=== PATIENT | male | born 1950 | race Caucasian/White ===

== ENCOUNTER 2021-03-01 11:02 | Inpatient (IN) ==
[2021-03-01 11:22] LABS: ABG BASE EXCESS 1.6 mmol/L (-2.0-2.0); ABG HCO3 23.7 mmol/L (22-26)
--- NOTE | 2021-03-01 11:22 | DR.SOBA ---
HPI Time Seen Time Seen by Provider: 03/01/21 11:17 HPI Comment HPI Comment: PATIENT IS 70YR OLD MALE IN ER FOR INCREASING SOB, DECREASE O2 SAT AND FEVER. HE WAS IN THE [facility] FOR [facility]MENT WHEN HE GOT WORSE AND CAME TO ER. DID NOT RECEIVE HIS INFUSION. TESTED POSITIVE FOR COVID 19 VIRUS FEW DAYS AGO. PATIENT HAVE 8/10 PLEURITIC CHEST PAIN RADIATING TO THE BACK. O2 SAT 84 IN ER ON RA. Complaints Chief Complaint Doctors Comments: INCREASING SOB, LOW O2 SAT AND FEVER. COVID POSITIVE. COVID-19 Coronavirus risk:travel/contact w/high risk person: Yes Has patient experienced Coronavirus symptoms: Yes Coronavirus symptoms experienced: Coughing and Shortness of Breath Reviewed Nurses Notes Reviewed: Yes Source History Provided: Patient Mode of Arrival Mode of Arrival: Wheelchair Duration Duration: Days Context Onset:: At Rest PE Risk Factors:: None History of:: None Prehospital Care:: None Modifying Factors Worsens:: Exertion Improves:: Rest Associated Signs and Symptoms Associated Signs and Symptoms: Fever, Cough and Chest Pain If Chest Pain Quality: Pleuritic Location: Substernal If Cough Cough: Productive and Yellow ROS Review of Systems Constitutional: See HPI, Weakness and Fatigue; negative Fever Eyes: No Symptoms Reported and See HPI ENTM: See HPI, Nose Discharge and Nose Congestion Respiratoy: See HPI, Productive Cough and Short of Breath; negative Wheezing Cardiovascular: No Symptoms Reported, See HPI and Chest Pain (PLEURITIC CHEST PAIN.) Gastrointestinal/Abdominal: No Symptoms Reported and See HPI; negative Abdominal Pain, Diarrhea, Nausea and Vomiting Genitourinary: No Symptoms Reported and See HPI; negative Dysuria, Frequency and Hematuria Neurological: See HPI, Headache and Weakness; negative Dizziness Musculoskeletal: See HPI and Muscle Pain; negative Back Pain Integumentary: No Symptoms Reported and See HPI; negative Change in Color, Rash and Juandice Hematologic/Lymphatic: No Symptoms Reported and See HPI; negative Easy Bruising Endocrine: No Symptoms Reported and See HPI; negative Increased Thirst and Increased Urine Psychiatric: No Symptoms Reported and See HPI All Other Systems: Reviewed and Negative PE Vital Signs Vitals: Temperature 99.6 F Pulse Rate 80 Respiratory Rate 46 Blood Pressure 153/81 O2 Sat by Pulse Oximetry 89 General Limitations: No Limitations General Appearance: Alert and In Distress Head Head Exam: Normal Inspection Eyes Eye exam: Normal Appearance and PERRL; negative Scleral Icterus and Conjunctival Injection ENT ENT Exam: Normal Exam, Normal External Ear Exam and TM's Normal Bilaterally; negative Normal Oropharynx Neck Neck Exam: Normal Inspection and Trachea Midline; negative Tenderness and Lymphadenopathy Chest Chest Inspection: Normal Inspection and Symmetric Chest Wall Rise; negative Tenderness Respiratory Respiratory Exam: Normal Lung Sounds Bilat, Accessory Muscle Use and Respiratory Distress; negative Chest Wall Tenderness Respiratory Exam: Bilateral: Wheezing and Bilateral: Rhonchi and Lower: Wheezing and Lower: Rhonchi Cardiovascular Cardiovascular Exam: Regular Rate, Normal Rhythm and Normal Heart Sounds; nega tive Systolic Murmur and Diastolic Murmur Abdominal Exam Abdominal Exam: Normal Inspection, Normal Bowel Sounds and Soft; negative Tenderness Extremities Extremities Exam: Normal Inspection and Normal Capillary Refill Back Back Exam: Normal Inspection; negative (R) CVA Tenderness and (L) CVA Tenderness Neurologic Neurological Exam: Alert, Oriented X3 and CN II-XII Intact; negative Motor Sensory Deficit Psychiatric Psychiatric Exam: Normal Affect and Anxious Skin Skin Exam: Warm, Dry, Intact and Normal Color MDM Differential Diagnosis Differential Diagnosis: Bronchitis, CHF, Hyponatremia, Mycardial Infarction, Pneumonia, Pneumothorax, Pulmonary embolism, Respiratory Failure and Sinusitis COURSE Treatment Treatment: SEE ORDERS. DUO NEB, SOLUMEDROL 125MG IV. NS, 125CC/HR AND POTASSIUN 25MG EFFER. IN ER. O2 4L/M, O2 SAT STILL LOW. O2 VIA NR MASK. Consultation Consultation Comments: PATIENT DISCUSSED WITH DR. VASQUEZ SERVICE. PATIENT WILL ADMITTED TO DR. VILLALPANDO. Education/Counseling Education/Counseling: Patient Educated On: Diagnosis ROR Labs Reviewed Laboratory Results Reviewed?: Yes Result Diagrams: 04/05/21 05:50 04/05/21 05:50 Laboratory: WBC 5.9 X10^3/uL (3.6-10.0) 03/01/21 11:20 RBC 4.54 X10^6/uL (4.7-6.0) L 03/01/21 11:20 Hgb 13.6 g/dL (13.5-18.0) 03/01/21 11:20 Hct 37.9 % (42.0-54.0) L 03/01/21 11:20 MCV 83.6 fL (80.0-100.0) 03/01/21 11:20 MCH 30.0 pg (27.0-34.0) 03/01/21 11:20 MCHC 35.9 g/dL (33.0-35.0) H 03/01/21 11:20 RDW 12.8 % (11.6-16.5) 03/01/21 11:20 Plt Count 147 X10^3/uL (150.0-450.0) L 03/01/21 11:20 MPV 8.3 fL (7.4-11.0) 03/01/21 11:20 Neut % (Auto) 84.3 % (42.0-75.0) H 03/01/21 11:20 Lymph % (Auto) 8.6 % (21.0-51.0) L 03/01/21 11:20 [place] % (Auto) 7.0 % (0.0-13.0) 03/01/21 11:20 Eos % (Auto) 0.0 % (0.9-2.9) L 03/01/21 11:20 Baso % (Auto) 0.1 % (0.2-1.0) L 03/01/21 11:20 Neut # (Auto) 4.9 x10^3/uL (2.2-4.8) H 03/01/21 11:20 Lymph # (Auto) 0.5 X10^3/uL (1.3-2.9) L 03/01/21 11:20 [place] # (Auto) 0.4 x10^3/uL (0.3-0.8) 03/01/21 11:20 Eos # (Auto) 0.0 x10^3/uL (0.0-0.2) 03/01/21 11:20 Baso # (Auto) 0.0 X10^3/uL (0.0-0.1) 03/01/21 11:20 Absolute Nucleated RBC 0.1 /100WBC 03/01/21 11:20 D-Dimer 0.80 ug/ml (0.0-0.57) H* 03/01/21 11:20 Sample Site Lbra 03/01/21 15:30 ABG pH 7.490 (7.35-7.45) H 03/01/21 15:30 ABG pCO2 30.0 mmHg (35.0-45.0) L 03/01/21 15:30 ABG pO2 64.0 mmHg (80.0-100.0) L 03/01/21 15:30 ABG HCO3 22.9 mmol/L (22-26) 03/01/21 15:30 ABG O2 Saturation 94.0 % (90-100) 03/01/21 15:30 ABG Base Excess 0.3 mmol/L (-2.0-2.0) 03/01/21 15:30 Sree Test N/a 03/01/21 15:30 A-a Gradient 612.0 mmHg 03/01/21 15:30 FiO2 100.0 03/01/21 15:30 Blood Gas Comments Pt hernandez well eb 03/01/21 15:30 Sodium 140 mmol/L (136-145) 03/01/21 11:20 Corrected Sodium TNP 03/01/21 11:20 Potassium 3.3 mmol/L (3.5-5.1) L 03/01/21 11:20 Chloride 104 mmol/L (98-107) 03/01/21 11:20 Carbon Dioxide 27.4 mmol/L (21-32) 03/01/21 11:20 BUN 18 mg/dL (7-18) 03/01/21 11:20 Creatinine 1.05 mg/dL (0.70-1.30) 03/01/21 11:20 Est GFR (MDRD) Af Amer > 60 (>60) 03/01/21 11:20 Est GFR (MDRD) Non-Af > 60 (>60) 03/01/21 11:20 Glucose 106 mg/dL (65-99) H 03/01/21 11:20 Calcium 8.1 mg/dL (8.5-10.1) L 03/01/21 11:20 Corrected Calcium 9.1 mg/dL (8.5-10.1) 03/01/21 11:20 Ferritin 1988 ng/mL (26-388) H 03/01/21 11:20 Total Bilirubin 0.70 mg/dL (0.2-1.0) 03/01/21 11:20 AST 49 Units/L (15-37) H 03/01/21 11:20 ALT 50 Units/L (12-78) 03/01/21 11:20 Alkaline Phosphatase 74 Units/L (46-116) 03/01/21 11:20 Creatine Kinase 121 Units/L (39-308) 03/01/21 11:20 CK-MB (CK-2) < 1.0 ng/mL (0-4.0) 03/01/21 11:20 CK/CKMB % Calc 0.8 % (<4) 03/01/21 11:20 Troponin I < 0.02 ng/mL (0-1.5) 03/01/21 11:20 C-Reactive Protein 87.80 mg/L (0-3.0) H 03/01/21 11:20 B-Natriuretic Peptide 412 pg/mL (0-79) H 03/01/21 11:20 Total Protein 7.3 g/dL (6.4-8.2) 03/01/21 11:20 Albumin 2.8 g/dL (3.4-5.0) L 03/01/21 11:20 Globulin 4.5 g/dL (2.5-4.5) 03/01/21 11:20 Albumin/Globulin Ratio 0.6 Ratio (1.1-2.1) L 03/01/21 11:20 XRAY XRAY Interpreted by: Radiologist (REPORT NOTED AND DISCUSSED WITH PATIENTP) and Self Opioid Opioid Risk Tool Total: 0 Total Score Risk Category: Low Risk Copyright: Silver BA predicting aberrant behaviors Diagnosis Discharge Problem: COVID-19 virus infection, Hypoxia, Hypokalemia Pneumonia Qualifiers: Pneumonia type: due to unspecified organism Laterality: bilateral Lung location: lower lobe of lung Qualified Code(s): J18.9 - Pneumonia, unspecified organism Instructions Forms: Precautions for COVID19 [facility] Patient Portal Social Distancing
[2021-03-01 11:23] LABS: ABG ALLEN TEST POS
[2021-03-01] MEDS ORDERED: DUONEB 0.5 MG/3 MG (3 mL) NEB ONE ×2 (11:38→11:40)
[2021-03-01] MEDS ORDERED: SOLU-Medrol 125 MG VIAL IVP ONE (11:41)
[2021-03-01] MEDS ORDERED: SOLU-Medrol 125 MG VIAL ONE (11:47)
[2021-03-01 11:52] LABS: BASOPHILS % (AUTO) 0.1 % (0.2-1.0); HEMATOCRIT 37.9 % (42.0-54.0); HEMOGLOBIN 13.6 g/dL (13.5-18.0); LYMPHOCYTES # (AUTO) 0.5 X10^3/uL (1.3-2.9); LYMPHOCYTES % (AUTO) 8.6 % (21.0-51.0); MEAN CORPUSCULAR HGB CONC 35.9 g/dL (33.0-35.0); MEAN CORPUSCULAR VOLUME 83.6 fL (80.0-100.0); MEAN PLATELET VOLUME 8.3 fL (7.4-11.0); MONOCYTES # (AUTO) 0.4 x10^3/uL (0.3-0.8); NEUTROPHILS # (AUTO) 4.9 x10^3/uL (2.2-4.8); NEUTROPHILS % (AUTO) 84.3 % (42.0-75.0); PLATELET COUNT 147 X10^3/uL (150.0-450.0); RED BLOOD COUNT 4.54 X10^6/uL (4.7-6.0); RED CELL DISTRIBUTION WIDTH 12.8 % (11.6-16.5); WHITE BLOOD COUNT 5.9 X10^3/uL (3.6-10.0)
--- NOTE | 2021-03-01 12:13 | RAD ---
HISTORYShortness of breath, COVID-19STUDYChest AP portableCOMPARISONNone heart size is accentuated by mild hypo inflation. It is likely normal. There is a subtle peripheral right upper lobe ground-glass infiltrates and possibly some peripheral left lower lobe ground-glass infiltrates presentFINDINGSHeart size is accentuated by mild hypo inflation. It is likely normal. Subtle peripheral right upper and left lower lobe infiltrates are identified. No pleural effusions or pneumothoraces are identified. Bony thorax is unremarkable.IMPRESSIONSubtle peripheral right upper and left lower lobe infiltrates consistent with multifocal pneumonia/pneumonitis. COVID-19 can have this appearance however this appearance is not specific for COVID-19 and clinical and laboratory correlation is recommendedElectronically signed by: SUSAN SILVA (Mar 01, 2021 12:11:03)
[2021-03-01 12:41] LABS: ALANINE AMINOTRANSFERASE 50 Units/L (12-78); ALBUMIN 2.8 g/dL (3.4-5.0); ALKALINE PHOSPHATASE 74 Units/L (46-116); ASPARTATE AMINO TRANSFERASE 49 Units/L (15-37); BLOOD UREA NITROGEN 18 mg/dL (7-18); CALCIUM 8.1 mg/dL (8.5-10.1); CARBON DIOXIDE 27.4 mmol/L (21-32); CHLORIDE 104 mmol/L (98-107); CKMB % 0.8 % (<4); COR CA(FOR HYPOALB) 9.1 mg/dL (8.5-10.1); CREATINE KINASE 121 Units/L (39-308); CREATINE KINASE MB < 1.0 ng/mL (0-4.0); CREATININE 1.05 mg/dL (0.70-1.30); SODIUM 140 mmol/L (136-145); TOTAL PROTEIN 7.3 g/dL (6.4-8.2); TROPONIN I < 0.02 ng/mL (0-1.5); eGFR NON BLACK RACES > 60 (>60)
[2021-03-01] MEDS ORDERED: ZOSYN VIAL 3.375 GRAMS 3.375 G in NS 100 ML IV + SPIKE MINIBAG* 100 ML IV ONE (13:57)
[2021-03-01] MEDS ORDERED: NS 1000 ML 1,000 ML ONE (14:44)
[2021-03-01] MEDS ORDERED: NS 100 ML IV + SPIKE MINIBAG* 100 ML IV ONE (14:44)
[2021-03-01] MEDS ORDERED: ZOSYN VIAL 3.375 GRAMS IV ONE (14:44)
[2021-03-01] MEDS: NS 1000 ML 1,000 ML IV SCH ×2 (14:55→22:14)
[2021-03-01 15:38] LABS: ABG BASE EXCESS 0.3 mmol/L (-2.0-2.0); ABG HCO3 22.9 mmol/L (22-26)
[2021-03-01] MEDS ORDERED: KLOR-CON PO ONE (16:27)
[2021-03-01] MEDS ORDERED: K-DUR TAB 20 MEQ PO ONE ×2 (17:00→17:06)
[2021-03-01] MEDS ORDERED: LOVENOX INJ 80 MG SYR SC ONE ×2 (17:15→17:50)
[2021-03-01] MEDS ORDERED: REMDESIVIR 200 MG in NS 250 ML IV 250 ML IV ONE (17:17)
[2021-03-01] MEDS ORDERED: REMDESIVIR IV ONE (17:33)
[2021-03-01] MEDS ORDERED: NS 250 ML IV 250 ML IV ONE (17:33)
[2021-03-01] MEDS ORDERED: DUONEB 0.5 MG/3 MG (3 mL) NEB SCH (18:00)
[2021-03-01] MEDS ORDERED: LOVENOX INJ 80 MG SYR SC SCH (20:00)
[2021-03-01] MEDS ORDERED: LOVENOX INJ 30 MG SYR SC SCH (21:00)
[2021-03-01] MEDS: PEPCID TAB 40 MG PO SCH (21:33)
[2021-03-01] MEDS: ASCORBIC ACID INJ MULTI-DOSE VIAL 1,500 MG in NS 100 ML IV 100 ML IV SCH (21:33)
[2021-03-01] MEDS: ZINC SULFATE PO SCH (21:33)
[2021-03-01] MEDS: PULMICORT NEB TX 0.5 MG NEB SCH (22:03)
[2021-03-01] MEDS: ZOSYN VIAL 3.375 GRAMS 3.375 G in NS 100 ML IV + SPIKE MINIBAG* 100 ML IV SCH (22:14)
[2021-03-01] MEDS: SOLU-Medrol 40 MG VIAL IVP SCH (22:14)
[2021-03-02] MEDS: NS 1000 ML 1,000 ML IV SCH ×5 (03:30→21:59)
[2021-03-02] MEDS: ASCORBIC ACID INJ MULTI-DOSE VIAL 1,500 MG in NS 100 ML IV 100 ML IV SCH ×4 (03:54→20:44)
[2021-03-02 05:20] LABS: BASOPHILS % (AUTO) 0.1 % (0.2-1.0); HEMATOCRIT 37.2 % (42.0-54.0); LYMPHOCYTES # (AUTO) 0.4 X10^3/uL (1.3-2.9); LYMPHOCYTES % (AUTO) 5.1 % (21.0-51.0); MEAN CORPUSCULAR HEMOGLOBIN 29.4 pg (27.0-34.0); MEAN CORPUSCULAR HGB CONC 34.9 g/dL (33.0-35.0); MEAN CORPUSCULAR VOLUME 84.1 fL (80.0-100.0); MEAN PLATELET VOLUME 8.2 fL (7.4-11.0); MONOCYTES # (AUTO) 0.4 x10^3/uL (0.3-0.8); MONOCYTES % (AUTO) 5.8 % (0.0-13.0); NEUTROPHILS # (AUTO) 6.7 x10^3/uL (2.2-4.8); PLATELET COUNT 165 X10^3/uL (150.0-450.0); RED BLOOD COUNT 4.42 X10^6/uL (4.7-6.0); RED CELL DISTRIBUTION WIDTH 13.1 % (11.6-16.5); WHITE BLOOD COUNT 7.5 X10^3/uL (3.6-10.0)
[2021-03-02 05:31] LABS: ALANINE AMINOTRANSFERASE 46 Units/L (12-78); ALBUMIN 2.5 g/dL (3.4-5.0); ALKALINE PHOSPHATASE 71 Units/L (46-116); ASPARTATE AMINO TRANSFERASE 48 Units/L (15-37); BLOOD UREA NITROGEN 20 mg/dL (7-18); CALCIUM 7.9 mg/dL (8.5-10.1); CHLORIDE 108 mmol/L (98-107); COR CA(FOR HYPOALB) 9.1 mg/dL (8.5-10.1); COR NA(FOR HYPERGLY) 143 mmol/L (136-145); CREATININE 1.02 mg/dL (0.70-1.30); SODIUM 142 mmol/L (136-145); TOTAL PROTEIN 6.9 g/dL (6.4-8.2); eGFR NON BLACK RACES > 60 (>60)
[2021-03-02] MEDS: SOLU-Medrol 40 MG VIAL IVP SCH ×3 (05:35→22:05)
[2021-03-02] MEDS: ZOSYN VIAL 3.375 GRAMS 3.375 G in NS 100 ML IV + SPIKE MINIBAG* 100 ML IV SCH ×3 (05:37→22:05)
[2021-03-02] MEDS: DUONEB 0.5 MG/3 MG (3 mL) NEB SCH ×2 (06:23→22:02)
--- NOTE | 2021-03-02 06:47 | RAD ---
HISTORYCOVID PNEUMONIASTUDYCHEST, 1 [id number]/14/2021.TECHNIQUEAP view of the chestFINDINGSThe cardiac silhouette is stable. Mediastinal contours appear stable. No significant change in bilateral airspace opacities. No definite pleural effusion or pneumothorax.IMPRESSIONNo significant change.Electronically signed by: Elmer Gonzalez (Mar 02, 2021 06:46:00)
[2021-03-02] MEDS ORDERED: MORPHINE SULFATE INJ 2 MG INJ IVP ONE (07:23)
[2021-03-02] MEDS ORDERED: MORPHINE SULFATE INJ 2 MG INJ ONE (07:23)
[2021-03-02] MEDS: FLOMAX PO SCH (08:50)
[2021-03-02] MEDS ORDERED: ACTEMRA 400 MG in NS 100 ML IV 80 ML IV SCH (08:50)
[2021-03-02] MEDS: LOPRESSOR TAB 50 MG PO SCH (08:51)
[2021-03-02] MEDS: PriLOSEC PO SCH (08:52)
[2021-03-02] MEDS: ZINC SULFATE PO SCH ×2 (08:52→20:30)
[2021-03-02] MEDS: TRICOR TAB 160 MG PO SCH (08:53)
[2021-03-02] MEDS: LOVENOX INJ 80 MG SYR SC SCH ×2 (08:53→20:44)
[2021-03-02] MEDS: HYDROCHLOROTHIAZIDE 25 MG TAB PO SCH (08:54)
[2021-03-02] MEDS: PEPCID TAB 40 MG PO SCH ×2 (08:55→20:30)
[2021-03-02] MEDS: PULMICORT NEB TX 0.5 MG NEB SCH ×2 (08:55→22:02)
[2021-03-02] MEDS ORDERED: VITAMIN D (1.25MG) PO SCH (09:00)
[2021-03-02] MEDS ORDERED: VITAMIN A PO SCH (09:00)
[2021-03-02] MEDS ORDERED: [UNRECOGNIZED DRUG - OTHER] PO SCH (09:00)
--- NOTE | 2021-03-02 10:59 | DR.H&P ---
H&P History & Physical for Day of: H&P Date: 03/02/21 Chief Complaint Chief Complaint: worsening SOB Allergies Allergies Allergy/AdvReac Type Severity Reaction Status Date / Time No Known Drug Allergies Allergy Verified 03/01/21 12:04 History of Present Illness History of Present Illness: Mr Solis is a 70y/o male with a PMH of HTN, GERD presented with worsening dyspnea. He tested positive for covid-19 on 02/24/21. He reports increased shortness of breath and cough. He also reports diarrhea. Denies N/V. He has been eating a little bit. Denies fever or chills. He was found to be severely hypoxic on arrival and placed on NRB. He saturations dropped further this morning and he felt worse so was placed on BiPAP. He is currently on BiPAP at FiO2 100% with sats above 95%. Er work-up Labs: WB 7.5 Hgb 13 Plt 165 BUN/Cr: 20/1.02 AST/ALT:48/46 CRP: 87 d-dimer: 0.80 ABG on arrival: 7.52/29/39/23.7 sats 80% Repeat AB.49/30/64/22.9 sats 94% CXR: multifocal pneumonia, bilateral opacities CTAP could not be done as patient is allergic to shrimp and states he is not able to tolerate IV contrast. Plan: Wean BiPAP as tolerated to keep sats >92%. Transition to HHFNC if tolerated. Continue IV Remdesivir, Solumedrol and Zosyn. Continue vitamin alexander pport. Will order one dose of Actemra. Continue nebs, pulmicort and IS as tolerated. Resume home medications. Continue gentle hydration. Continue full dose lovenox. Patient is anxious, received a dose of morphine earlier this morning which helped, will add morphine prn. Monitor AM labs and imaging. Patient remains in critical condition. Time spent for clinical assessment, reviewing labs/imaging, physical exam, decision making and documentation greater than 75 mins. Past Medical History Past Medical History: GERD and Hypertension Past Surgical History Surgical History: Ortho Surgery Family History Family Medical History: Diabetes Mellitus Social History Does patient currently use any type of tobacco product: No Have you used tobacco products in the last 12 months: No Alcohol Use: None Drug Use: None Prescription drug monitoring program results: PDMP reviewed and no concerns identified Medications Home Medications: No Known Drug Allergies Allergy (Verified 03/01/21 12:04) CONTINUE taking the following medications albuterol sulfate 1 puff INHALATION Q6PM PRN 03/01/21 [History] azithromycin 250 mg PO DAILY 03/01/21 [History] candesartan 16 mg PO DAILY 03/01/21 [History] methylprednisolone 4 mg PO DIRECTED 03/01/21 [History] metoprolol ta-hydrochlorothiaz 1 tab PO DAILY 03/01/21 [History] omeprazole 20 mg PO DAILY 03/01/21 [History] tamsulosin 0.4 mg PO DAILY 03/01/21 [History] Labs Result Diagrams: 03/02/21 04:58 03/02/21 04:58 Labs: Laboratory WBC 7.5 X10^3/uL (3.6-10.0) 03/02/21 04:58 RBC 4.42 X10^6/uL (4.7-6.0) L 03/02/21 04:58 Hgb 13.0 g/dL (13.5-18.0) L 03/02/21 04:58 Hct 37.2 % (42.0-54.0) L 03/02/21 04:58 MCV 84.1 fL (80.0-100.0) 03/02/21 04:58 MCH 29.4 pg (27.0-34.0) 03/02/21 04:58 MCHC 34.9 g/dL (33.0-35.0) 03/02/21 04:58 RDW 13.1 % (11.6-16.5) 03/02/21 04:58 Plt Count 165 X10^3/uL (150.0-450.0) 03/02/21 04:58 MPV 8.2 fL (7.4-11.0) 03/02/21 04:58 Neut % (Auto) 89.0 % (42.0-75.0) H 03/02/21 04:58 Lymph % (Auto) 5.1 % (21.0-51.0) L 03/02/21 04:58 [place] % (Auto) 5.8 % (0.0-13.0) 03/02/21 04:58 Eos % (Auto) 0.0 % (0.9-2.9) L 03/02/21 04:58 Baso % (Auto) 0.1 % (0.2-1.0) L 03/02/21 04:58 Neut # (Auto) 6.7 x10^3/uL (2.2-4.8) H 03/02/21 04:58 Lymph # (Auto) 0.4 X10^3/uL (1.3-2.9) L 03/02/21 04:58 [place] # (Auto) 0.4 x10^3/uL (0.3-0.8) 03/02/21 04:58 Eos # (Auto) 0.0 x10^3/uL (0.0-0.2) 03/02/21 04:58 Baso # (Auto) 0.0 X10^3/uL (0.0-0.1) 03/02/21 04:58 Absolute Nucleated RBC 0.0 /100WBC 03/02/21 04:58 D-Dimer 0.80 ug/ml (0.0-0.57) H* 03/01/21 11:20 Sample Site Lbra 03/01/21 15:30 ABG pH 7.490 (7.35-7.45) H 03/01/21 15:30 ABG pCO2 30.0 mmHg (35.0-45.0) L 03/01/21 15:30 ABG pO2 64.0 mmHg (80.0-100.0) L 03/01/21 15:30 ABG HCO3 22.9 mmol/L (22-26) 03/01/21 15:30 ABG O2 Saturation 94.0 % (90-100) 03/01/21 15:30 ABG Base Excess 0.3 mmol/L (-2.0-2.0) 03/01/21 15:30 Sree Test N/a 03/01/21 15:30 A-a Gradient 612.0 mmHg 03/01/21 15:30 FiO2 100.0 03/01/21 15:30 Blood Gas Comments Pt hernandez well eb 03/01/21 15:30 Sodium 142 mmol/L (136-145) 03/02/21 04:58 Corrected Sodium 143 mmol/L (136-145) 03/02/21 04:58 Potassium 4.0 mmol/L (3.5-5.1) 03/02/21 04:58 Chloride 108 mmol/L (98-107) H 03/02/21 04:58 Carbon Dioxide 23.0 mmol/L (21-32) 03/02/21 04:58 BUN 20 mg/dL (7-18) H 03/02/21 04:58 Creatinine 1.02 mg/dL (0.70-1.30) 03/02/21 04:58 Est GFR (MDRD) Af Amer > 60 (>60) 03/02/21 04:58 Est GFR (MDRD) Non-Af > 60 (>60) 03/02/21 04:58 Glucose 134 mg/dL (65-99) H 03/02/21 04:58 Calcium 7.9 mg/dL (8.5-10.1) L 03/02/21 04:58 Corrected Calcium 9.1 mg/dL (8.5-10.1) 03/02/21 04:58 Ferritin 1988 ng/mL (26-388) H 03/01/21 11:20 Total Bilirubin 0.60 mg/dL (0.2-1.0) 03/02/21 04:58 AST 48 Units/L (15-37) H 03/02/21 04:58 ALT 46 Units/L (12-78) 03/02/21 04:58 Alkaline Phosphatase 71 Units/L (46-116) 03/02/21 04:58 Creatine Kinase 121 Units/L (39-308) 03/01/21 11:20 CK-MB (CK-2) < 1.0 ng/mL (0-4.0) 03/01/21 11:20 CK/CKMB % Calc 0.8 % (<4) 03/01/21 11:20 Troponin I < 0.02 ng/mL (0-1.5) 03/01/21 11:20 C-Reactive Protein 87.80 mg/L (0-3.0) H 03/01/21 11:20 B-Natriuretic Peptide 412 pg/mL (0-79) H 03/01/21 11:20 Total Protein 6.9 g/dL (6.4-8.2) 03/02/21 04:58 Albumin 2.5 g/dL (3.4-5.0) L 03/02/21 04:58 Globulin 4.4 g/dL (2.5-4.5) 03/02/21 04:58 Albumin/Globulin Ratio 0.6 Ratio (1.1-2.1) L 03/02/21 04:58 Review of Systems Constitutional: Weakness and Malaise Eyes: No Symptoms Reported ENT: No Symptoms Reported Respiratory: Cough, Shortness of Breath and SOB with Excertion Cardiovascular: No Symptoms Reported Gastrointestinal: Diarrhea Genitourinary: No Symptoms Reported Musculoskeletal: No Symptoms Reported Skin: No Symptoms Reported Neurological: No Symptoms Reported Physical Exam Vital Signs: Temperature 99.1 F Pulse Rate [Left Brachial] 85 Pulse Rate 55 Respiratory Rate 36 Blood Pressure [Left Arm] 153/80 Blood Pressure 159/83 O2 Sat by Pulse Oximetry 98 Oriented: Normal Eyes: Normal Respiratory: Diminished Throughout Cardiovascular: Normal Auscultation: Bowel Sounds: Normal Palpation: Normal Tenderness: Normal Skin: Decreased [place]urg[place] Musculoskeletal: Normal Psychiatric: Anxiety Mood Description: Anxious Affect: Normal Speech Pattern: Clear, Appropriate and Artificially Ventilated (BiPAP ) Assessment/Plan (1) Acute respiratory failure with hypoxia: Status: Acute (2) COVID-19 virus infection: Status: Acute (3) Hypokalemia: Status: Acute (4) Pneumonia due to COVID-19 virus: Status: Acute (5) Elevated d-dimer: Status: Acute Review H&P Reviewed: Yes Patient was examined?: Yes
[2021-03-02] MEDS: REMDESIVIR 100 MG in NS 100 ML IV + SPIKE MINIBAG* 120 ML IV SCH (12:58)
[2021-03-02] MEDS: CANDESARTAN 16 MG PO SCH (13:17)
[2021-03-02] MEDS ORDERED: ZOFRAN INJ 4 MG VIAL ONE (21:26)
[2021-03-02] MEDS: ZOFRAN INJ 4 MG VIAL IVP PRN (21:32)
[2021-03-02] MEDS: MORPHINE SULFATE INJ 2 MG INJ IVP PRN (23:10)
--- NOTE | 2021-03-03 00:32 | RAD ---
STUDY: SINGLE VIEW OF THE ABDOMENCOMPARISON: NoneHISTORY: PT C/O ABD PAIN AND DISTENTION AROUND UMBILICUS AREAFINDINGS:Bowel gas pattern is nonobstructive.There is no gross evidence of free air in the abdomen.There are no abnormal masses or calcification seen.The visualized bones are unremarkable.IMPRESSION:1. THE BOWEL GAS PATTERN IS NONOBSTRUCTIVE.Electronically signed by: Ever Hassan (Mar 03, 2021 00:30:23)
[2021-03-03] MEDS: ASCORBIC ACID INJ MULTI-DOSE VIAL 1,500 MG in NS 100 ML IV 100 ML IV SCH ×4 (04:16→21:00)
[2021-03-03 05:11] LABS: ABG BASE EXCESS 1.3 mmol/L (-2.0-2.0); ABG HCO3 24.9 mmol/L (22-26)
[2021-03-03 05:12] LABS: ABG ALLEN TEST POS
[2021-03-03] MEDS: DUONEB 0.5 MG/3 MG (3 mL) NEB SCH ×2 (05:50→21:05)
--- NOTE | 2021-03-03 06:14 | RAD ---
HISTORYCOVID PNEUMONIASTUDYCHEST, 1 VIEWCOMPARISONOne day prior.TECHNIQUEAP view of the chestFINDINGSCardiac and mediastinal contours are within normal limits. Interval improvement in bilateral airspace opacities. No definite pleural effusion or pneumothorax.IMPRESSIONImproved COVID pneumonia opacities.Electronically signed by: Elmer Gonzalez (Mar 03, 2021 06:12:36)
[2021-03-03] MEDS: NS 1000 ML 1,000 ML IV SCH ×3 (06:17→16:09)
[2021-03-03] MEDS: SOLU-Medrol 40 MG VIAL IVP SCH ×3 (06:20→22:00)
[2021-03-03] MEDS: ZOSYN VIAL 3.375 GRAMS 3.375 G in NS 100 ML IV + SPIKE MINIBAG* 100 ML IV SCH ×3 (06:20→22:00)
[2021-03-03 06:31] LABS: BASOPHILS % (AUTO) 0.1 % (0.2-1.0); HEMATOCRIT 36.5 % (42.0-54.0); LYMPHOCYTES # (AUTO) 0.4 X10^3/uL (1.3-2.9); LYMPHOCYTES % (AUTO) 4.5 % (21.0-51.0); MEAN CORPUSCULAR HEMOGLOBIN 29.6 pg (27.0-34.0); MEAN CORPUSCULAR HGB CONC 35.5 g/dL (33.0-35.0); MEAN CORPUSCULAR VOLUME 83.5 fL (80.0-100.0); MEAN PLATELET VOLUME 8.3 fL (7.4-11.0); MONOCYTES # (AUTO) 0.5 x10^3/uL (0.3-0.8); NEUTROPHILS # (AUTO) 7.9 x10^3/uL (2.2-4.8); NEUTROPHILS % (AUTO) 89.4 % (42.0-75.0); PLATELET COUNT 199 X10^3/uL (150.0-450.0); RED BLOOD COUNT 4.37 X10^6/uL (4.7-6.0); RED CELL DISTRIBUTION WIDTH 13.1 % (11.6-16.5); WHITE BLOOD COUNT 8.9 X10^3/uL (3.6-10.0)
[2021-03-03 06:41] LABS: ALANINE AMINOTRANSFERASE 56 Units/L (12-78); ALBUMIN 2.5 g/dL (3.4-5.0); ALKALINE PHOSPHATASE 79 Units/L (46-116); ASPARTATE AMINO TRANSFERASE 57 Units/L (15-37); BLOOD UREA NITROGEN 28 mg/dL (7-18); CALCIUM 7.9 mg/dL (8.5-10.1); CARBON DIOXIDE 26.2 mmol/L (21-32); CHLORIDE 108 mmol/L (98-107); COR CA(FOR HYPOALB) 9.1 mg/dL (8.5-10.1); COR NA(FOR HYPERGLY) 144 mmol/L (136-145); CREATININE 0.99 mg/dL (0.70-1.30); SODIUM 143 mmol/L (136-145); TOTAL PROTEIN 6.7 g/dL (6.4-8.2); eGFR NON BLACK RACES > 60 (>60)
[2021-03-03] MEDS: ZOFRAN INJ 4 MG VIAL IVP PRN (08:28)
[2021-03-03] MEDS: TRICOR TAB 160 MG PO SCH (08:29)
[2021-03-03] MEDS: VITAMIN A PO SCH (08:29)
[2021-03-03] MEDS: FLOMAX PO SCH (08:29)
[2021-03-03] MEDS: ZINC SULFATE PO SCH ×2 (08:29→21:00)
[2021-03-03] MEDS: PriLOSEC PO SCH (08:30)
[2021-03-03] MEDS: LOVENOX INJ 80 MG SYR SC SCH ×2 (08:30→21:00)
[2021-03-03] MEDS: HYDROCHLOROTHIAZIDE 25 MG TAB PO SCH (08:30)
[2021-03-03] MEDS: LOPRESSOR TAB 50 MG PO SCH (08:30)
[2021-03-03] MEDS: REMDESIVIR 100 MG in NS 100 ML IV + SPIKE MINIBAG* 120 ML IV SCH (08:30)
[2021-03-03] MEDS: PEPCID TAB 40 MG PO SCH ×2 (08:30→21:00)
[2021-03-03] MEDS: VITAMIN D3 125 mcg (5,000 UNITS) PO SCH (08:31)
[2021-03-03] MEDS ORDERED: RESTORIL CAP 15 MG PO PRN (09:03)
[2021-03-03] MEDS ORDERED: HumuLIN R SC PRN (09:04)
[2021-03-03] MEDS: CANDESARTAN 16 MG PO SCH (09:06)
[2021-03-03] MEDS: PULMICORT NEB TX 0.5 MG NEB SCH ×2 (09:12→21:05)
--- NOTE | 2021-03-03 09:15 | PCM.PROG ---
Progress Note Progress Note for Day of Date of Exam: 03/03/21 Subjective Subjective: Patient seen at bedside, no acute events overnight. He was placed back on BiPAP overnight, currently on HHFNC at FiO2 79% with sats above 90%. He states he feels much better with HHFNC rather than BiPAP mask. He was not able to sleep much due to feeling anxious. He reports good appetite. Denies fever or chills. Labs: WBC 8.9 Hgb 13 Plt 199 K: 3.7 BUN/Cr: 28/0.99 Glucose 158 CRP 63 AST/ALT: 57/56 ABG 7.46/35/139/24 CXR: improved covid pneumonia KUB: non-obstructive gas pattern Plan: Wean O2 as tolerated to keep sats > 90%, BiPAP prn. Continue covid-19 protocol and telemetry. Continue IV Remdesivir, Solumedrol and Zosyn. Continue vitamin support and lovenox. Continue nebs, pulmicort and IS. Continue home medications. Gentle hydration. Add insulin for hyperglycemia. Add temazepam qhs prn. Monitor AM labs/imaging. Time spent for clinical assessment, reviewing labs/imaging, physical exam, decision making and documentation greater than 45 mins. Past Medical Family Social History Past Med/Fam/Surg Hx: No changes since H&P Allergies: Allergies IVP DYE Allergy (Uncoded 03/02/21 18:20) Review of Systems ROS: No change since H&P Vital Signs and I&O's Vital Signs: Temperature 98.1 F Pulse Rate [Left Brachial] 85 Pulse Rate 62 Respiratory Rate 26 Blood Pressure [Left Arm] 153/80 Blood Pressure 139/77 O2 Sat by Pulse Oximetry 93 Intake and Output: Intake & Output 02/28/21 03/01/21 03/02/21 03/03/21 23:59 23:59 23:59 23:59 Intake Total 1450 / 1450 3225 / 3225 690 / 690 Output Total 550 / 550 1250 / 1250 450 / 450 Balance 900 / 900 1974 / 1974 240 / 240 Physical Exam Oriented: Normal Eyes: Normal Ear: Normal Nose: Normal Throat: Normal Respiratory: Generalized and Diminished Cardiovascular: Normal Auscultation: Bowel Sounds: Normal Tenderness: Normal Skin: Normal Musculoskeletal: Normal Psychiatric: Normal Mood Description: Calm Affect: Normal Speech Pattern: Clear and Appropriate Laboratory and Diagnostics Result Diagrams: 03/03/21 05:35 03/03/21 05:35 Labs: Laboratory WBC 8.9 X10^3/uL (3.6-10.0) 03/03/21 05:35 RBC 4.37 X10^6/uL (4.7-6.0) L 03/03/21 05:35 Hgb 13.0 g/dL (13.5-18.0) L 03/03/21 05:35 Hct 36.5 % (42.0-54.0) L 03/03/21 05:35 MCV 83.5 fL (80.0-100.0) 03/03/21 05:35 MCH 29.6 pg (27.0-34.0) 03/03/21 05:35 MCHC 35.5 g/dL (33.0-35.0) H 03/03/21 05:35 RDW 13.1 % (11.6-16.5) 03/03/21 05:35 Plt Count 199 X10^3/uL (150.0-450.0) 03/03/21 05:35 MPV 8.3 fL (7.4-11.0) 03/03/21 05:35 Neut % (Auto) 89.4 % (42.0-75.0) H 03/03/21 05:35 Lymph % (Auto) 4.5 % (21.0-51.0) L 03/03/21 05:35 [place] % (Auto) 6.0 % (0.0-13.0) 03/03/21 05:35 Eos % (Auto) 0.0 % (0.9-2.9) L 03/03/21 05:35 Baso % (Auto) 0.1 % (0.2-1.0) L 03/03/21 05:35 Neut # (Auto) 7.9 x10^3/uL (2.2-4.8) H 03/03/21 05:35 Lymph # (Auto) 0.4 X10^3/uL (1.3-2.9) L 03/03/21 05:35 [place] # (Auto) 0.5 x10^3/uL (0.3-0.8) 03/03/21 05:35 Eos # (Auto) 0.0 x10^3/uL (0.0-0.2) 03/03/21 05:35 Baso # (Auto) 0.0 X10^3/uL (0.0-0.1) 03/03/21 05:35 Absolute Nucleated RBC 0.0 /100WBC 03/03/21 05:35 D-Dimer 0.80 ug/ml (0.0-0.57) H* 03/01/21 11:20 Sample Site Rrad 03/03/21 05:09 ABG pH 7.460 (7.35-7.45) H 03/03/21 05:09 ABG pCO2 35.0 mmHg (35.0-45.0) 03/03/21 05:09 ABG pO2 139.0 mmHg (80.0-100.0) H 03/03/21 05:09 ABG HCO3 24.9 mmol/L (22-26) 03/03/21 05:09 ABG O2 Saturation 99.0 % (90-100) 03/03/21 05:09 ABG Base Excess 1.3 mmol/L (-2.0-2.0) 03/03/21 05:09 Sree Test Pos 03/03/21 05:09 A-a Gradient 530.0 mmHg 03/03/21 05:09 FiO2 100.0 03/03/21 05:09 Blood Gas Comments Elbert abg well-mtf 03/03/21 05:09 Sodium 143 mmol/L (136-145) 03/03/21 05:35 Corrected Sodium 144 mmol/L (136-145) 03/03/21 05:35 Potassium 3.7 mmol/L (3.5-5.1) 03/03/21 05:35 Chloride 108 mmol/L (98-107) H 03/03/21 05:35 Carbon Dioxide 26.2 mmol/L (21-32) 03/03/21 05:35 BUN 28 mg/dL (7-18) H 03/03/21 05:35 Creatinine 0.99 mg/dL (0.70-1.30) 03/03/21 05:35 Est GFR (MDRD) Af Amer > 60 (>60) 03/03/21 05:35 Est GFR (MDRD) Non-Af > 60 (>60) 03/03/21 05:35 Glucose 158 mg/dL (65-99) H 03/03/21 05:35 Calcium 7.9 mg/dL (8.5-10.1) L 03/03/21 05:35 Corrected Calcium 9.1 mg/dL (8.5-10.1) 03/03/21 05:35 Ferritin 1988 ng/mL (26-388) H 03/01/21 11:20 Total Bilirubin 0.60 mg/dL (0.2-1.0) 03/03/21 05:35 AST 57 Units/L (15-37) H 03/03/21 05:35 ALT 56 Units/L (12-78) 03/03/21 05:35 Alkaline Phosphatase 79 Units/L (46-116) 03/03/21 05:35 Creatine Kinase 121 Units/L (39-308) 03/01/21 11:20 CK-MB (CK-2) < 1.0 ng/mL (0-4.0) 03/01/21 11:20 CK/CKMB % Calc 0.8 % (<4) 03/01/21 11:20 Troponin I < 0.02 ng/mL (0-1.5) 03/01/21 11:20 C-Reactive Protein 63.00 mg/L (0-3.0) H 03/03/21 05:35 B-Natriuretic Peptide 412 pg/mL (0-79) H 03/01/21 11:20 Total Protein 6.7 g/dL (6.4-8.2) 03/03/21 05:35 Albumin 2.5 g/dL (3.4-5.0) L 03/03/21 05:35 Globulin 4.2 g/dL (2.5-4.5) 03/03/21 05:35 Albumin/Globulin Ratio 0.6 Ratio (1.1-2.1) L 03/03/21 05:35 Plan (1) Acute respiratory failure with hypoxia: Status: Acute (2) COVID-19 virus infection: Status: Acute (3) Hypokalemia: Status: Acute (4) Pneumonia due to COVID-19 virus: Status: Acute (5) Elevated d-dimer: Status: Acute
[2021-03-03] MEDS: MORPHINE SULFATE INJ 2 MG INJ IVP PRN (13:39)
[2021-03-03] MEDS ORDERED: APRESOLINE INJ 20 MG VIAL IVP PRN (15:54)
[2021-03-03] MEDS: KLOR-CON PO PRN (18:06)
[2021-03-04] MEDS: NS 1000 ML 1,000 ML IV SCH ×2 (00:50→06:00)
[2021-03-04] MEDS ORDERED: VALIUM INJ IVP ONE (02:50)
[2021-03-04] MEDS ORDERED: VALIUM INJ ONE (02:53)
[2021-03-04] MEDS ORDERED: VALIUM INJ IM ONE (02:54)
[2021-03-04] MEDS: MORPHINE SULFATE INJ 2 MG INJ IVP PRN (03:54)
[2021-03-04] MEDS ORDERED: PRECEDEX 400 MCG/100 ML PREMIX 400 MCG/100 ML INFUS..BTL IV PRN (04:13)
[2021-03-04] MEDS: DUONEB 0.5 MG/3 MG (3 mL) NEB SCH ×3 (05:58→20:30)
[2021-03-04] MEDS: SOLU-Medrol 40 MG VIAL IVP SCH ×3 (06:00→21:17)
[2021-03-04] MEDS: ZOSYN VIAL 3.375 GRAMS 3.375 G in NS 100 ML IV + SPIKE MINIBAG* 100 ML IV SCH (06:00)
[2021-03-04 06:02] LABS: BASOPHILS % (AUTO) 0 % (0.2-1.0); HEMATOCRIT 36.5 % (42.0-54.0); HEMOGLOBIN 12.7 g/dL (13.5-18.0); LYMPHOCYTES # (AUTO) 0.2 X10^3/uL (1.3-2.9); LYMPHOCYTES % (AUTO) 2.5 % (21.0-51.0); MEAN CORPUSCULAR HEMOGLOBIN 29.1 pg (27.0-34.0); MEAN CORPUSCULAR HGB CONC 34.7 g/dL (33.0-35.0); MEAN CORPUSCULAR VOLUME 83.7 fL (80.0-100.0); MEAN PLATELET VOLUME 8.5 fL (7.4-11.0); MONOCYTES # (AUTO) 0.7 x10^3/uL (0.3-0.8); MONOCYTES % (AUTO) 7.7 % (0.0-13.0); NEUTROPHILS # (AUTO) 8.4 x10^3/uL (2.2-4.8); NEUTROPHILS % (AUTO) 89.8 % (42.0-75.0); PLATELET COUNT 233 X10^3/uL (150.0-450.0); RED BLOOD COUNT 4.36 X10^6/uL (4.7-6.0); RED CELL DISTRIBUTION WIDTH 12.6 % (11.6-16.5); WHITE BLOOD COUNT 9.4 X10^3/uL (3.6-10.0)
[2021-03-04 06:08] LABS: ALANINE AMINOTRANSFERASE 64 Units/L (12-78); ALBUMIN 2.5 g/dL (3.4-5.0); ALKALINE PHOSPHATASE 92 Units/L (46-116); ASPARTATE AMINO TRANSFERASE 51 Units/L (15-37); BLOOD UREA NITROGEN 31 mg/dL (7-18); CARBON DIOXIDE 26.9 mmol/L (21-32); CHLORIDE 107 mmol/L (98-107); COR CA(FOR HYPOALB) 9.2 mg/dL (8.5-10.1); COR NA(FOR HYPERGLY) 147 mmol/L (136-145); CREATININE 1.26 mg/dL (0.70-1.30); SODIUM 146 mmol/L (136-145); TOTAL PROTEIN 6.5 g/dL (6.4-8.2); eGFR NON BLACK RACES > 60 (>60)
[2021-03-04] MEDS: ASCORBIC ACID INJ MULTI-DOSE VIAL 1,500 MG in NS 100 ML IV 100 ML IV SCH ×4 (07:08→21:13)
[2021-03-04 07:28] LABS: BILIRUBIN,URINE NEGATIVE (NEGATIVE); BLOOD/HEMOGLOBIN,URINE NEGATIVE (NEGATIVE); GLUCOSE, URINE NEGATIVE (NEGATIVE); KETONES,URINE NEGATIVE (NEGATIVE); LEUKOCYTE ESTERASE ,URINE NEGATIVE (NEGATIVE); NITRITES,URINE NEGATIVE (NEGATIVE); PROTEIN,URINE 1+ (NEGATIVE); UROBILINOGEN,URINE NORMAL (NORMAL)
[2021-03-04] MEDS ORDERED: REMDESIVIR IV ONE (08:06)
[2021-03-04 08:11] LABS: APPEARANCE,URINE CLEAR (CLEAR); BACTERIA,URINE NEGATIVE /HPF (NEGATIVE); COLOR,URINE YELLOW (YELLOW); RBC,URINE 0-2 /HPF (0-3); SQUAMOUS EPITHELIAL CELL,UR FEW /HPF (NEGATIVE)
[2021-03-04] MEDS: PULMICORT NEB TX 0.5 MG NEB SCH ×2 (08:35→20:30)
[2021-03-04] MEDS: LOVENOX INJ 80 MG SYR SC SCH ×2 (08:38→21:14)
[2021-03-04] MEDS ORDERED: NS 100 ML IV 100 ML ONE (09:04)
[2021-03-04] MEDS ORDERED: APRESOLINE INJ 20 MG VIAL IVP PRN (09:11)
[2021-03-04] MEDS: CANDESARTAN 16 MG PO SCH (09:45)
[2021-03-04] MEDS: TRICOR TAB 160 MG PO SCH ×2 (09:45→10:54)
[2021-03-04] MEDS: NS 1/2 + KCL 20 MEQ/L 1,000 ML IV SCH ×2 (09:55→21:16)
[2021-03-04] MEDS: VITAMIN A PO SCH (10:01)
[2021-03-04] MEDS: ZINC SULFATE PO SCH ×2 (10:02→21:16)
[2021-03-04] MEDS: VITAMIN D3 125 mcg (5,000 UNITS) PO SCH (10:02)
[2021-03-04] MEDS: REMDESIVIR 100 MG in NS 100 ML IV + SPIKE MINIBAG* 120 ML IV SCH (10:24)
[2021-03-04] MEDS: FLOMAX PO SCH (10:53)
[2021-03-04] MEDS: HYDROCHLOROTHIAZIDE 25 MG TAB PO SCH (10:53)
[2021-03-04] MEDS: LOPRESSOR TAB 50 MG PO SCH (10:53)
[2021-03-04] MEDS: PEPCID 20 MG IV PREMIX* 20 MG/50 ML BAG IV SCH (10:54)
[2021-03-04] MEDS: PriLOSEC PO SCH (10:54)
--- NOTE | 2021-03-04 13:44 | PCM.PROG ---
Progress Note Progress Note for Day of Date of Exam: 03/04/21 Subjective Subjective: Patient seen at bedside, overnight patient was extremely agitated and combative. Patient was pulling off his BiPAP mask. He was given Valium and placed in restraints. He continued to be restless so was started on Precedex which was later stopped due to elevated BP and low HR. Patient is currently on BiPAP at FiO2 80% with sats above 95%. He is arousable and answers simple questions, follows commands. García was also placed. Labs: WBC 9.4 Hgb 12.7 Plt 233 K: 3.3 BUN/Cr: 31/1.26 Glucose 132 CRP 30 AST/ALT: 51/64 ABG 7.46/35/139/24 CXR: improved covid pneumonia KUB: non-obstructive gas pattern Plan: Continue restraints for now due to patient being agitated and combative. Remove as tolerated. DC precedex due to bradycardia.Wean BiPAP as tolerated to keep sats > 90%. Continue covid-19 protocol and telemetry. Continue Zosyn and Remdesivir. Will taper steroids to 80 mg q8hrs. Continue vitamin support and lovenox. Continue nebs, pulmicort and IS. Continue home medications as t olerated. Will monitor if patient able to take oral meds. Continue hydralazine prn for SBP > 160. Continue morphine prn. Change IVF to 1/2 NS + KCl. Replace K as per protocol. Hold metoprolol due to low HR. Monitor AM labs and imaging. Time spent for clinical assessment, reviewing labs/imaging, physical exam, decision making and documentation greater than 45 mins. Past Medical Family Social History Past Med/Fam/Surg Hx: No changes since H&P Allergies: Allergies IVP DYE Allergy (Uncoded 03/02/21 18:20) Review of Systems ROS: No change since H&P Vital Signs and I&O's Vital Signs: Temperature 98.7 F Pulse Rate [Left Brachial] 85 Pulse Rate 62 Respiratory Rate 39 Blood Pressure [Left Arm] 153/80 Blood Pressure 166/88 O2 Sat by Pulse Oximetry 99 Intake and Output: Intake & Output 03/01/21 03/02/21 03/03/21 03/04/21 23:59 23:59 23:59 23:59 Intake Total 1450 / 1450 3225 / 3225 2901 / 2901 200 / 200 Output Total 550 / 550 1250 / 1250 1525 / 1525 600 / 600 Balance 900 / 900 1974 / 1974 1376 / 1376 -400 / -400 Physical Exam Oriented: Unable to test Eyes: Normal Ear: Normal Nose: Normal Throat: Dry Respiratory: Generalized and Diminished Cardiovascular: Normal Auscultation: Bowel Sounds: Normal Tenderness: Normal Skin: Normal Musculoskeletal: Normal Psychiatric: Anxiety and Agitation Mood Description: Hostile and Anxious Affect: Anxious and Violent Speech Pattern: Appropriate, Unclear, Delayed and Artificially Ventilated (on BiPAP ) Laboratory and Diagnostics Result Diagrams: 03/04/21 05:18 03/04/21 05:18 Labs: Laboratory WBC 9.4 X10^3/uL (3.6-10.0) 03/04/21 05:18 RBC 4.36 X10^6/uL (4.7-6.0) L 03/04/21 05:18 Hgb 12.7 g/dL (13.5-18.0) L 03/04/21 05:18 Hct 36.5 % (42.0-54.0) L 03/04/21 05:18 MCV 83.7 fL (80.0-100.0) 03/04/21 05:18 MCH 29.1 pg (27.0-34.0) 03/04/21 05:18 MCHC 34.7 g/dL (33.0-35.0) 03/04/21 05:18 RDW 12.6 % (11.6-16.5) 03/04/21 05:18 Plt Count 233 X10^3/uL (150.0-450.0) 03/04/21 05:18 MPV 8.5 fL (7.4-11.0) 03/04/21 05:18 Neut % (Auto) 89.8 % (42.0-75.0) H 03/04/21 05:18 Lymph % (Auto) 2.5 % (21.0-51.0) L 03/04/21 05:18 [place] % (Auto) 7.7 % (0.0-13.0) 03/04/21 05:18 Eos % (Auto) 0.0 % (0.9-2.9) L 03/04/21 05:18 Baso % (Auto) 0 % (0.2-1.0) L 03/04/21 05:18 Neut # (Auto) 8.4 x10^3/uL (2.2-4.8) H 03/04/21 05:18 Lymph # (Auto) 0.2 X10^3/uL (1.3-2.9) L 03/04/21 05:18 [place] # (Auto) 0.7 x10^3/uL (0.3-0.8) 03/04/21 05:18 Eos # (Auto) 0.0 x10^3/uL (0.0-0.2) 03/04/21 05:18 Baso # (Auto) 0.0 X10^3/uL (0.0-0.1) 03/04/21 05:18 Absolute Nucleated RBC 0.1 /100WBC 03/04/21 05:18 D-Dimer 0.87 ug/ml (0.0-0.57) H* 03/03/21 05:35 Sample Site Rrad 03/03/21 05:09 ABG pH 7.460 (7.35-7.45) H 03/03/21 05:09 ABG pCO2 35.0 mmHg (35.0-45.0) 03/03/21 05:09 ABG pO2 139.0 mmHg (80.0-100.0) H 03/03/21 05:09 ABG HCO3 24.9 mmol/L (22-26) 03/03/21 05:09 ABG O2 Saturation 99.0 % (90-100) 03/03/21 05:09 ABG Base Excess 1.3 mmol/L (-2.0-2.0) 03/03/21 05:09 Sree Test Pos 03/03/21 05:09 A-a Gradient 530.0 mmHg 03/03/21 05:09 FiO2 100.0 03/03/21 05:09 Blood Gas Comments Elbert abg well-mtf 03/03/21 05:09 Sodium 146 mmol/L (136-145) H 03/04/21 05:18 Corrected Sodium 147 mmol/L (136-145) H 03/04/21 05:18 Potassium 3.3 mmol/L (3.5-5.1) L 03/04/21 05:18 Chloride 107 mmol/L (98-107) 03/04/21 05:18 Carbon Dioxide 26.9 mmol/L (21-32) 03/04/21 05:18 BUN 31 mg/dL (7-18) H 03/04/21 05:18 Creatinine 1.26 mg/dL (0.70-1.30) 03/04/21 05:18 Est GFR (MDRD) Af Amer > 60 (>60) 03/04/21 05:18 Est GFR (MDRD) Non-Af > 60 (>60) 03/04/21 05:18 Glucose 132 mg/dL (65-99) H 03/04/21 05:18 POC Glucose (mg/dL) 134 mg/dL (65-99) H 03/04/21 11:45 Calcium 8.0 mg/dL (8.5-10.1) L 03/04/21 05:18 Corrected Calcium 9.2 mg/dL (8.5-10.1) 03/04/21 05:18 Ferritin 1988 ng/mL (26-388) H 03/01/21 11:20 Total Bilirubin 0.60 mg/dL (0.2-1.0) 03/04/21 05:18 AST 51 Units/L (15-37) H 03/04/21 05:18 ALT 64 Units/L (12-78) 03/04/21 05:18 Alkaline Phosphatase 92 Units/L (46-116) 03/04/21 05:18 Creatine Kinase 121 Units/L (39-308) 03/01/21 11:20 CK-MB (CK-2) < 1.0 ng/mL (0-4.0) 03/01/21 11:20 CK/CKMB % Calc 0.8 % (<4) 03/01/21 11:20 Troponin I < 0.02 ng/mL (0-1.5) 03/01/21 11:20 C-Reactive Protein 30.60 mg/L (0-3.0) H 03/04/21 05:18 B-Natriuretic Peptide 412 pg/mL (0-79) H 03/01/21 11:20 Total Protein 6.5 g/dL (6.4-8.2) 03/04/21 05:18 Albumin 2.5 g/dL (3.4-5.0) L 03/04/21 05:18 Globulin 4.0 g/dL (2.5-4.5) 03/04/21 05:18 Albumin/Globulin Ratio 0.6 Ratio (1.1-2.1) L 03/04/21 05:18 Specimen Type Catherized urine 03/04/21 07:00 Urine Color Yellow (YELLOW) 03/04/21 07:00 Urine Appearance Clear (CLEAR) 03/04/21 07:00 Urine pH 6.0 (5.0 - 8.0) 03/04/21 07:00 Ur Specific [place] 1.015 (1.000-1.030) 03/04/21 07:00 Urine Protein 1+ (NEGATIVE) 03/04/21 07:00 Urine Glucose (UA) Negative (NEGATIVE) 03/04/21 07:00 Urine Ketones Negative (NEGATIVE) 03/04/21 07:00 Urine Occult Blood Negative (NEGATIVE) 03/04/21 07:00 Urine Nitrite Negative (NEGATIVE) 03/04/21 07:00 Urine Bilirubin Negative (NEGATIVE) 03/04/21 07:00 Urine Urobilinogen Normal (NORMAL) 03/04/21 07:00 Ur Leukocyte Esterase Negative (NEGATIVE) 03/04/21 07:00 Urine RBC 0-2 /HPF (0-3) 03/04/21 07:00 Urine WBC 0-2 /HPF (0-5) 03/04/21 07:00 Ur Squamous Epith Cells Few /HPF (NEGATIVE) 03/04/21 07:00 Urine Bacteria Negative /HPF (NEGATIVE) 03/04/21 07:00 Ur Culture Indicated? No/not indicated 03/04/21 07:00 Plan (1) Acute respiratory failure with hypoxia: Status: Acute (2) COVID-19 virus infection: Status: Acute (3) Hypokalemia: Status: Acute (4) Pneumonia due to COVID-19 virus: Status: Acute (5) Elevated d-dimer: Status: Acute (6) Agitation: Status: Acute (7) Hypokalemia: Status: Acute
[2021-03-04] MEDS ORDERED: K-RIDER 10 MEQ/NS 100 ML 10 MEQ/100 ML BAG IV PRN (13:47)
[2021-03-04] MEDS ORDERED: POTASSIUM CHL 60 MEQ/NS 0.45% 500 ML IV PRN (13:47)
[2021-03-04] MEDS ORDERED: KLOR-CON PO PRN (13:47)
[2021-03-04] MEDS ORDERED: MICRO K EXTEN CAP 10 MEQ PO PRN (13:47)
[2021-03-04] MEDS ORDERED: POTASSIUM CHLORIDE LIQ 20 MEQ UDC PO PRN (13:47)
[2021-03-04] MEDS ORDERED: POTASSIUM CHL 40 MEQ/NS 0.45% 500 ML IV PRN (13:47)
[2021-03-04] MEDS: COZAAR PO SCH (14:05)
[2021-03-04] MEDS: ZOSYN VIAL 3.375 GRAMS 3.375 G in NS 50 ML IV + SPIKE MINIBAG* 50 ML IV SCH ×2 (14:12→21:17)
[2021-03-05] MEDS: ASCORBIC ACID INJ MULTI-DOSE VIAL 1,500 MG in NS 100 ML IV 100 ML IV SCH ×4 (03:11→20:57)
[2021-03-05 04:51] LABS: ABG ALLEN TEST POS; ABG BASE EXCESS 5.7 mmol/L (-2.0-2.0); ABG HCO3 28.6 mmol/L (22-26)
[2021-03-05] MEDS: DUONEB 0.5 MG/3 MG (3 mL) NEB SCH ×3 (05:25→21:00)
[2021-03-05 05:34] LABS: BASOPHILS % (AUTO) 0.1 % (0.2-1.0); HEMATOCRIT 34.9 % (42.0-54.0); HEMOGLOBIN 12.5 g/dL (13.5-18.0); LYMPHOCYTES # (AUTO) 0.2 X10^3/uL (1.3-2.9); LYMPHOCYTES % (AUTO) 2.7 % (21.0-51.0); MEAN CORPUSCULAR HEMOGLOBIN 29.4 pg (27.0-34.0); MEAN CORPUSCULAR HGB CONC 35.8 g/dL (33.0-35.0); MEAN CORPUSCULAR VOLUME 82.3 fL (80.0-100.0); MEAN PLATELET VOLUME 8.3 fL (7.4-11.0); MONOCYTES # (AUTO) 0.5 x10^3/uL (0.3-0.8); MONOCYTES % (AUTO) 5.6 % (0.0-13.0); NEUTROPHILS # (AUTO) 8.2 x10^3/uL (2.2-4.8); NEUTROPHILS % (AUTO) 91.6 % (42.0-75.0); PLATELET COUNT 276 X10^3/uL (150.0-450.0); RED BLOOD COUNT 4.25 X10^6/uL (4.7-6.0); RED CELL DISTRIBUTION WIDTH 12.6 % (11.6-16.5)
[2021-03-05 05:35] LABS: ALANINE AMINOTRANSFERASE 93 Units/L (12-78); ALBUMIN 2.5 g/dL (3.4-5.0); ALKALINE PHOSPHATASE 101 Units/L (46-116); ASPARTATE AMINO TRANSFERASE 58 Units/L (15-37); BLOOD UREA NITROGEN 27 mg/dL (7-18); CALCIUM 7.7 mg/dL (8.5-10.1); CARBON DIOXIDE 28.7 mmol/L (21-32); CHLORIDE 107 mmol/L (98-107); COR CA(FOR HYPOALB) 8.9 mg/dL (8.5-10.1); COR NA(FOR HYPERGLY) 144 mmol/L (136-145); CREATININE 0.94 mg/dL (0.70-1.30); MAGNESIUM 2.5 mg/dL (1.7-2.9); SODIUM 143 mmol/L (136-145); eGFR NON BLACK RACES > 60 (>60)
[2021-03-05] MEDS: ZOSYN VIAL 3.375 GRAMS 3.375 G in NS 50 ML IV + SPIKE MINIBAG* 50 ML IV SCH ×3 (06:05→21:31)
[2021-03-05] MEDS: SOLU-Medrol 40 MG VIAL IVP SCH ×3 (06:05→21:31)
[2021-03-05 06:17] LABS: PLATELET MORPHOLOGY COMMENT NORMAL (NORMAL)
--- NOTE | 2021-03-05 07:17 | RAD ---
HISTORYCOVID PNEUMONIASTUDYCHEST x-ray, 1 VIEWCOMPARISONX-ray 03/03/2021FINDINGSHeart is normal in size. Hazy bilateral lung infiltrates are likely similar to prior study given differences in technique. Possible underlying COPD. No pneumothorax or pleural effusion is seen.[id number] bilateral pneumonia is similar to prior study.Electronically signed by: Daniel Miller (Mar 05, 2021 07:15:51)
[2021-03-05] MEDS: PULMICORT NEB TX 0.5 MG NEB SCH ×2 (08:30→21:00)
[2021-03-05] MEDS: FLOMAX PO SCH (08:47)
[2021-03-05] MEDS: HYDROCHLOROTHIAZIDE 25 MG TAB PO SCH (08:47)
[2021-03-05] MEDS: COZAAR PO SCH (08:47)
[2021-03-05] MEDS: LOVENOX INJ 80 MG SYR SC SCH ×2 (08:48→20:59)
[2021-03-05] MEDS: PEPCID 20 MG IV PREMIX* 20 MG/50 ML BAG IV SCH (08:48)
[2021-03-05] MEDS: ZINC SULFATE PO SCH ×2 (08:49→20:57)
[2021-03-05] MEDS: TRICOR TAB 160 MG PO SCH (08:49)
[2021-03-05] MEDS: PriLOSEC PO SCH (08:49)
[2021-03-05] MEDS: VITAMIN A PO SCH (08:49)
[2021-03-05] MEDS: VITAMIN D3 125 mcg (5,000 UNITS) PO SCH (08:49)
[2021-03-05] MEDS: NS 1/2 + KCL 20 MEQ/L 1,000 ML IV SCH ×2 (08:50→11:23)
[2021-03-05] MEDS: REMDESIVIR 100 MG in NS 100 ML IV + SPIKE MINIBAG* 120 ML IV SCH (10:25)
[2021-03-06] MEDS: ASCORBIC ACID INJ MULTI-DOSE VIAL 1,500 MG in NS 100 ML IV 100 ML IV SCH ×4 (03:35→21:19)
[2021-03-06 04:34] LABS: ABG BASE EXCESS 7.2 mmol/L (-2.0-2.0); ABG HCO3 29.7 mmol/L (22-26)
[2021-03-06 04:35] LABS: ABG ALLEN TEST POS
[2021-03-06] MEDS: DUONEB 0.5 MG/3 MG (3 mL) NEB SCH ×3 (05:08→20:10)
[2021-03-06] MEDS: SOLU-Medrol 40 MG VIAL IVP SCH ×3 (05:09→22:23)
[2021-03-06] MEDS: ZOSYN VIAL 3.375 GRAMS 3.375 G in NS 50 ML IV + SPIKE MINIBAG* 50 ML IV SCH ×3 (05:10→22:21)
[2021-03-06 05:39] LABS: BASOPHILS % (AUTO) 0.1 % (0.2-1.0); HEMATOCRIT 36.2 % (42.0-54.0); HEMOGLOBIN 12.9 g/dL (13.5-18.0); LYMPHOCYTES # (AUTO) 0.3 X10^3/uL (1.3-2.9); LYMPHOCYTES % (AUTO) 2.8 % (21.0-51.0); MEAN CORPUSCULAR HEMOGLOBIN 29.2 pg (27.0-34.0); MEAN CORPUSCULAR HGB CONC 35.7 g/dL (33.0-35.0); MEAN PLATELET VOLUME 8.5 fL (7.4-11.0); MONOCYTES # (AUTO) 0.5 x10^3/uL (0.3-0.8); MONOCYTES % (AUTO) 4.5 % (0.0-13.0); NEUTROPHILS # (AUTO) 9.2 x10^3/uL (2.2-4.8); NEUTROPHILS % (AUTO) 92.6 % (42.0-75.0); PLATELET COUNT 257 X10^3/uL (150.0-450.0); RED BLOOD COUNT 4.41 X10^6/uL (4.7-6.0); RED CELL DISTRIBUTION WIDTH 12.5 % (11.6-16.5)
[2021-03-06 05:58] LABS: ALANINE AMINOTRANSFERASE 79 Units/L (12-78); ALBUMIN 2.5 g/dL (3.4-5.0); ALKALINE PHOSPHATASE 95 Units/L (46-116); ASPARTATE AMINO TRANSFERASE 34 Units/L (15-37); BLOOD UREA NITROGEN 27 mg/dL (7-18); CALCIUM 7.8 mg/dL (8.5-10.1); CHLORIDE 104 mmol/L (98-107); COR NA(FOR HYPERGLY) 141 mmol/L (136-145); CREATININE 0.99 mg/dL (0.70-1.30); SODIUM 140 mmol/L (136-145); eGFR NON BLACK RACES > 60 (>60)
[2021-03-06 06:18] LABS: PLATELET MORPHOLOGY COMMENT NORMAL (NORMAL)
[2021-03-06] MEDS: ZINC SULFATE PO SCH ×2 (08:28→21:20)
[2021-03-06] MEDS: FLOMAX PO SCH (08:29)
[2021-03-06] MEDS: COZAAR PO SCH (08:29)
[2021-03-06] MEDS: PriLOSEC PO SCH (08:29)
[2021-03-06] MEDS: PULMICORT NEB TX 0.5 MG NEB SCH ×2 (08:30→20:10)
[2021-03-06] MEDS: MORPHINE SULFATE INJ 2 MG INJ IVP PRN ×2 (08:32→14:24)
[2021-03-06] MEDS: HYDROCHLOROTHIAZIDE 25 MG TAB PO SCH (08:32)
[2021-03-06] MEDS: VITAMIN D3 125 mcg (5,000 UNITS) PO SCH (08:33)
[2021-03-06] MEDS: VITAMIN A PO SCH (08:33)
[2021-03-06] MEDS: TRICOR TAB 160 MG PO SCH (08:33)
--- NOTE | 2021-03-06 08:33 | RAD ---
HISTORYCOVID-19 pneumoniaSTUDYPortable AP [id number]/2021FINDINGSThere is no significant change. Heart size and contour remain normal. Similar appearance of diffuse indistinct infiltrates without additional consolidation, pleural fluid or pneumothorax.IMPRESSIONNo change.Electronically signed by: LEIGH BARON (Mar 06, 2021 08:32:23)
[2021-03-06] MEDS: LOVENOX INJ 80 MG SYR SC SCH ×2 (08:39→22:21)
[2021-03-06] MEDS: PEPCID 20 MG IV PREMIX* 20 MG/50 ML BAG IV SCH (10:24)
[2021-03-06] MEDS: NS 1/2 + KCL 20 MEQ/L 1,000 ML IV SCH ×3 (11:28→18:05)
[2021-03-07] MEDS: ASCORBIC ACID INJ MULTI-DOSE VIAL 1,500 MG in NS 100 ML IV 100 ML IV SCH ×4 (02:55→20:25)
[2021-03-07 04:47] LABS: ABG ALLEN TEST POS; ABG BASE EXCESS 7.2 mmol/L (-2.0-2.0); ABG HCO3 29.9 mmol/L (22-26)
[2021-03-07] MEDS: DUONEB 0.5 MG/3 MG (3 mL) NEB SCH ×3 (06:17→21:52)
[2021-03-07] MEDS: SOLU-Medrol 40 MG VIAL IVP SCH ×3 (06:22→21:00)
[2021-03-07] MEDS: NS 1/2 + KCL 20 MEQ/L 1,000 ML IV SCH (06:23)
[2021-03-07] MEDS: ZOSYN VIAL 3.375 GRAMS 3.375 G in NS 50 ML IV + SPIKE MINIBAG* 50 ML IV SCH ×3 (06:23→22:00)
[2021-03-07 06:42] LABS: BASOPHILS % (AUTO) 0.1 % (0.2-1.0); EOSINOPHILS % (AUTO) 0.1 % (0.9-2.9); HEMATOCRIT 37.6 % (42.0-54.0); HEMOGLOBIN 13.3 g/dL (13.5-18.0); LYMPHOCYTES # (AUTO) 0.2 X10^3/uL (1.3-2.9); LYMPHOCYTES % (AUTO) 1.7 % (21.0-51.0); MEAN CORPUSCULAR HEMOGLOBIN 28.8 pg (27.0-34.0); MEAN CORPUSCULAR HGB CONC 35.3 g/dL (33.0-35.0); MEAN CORPUSCULAR VOLUME 81.7 fL (80.0-100.0); MEAN PLATELET VOLUME 8.4 fL (7.4-11.0); MONOCYTES # (AUTO) 0.3 x10^3/uL (0.3-0.8); MONOCYTES % (AUTO) 2.4 % (0.0-13.0); NEUTROPHILS % (AUTO) 95.7 % (42.0-75.0); PLATELET COUNT 269 X10^3/uL (150.0-450.0); RED CELL DISTRIBUTION WIDTH 12.6 % (11.6-16.5); WHITE BLOOD COUNT 11.5 X10^3/uL (3.6-10.0)
[2021-03-07 06:58] LABS: ALANINE AMINOTRANSFERASE 65 Units/L (12-78); ALBUMIN 2.6 g/dL (3.4-5.0); ALKALINE PHOSPHATASE 93 Units/L (46-116); ASPARTATE AMINO TRANSFERASE 28 Units/L (15-37); BLOOD UREA NITROGEN 25 mg/dL (7-18); CALCIUM 7.9 mg/dL (8.5-10.1); CARBON DIOXIDE 27.2 mmol/L (21-32); CHLORIDE 102 mmol/L (98-107); COR NA(FOR HYPERGLY) 140 mmol/L (136-145); CREATININE 1.09 mg/dL (0.70-1.30); SODIUM 139 mmol/L (136-145); eGFR NON BLACK RACES > 60 (>60)
[2021-03-07 07:35] LABS: PLATELET MORPHOLOGY COMMENT NORMAL (NORMAL)
[2021-03-07] MEDS: HYDROCHLOROTHIAZIDE 25 MG TAB PO SCH (08:05)
[2021-03-07] MEDS: COZAAR PO SCH (08:05)
[2021-03-07] MEDS: FLOMAX PO SCH (08:05)
[2021-03-07] MEDS: PriLOSEC PO SCH (08:06)
[2021-03-07] MEDS: LOVENOX INJ 80 MG SYR SC SCH (08:06)
[2021-03-07] MEDS: PEPCID 20 MG IV PREMIX* 20 MG/50 ML BAG IV SCH (08:06)
[2021-03-07] MEDS: TRICOR TAB 160 MG PO SCH (08:07)
[2021-03-07] MEDS: ZINC SULFATE PO SCH ×2 (08:07→20:25)
[2021-03-07] MEDS: MORPHINE SULFATE INJ 2 MG INJ IVP PRN (08:07)
[2021-03-07] MEDS: VITAMIN A PO SCH (08:11)
[2021-03-07] MEDS: VITAMIN D3 125 mcg (5,000 UNITS) PO SCH (08:11)
[2021-03-07] MEDS: PULMICORT NEB TX 0.5 MG NEB SCH ×2 (09:20→21:52)
[2021-03-07] MEDS ORDERED: LASIX IVP ONE (10:38)
--- NOTE | 2021-03-07 11:50 | PCM.PROG ---
Progress Note Progress Note for Day of Date of Exam: 03/07/21 Subjective Subjective: Patient seen at bedside, no events overnight. Patient is currently on HHFNC Fio2 90%. He did wear the BiPAP last night. He states he feels better with HHFNC and the BiPAP mask is suffocating. He has been eating well. He still has the leo in place. Labs: WBC 11.5 Hgb 13.3 Plt 269 K: 3.6 BUN/Cr: 25/1.09 Glucose 143 CXR: no change, bilateral pneumonia Plan: Wean O2 as tolerated to keep sats > 88%. DC IVF. Will give one dose of lasix 40 mg IV due to signs of fluid overload on exam. Continue covid-19 protocol and telemetry. Continue Zosyn and completed Remdesivir. Continue Solu medrol. Continue vitamin support, will switch Lovenox to Eliquis 5 mg BID. Continue nebs, pulmicort and IS. Continue home medications. Resume metoprolol. Continue hydralazine prn for SBP > 160. Continue morphine prn. Time spent for clinical assessment, reviewing labs/imaging, physical exam, deci chris making and documentation greater than 45 mins. Past Medical Family Social History Past Med/Fam/Surg Hx: No changes since H&P Allergies: Allergies temazepam [From Restoril] Allergy (Verified 03/05/21 09:47) IVP DYE Allergy (Uncoded 03/02/21 18:20) Review of Systems ROS: No change since H&P Vital Signs and I&O's Vital Signs: Temperature 97.8 F Pulse Rate [Left Brachial] 85 Pulse Rate 101 Respiratory Rate 38 Blood Pressure [Left Arm] 153/80 Blood Pressure 148/85 O2 Sat by Pulse Oximetry 84 Intake and Output: Intake & Output 03/04/21 03/05/21 03/06/21 03/07/21 23:59 23:59 23:59 23:59 Intake Total 1735 / 1735 2572 / 2572 1696 / 1696 683 / 683 Output Total 2700 / 2700 3100 / 3100 1999 / 1999 700 / 700 Balance -965 / -965 -528 / -528 -304 / -304 -17 / -17 Physical Exam Oriented: Normal Eyes: Normal Ear: Normal Nose: Normal Throat: Normal Respiratory: Generalized and [place] Cardiovascular: Normal Auscultation: Bowel Sounds: Normal Tenderness: Normal Skin: Normal Musculoskeletal: Normal Psychiatric: Normal Mood Description: Calm Affect: Normal Speech Pattern: Clear and Appropriate Laboratory and Diagnostics Result Diagrams: 03/07/21 05:22 03/07/21 05:22 Labs: Laboratory WBC 11.5 X10^3/uL (3.6-10.0) H 03/07/21 05:22 RBC 4.60 X10^6/uL (4.7-6.0) L 03/07/21 05:22 Hgb 13.3 g/dL (13.5-18.0) L 03/07/21 05:22 Hct 37.6 % (42.0-54.0) L 03/07/21 05:22 MCV 81.7 fL (80.0-100.0) 03/07/21 05:22 MCH 28.8 pg (27.0-34.0) 03/07/21 05:22 MCHC 35.3 g/dL (33.0-35.0) H 03/07/21 05:22 RDW 12.6 % (11.6-16.5) 03/07/21 05:22 Plt Count 269 X10^3/uL (150.0-450.0) 03/07/21 05:22 Plt Count Comment Adequate (ADEQUATE) 03/07/21 05:22 MPV 8.4 fL (7.4-11.0) 03/07/21 05:22 Neut % (Auto) 95.7 % (42.0-75.0) H 03/07/21 05:22 Lymph % (Auto) 1.7 % (21.0-51.0) L 03/07/21 05:22 [place] % (Auto) 2.4 % (0.0-13.0) 03/07/21 05:22 Eos % (Auto) 0.1 % (0.9-2.9) L 03/07/21 05:22 Baso % (Auto) 0.1 % (0.2-1.0) L 03/07/21 05:22 Neut # (Auto) 11.0 x10^3/uL (2.2-4.8) H 03/07/21 05:22 Lymph # (Auto) 0.2 X10^3/uL (1.3-2.9) L 03/07/21 05:22 [place] # (Auto) 0.3 x10^3/uL (0.3-0.8) 03/07/21 05:22 Eos # (Auto) 0.0 x10^3/uL (0.0-0.2) 03/07/21 05:22 Baso # (Auto) 0.0 X10^3/uL (0.0-0.1) 03/07/21 05:22 Absolute Nucleated RBC 0.1 /100WBC 03/07/21 05:22 Total Counted 100 03/07/21 05:22 Neutrophils % (Manual) 98 % (39-76) H 03/07/21 05:22 Lymphocytes % (Manual) 1 % (13-43) L 03/07/21 05:22 Monocytes % (Manual) 1 % (4-9) L 03/07/21 05:22 Plt Morphology Comment Normal (NORMAL) 03/07/21 05:22 RBC Morphology Normal (NORMAL) 03/07/21 05:22 D-Dimer 0.87 ug/ml (0.0-0.57) H* 03/03/21 05:35 Sample Site Rrad 03/07/21 04:45 ABG pH 7.540 (7.35-7.45) H 03/07/21 04:45 ABG pCO2 35.0 mmHg (35.0-45.0) 03/07/21 04:45 ABG pO2 55.0 mmHg (80.0-100.0) L 03/07/21 04:45 ABG HCO3 29.9 mmol/L (22-26) H 03/07/21 04:45 ABG O2 Saturation 92.0 % (90-100) 03/07/21 04:45 ABG Base Excess 7.2 mmol/L (-2.0-2.0) H 03/07/21 04:45 Sree Test Pos 03/07/21 04:45 A-a Gradient 293.0 mmHg 03/07/21 04:45 FiO2 55.0 03/07/21 04:45 Blood Gas Comments Elbert well mts 03/07/21 04:45 Sodium 139 mmol/L (136-145) 03/07/21 05:22 Corrected Sodium 140 mmol/L (136-145) 03/07/21 05:22 Potassium 3.6 mmol/L (3.5-5.1) 03/07/21 05:22 Chloride 102 mmol/L (98-107) 03/07/21 05:22 Carbon Dioxide 27.2 mmol/L (21-32) 03/07/21 05:22 BUN 25 mg/dL (7-18) H 03/07/21 05:22 Creatinine 1.09 mg/dL (0.70-1.30) 03/07/21 05:22 Est GFR (MDRD) Af Amer > 60 (>60) 03/07/21 05:22 Est GFR (MDRD) Non-Af > 60 (>60) 03/07/21 05:22 Glucose 143 mg/dL (65-99) H 03/07/21 05:22 POC Glucose (mg/dL) 137 mg/dL (65-99) H 03/07/21 06:31 Calcium 7.9 mg/dL (8.5-10.1) L 03/07/21 05:22 Corrected Calcium 9.0 mg/dL (8.5-10.1) 03/07/21 05:22 Magnesium 2.5 mg/dL (1.7-2.9) 03/05/21 04:10 Ferritin 1988 ng/mL (26-388) H 03/01/21 11:20 Total Bilirubin 1.00 mg/dL (0.2-1.0) 03/07/21 05:22 AST 28 Units/L (15-37) 03/07/21 05:22 ALT 65 Units/L (12-78) 03/07/21 05:22 Alkaline Phosphatase 93 Units/L (46-116) 03/07/21 05:22 Creatine Kinase 121 Units/L (39-308) 03/01/21 11:20 CK-MB (CK-2) < 1.0 ng/mL (0-4.0) 03/01/21 11:20 CK/CKMB % Calc 0.8 % (<4) 03/01/21 11:20 Troponin I < 0.02 ng/mL (0-1.5) 03/01/21 11:20 C-Reactive Protein 11.50 mg/L (0-3.0) H 03/06/21 04:40 B-Natriuretic Peptide 412 pg/mL (0-79) H 03/01/21 11:20 Total Protein 6.0 g/dL (6.4-8.2) L 03/07/21 05:22 Albumin 2.6 g/dL (3.4-5.0) L 03/07/21 05:22 Globulin 3.4 g/dL (2.5-4.5) 03/07/21 05:22 Albumin/Globulin Ratio 0.8 Ratio (1.1-2.1) L 03/07/21 05:22 Specimen Type Catherized urine 03/04/21 07:00 Urine Color Yellow (YELLOW) 03/04/21 07:00 Urine Appearance Clear (CLEAR) 03/04/21 07:00 Urine pH 6.0 (5.0 - 8.0) 03/04/21 07:00 Ur Specific [place] 1.015 (1.000-1.030) 03/04/21 07:00 Urine Protein 1+ (NEGATIVE) 03/04/21 07:00 Urine Glucose (UA) Negative (NEGATIVE) 03/04/21 07:00 Urine Ketones Negative (NEGATIVE) 03/04/21 07:00 Urine Occult Blood Negative (NEGATIVE) 03/04/21 07:00 Urine Nitrite Negative (NEGATIVE) 03/04/21 07:00 Urine Bilirubin Negative (NEGATIVE) 03/04/21 07:00 Urine Urobilinogen Normal (NORMAL) 03/04/21 07:00 Ur Leukocyte Esterase Negative (NEGATIVE) 03/04/21 07:00 Urine RBC 0-2 /HPF (0-3) 03/04/21 07:00 Urine WBC 0-2 /HPF (0-5) 03/04/21 07:00 Ur Squamous Epith Cells Few /HPF (NEGATIVE) 03/04/21 07:00 Urine Bacteria Negative /HPF (NEGATIVE) 03/04/21 07:00 Ur Culture Indicated? No/not indicated 03/04/21 07:00 Plan (1) Acute respiratory failure with hypoxia: Status: Acute (2) COVID-19 virus infection: Status: Acute (3) Hypokalemia: Status: Acute (4) Pneumonia due to COVID-19 virus: Status: Acute (5) Elevated d-dimer: Status: Acute (6) Agitation: Status: Acute (7) Hypokalemia: Status: Acute
[2021-03-07] MEDS: LOPRESSOR TAB 50 MG PO SCH (12:57)
[2021-03-07] MEDS: ELIQUIS PO SCH (20:25)
[2021-03-08] MEDS: ASCORBIC ACID INJ MULTI-DOSE VIAL 1,500 MG in NS 100 ML IV 100 ML IV SCH ×4 (04:04→21:20)
[2021-03-08] MEDS: ZOSYN VIAL 3.375 GRAMS 3.375 G in NS 50 ML IV + SPIKE MINIBAG* 50 ML IV SCH ×3 (05:11→22:00)
[2021-03-08] MEDS: SOLU-Medrol 40 MG VIAL IVP SCH ×3 (05:11→21:20)
[2021-03-08] MEDS: DUONEB 0.5 MG/3 MG (3 mL) NEB SCH ×3 (06:05→21:03)
[2021-03-08 06:16] LABS: BASOPHILS % (AUTO) 0.1 % (0.2-1.0); EOSINOPHILS % (AUTO) 0.3 % (0.9-2.9); HEMATOCRIT 39.1 % (42.0-54.0); HEMOGLOBIN 13.9 g/dL (13.5-18.0); LYMPHOCYTES # (AUTO) 0.3 X10^3/uL (1.3-2.9); LYMPHOCYTES % (AUTO) 2.4 % (21.0-51.0); MEAN CORPUSCULAR HEMOGLOBIN 29.3 pg (27.0-34.0); MEAN CORPUSCULAR HGB CONC 35.5 g/dL (33.0-35.0); MEAN CORPUSCULAR VOLUME 82.7 fL (80.0-100.0); MEAN PLATELET VOLUME 8.4 fL (7.4-11.0); MONOCYTES # (AUTO) 0.4 x10^3/uL (0.3-0.8); MONOCYTES % (AUTO) 2.7 % (0.0-13.0); NEUTROPHILS # (AUTO) 13.1 x10^3/uL (2.2-4.8); NEUTROPHILS % (AUTO) 94.5 % (42.0-75.0); PLATELET COUNT 271 X10^3/uL (150.0-450.0); RED BLOOD COUNT 4.73 X10^6/uL (4.7-6.0); RED CELL DISTRIBUTION WIDTH 12.9 % (11.6-16.5); WHITE BLOOD COUNT 13.8 X10^3/uL (3.6-10.0)
[2021-03-08 06:40] LABS: ALANINE AMINOTRANSFERASE 55 Units/L (12-78); ALBUMIN 2.6 g/dL (3.4-5.0); ALKALINE PHOSPHATASE 86 Units/L (46-116); ASPARTATE AMINO TRANSFERASE 30 Units/L (15-37); BLOOD UREA NITROGEN 32 mg/dL (7-18); CALCIUM 8.3 mg/dL (8.5-10.1); CARBON DIOXIDE 31.7 mmol/L (21-32); CHLORIDE 101 mmol/L (98-107); COR CA(FOR HYPOALB) 9.4 mg/dL (8.5-10.1); COR NA(FOR HYPERGLY) 139 mmol/L (136-145); CREATININE 1.19 mg/dL (0.70-1.30); SODIUM 139 mmol/L (136-145); TOTAL PROTEIN 6.1 g/dL (6.4-8.2); eGFR NON BLACK RACES > 60 (>60)
--- NOTE | 2021-03-08 07:00 | RAD ---
HISTORYFollow-up COVID-19STUDYChest AP [id number]/19/2021FINDINGSHeart size remains normal. Bilateral interstitial and ground-glas s infiltrates are unchanged considering a difference in film technique. No pleural effusion or pneumo thorax is identified. Bony thorax is unremarkable.IMPRESSIONNo change bilateral interstitial and grou nd-glass infiltratesElectronically signed by: SUSAN SILVA (Mar 08, 2021 06:58:40)
[2021-03-08 07:24] LABS: PLATELET MORPHOLOGY COMMENT NORMAL (NORMAL)
[2021-03-08] MEDS: PULMICORT NEB TX 0.5 MG NEB SCH ×2 (08:54→21:03)
[2021-03-08] MEDS: ZINC SULFATE PO SCH ×2 (09:00→21:51)
[2021-03-08] MEDS: TRICOR TAB 160 MG PO SCH (09:00)
[2021-03-08] MEDS: VITAMIN D3 125 mcg (5,000 UNITS) PO SCH (09:00)
[2021-03-08] MEDS: ELIQUIS PO SCH ×2 (09:00→21:51)
[2021-03-08] MEDS: PriLOSEC PO SCH (09:00)
[2021-03-08] MEDS: LOPRESSOR TAB 50 MG PO SCH (09:00)
[2021-03-08] MEDS: COZAAR PO SCH (09:00)
[2021-03-08] MEDS: HYDROCHLOROTHIAZIDE 25 MG TAB PO SCH (09:00)
[2021-03-08] MEDS: VITAMIN A PO SCH (09:00)
[2021-03-08] MEDS: PEPCID 20 MG IV PREMIX* 20 MG/50 ML BAG IV SCH (09:00)
[2021-03-08] MEDS: FLOMAX PO SCH (09:00)
[2021-03-08 12:05] VITALS: BMI 25.7
--- NOTE | 2021-03-08 15:13 | PCM.PROG ---
Progress Note Progress Note for Day of Date of Exam: 03/08/21 Subjective Subjective: Patient seen at bedside, no events overnight. Patient is currently on HHFNC Fio2 93%. He did wear the BiPAP last night at FiO2 75%. He has been working with PT. He reports feeling better, still has some cough. He has been eating well. Labs: WBC 13.8 Hgb 13.9 Plt 2671 K: 3.7 BUN/Cr: 32/1.19 Glucose 114 CXR: no change, bilateral pneumonia Plan: Wean O2 as tolerated to keep sats > 88%. Continue covid-19 protocol and telemetry. Continue Zosyn, completed Remdesivir. Continue Solumedrol. Continue vitamin support and Eliquis 5 mg BID. Continue nebs, pulmicort and IS. Add Smart vest. Advised patient to lay on each side and also self-prone. Continue home medications. Continue hydralazine prn for SBP > 160. Continue morphine prn. Time spent for clinical assessment, reviewing labs/imaging, physical exam, decision making and documentation greater than 45 mins. Past Medical Family Social History Past Med/Fam/Surg Hx: No changes since H&P Allergies: Allergies temazepam [From Restoril] Allergy (Verified 03/05/21 09:47) IVP DYE Allergy (Uncoded 03/02/21 18:20) Review of Systems ROS: No change since H&P Vital Signs and I&O's Vital Signs: Temperature 98.0 F Pulse Rate [Left Brachial] 85 Pulse Rate 78 Respiratory Rate 47 Blood Pressure [Left Arm] 153/80 Blood Pressure 141/73 O2 Sat by Pulse Oximetry 87 Intake and Output: Intake & Output 03/05/21 03/06/21 03/07/21 03/08/21 23:59 23:59 23:59 23:59 Intake Total 2572 / 2572 1696 / 1696 2578 / 2578 280 / 280 Output Total 3100 / 3100 1999 / 1999 5300 / 5300 600 / 600 Balance -528 / -528 -304 / -304 -2722 / -2722 -320 / -320 Physical Exam Oriented: Normal Eyes: Normal Ear: Normal Nose: Normal Throat: Normal Respiratory: Generalized and Diminished Cardiovascular: Normal Auscultation: Bowel Sounds: Normal Tenderness: Normal Skin: Normal Musculoskeletal: Normal Psychiatric: Normal Mood Description: Calm Affect: Normal Speech Pattern: Clear and Appropriate Laboratory and Diagnostics Result Diagrams: 03/08/21 05:10 03/08/21 05:10 Labs: Laboratory WBC 13.8 X10^3/uL (3.6-10.0) H 03/08/21 05:10 RBC 4.73 X10^6/uL (4.7-6.0) 03/08/21 05:10 Hgb 13.9 g/dL (13.5-18.0) 03/08/21 05:10 Hct 39.1 % (42.0-54.0) L 03/08/21 05:10 MCV 82.7 fL (80.0-100.0) 03/08/21 05:10 MCH 29.3 pg (27.0-34.0) 03/08/21 05:10 MCHC 35.5 g/dL (33.0-35.0) H 03/08/21 05:10 RDW 12.9 % (11.6-16.5) 03/08/21 05:10 Plt Count 271 X10^3/uL (150.0-450.0) 03/08/21 05:10 Plt Count Comment Adequate (ADEQUATE) 03/08/21 05:10 MPV 8.4 fL (7.4-11.0) 03/08/21 05:10 Neut % (Auto) 94.5 % (42.0-75.0) H 03/08/21 05:10 Lymph % (Auto) 2.4 % (21.0-51.0) L 03/08/21 05:10 [place] % (Auto) 2.7 % (0.0-13.0) 03/08/21 05:10 Eos % (Auto) 0.3 % (0.9-2.9) L 03/08/21 05:10 Baso % (Auto) 0.1 % (0.2-1.0) L 03/08/21 05:10 Neut # (Auto) 13.1 x10^3/uL (2.2-4.8) H 03/08/21 05:10 Lymph # (Auto) 0.3 X10^3/uL (1.3-2.9) L 03/08/21 05:10 [place] # (Auto) 0.4 x10^3/uL (0.3-0.8) 03/08/21 05:10 Eos # (Auto) 0.0 x10^3/uL (0.0-0.2) 03/08/21 05:10 Baso # (Auto) 0.0 X10^3/uL (0.0-0.1) 03/08/21 05:10 Absolute Nucleated RBC 0.1 /100WBC 03/08/21 05:10 Total Counted 100 03/08/21 05:10 Neutrophils % (Manual) 98 % (39-76) H 03/08/21 05:10 Lymphocytes % (Manual) 2 % (13-43) L 03/08/21 05:10 Monocytes % (Manual) 1 % (4-9) L 03/07/21 05:22 Plt Morphology Comment Normal (NORMAL) 03/08/21 05:10 RBC Morphology Normal (NORMAL) 03/08/21 05:10 D-Dimer 0.87 ug/ml (0.0-0.57) H* 03/03/21 05:35 Sample Site Rrad 03/07/21 04:45 ABG pH 7.540 (7.35-7.45) H 03/07/21 04:45 ABG pCO2 35.0 mmHg (35.0-45.0) 03/07/21 04:45 ABG pO2 55.0 mmHg (80.0-100.0) L 03/07/21 04:45 ABG HCO3 29.9 mmol/L (22-26) H 03/07/21 04:45 ABG O2 Saturation 92.0 % (90-100) 03/07/21 04:45 ABG Base Excess 7.2 mmol/L (-2.0-2.0) H 03/07/21 04:45 Sree Test Pos 03/07/21 04:45 A-a Gradient 293.0 mmHg 03/07/21 04:45 FiO2 55.0 03/07/21 04:45 Blood Gas Comments Elbert well mts 03/07/21 04:45 Sodium 139 mmol/L (136-145) 03/08/21 05:10 Corrected Sodium 139 mmol/L (136-145) 03/08/21 05:10 Potassium 3.7 mmol/L (3.5-5.1) 03/08/21 05:10 Chloride 101 mmol/L (98-107) 03/08/21 05:10 Carbon Dioxide 31.7 mmol/L (21-32) 03/08/21 05:10 BUN 32 mg/dL (7-18) H 03/08/21 05:10 Creatinine 1.19 mg/dL (0.70-1.30) 03/08/21 05:10 Est GFR (MDRD) Af Amer > 60 (>60) 03/08/21 05:10 Est GFR (MDRD) Non-Af > 60 (>60) 03/08/21 05:10 Glucose 114 mg/dL (65-99) H 03/08/21 05:10 POC Glucose (mg/dL) 174 mg/dL (65-99) H 03/07/21 19:24 Calcium 8.3 mg/dL (8.5-10.1) L 03/08/21 05:10 Corrected Calcium 9.4 mg/dL (8.5-10.1) 03/08/21 05:10 Magnesium 2.5 mg/dL (1.7-2.9) 03/05/21 04:10 Ferritin 1988 ng/mL (26-388) H 03/01/21 11:20 Total Bilirubin 1.00 mg/dL (0.2-1.0) 03/08/21 05:10 AST 30 Units/L (15-37) 03/08/21 05:10 ALT 55 Units/L (12-78) 03/08/21 05:10 Alkaline Phosphatase 86 Units/L (46-116) 03/08/21 05:10 Creatine Kinase 121 Units/L (39-308) 03/01/21 11:20 CK-MB (CK-2) < 1.0 ng/mL (0-4.0) 03/01/21 11:20 CK/CKMB % Calc 0.8 % (<4) 03/01/21 11:20 Troponin I < 0.02 ng/mL (0-1.5) 03/01/21 11:20 C-Reactive Protein 11.50 mg/L (0-3.0) H 03/06/21 04:40 B-Natriuretic Peptide 412 pg/mL (0-79) H 03/01/21 11:20 Total Protein 6.1 g/dL (6.4-8.2) L 03/08/21 05:10 Albumin 2.6 g/dL (3.4-5.0) L 03/08/21 05:10 Globulin 3.5 g/dL (2.5-4.5) 03/08/21 05:10 Albumin/Globulin Ratio 0.7 Ratio (1.1-2.1) L 03/08/21 05:10 Specimen Type Catherized urine 03/04/21 07:00 Urine Color Yellow (YELLOW) 03/04/21 07:00 Urine Appearance Clear (CLEAR) 03/04/21 07:00 Urine pH 6.0 (5.0 - 8.0) 03/04/21 07:00 Ur Specific [place] 1.015 (1.000-1.030) 03/04/21 07:00 Urine Protein 1+ (NEGATIVE) 03/04/21 07:00 Urine Glucose (UA) Negative (NEGATIVE) 03/04/21 07:00 Urine Ketones Negative (NEGATIVE) 03/04/21 07:00 Urine Occult Blood Negative (NEGATIVE) 03/04/21 07:00 Urine Nitrite Negative (NEGATIVE) 03/04/21 07:00 Urine Bilirubin Negative (NEGATIVE) 03/04/21 07:00 Urine Urobilinogen Normal (NORMAL) 03/04/21 07:00 Ur Leukocyte Esterase Negative (NEGATIVE) 03/04/21 07:00 Urine RBC 0-2 /HPF (0-3) 03/04/21 07:00 Urine WBC 0-2 /HPF (0-5) 03/04/21 07:00 Ur Squamous Epith Cells Few /HPF (NEGATIVE) 03/04/21 07:00 Urine Bacteria Negative /HPF (NEGATIVE) 03/04/21 07:00 Ur Culture Indicated? No/not indicated 03/04/21 07:00 Plan (1) Acute respiratory failure with hypoxia: Status: Acute (2) COVID-19 virus infection: Status: Acute (3) Hypokalemia: Status: Acute (4) Pneumonia due to COVID-19 virus: Status: Acute (5) Elevated d-dimer: Status: Acute (6) Agitation: Status: Acute (7) Hypokalemia: Status: Acute
[2021-03-08] MEDS ORDERED: NS 100 ML IV 100 ML ONE (21:18)
[2021-03-09] MEDS: ASCORBIC ACID INJ MULTI-DOSE VIAL 1,500 MG in NS 100 ML IV 100 ML IV SCH ×4 (03:00→21:19)
[2021-03-09 05:10] LABS: BASOPHILS % (AUTO) 0.2 % (0.2-1.0); EOSINOPHILS % (AUTO) 0.3 % (0.9-2.9); HEMOGLOBIN 14.1 g/dL (13.5-18.0); LYMPHOCYTES # (AUTO) 0.3 X10^3/uL (1.3-2.9); LYMPHOCYTES % (AUTO) 1.5 % (21.0-51.0); MEAN CORPUSCULAR HEMOGLOBIN 28.9 pg (27.0-34.0); MEAN CORPUSCULAR HGB CONC 35.3 g/dL (33.0-35.0); MEAN CORPUSCULAR VOLUME 81.9 fL (80.0-100.0); MEAN PLATELET VOLUME 8.8 fL (7.4-11.0); MONOCYTES # (AUTO) 0.4 x10^3/uL (0.3-0.8); MONOCYTES % (AUTO) 2.2 % (0.0-13.0); NEUTROPHILS # (AUTO) 15.9 x10^3/uL (2.2-4.8); NEUTROPHILS % (AUTO) 95.8 % (42.0-75.0); PLATELET COUNT 254 X10^3/uL (150.0-450.0); RED BLOOD COUNT 4.89 X10^6/uL (4.7-6.0); RED CELL DISTRIBUTION WIDTH 12.7 % (11.6-16.5); WHITE BLOOD COUNT 16.6 X10^3/uL (3.6-10.0)
[2021-03-09 05:15] LABS: BLOOD UREA NITROGEN 35 mg/dL (7-18); CALCIUM 8.4 mg/dL (8.5-10.1); CARBON DIOXIDE 26.6 mmol/L (21-32); CHLORIDE 102 mmol/L (98-107); COR NA(FOR HYPERGLY) 141 mmol/L (136-145); CREATININE 1.21 mg/dL (0.70-1.30); SODIUM 140 mmol/L (136-145); eGFR NON BLACK RACES > 60 (>60)
[2021-03-09] MEDS: DUONEB 0.5 MG/3 MG (3 mL) NEB SCH ×4 (05:39→21:05)
[2021-03-09] MEDS: SOLU-Medrol 40 MG VIAL IVP SCH ×3 (05:39→21:19)
[2021-03-09] MEDS: ZOSYN VIAL 3.375 GRAMS 3.375 G in NS 50 ML IV + SPIKE MINIBAG* 50 ML IV SCH ×3 (05:40→22:30)
--- NOTE | 2021-03-09 05:59 | RAD ---
PROCEDURE: Chest X-ray 1 View .HISTORY: COVID PNEUMONIA .TECHNIQUE: AP view .COMPARISON: 03/08/2021.TECHNICAL QUALITY: Satisfactory .FINDINGS:Unremarkable cardio mediastinal silhouette.Normal central vascularity.Patchy consolidation lung bases is unchanged consistent with pneumonia. No pleural fluid or pneumothorax.IMPRESSION:Unchanged bibasilar pneumonia.Electronically signed by: Kumar Bain (Mar 09, 2021 05:57:39)
[2021-03-09 06:07] LABS: PLATELET MORPHOLOGY COMMENT NORMAL (NORMAL)
[2021-03-09] MEDS: PULMICORT NEB TX 0.5 MG NEB SCH ×2 (08:30→21:05)
[2021-03-09] MEDS: ELIQUIS PO SCH ×2 (08:40→21:19)
[2021-03-09] MEDS: LOPRESSOR TAB 50 MG PO SCH (08:42)
[2021-03-09] MEDS: VITAMIN D3 125 mcg (5,000 UNITS) PO SCH (08:43)
[2021-03-09] MEDS: ZINC SULFATE PO SCH ×2 (08:43→21:19)
[2021-03-09] MEDS: VITAMIN A PO SCH (08:43)
[2021-03-09] MEDS: TRICOR TAB 160 MG PO SCH (08:44)
[2021-03-09] MEDS: PriLOSEC PO SCH (08:48)
[2021-03-09] MEDS: COZAAR PO SCH (08:48)
[2021-03-09] MEDS: FLOMAX PO SCH (08:49)
[2021-03-09] MEDS: HYDROCHLOROTHIAZIDE 25 MG TAB PO SCH (08:49)
[2021-03-09] MEDS: PEPCID 20 MG IV PREMIX* 20 MG/50 ML BAG IV SCH (11:21)
--- NOTE | 2021-03-09 14:33 | PCM.PROG ---
Progress Note Progress Note for Day of Date of Exam: 03/09/21 Subjective Subjective: Patient seen at bedside, no events overnight. Patient remained on BiPAP overnight at FiO2 75%. He will be transitioned to FNC this morning. He states he feels better. He continues to have cough. Denies fever or chills. He did try to lay on his side yesterday. He also tried smart vest which has been helping. Labs: WBC 16.6 Hgb 14.1 Plt 2671 K: 3.7 BUN/Cr: 35/1.21 Glucose 133 CXR: no change, bilateral pneumonia Plan: Wean O2 as tolerated to keep sats > 88%. Continue covid-19 protocol and telemetry. Continue Zosyn, completed Remdesivir. Continue Solumedrol. Continue vitamin support and Eliquis 5 mg BID. Continue nebs, pulmicort and IS. Continue Smart vest. Advised patient to lay on each side and also self-prone. Continue home medications. Continue morphine prn. Monitor AM labs and imaging. Time spent for clinical assessment, reviewing labs/imaging, physical exam, decis ion making and documentation greater than 45 mins. Past Medical Family Social History Past Med/Fam/Surg Hx: No changes since H&P Allergies: Allergies temazepam [From Restoril] Allergy (Verified 03/05/21 09:47) IVP DYE Allergy (Uncoded 03/02/21 18:20) Review of Systems ROS: No change since H&P Vital Signs and I&O's Vital Signs: Temperature 98.2 F Pulse Rate [Left Brachial] 85 Pulse Rate 76 Respiratory Rate 31 Blood Pressure [Left Arm] 153/80 Blood Pressure 127/64 O2 Sat by Pulse Oximetry 86 Intake and Output: Intake & Output 03/06/21 03/07/21 03/08/21 03/09/21 23:59 23:59 23:59 23:59 Intake Total 1696 / 1696 2578 / 2578 1681 / 1681 165 / 165 Output Total 1999 / 1999 5300 / 5300 4250 / 4250 800 / 800 Balance -304 / -304 -2722 / -2722 -2569 / -2569 -635 / -635 Physical Exam Oriented: Normal Eyes: Normal Ear: Normal Nose: Normal Throat: Normal Respiratory: Generalized and Diminished Cardiovascular: Normal Auscultation: Bowel Sounds: Normal Tenderness: Normal Skin: Normal Musculoskeletal: Normal Psychiatric: Normal Mood Description: Calm Affect: Normal Speech Pattern: Clear and Appropriate Laboratory and Diagnostics Result Diagrams: 03/09/21 04:35 03/09/21 04:35 Labs: Laboratory WBC 16.6 X10^3/uL (3.6-10.0) H 03/09/21 04:35 RBC 4.89 X10^6/uL (4.7-6.0) 03/09/21 04:35 Hgb 14.1 g/dL (13.5-18.0) 03/09/21 04:35 Hct 40.0 % (42.0-54.0) L 03/09/21 04:35 MCV 81.9 fL (80.0-100.0) 03/09/21 04:35 MCH 28.9 pg (27.0-34.0) 03/09/21 04:35 MCHC 35.3 g/dL (33.0-35.0) H 03/09/21 04:35 RDW 12.7 % (11.6-16.5) 03/09/21 04:35 Plt Count 254 X10^3/uL (150.0-450.0) 03/09/21 04:35 Plt Count Comment Adequate (ADEQUATE) 03/09/21 04:35 MPV 8.8 fL (7.4-11.0) 03/09/21 04:35 Neut % (Auto) 95.8 % (42.0-75.0) H 03/09/21 04:35 Lymph % (Auto) 1.5 % (21.0-51.0) L 03/09/21 04:35 [place] % (Auto) 2.2 % (0.0-13.0) 03/09/21 04:35 Eos % (Auto) 0.3 % (0.9-2.9) L 03/09/21 04:35 Baso % (Auto) 0.2 % (0.2-1.0) 03/09/21 04:35 Neut # (Auto) 15.9 x10^3/uL (2.2-4.8) H 03/09/21 04:35 Lymph # (Auto) 0.3 X10^3/uL (1.3-2.9) L 03/09/21 04:35 [place] # (Auto) 0.4 x10^3/uL (0.3-0.8) 03/09/21 04:35 Eos # (Auto) 0.0 x10^3/uL (0.0-0.2) 03/09/21 04:35 Baso # (Auto) 0.0 X10^3/uL (0.0-0.1) 03/09/21 04:35 Absolute Nucleated RBC 0.0 /100WBC 03/09/21 04:35 Total Counted 100 03/09/21 04:35 Neutrophils % (Manual) 95 % (39-76) H 03/09/21 04:35 Lymphocytes % (Manual) 2 % (13-43) L 03/09/21 04:35 Monocytes % (Manual) 3 % (4-9) L 03/09/21 04:35 Plt Morphology Comment Normal (NORMAL) 03/09/21 04:35 RBC Morphology Normal (NORMAL) 03/09/21 04:35 D-Dimer 0.87 ug/ml (0.0-0.57) H* 03/03/21 05:35 Sample Site Rrad 03/07/21 04:45 ABG pH 7.540 (7.35-7.45) H 03/07/21 04:45 ABG pCO2 35.0 mmHg (35.0-45.0) 03/07/21 04:45 ABG pO2 55.0 mmHg (80.0-100.0) L 03/07/21 04:45 ABG HCO3 29.9 mmol/L (22-26) H 03/07/21 04:45 ABG O2 Saturation 92.0 % (90-100) 03/07/21 04:45 ABG Base Excess 7.2 mmol/L (-2.0-2.0) H 03/07/21 04:45 Sree Test Pos 03/07/21 04:45 A-a Gradient 293.0 mmHg 03/07/21 04:45 FiO2 55.0 03/07/21 04:45 Blood Gas Comments Elbert well mts 03/07/21 04:45 Sodium 140 mmol/L (136-145) 03/09/21 04:35 Corrected Sodium 141 mmol/L (136-145) 03/09/21 04:35 Potassium 4.1 mmol/L (3.5-5.1) 03/09/21 04:35 Chloride 102 mmol/L (98-107) 03/09/21 04:35 Carbon Dioxide 26.6 mmol/L (21-32) 03/09/21 04:35 BUN 35 mg/dL (7-18) H 03/09/21 04:35 Creatinine 1.21 mg/dL (0.70-1.30) 03/09/21 04:35 Est GFR (MDRD) Af Amer > 60 (>60) 03/09/21 04:35 Est GFR (MDRD) Non-Af > 60 (>60) 03/09/21 04:35 Glucose 133 mg/dL (65-99) H 03/09/21 04:35 POC Glucose (mg/dL) 99 mg/dL (65-99) 03/09/21 11:51 Calcium 8.4 mg/dL (8.5-10.1) L 03/09/21 04:35 Corrected Calcium 9.4 mg/dL (8.5-10.1) 03/08/21 05:10 Magnesium 2.5 mg/dL (1.7-2.9) 03/05/21 04:10 Ferritin 1988 ng/mL (26-388) H 03/01/21 11:20 Total Bilirubin 1.00 mg/dL (0.2-1.0) 03/08/21 05:10 AST 30 Units/L (15-37) 03/08/21 05:10 ALT 55 Units/L (12-78) 03/08/21 05:10 Alkaline Phosphatase 86 Units/L (46-116) 03/08/21 05:10 Creatine Kinase 121 Units/L (39-308) 03/01/21 11:20 CK-MB (CK-2) < 1.0 ng/mL (0-4.0) 03/01/21 11:20 CK/CKMB % Calc 0.8 % (<4) 03/01/21 11:20 Troponin I < 0.02 ng/mL (0-1.5) 03/01/21 11:20 C-Reactive Protein 2.20 mg/L (0-3.0) 03/09/21 04:35 B-Natriuretic Peptide 412 pg/mL (0-79) H 03/01/21 11:20 Total Protein 6.1 g/dL (6.4-8.2) L 03/08/21 05:10 Albumin 2.6 g/dL (3.4-5.0) L 03/08/21 05:10 Globulin 3.5 g/dL (2.5-4.5) 03/08/21 05:10 Albumin/Globulin Ratio 0.7 Ratio (1.1-2.1) L 03/08/21 05:10 Specimen Type Catherized urine 03/04/21 07:00 Urine Color Yellow (YELLOW) 03/04/21 07:00 Urine Appearance Clear (CLEAR) 03/04/21 07:00 Urine pH 6.0 (5.0 - 8.0) 03/04/21 07:00 Ur Specific [place] 1.015 (1.000-1.030) 03/04/21 07:00 Urine Protein 1+ (NEGATIVE) 03/04/21 07:00 Urine Glucose (UA) Negative (NEGATIVE) 03/04/21 07:00 Urine Ketones Negative (NEGATIVE) 03/04/21 07:00 Urine Occult Blood Negative (NEGATIVE) 03/04/21 07:00 Urine Nitrite Negative (NEGATIVE) 03/04/21 07:00 Urine Bilirubin Negative (NEGATIVE) 03/04/21 07:00 Urine Urobilinogen Normal (NORMAL) 03/04/21 07:00 Ur Leukocyte Esterase Negative (NEGATIVE) 03/04/21 07:00 Urine RBC 0-2 /HPF (0-3) 03/04/21 07:00 Urine WBC 0-2 /HPF (0-5) 03/04/21 07:00 Ur Squamous Epith Cells Few /HPF (NEGATIVE) 03/04/21 07:00 Urine Bacteria Negative /HPF (NEGATIVE) 03/04/21 07:00 Ur Culture Indicated? No/not indicated 03/04/21 07:00 Plan (1) Acute respiratory failure with hypoxia: Status: Acute (2) COVID-19 virus infection: Status: Acute (3) Hypokalemia: Status: Acute (4) Pneumonia due to COVID-19 virus: Status: Acute (5) Elevated d-dimer: Status: Acute (6) Agitation: Status: Acute (7) Hypokalemia: Status: Acute
[2021-03-09] MEDS: MORPHINE SULFATE INJ 2 MG INJ IVP PRN (16:07)
[2021-03-10] MEDS ORDERED: NS 250 ML IV 250 ML IV ONE (03:27)
[2021-03-10] MEDS: ASCORBIC ACID INJ MULTI-DOSE VIAL 1,500 MG in NS 100 ML IV 100 ML IV SCH ×4 (03:35→21:00)
[2021-03-10] MEDS: MORPHINE SULFATE INJ 2 MG INJ IVP PRN ×2 (03:45→11:45)
[2021-03-10] MEDS: DUONEB 0.5 MG/3 MG (3 mL) NEB SCH ×3 (05:10→20:47)
[2021-03-10] MEDS: SOLU-Medrol 40 MG VIAL IVP SCH ×3 (05:23→21:00)
[2021-03-10] MEDS: ZOSYN VIAL 3.375 GRAMS 3.375 G in NS 50 ML IV + SPIKE MINIBAG* 50 ML IV SCH ×3 (05:23→22:30)
[2021-03-10 06:13] LABS: BASOPHILS % (AUTO) 0.2 % (0.2-1.0); EOSINOPHILS % (AUTO) 0.2 % (0.9-2.9); HEMATOCRIT 40.4 % (42.0-54.0); HEMOGLOBIN 14.2 g/dL (13.5-18.0); LYMPHOCYTES # (AUTO) 0.2 X10^3/uL (1.3-2.9); LYMPHOCYTES % (AUTO) 0.9 % (21.0-51.0); MEAN CORPUSCULAR HEMOGLOBIN 29.3 pg (27.0-34.0); MEAN CORPUSCULAR VOLUME 83.7 fL (80.0-100.0); MONOCYTES # (AUTO) 0.4 x10^3/uL (0.3-0.8); NEUTROPHILS # (AUTO) 20.6 x10^3/uL (2.2-4.8); NEUTROPHILS % (AUTO) 96.7 % (42.0-75.0); PLATELET COUNT 212 X10^3/uL (150.0-450.0); RED BLOOD COUNT 4.83 X10^6/uL (4.7-6.0); RED CELL DISTRIBUTION WIDTH 12.9 % (11.6-16.5); WHITE BLOOD COUNT 21.3 X10^3/uL (3.6-10.0)
[2021-03-10 06:20] LABS: BLOOD UREA NITROGEN 34 mg/dL (7-18); CALCIUM 8.5 mg/dL (8.5-10.1); CARBON DIOXIDE 26.6 mmol/L (21-32); CHLORIDE 102 mmol/L (98-107); COR NA(FOR HYPERGLY) 140 mmol/L (136-145); CREATININE 1.12 mg/dL (0.70-1.30); SODIUM 139 mmol/L (136-145); eGFR NON BLACK RACES > 60 (>60)
[2021-03-10 07:32] LABS: PLATELET MORPHOLOGY COMMENT NORMAL (NORMAL)
[2021-03-10] MEDS: VITAMIN A PO SCH (08:25)
[2021-03-10] MEDS: ZINC SULFATE PO SCH ×2 (08:26→21:00)
[2021-03-10] MEDS: VITAMIN D3 125 mcg (5,000 UNITS) PO SCH (08:26)
[2021-03-10] MEDS: PriLOSEC PO SCH (08:27)
[2021-03-10] MEDS: TRICOR TAB 160 MG PO SCH (08:27)
[2021-03-10] MEDS: LOPRESSOR TAB 50 MG PO SCH (08:28)
[2021-03-10] MEDS: FLOMAX PO SCH (08:29)
[2021-03-10] MEDS: HYDROCHLOROTHIAZIDE 25 MG TAB PO SCH (08:29)
[2021-03-10] MEDS: ELIQUIS PO SCH ×2 (08:30→21:00)
[2021-03-10] MEDS: COZAAR PO SCH (08:30)
[2021-03-10] MEDS ORDERED: LEVAQUIN PREMIX IV 750 MG 750 MG/150 ML BAG IV SCH (09:00)
[2021-03-10] MEDS: PULMICORT NEB TX 0.5 MG NEB SCH ×2 (09:15→20:47)
[2021-03-10] MEDS ORDERED: LASIX IVP ONE (09:49)
[2021-03-10] MEDS ORDERED: TYLENOL 500 MG TAB EXTRA STRENGTH PO PRN (09:49)
[2021-03-10] MEDS: PEPCID 20 MG IV PREMIX* 20 MG/50 ML BAG IV SCH (09:51)
[2021-03-10] MEDS: DIFLUCAN 200 MG IV PREMIX* 200 MG/100 ML BAG IV SCH (11:01)
[2021-03-10] MEDS: VIBRAMYCIN PO SCH ×2 (11:03→21:00)
[2021-03-10] MEDS ORDERED: ACTEMRA 400 MG in NS 100 ML IV 80 ML IV ONE (15:00)
--- NOTE | 2021-03-10 16:33 | PCM.PROG ---
Progress Note Progress Note for Day of Date of Exam: 03/10/21 Subjective Subjective: Patient seen at bedside, no events overnight. Patient remained on BiPAP overnight at FiO2 75%. He was transitioned to HHFNC this morning at 93%, sats remain between 86-89%. He states he feels better. He continues to have cough. Denies fever or chills. Labs: WBC 21.3 Hgb 14.2 Plt 212 K: 3.7 BUN/Cr: 33/1.12 Glucose 136 CXR: no change, bilateral pneumonia Sputum: mod yeast, Gm (-) cocci Plan: Wean O2 as tolerated to keep sats > 88%. Continue covid-19 protocol and telemetry. Continue Zosyn, completed Remdesivir. Will add doxycycline and Diflucan. Will give on dose of lasix. Continue Solumedrol. Continue vitamin support and Eliquis 5 mg BID. Continue nebs, pulmicort and IS. Continue Smart vest. Advised patient to lay on each side and also self-prone. Continue home medications. Continue morphine prn. Will repeat ABG and CXR in the AM. PT/OT as tolerated. Monitor AM labs and imaging. Time spent for clinical assessment, reviewing labs/imaging, physical exam, decision making and documentation greater than 45 mins. Past Medical Family Social History Past Med/Fam/Surg Hx: No changes since H&P Allergies: Allergies temazepam [From Restoril] Allergy (Verified 03/05/21 09:47) IVP DYE Allergy (Uncoded 03/02/21 18:20) Review of Systems ROS: No change since H&P Vital Signs and I&O's Vital Signs: Temperature 96.7 F Pulse Rate [Left Brachial] 85 Pulse Rate 86 Respiratory Rate 37 Blood Pressure [Left Arm] 153/80 Blood Pressure 112/65 O2 Sat by Pulse Oximetry 85 Intake and Output: Intake & Output 03/07/21 03/08/21 03/09/21 03/10/21 23:59 23:59 23:59 23:59 Intake Total 2578 / 2578 1681 / 1681 1649 / 1649 470 / 470 Output Total 5300 / 5300 4250 / 4250 2900 / 2900 1925 / 1925 Balance -2722 / -2722 -2569 / -2569 -1251 / -1251 -1455 / -1455 Physical Exam Oriented: Normal Eyes: Normal Ear: Normal Nose: Normal Throat: Normal Respiratory: Generalized, Diminished and [place] Cardiovascular: Normal Auscultation: Bowel Sounds: Normal Tenderness: Normal Skin: Normal Musculoskeletal: Normal Psychiatric: Normal Mood Description: Calm Affect: Normal Speech Pattern: Clear and Appropriate Laboratory and Diagnostics Result Diagrams: 03/10/21 05:00 03/10/21 05:00 Labs: 03/09/21 11:50 Sputum - Expectorated Sputum Sputum Culture - Preliminary 03/09/21 11:50 Sputum - Expectorated Sputum - Final Laboratory WBC 21.3 X10^3/uL (3.6-10.0) H 03/10/21 05:00 RBC 4.83 X10^6/uL (4.7-6.0) 03/10/21 05:00 Hgb 14.2 g/dL (13.5-18.0) 03/10/21 05:00 Hct 40.4 % (42.0-54.0) L 03/10/21 05:00 MCV 83.7 fL (80.0-100.0) 03/10/21 05:00 MCH 29.3 pg (27.0-34.0) 03/10/21 05:00 MCHC 35.0 g/dL (33.0-35.0) 03/10/21 05:00 RDW 12.9 % (11.6-16.5) 03/10/21 05:00 Plt Count 212 X10^3/uL (150.0-450.0) 03/10/21 05:00 Plt Count Comment Adequate (ADEQUATE) 03/10/21 05:00 MPV 9.0 fL (7.4-11.0) 03/10/21 05:00 Neut % (Auto) 96.7 % (42.0-75.0) H 03/10/21 05:00 Lymph % (Auto) 0.9 % (21.0-51.0) L 03/10/21 05:00 [place] % (Auto) 2.0 % (0.0-13.0) 03/10/21 05:00 Eos % (Auto) 0.2 % (0.9-2.9) L 03/10/21 05:00 Baso % (Auto) 0.2 % (0.2-1.0) 03/10/21 05:00 Neut # (Auto) 20.6 x10^3/uL (2.2-4.8) H 03/10/21 05:00 Lymph # (Auto) 0.2 X10^3/uL (1.3-2.9) L 03/10/21 05:00 [place] # (Auto) 0.4 x10^3/uL (0.3-0.8) 03/10/21 05:00 Eos # (Auto) 0.0 x10^3/uL (0.0-0.2) 03/10/21 05:00 Baso # (Auto) 0.0 X10^3/uL (0.0-0.1) 03/10/21 05:00 Absolute Nucleated RBC 0.0 /100WBC 03/10/21 05:00 Total Counted 100 03/10/21 05:00 Neutrophils % (Manual) 99 % (39-76) H 03/10/21 05:00 Lymphocytes % (Manual) 1 % (13-43) L 03/10/21 05:00 Monocytes % (Manual) 3 % (4-9) L 03/09/21 04:35 Plt Morphology Comment Normal (NORMAL) 03/10/21 05:00 RBC Morphology Normal (NORMAL) 03/10/21 05:00 D-Dimer 0.87 ug/ml (0.0-0.57) H* 03/03/21 05:35 Sample Site Rrad 03/07/21 04:45 ABG pH 7.540 (7.35-7.45) H 03/07/21 04:45 ABG pCO2 35.0 mmHg (35.0-45.0) 03/07/21 04:45 ABG pO2 55.0 mmHg (80.0-100.0) L 03/07/21 04:45 ABG HCO3 29.9 mmol/L (22-26) H 03/07/21 04:45 ABG O2 Saturation 92.0 % (90-100) 03/07/21 04:45 ABG Base Excess 7.2 mmol/L (-2.0-2.0) H 03/07/21 04:45 Sree Test Pos 03/07/21 04:45 A-a Gradient 293.0 mmHg 03/07/21 04:45 FiO2 55.0 03/07/21 04:45 Blood Gas Comments Elbert well mts 03/07/21 04:45 Sodium 139 mmol/L (136-145) 03/10/21 05:00 Corrected Sodium 140 mmol/L (136-145) 03/10/21 05:00 Potassium 4.2 mmol/L (3.5-5.1) 03/10/21 05:00 Chloride 102 mmol/L (98-107) 03/10/21 05:00 Carbon Dioxide 26.6 mmol/L (21-32) 03/10/21 05:00 BUN 34 mg/dL (7-18) H 03/10/21 05:00 Creatinine 1.12 mg/dL (0.70-1.30) 03/10/21 05:00 Est GFR (MDRD) Af Amer > 60 (>60) 03/10/21 05:00 Est GFR (MDRD) Non-Af > 60 (>60) 03/10/21 05:00 Glucose 136 mg/dL (65-99) H 03/10/21 05:00 POC Glucose (mg/dL) 99 mg/dL (65-99) 03/09/21 11:51 Calcium 8.5 mg/dL (8.5-10.1) 03/10/21 05:00 Corrected Calcium 9.4 mg/dL (8.5-10.1) 03/08/21 05:10 Magnesium 2.5 mg/dL (1.7-2.9) 03/05/21 04:10 Ferritin 1988 ng/mL (26-388) H 03/01/21 11:20 Total Bilirubin 1.00 mg/dL (0.2-1.0) 03/08/21 05:10 AST 30 Units/L (15-37) 03/08/21 05:10 ALT 55 Units/L (12-78) 03/08/21 05:10 Alkaline Phosphatase 86 Units/L (46-116) 03/08/21 05:10 Creatine Kinase 121 Units/L (39-308) 03/01/21 11:20 CK-MB (CK-2) < 1.0 ng/mL (0-4.0) 03/01/21 11:20 CK/CKMB % Calc 0.8 % (<4) 03/01/21 11:20 Troponin I < 0.02 ng/mL (0-1.5) 03/01/21 11:20 C-Reactive Protein 2.20 mg/L (0-3.0) 03/09/21 04:35 B-Natriuretic Peptide 412 pg/mL (0-79) H 03/01/21 11:20 Total Protein 6.1 g/dL (6.4-8.2) L 03/08/21 05:10 Albumin 2.6 g/dL (3.4-5.0) L 03/08/21 05:10 Globulin 3.5 g/dL (2.5-4.5) 03/08/21 05:10 Albumin/Globulin Ratio 0.7 Ratio (1.1-2.1) L 03/08/21 05:10 Specimen Type Catherized urine 03/04/21 07:00 Urine Color Yellow (YELLOW) 03/04/21 07:00 Urine Appearance Clear (CLEAR) 03/04/21 07:00 Urine pH 6.0 (5.0 - 8.0) 03/04/21 07:00 Ur Specific [place] 1.015 (1.000-1.030) 03/04/21 07:00 Urine Protein 1+ (NEGATIVE) 03/04/21 07:00 Urine Glucose (UA) Negative (NEGATIVE) 03/04/21 07:00 Urine Ketones Negative (NEGATIVE) 03/04/21 07:00 Urine Occult Blood Negative (NEGATIVE) 03/04/21 07:00 Urine Nitrite Negative (NEGATIVE) 03/04/21 07:00 Urine Bilirubin Negative (NEGATIVE) 03/04/21 07:00 Urine Urobilinogen Normal (NORMAL) 03/04/21 07:00 Ur Leukocyte Esterase Negative (NEGATIVE) 03/04/21 07:00 Urine RBC 0-2 /HPF (0-3) 03/04/21 07:00 Urine WBC 0-2 /HPF (0-5) 03/04/21 07:00 Ur Squamous Epith Cells Few /HPF (NEGATIVE) 03/04/21 07:00 Urine Bacteria Negative /HPF (NEGATIVE) 03/04/21 07:00 Ur Culture Indicated? No/not indicated 03/04/21 07:00 Plan (1) Acute respiratory failure with hypoxia: Status: Acute (2) COVID-19 virus infection: Status: Acute (3) Hypokalemia: Status: Acute (4) Pneumonia due to COVID-19 virus: Status: Acute (5) Elevated d-dimer: Status: Acute (6) Agitation: Status: Acute (7) Hypokalemia: Status: Acute
[2021-03-11] MEDS: ASCORBIC ACID INJ MULTI-DOSE VIAL 1,500 MG in NS 100 ML IV 100 ML IV SCH ×4 (03:05→21:00)
[2021-03-11 04:57] LABS: BASOPHILS % (AUTO) 0.3 % (0.2-1.0); EOSINOPHILS % (AUTO) 0.1 % (0.9-2.9); HEMATOCRIT 39.6 % (42.0-54.0); HEMOGLOBIN 13.8 g/dL (13.5-18.0); LYMPHOCYTES # (AUTO) 0.2 X10^3/uL (1.3-2.9); LYMPHOCYTES % (AUTO) 1.2 % (21.0-51.0); MEAN CORPUSCULAR HEMOGLOBIN 29.1 pg (27.0-34.0); MEAN CORPUSCULAR HGB CONC 34.9 g/dL (33.0-35.0); MEAN CORPUSCULAR VOLUME 83.3 fL (80.0-100.0); MEAN PLATELET VOLUME 9.2 fL (7.4-11.0); MONOCYTES # (AUTO) 0.5 x10^3/uL (0.3-0.8); MONOCYTES % (AUTO) 2.3 % (0.0-13.0); NEUTROPHILS # (AUTO) 19.1 x10^3/uL (2.2-4.8); NEUTROPHILS % (AUTO) 96.1 % (42.0-75.0); PLATELET COUNT 202 X10^3/uL (150.0-450.0); RED BLOOD COUNT 4.76 X10^6/uL (4.7-6.0); RED CELL DISTRIBUTION WIDTH 12.7 % (11.6-16.5); WHITE BLOOD COUNT 19.8 X10^3/uL (3.6-10.0)
[2021-03-11 05:12] LABS: ABG BASE EXCESS 7.1 mmol/L (-2.0-2.0); ABG HCO3 30.1 mmol/L (22-26)
[2021-03-11 05:13] LABS: ABG ALLEN TEST POS
[2021-03-11 05:26] LABS: BLOOD UREA NITROGEN 46 mg/dL (7-18); CALCIUM 8.3 mg/dL (8.5-10.1); CARBON DIOXIDE 27.9 mmol/L (21-32); CHLORIDE 100 mmol/L (98-107); COR NA(FOR HYPERGLY) 139 mmol/L (136-145); CREATININE 1.23 mg/dL (0.70-1.30); SODIUM 138 mmol/L (136-145); eGFR NON BLACK RACES > 60 (>60)
[2021-03-11] MEDS: DUONEB 0.5 MG/3 MG (3 mL) NEB SCH ×3 (05:29→21:05)
[2021-03-11 05:37] LABS: PLATELET MORPHOLOGY COMMENT NORMAL (NORMAL)
[2021-03-11] MEDS: ZOSYN VIAL 3.375 GRAMS 3.375 G in NS 50 ML IV + SPIKE MINIBAG* 50 ML IV SCH (05:59)
[2021-03-11] MEDS: SOLU-Medrol 40 MG VIAL IVP SCH ×3 (05:59→21:00)
--- NOTE | 2021-03-11 06:17 | RAD ---
HISTORYCOVID PNEUMONIASTUDYCHEST, 1 [id number]/22/2021.TECHNIQUEAP view of the chestFINDINGSCardiac and mediastinal contours are within normal limits. No significant change in bilateral mid to lower lung airspace opacities. No definite pleural effusion or pneumothorax.IMPRESSIONNo significant change.Electronically signed by: Elmer Gonzalez (Mar 11, 2021 06:15:41)
[2021-03-11] MEDS: PriLOSEC PO SCH (08:30)
[2021-03-11] MEDS: PULMICORT NEB TX 0.5 MG NEB SCH ×2 (08:55→21:05)
[2021-03-11] MEDS: PEPCID 20 MG IV PREMIX* 20 MG/50 ML BAG IV SCH (09:00)
[2021-03-11] MEDS: COZAAR PO SCH (10:00)
[2021-03-11] MEDS: ELIQUIS PO SCH ×2 (10:01→21:00)
[2021-03-11] MEDS: LOPRESSOR TAB 50 MG PO SCH (10:01)
[2021-03-11] MEDS: FLOMAX PO SCH (10:01)
[2021-03-11] MEDS: HYDROCHLOROTHIAZIDE 25 MG TAB PO SCH (10:02)
[2021-03-11] MEDS: ZINC SULFATE PO SCH ×2 (10:03→21:00)
[2021-03-11] MEDS: VITAMIN A PO SCH (10:07)
[2021-03-11] MEDS: DIFLUCAN 200 MG IV PREMIX* 200 MG/100 ML BAG IV SCH (10:08)
[2021-03-11] MEDS: VITAMIN D3 125 mcg (5,000 UNITS) PO SCH (10:08)
[2021-03-11] MEDS: FORTAZ or TAZICEF VIAL INJ 1 G in NS 100 ML IV 100 ML IV SCH ×3 (10:45→22:00)
--- NOTE | 2021-03-11 13:12 | PCM.PROG ---
Progress Note Progress Note for Day of Date of Exam: 03/11/21 Subjective Subjective: Patient seen at bedside, no events overnight. Patient is currently on HHFNC at 93%. He has been transitioning between BiPAP and HHFNC. He just woke up and is sitting on the side of the bed. His sats dropped to 69% but recovered slowly to 89%. He tends to drop quite a bit with minimal exertion.He states he feels fine. He continues to have productive cough. He did receive a dose of Actemra and lasix yesterday. Labs: WBC 19.8 Hgb 13.8 Plt 202 K: 3.7 BUN/Cr: 46/1.23 Glucose 136 CRP<0.50 CXR 03/11/21: no change, bilateral pneumonia Sputum: Klebsiella pna, yeast AB.55/36/55/30 at BiPAP 70% Plan: Wean O2 as tolerated to keep sats > 88%. Continue covid-19 protocol and telemetry. Completed Remdesivir. Will switch Zosyn to [place], [place] doxycycline. Continue Diflucan. Continue Solumedrol. Continue vitamin support and Eliquis 5 mg BID. Continue nebs, pulmicort and IS. Continue Smart vest. Advised patient to lay on each side and also self-prone. Continue home medications. Continue morphine prn. PT/OT as tolerated. Monitor AM labs and imaging. Time spent for clinical assessment, reviewing labs/imaging, physical exam, decision making and documentation greater than 45 mins. Past Medical Family Social History Past Med/Fam/Surg Hx: No changes since H&P Allergies: Allergies temazepam [From Restoril] Allergy (Verified 03/05/21 09:47) IVP DYE Allergy (Uncoded 03/02/21 18:20) Review of Systems ROS: No change since H&P Vital Signs and I&O's Vital Signs: Temperature 97.8 F Pulse Rate [Left Brachial] 85 Pulse Rate 78 Respiratory Rate 39 Blood Pressure [Left Arm] 153/80 Blood Pressure 111/69 O2 Sat by Pulse Oximetry 93 Intake and Output: Intake & Output 03/08/21 03/09/21 03/10/21 03/11/21 23:59 23:59 23:59 23:59 Intake Total 1681 / 1681 1649 / 1649 2066 / 2066 170 / 170 Output Total 4250 / 4250 2900 / 2900 3550 / 3550 425 / 425 Balance -2569 / -2569 -1251 / -1251 -1484 / -1484 -255 / -255 Physical Exam Oriented: Normal Eyes: Normal Ear: Normal Nose: Normal Throat: Normal Respiratory: Generalized and Diminished Cardiovascular: Normal Auscultation: Bowel Sounds: Normal Tenderness: Normal Skin: Normal Musculoskeletal: Normal Psychiatric: Normal Mood Description: Calm Affect: Normal Speech Pattern: Clear and Appropriate Laboratory and Diagnostics Result Diagrams: 03/11/21 04:20 03/11/21 04:20 Labs: 03/11/21 08:10 Sputum - Expectorated Sputum - Final 03/09/21 11:50 Sputum - Expectorated Sputum Sputum Culture - Preliminary Klebsiella Pneumoniae 03/09/21 11:50 Sputum - Expectorated Sputum - Final Laboratory WBC 19.8 X10^3/uL (3.6-10.0) H 03/11/21 04:20 RBC 4.76 X10^6/uL (4.7-6.0) 03/11/21 04:20 Hgb 13.8 g/dL (13.5-18.0) 03/11/21 04:20 Hct 39.6 % (42.0-54.0) L 03/11/21 04:20 MCV 83.3 fL (80.0-100.0) 03/11/21 04:20 MCH 29.1 pg (27.0-34.0) 03/11/21 04:20 MCHC 34.9 g/dL (33.0-35.0) 03/11/21 04:20 RDW 12.7 % (11.6-16.5) 03/11/21 04:20 Plt Count 202 X10^3/uL (150.0-450.0) 03/11/21 04:20 Plt Count Comment Adequate (ADEQUATE) 03/11/21 04:20 MPV 9.2 fL (7.4-11.0) 03/11/21 04:20 Neut % (Auto) 96.1 % (42.0-75.0) H 03/11/21 04:20 Lymph % (Auto) 1.2 % (21.0-51.0) L 03/11/21 04:20 [place] % (Auto) 2.3 % (0.0-13.0) 03/11/21 04:20 Eos % (Auto) 0.1 % (0.9-2.9) L 03/11/21 04:20 Baso % (Auto) 0.3 % (0.2-1.0) 03/11/21 04:20 Neut # (Auto) 19.1 x10^3/uL (2.2-4.8) H 03/11/21 04:20 Lymph # (Auto) 0.2 X10^3/uL (1.3-2.9) L 03/11/21 04:20 [place] # (Auto) 0.5 x10^3/uL (0.3-0.8) 03/11/21 04:20 Eos # (Auto) 0.0 x10^3/uL (0.0-0.2) 03/11/21 04:20 Baso # (Auto) 0.0 X10^3/uL (0.0-0.1) 03/11/21 04:20 Absolute Nucleated RBC 0.0 /100WBC 03/11/21 04:20 Total Counted 100 03/11/21 04:20 Neutrophils % (Manual) 94 % (39-76) H 03/11/21 04:20 Lymphocytes % (Manual) 2 % (13-43) L 03/11/21 04:20 Monocytes % (Manual) 4 % (4-9) 03/11/21 04:20 Plt Morphology Comment Normal (NORMAL) 03/11/21 04:20 RBC Morphology Normal (NORMAL) 03/11/21 04:20 D-Dimer 0.87 ug/ml (0.0-0.57) H* 03/03/21 05:35 Sample Site Rrad 03/11/21 05:11 ABG pH 7.530 (7.35-7.45) H 03/11/21 05:11 ABG pCO2 36.0 mmHg (35.0-45.0) 03/11/21 05:11 ABG pO2 55.0 mmHg (80.0-100.0) L 03/11/21 05:11 ABG HCO3 30.1 mmol/L (22-26) H* 03/11/21 05:11 ABG O2 Saturation 92.0 % (90-100) 03/11/21 05:11 ABG Base Excess 7.1 mmol/L (-2.0-2.0) H 03/11/21 05:11 Sree Test Pos 03/11/21 05:11 A-a Gradient 399.0 mmHg 03/11/21 05:11 FiO2 70.0 03/11/21 05:11 Blood Gas Comments Elbert abg well-mtf 03/11/21 05:11 Sodium 138 mmol/L (136-145) 03/11/21 04:20 Corrected Sodium 139 mmol/L (136-145) 03/11/21 04:20 Potassium 4.2 mmol/L (3.5-5.1) 03/11/21 04:20 Chloride 100 mmol/L (98-107) 03/11/21 04:20 Carbon Dioxide 27.9 mmol/L (21-32) 03/11/21 04:20 BUN 46 mg/dL (7-18) H 03/11/21 04:20 Creatinine 1.23 mg/dL (0.70-1.30) 03/11/21 04:20 Est GFR (MDRD) Af Amer > 60 (>60) 03/11/21 04:20 Est GFR (MDRD) Non-Af > 60 (>60) 03/11/21 04:20 Glucose 136 mg/dL (65-99) H 03/11/21 04:20 POC Glucose (mg/dL) 99 mg/dL (65-99) 03/09/21 11:51 Calcium 8.3 mg/dL (8.5-10.1) L 03/11/21 04:20 Corrected Calcium 9.4 mg/dL (8.5-10.1) 03/08/21 05:10 Magnesium 2.5 mg/dL (1.7-2.9) 03/05/21 04:10 Ferritin 1988 ng/mL (26-388) H 03/01/21 11:20 Total Bilirubin 1.00 mg/dL (0.2-1.0) 03/08/21 05:10 AST 30 Units/L (15-37) 03/08/21 05:10 ALT 55 Units/L (12-78) 03/08/21 05:10 Alkaline Phosphatase 86 Units/L (46-116) 03/08/21 05:10 Creatine Kinase 121 Units/L (39-308) 03/01/21 11:20 CK-MB (CK-2) < 1.0 ng/mL (0-4.0) 03/01/21 11:20 CK/CKMB % Calc 0.8 % (<4) 03/01/21 11:20 Troponin I < 0.02 ng/mL (0-1.5) 03/01/21 11:20 C-Reactive Protein < 0.50 mg/L (0-3.0) 03/11/21 04:20 B-Natriuretic Peptide 412 pg/mL (0-79) H 03/01/21 11:20 Total Protein 6.1 g/dL (6.4-8.2) L 03/08/21 05:10 Albumin 2.6 g/dL (3.4-5.0) L 03/08/21 05:10 Globulin 3.5 g/dL (2.5-4.5) 03/08/21 05:10 Albumin/Globulin Ratio 0.7 Ratio (1.1-2.1) L 03/08/21 05:10 Specimen Type Catherized urine 03/04/21 07:00 Urine Color Yellow (YELLOW) 03/04/21 07:00 Urine Appearance Clear (CLEAR) 03/04/21 07:00 Urine pH 6.0 (5.0 - 8.0) 03/04/21 07:00 Ur Specific [place] 1.015 (1.000-1.030) 03/04/21 07:00 Urine Protein 1+ (NEGATIVE) 03/04/21 07:00 Urine Glucose (UA) Negative (NEGATIVE) 03/04/21 07:00 Urine Ketones Negative (NEGATIVE) 03/04/21 07:00 Urine Occult Blood Negative (NEGATIVE) 03/04/21 07:00 Urine Nitrite Negative (NEGATIVE) 03/04/21 07:00 Urine Bilirubin Negative (NEGATIVE) 03/04/21 07:00 Urine Urobilinogen Normal (NORMAL) 03/04/21 07:00 Ur Leukocyte Esterase Negative (NEGATIVE) 03/04/21 07:00 Urine RBC 0-2 /HPF (0-3) 03/04/21 07:00 Urine WBC 0-2 /HPF (0-5) 03/04/21 07:00 Ur Squamous Epith Cells Few /HPF (NEGATIVE) 03/04/21 07:00 Urine Bacteria Negative /HPF (NEGATIVE) 03/04/21 07:00 Ur Culture Indicated? No/not indicated 03/04/21 07:00 Plan (1) Acute respiratory failure with hypoxia: Status: Acute (2) COVID-19 virus infection: Status: Acute (3) Hypokalemia: Status: Acute (4) Pneumonia due to COVID-19 virus: Status: Acute (5) Elevated d-dimer: Status: Acute (6) Agitation: Status: Acute (7) Hypokalemia: Status: Acute
[2021-03-11] MEDS ORDERED: NS 100 ML IV 100 ML ONE (16:41)
[2021-03-12] MEDS: ASCORBIC ACID INJ MULTI-DOSE VIAL 1,500 MG in NS 100 ML IV 100 ML IV SCH ×4 (04:45→21:00)
[2021-03-12] MEDS: DUONEB 0.5 MG/3 MG (3 mL) NEB SCH ×3 (05:40→21:23)
[2021-03-12 06:05] LABS: BASOPHILS % (AUTO) 0.2 % (0.2-1.0); EOSINOPHILS % (AUTO) 0.1 % (0.9-2.9); HEMOGLOBIN 13.9 g/dL (13.5-18.0); LYMPHOCYTES # (AUTO) 0.2 X10^3/uL (1.3-2.9); LYMPHOCYTES % (AUTO) 1.2 % (21.0-51.0); MEAN CORPUSCULAR HEMOGLOBIN 29.1 pg (27.0-34.0); MEAN CORPUSCULAR HGB CONC 34.8 g/dL (33.0-35.0); MEAN CORPUSCULAR VOLUME 83.5 fL (80.0-100.0); MEAN PLATELET VOLUME 9.3 fL (7.4-11.0); MONOCYTES # (AUTO) 0.5 x10^3/uL (0.3-0.8); MONOCYTES % (AUTO) 2.9 % (0.0-13.0); NEUTROPHILS # (AUTO) 16.7 x10^3/uL (2.2-4.8); NEUTROPHILS % (AUTO) 95.6 % (42.0-75.0); PLATELET COUNT 163 X10^3/uL (150.0-450.0); RED BLOOD COUNT 4.79 X10^6/uL (4.7-6.0); RED CELL DISTRIBUTION WIDTH 12.9 % (11.6-16.5); WHITE BLOOD COUNT 17.5 X10^3/uL (3.6-10.0)
[2021-03-12 06:17] LABS: ABG BASE EXCESS 6.3 mmol/L (-2.0-2.0); ABG HCO3 29.4 mmol/L (22-26)
[2021-03-12 06:18] LABS: ABG ALLEN TEST POS
[2021-03-12 06:19] LABS: ALANINE AMINOTRANSFERASE 35 Units/L (12-78); ALBUMIN 2.5 g/dL (3.4-5.0); ALKALINE PHOSPHATASE 78 Units/L (46-116); ASPARTATE AMINO TRANSFERASE 20 Units/L (15-37); BLOOD UREA NITROGEN 45 mg/dL (7-18); CALCIUM 8.2 mg/dL (8.5-10.1); CARBON DIOXIDE 26.8 mmol/L (21-32); CHLORIDE 101 mmol/L (98-107); COR CA(FOR HYPOALB) 9.4 mg/dL (8.5-10.1); COR NA(FOR HYPERGLY) 138 mmol/L (136-145); CREATININE 1.06 mg/dL (0.70-1.30); SODIUM 137 mmol/L (136-145); TOTAL PROTEIN 5.7 g/dL (6.4-8.2); eGFR NON BLACK RACES > 60 (>60)
[2021-03-12] MEDS: SOLU-Medrol 40 MG VIAL IVP SCH ×3 (06:42→21:00)
[2021-03-12] MEDS: FORTAZ or TAZICEF VIAL INJ 1 G in NS 100 ML IV 100 ML IV SCH ×3 (06:42→22:00)
[2021-03-12 07:27] LABS: PLATELET MORPHOLOGY COMMENT NORMAL (NORMAL)
--- NOTE | 2021-03-12 07:44 | RAD ---
HISTORYSOB, COVIDSTUDYCHEST, 1 [id number]/[id number] areas of opacity in the right and left lung are compatible with bronchopneumonia. There may be a slight progression since yesterday. Some of this may be due to lesser technique.No pleural effusion or pneumothorax.The heart size is magnified.Bones are unremarkable.EKG leads are noted.IMPRESSION1. Bronchopneumonia, slightly progressedElectronically signed by: Medhat Mcdowell (Mar 12, 2021 07:42:49)
[2021-03-12] MEDS: PEPCID 20 MG IV PREMIX* 20 MG/50 ML BAG IV SCH (08:05)
[2021-03-12] MEDS: PULMICORT NEB TX 0.5 MG NEB SCH ×2 (08:32→21:23)
[2021-03-12] MEDS: VITAMIN D3 125 mcg (5,000 UNITS) PO SCH (09:00)
[2021-03-12] MEDS: COZAAR PO SCH (09:00)
[2021-03-12] MEDS: LOPRESSOR TAB 50 MG PO SCH (09:00)
[2021-03-12] MEDS: ELIQUIS PO SCH ×2 (09:00→21:00)
[2021-03-12] MEDS: FLOMAX PO SCH (09:00)
[2021-03-12] MEDS: ZINC SULFATE PO SCH ×2 (09:00→21:00)
[2021-03-12] MEDS: VITAMIN A PO SCH (09:00)
[2021-03-12] MEDS: HYDROCHLOROTHIAZIDE 25 MG TAB PO SCH (09:00)
[2021-03-12] MEDS: PriLOSEC PO SCH (09:00)
[2021-03-12] MEDS: DIFLUCAN 200 MG IV PREMIX* 200 MG/100 ML BAG IV SCH (10:30)
--- NOTE | 2021-03-12 20:59 | PCM.PROG ---
Progress Note - Progress Note for Day of Date of Exam: 03/12/21 - Subjective Subjective: IS A 70 YEAR OLD W/M PATIENT OF . HE WAS ADMITTED FOR TREATMENT OF COVID-19, BACTERIA PNEUMONIA, HYPOXIA, HYPOKALEMIA, AND AMS. TODAY, HE IS ALERT AND ORIENTED, SITTING UP IN THE BED ON MORNING ROUNDS. HE IS CURRENTLY UTILIZING HEATED HIGH FLOW OXYGEN AT 93% FI02. STAFF RE PORTS THAT PATIENTS OXYGEN SATURATIONS DROP TO THE 60s AND 70s WITH MINIMAL EXERTION. HHE CONTINUES WITH COMPLAINTS OF SHORTNESS OF BREATH AND WEAKNESS TODAY. HER SATURATIONS HAVE BEEN 85-93% THIS MORNING AND THROUGHOUT THE NIGHT. ON EXAMINATION,. HEART IS REGULAR IN RATE AND RHYTHM. BILATERAL LUNGS ARE NOTED WITH DIMINISHED LUNG SOUNDS THROUGHOUT. ABDOMEN IS ROUND, SOFT, AND NON-TENDER WITH NORMAL BOWEL SOUNDS NOTED IN ALL QUADRANTS. HIS VITALS THIS MORNING ARE: 97.9-107-36-87%-147/72. LABS WERE OBTAINED. ABNORMAL LAB VALUES INCLUDE THE FOLLOWING: WBC 17.5, HCT 40, D-DIMER 3.88, BUN 45, GLUCOSE 132, CALCIUM 8.2, TOTAL PROTEIN 5.7, ALBUMIN 2.5. SPUTUM CULTURES WERE POSITIVE FOR KLEBSIELLA P NEUMONIAE AND YEAST. ABG REVEALED: PH 7.520, PC02 36, P02 49, HC03 29.4, 02 SAT 89, BASE EXCESS 6.3, FI02 93. A CHEST XRAY WAS OBTAINED AND REVEALED: Bronchopneumonia, slightly progressed. WE WILL CONTINUE HIS IV FLUIDS, STEROIDS, DIFLUCAN, SLIDING SCALE COVERAGE, NEB TX, ELIQUIS, AND CURRENT MEDICATIONS. OTHERWISE, WE PLAN TO FOLLOW UP WITH AM LABS AND CHEST XRAY AND CONTINUE TO MONITOR. TIME SPENT ON CLINICAL ASSESSMENT, REVIEWING LABS AND IMAGING, DECISION MAKING, AND DOCUMENTATION GREATER THAN 45 MINUTES. - Past Medical Family Social History Past Med/Fam/Surg Hx: No changes since H&P Allergies: Allergies temazepam [From Restoril] Allergy (Verified 03/05/21 09:47) IVP DYE Allergy (Uncoded 03/02/21 18:20) - Review of Systems ROS: No change since H&P - Vital Signs and I&O's Vital Signs: Temperature 97.7 F Pulse Rate [Left Brachial] 85 Pulse Rate 87 Respiratory Rate 37 Blood Pressure [Left Arm] 153/80 Blood Pressure 144/73 O2 Sat by Pulse Oximetry 91 Intake and Output: Intake & Output 03/10/21 03/11/21 03/12/21 03/13/21 11:59 11:59 11:59 11:59 Intake Total 1953 / 1953 1766 / 1766 1905 / 1905 1265 / 1265 Output Total 4025 / 4025 2050 / 2049 1750 / 1750 1000 / 1000 Balance -2071 / -2071 -284 / -284 155 / 155 265 / 265 - Physical Exam Oriented: Normal Eyes: Normal Ear: Normal Nose: Normal Throat: Normal Respiratory: Generalized, Diminished Cardiovascular: Normal Auscultation: Bowel Sounds: Normal Palpation: Normal Tenderness: Normal Skin: Normal Musculoskeletal: Normal Psychiatric: Normal Mood Description: Calm Affect: Normal Speech Pattern: Clear, Appropriate - Laboratory and Diagnostics Result Diagrams: 03/12/21 04:52 03/12/21 04:52 Labs: 03/11/21 08:10 Sputum - Expectorated Sputum Sputum Culture - Preliminary 03/11/21 08:10 Sputum - Expectorated Sputum - Final 03/09/21 11:50 Sputum - Expectorated Sputum Sputum Culture - Preliminary Klebsiella Pneumoniae 03/09/21 11:50 Sputum - Expectorated Sputum - Final Laboratory WBC 17.5 X10^3/uL (3.6-10.0) H 03/12/21 04:52 RBC 4.79 X10^6/uL (4.7-6.0) 03/12/21 04:52 Hgb 13.9 g/dL (13.5-18.0) 03/12/21 04:52 Hct 40.0 % (42.0-54.0) L 03/12/21 04:52 MCV 83.5 fL (80.0-100.0) 03/12/21 04:52 MCH 29.1 pg (27.0-34.0) 03/12/21 04:52 MCHC 34.8 g/dL (33.0-35.0) 03/12/21 04:52 RDW 12.9 % (11.6-16.5) 03/12/21 04:52 Plt Count 163 X10^3/uL (150.0-450.0) 03/12/21 04:52 Plt Count Comment Adequate (ADEQUATE) 03/12/21 04:52 MPV 9.3 fL (7.4-11.0) 03/12/21 04:52 Neut % (Auto) 95.6 % (42.0-75.0) H 03/12/21 04:52 Lymph % (Auto) 1.2 % (21.0-51.0) L 03/12/21 04:52 [place] % (Auto) 2.9 % (0.0-13.0) 03/12/21 04:52 Eos % (Auto) 0.1 % (0.9-2.9) L 03/12/21 04:52 Baso % (Auto) 0.2 % (0.2-1.0) 03/12/21 04:52 Neut # (Auto) 16.7 x10^3/uL (2.2-4.8) H 03/12/21 04:52 Lymph # (Auto) 0.2 X10^3/uL (1.3-2.9) L 03/12/21 04:52 [place] # (Auto) 0.5 x10^3/uL (0.3-0.8) 03/12/21 04:52 Eos # (Auto) 0.0 x10^3/uL (0.0-0.2) 03/12/21 04:52 Baso # (Auto) 0.0 X10^3/uL (0.0-0.1) 03/12/21 04:52 Absolute Nucleated RBC 0.0 /100WBC 03/12/21 04:52 Total Counted 100 03/12/21 04:52 Neutrophils % (Manual) 95 % (39-76) H 03/12/21 04:52 Lymphocytes % (Manual) 4 % (13-43) L 03/12/21 04:52 Monocytes % (Manual) 1 % (4-9) L 03/12/21 04:52 Plt Morphology Comment Normal (NORMAL) 03/12/21 04:52 RBC Morphology Normal (NORMAL) 03/12/21 04:52 D-Dimer 3.88 ug/ml (0.0-0.57) H* 03/12/21 04:52 Sample Site Rrad 03/12/21 06:14 ABG pH 7.520 (7.35-7.45) H 03/12/21 06:14 ABG pCO2 36.0 mmHg (35.0-45.0) 03/12/21 06:14 ABG pO2 49.0 mmHg (80.0-100.0) L* 03/12/21 06:14 ABG HCO3 29.4 mmol/L (22-26) H 03/12/21 06:14 ABG O2 Saturation 89.0 % (90-100) L 03/12/21 06:14 ABG Base Excess 6.3 mmol/L (-2.0-2.0) H 03/12/21 06:14 Sree Test Pos 03/12/21 06:14 A-a Gradient 562.0 mmHg 03/12/21 06:14 FiO2 92.0 03/12/21 06:14 Blood Gas Comments Elbert well-mtf 03/12/21 06:14 Sodium 137 mmol/L (136-145) 03/12/21 04:52 Corrected Sodium 138 mmol/L (136-145) 03/12/21 04:52 Potassium 4.2 mmol/L (3.5-5.1) 03/12/21 04:52 Chloride 101 mmol/L (98-107) 03/12/21 04:52 Carbon Dioxide 26.8 mmol/L (21-32) 03/12/21 04:52 BUN 45 mg/dL (7-18) H 03/12/21 04:52 Creatinine 1.06 mg/dL (0.70-1.30) 03/12/21 04:52 Est GFR (MDRD) Af Amer > 60 (>60) 03/12/21 04:52 Est GFR (MDRD) Non-Af > 60 (>60) 03/12/21 04:52 Glucose 132 mg/dL (65-99) H 03/12/21 04:52 POC Glucose (mg/dL) 99 mg/dL (65-99) 03/09/21 11:51 Calcium 8.2 mg/dL (8.5-10.1) L 03/12/21 04:52 Corrected Calcium 9.4 mg/dL (8.5-10.1) 03/12/21 04:52 Magnesium 2.5 mg/dL (1.7-2.9) 03/05/21 04:10 Ferritin 1988 ng/mL (26-388) H 03/01/21 11:20 Total Bilirubin 0.90 mg/dL (0.2-1.0) 03/12/21 04:52 AST 20 Units/L (15-37) 03/12/21 04:52 ALT 35 Units/L (12-78) 03/12/21 04:52 Alkaline Phosphatase 78 Units/L (46-116) 03/12/21 04:52 Creatine Kinase 121 Units/L (39-308) 03/01/21 11:20 CK-MB (CK-2) < 1.0 ng/mL (0-4.0) 03/01/21 11:20 CK/CKMB % Calc 0.8 % (<4) 03/01/21 11:20 Troponin I < 0.02 ng/mL (0-1.5) 03/01/21 11:20 C-Reactive Protein < 0.50 mg/L (0-3.0) 03/12/21 04:52 B-Natriuretic Peptide 24.2 pg/mL (0-79) 03/12/21 04:52 Total Protein 5.7 g/dL (6.4-8.2) L 03/12/21 04:52 Albumin 2.5 g/dL (3.4-5.0) L 03/12/21 04:52 Globulin 3.2 g/dL (2.5-4.5) 03/12/21 04:52 Albumin/Globulin Ratio 0.8 Ratio (1.1-2.1) L 03/12/21 04:52 Specimen Type Catherized urine 03/04/21 07:00 Urine Color Yellow (YELLOW) 03/04/21 07:00 Urine Appearance Clear (CLEAR) 03/04/21 07:00 Urine pH 6.0 (5.0 - 8.0) 03/04/21 07:00 Ur Specific [place] 1.015 (1.000-1.030) 03/04/21 07:00 Urine Protein 1+ (NEGATIVE) 03/04/21 07:00 Urine Glucose (UA) Negative (NEGATIVE) 03/04/21 07:00 Urine Ketones Negative (NEGATIVE) 03/04/21 07:00 Urine Occult Blood Negative (NEGATIVE) 03/04/21 07:00 Urine Nitrite Negative (NEGATIVE) 03/04/21 07:00 Urine Bilirubin Negative (NEGATIVE) 03/04/21 07:00 Urine Urobilinogen Normal (NORMAL) 03/04/21 07:00 Ur Leukocyte Esterase Negative (NEGATIVE) 03/04/21 07:00 Urine RBC 0-2 /HPF (0-3) 03/04/21 07:00 Urine WBC 0-2 /HPF (0-5) 03/04/21 07:00 Ur Squamous Epith Cells Few /HPF (NEGATIVE) 03/04/21 07:00 Urine Bacteria Negative /HPF (NEGATIVE) 03/04/21 07:00 Ur Culture Indicated? No/not indicated 03/04/21 07:00 - Plan (1) Pneumonia Status: Acute Qualifiers: Pneumonia type: due to unspecified organism Laterality: bilateral Lung location: lower lobe of lung Qualified Code(s): J18.9 - Pneumonia, unspecified organism (2) Acute respiratory failure with hypoxia Status: Acute (3) COVID-19 virus infection Status: Acute (4) Hypokalemia Status: Acute (5) Elevated d-dimer Status: Acute
[2021-03-12] MEDS: LEVSIN/MAALOX/LIDOC VISC PO PRN (21:00)
[2021-03-13] MEDS ORDERED: NS 250 ML IV 250 ML IV ONE (03:13)
[2021-03-13] MEDS: ASCORBIC ACID INJ MULTI-DOSE VIAL 1,500 MG in NS 100 ML IV 100 ML IV SCH ×4 (04:00→20:47)
[2021-03-13 05:16] LABS: BASOPHILS % (AUTO) 0.1 % (0.2-1.0); HEMATOCRIT 38.9 % (42.0-54.0); HEMOGLOBIN 13.5 g/dL (13.5-18.0); LYMPHOCYTES # (AUTO) 0.2 X10^3/uL (1.3-2.9); LYMPHOCYTES % (AUTO) 1.2 % (21.0-51.0); MEAN CORPUSCULAR HEMOGLOBIN 29.1 pg (27.0-34.0); MEAN CORPUSCULAR HGB CONC 34.8 g/dL (33.0-35.0); MEAN CORPUSCULAR VOLUME 83.5 fL (80.0-100.0); MEAN PLATELET VOLUME 9.7 fL (7.4-11.0); MONOCYTES # (AUTO) 0.6 x10^3/uL (0.3-0.8); MONOCYTES % (AUTO) 3.4 % (0.0-13.0); NEUTROPHILS # (AUTO) 17.5 x10^3/uL (2.2-4.8); NEUTROPHILS % (AUTO) 95.3 % (42.0-75.0); PLATELET COUNT 152 X10^3/uL (150.0-450.0); RED BLOOD COUNT 4.66 X10^6/uL (4.7-6.0); RED CELL DISTRIBUTION WIDTH 12.9 % (11.6-16.5); WHITE BLOOD COUNT 18.4 X10^3/uL (3.6-10.0)
[2021-03-13 05:30] LABS: ALANINE AMINOTRANSFERASE 34 Units/L (12-78); ALBUMIN 2.4 g/dL (3.4-5.0); ALKALINE PHOSPHATASE 81 Units/L (46-116); ASPARTATE AMINO TRANSFERASE 19 Units/L (15-37); BLOOD UREA NITROGEN 38 mg/dL (7-18); CHLORIDE 105 mmol/L (98-107); COR CA(FOR HYPOALB) 9.3 mg/dL (8.5-10.1); COR NA(FOR HYPERGLY) 140 mmol/L (136-145); CREATININE 1.02 mg/dL (0.70-1.30); SODIUM 139 mmol/L (136-145); TOTAL PROTEIN 5.5 g/dL (6.4-8.2); eGFR NON BLACK RACES > 60 (>60)
[2021-03-13] MEDS: DUONEB 0.5 MG/3 MG (3 mL) NEB SCH ×3 (05:30→20:25)
[2021-03-13 05:52] LABS: PLATELET MORPHOLOGY COMMENT NORMAL (NORMAL)
[2021-03-13] MEDS: FORTAZ or TAZICEF VIAL INJ 1 G in NS 100 ML IV 100 ML IV SCH ×3 (06:15→21:00)
[2021-03-13] MEDS: SOLU-Medrol 40 MG VIAL IVP SCH ×3 (06:15→21:00)
--- NOTE | 2021-03-13 06:15 | RAD ---
HISTORYSOBSTUDYCHEST, 1 [id number] bilateral areas of opacity in the lungs could be bronchopneumonia. The findings are not changed.No pleural effusion or pneumothorax.The heart size is magnified.Bones are unremarkable.EKG leads are noted.IMPRESSION1. Unchanged bronchopneumoniaElectronically signed by: Medhat Mcdowell (Mar 13, 2021 06:13:44)
[2021-03-13 06:40] LABS: ABG ALLEN TEST POS; ABG BASE EXCESS 5.5 mmol/L (-2.0-2.0); ABG HCO3 28.7 mmol/L (22-26)
[2021-03-13] MEDS: COZAAR PO SCH (08:23)
[2021-03-13] MEDS: VITAMIN D3 125 mcg (5,000 UNITS) PO SCH (08:23)
[2021-03-13] MEDS: VITAMIN A PO SCH (08:23)
[2021-03-13] MEDS: ZINC SULFATE PO SCH ×2 (08:23→20:48)
[2021-03-13] MEDS: PriLOSEC PO SCH (08:23)
[2021-03-13] MEDS: LOPRESSOR TAB 50 MG PO SCH (08:24)
[2021-03-13] MEDS: FLOMAX PO SCH (08:24)
[2021-03-13] MEDS: PEPCID 20 MG IV PREMIX* 20 MG/50 ML BAG IV SCH (08:24)
[2021-03-13] MEDS: ELIQUIS PO SCH ×2 (08:24→20:48)
[2021-03-13] MEDS: HYDROCHLOROTHIAZIDE 25 MG TAB PO SCH (08:24)
[2021-03-13] MEDS: PULMICORT NEB TX 0.5 MG NEB SCH ×2 (08:57→20:25)
[2021-03-13] MEDS: DIFLUCAN 200 MG IV PREMIX* 200 MG/100 ML BAG IV SCH (09:10)
--- NOTE | 2021-03-13 16:30 | PCM.PROG ---
Progress Note - Progress Note for Day of Date of Exam: 03/13/21 - Subjective Subjective: IS A 70 YEAR OLD W/M PATIENT OF . HE WAS ADMITTED FOR TREATMENT OF COVID-19, BACTERIA PNEUMONIA, HYPOXIA, HYPOKALEMIA, AND AMS. TODAY, HE IS ALERT AND ORIENTED, SITTING UP IN THE BED ON MORNING ROUNDS. HE IS CURRENTLY UTILIZING HEATED HIGH FLOW OXYGEN AT 93% FI02. STAFF RE PORTS THAT PATIENTS OXYGEN SATURATIONS DROP TO THE 60s AND 70s WITH MINIMAL EXERTION. HHE CONTINUES WITH COMPLAINTS OF SHORTNESS OF BREATH AND WEAKNESS TODAY. HER SATURATIONS HAVE BEEN 83-93% THIS MORNING AND THROUGHOUT THE NIGHT. ON EXAMINATION, HEART IS REGULAR IN RATE AND RHYTHM. BILATERAL LUNGS ARE NOTED WITH DIMINISHED LUNG SOUNDS THROUGHOUT. ABDOMEN IS ROUND, SOFT, AND NON-TENDER WITH NORMAL BOWEL SOUNDS NOTED IN ALL QUADRANTS. HIS VITALS THIS MORNING ARE: 97.9-78-37-92%-144/94. LABS WERE OBTAINED. ABNORMAL LAB VALUES INCLUDE THE FOLLOWING: WBC 18.4, RBC 4.66, HCT 38.9, BUN 38, GLUCOSE 142, CALCIUM 8.0, TOTAL PROTEIN 5.5, ALBUMIN 2.4, D-DIMER 2.84. SPUTUM CULTURES WERE POSITIVE FOR [place] EBSIELLA PNEUMONIAE AND YEAST. ABG REVEALED: PH 7.520, PC02 36, P02 49, HC03 29.4, 02 SAT 89, BASE EXCESS 6.3, FI02 93. A CHEST XRAY WAS OBTAINED AND REVEALED: Unchanged Bronchopneumonia. TODAY, WE WILL CONTINUE HIS IV FLUIDS, STEROIDS, DIFLUCAN, SLIDING SCALE COVERAGE, NEB TX, ELIQUIS, AND CURRENT MEDICATIONS. OTHERWISE, WE PLAN TO FOLLOW UP WITH AM LABS AND CHEST XRAY AND CONTINUE TO MONITOR. WE WILL WEAN HIS OXYGEN HE TOLERATES IT. TIME SPENT ON CLINICAL ASSESSMENT, REVIEWING LABS AND IMAGING, DECISION MAKING, AND DOCUMENTATION GREATER THAN 45 MINUTES. - Past Medical Family Social History Past Med/Fam/Surg Hx: No changes since H&P Allergies: Allergies temazepam [From Restoril] Allergy (Verified 03/05/21 09:47) IVP DYE Allergy (Uncoded 03/02/21 18:20) - Review of Systems ROS: No change since H&P - Vital Signs and I&O's Vital Signs: Temperature 98.0 F Pulse Rate [Left Brachial] 85 Pulse Rate 60 Respiratory Rate 32 Blood Pressure [Left Arm] 153/80 Blood Pressure 123/81 O2 Sat by Pulse Oximetry 93 Intake and Output: Intake & Output 03/11/21 03/12/21 03/13/21 03/14/21 11:59 11:59 11:59 11:59 Intake Total 1766 / 1766 1905 / 1905 2825 / 2825 Output Total 2049 / 2049 1750 / 1750 1430 / 1430 Balance -284 / -284 155 / 155 1395 / 1395 - Physical Exam Oriented: Normal Eyes: Normal Ear: Normal Nose: Normal Throat: Normal Respiratory: Generalized, Diminished Cardiovascular: Normal Auscultation: Bowel Sounds: Normal Tenderness: Normal Skin: Normal Musculoskeletal: Normal Psychiatric: Normal Mood Description: Calm Affect: Normal Speech Pattern: Clear, Appropriate - Laboratory and Diagnostics Result Diagrams: 03/13/21 04:22 03/13/21 04:22 Labs: 03/11/21 08:10 Sputum - Expectorated Sputum Sputum Culture - Preliminary Klebsiella Pneumoniae 03/11/21 08:10 Sputum - Expectorated Sputum - Final 03/09/21 11:50 Sputum - Expectorated Sputum Sputum Culture - Preliminary Klebsiella Pneumoniae 03/09/21 11:50 Sputum - Expectorated Sputum - Final Laboratory WBC 18.4 X10^3/uL (3.6-10.0) H 03/13/21 04:22 RBC 4.66 X10^6/uL (4.7-6.0) L 03/13/21 04:22 Hgb 13.5 g/dL (13.5-18.0) 03/13/21 04:22 Hct 38.9 % (42.0-54.0) L 03/13/21 04:22 MCV 83.5 fL (80.0-100.0) 03/13/21 04:22 MCH 29.1 pg (27.0-34.0) 03/13/21 04:22 MCHC 34.8 g/dL (33.0-35.0) 03/13/21 04:22 RDW 12.9 % (11.6-16.5) 03/13/21 04:22 Plt Count 152 X10^3/uL (150.0-450.0) 03/13/21 04:22 Plt Count Comment Adequate (ADEQUATE) 03/13/21 04:22 MPV 9.7 fL (7.4-11.0) 03/13/21 04:22 Neut % (Auto) 95.3 % (42.0-75.0) H 03/13/21 04:22 Lymph % (Auto) 1.2 % (21.0-51.0) L 03/13/21 04:22 [place] % (Auto) 3.4 % (0.0-13.0) 03/13/21 04:22 Eos % (Auto) 0.0 % (0.9-2.9) L 03/13/21 04:22 Baso % (Auto) 0.1 % (0.2-1.0) L 03/13/21 04:22 Neut # (Auto) 17.5 x10^3/uL (2.2-4.8) H 03/13/21 04:22 Lymph # (Auto) 0.2 X10^3/uL (1.3-2.9) L 03/13/21 04:22 [place] # (Auto) 0.6 x10^3/uL (0.3-0.8) 03/13/21 04:22 Eos # (Auto) 0.0 x10^3/uL (0.0-0.2) 03/13/21 04:22 Baso # (Auto) 0.0 X10^3/uL (0.0-0.1) 03/13/21 04:22 Absolute Nucleated RBC 0.1 /100WBC 03/13/21 04:22 Total Counted 100 03/13/21 04:22 Neutrophils % (Manual) 97 % (39-76) H 03/13/21 04:22 Lymphocytes % (Manual) 1 % (13-43) L 03/13/21 04:22 Monocytes % (Manual) 2 % (4-9) L 03/13/21 04:22 Plt Morphology Comment Normal (NORMAL) 03/13/21 04:22 RBC Morphology Normal (NORMAL) 03/13/21 04:22 D-Dimer 2.84 ug/ml (0.0-0.57) H* 03/13/21 04:22 Sample Site Rrad 03/13/21 06:38 ABG pH 7.510 (7.35-7.45) H 03/13/21 06:38 ABG pCO2 36.0 mmHg (35.0-45.0) 03/13/21 06:38 ABG pO2 59.0 mmHg (80.0-100.0) L 03/13/21 06:38 ABG HCO3 28.7 mmol/L (22-26) H 03/13/21 06:38 ABG O2 Saturation 93.0 % (90-100) 03/13/21 06:38 ABG Base Excess 5.5 mmol/L (-2.0-2.0) H 03/13/21 06:38 Sree Test Pos 03/13/21 06:38 A-a Gradient 559.0 mmHg 03/13/21 06:38 FiO2 93.0 03/13/21 06:38 Blood Gas Comments Elbert well 03/13/21 06:38 Sodium 139 mmol/L (136-145) 03/13/21 04:22 Corrected Sodium 140 mmol/L (136-145) 03/13/21 04:22 Potassium 4.0 mmol/L (3.5-5.1) 03/13/21 04:22 Chloride 105 mmol/L (98-107) 03/13/21 04:22 Carbon Dioxide 25.0 mmol/L (21-32) 03/13/21 04:22 BUN 38 mg/dL (7-18) H 03/13/21 04:22 Creatinine 1.02 mg/dL (0.70-1.30) 03/13/21 04:22 Est GFR (MDRD) Af Amer > 60 (>60) 03/13/21 04:22 Est GFR (MDRD) Non-Af > 60 (>60) 03/13/21 04:22 Glucose 142 mg/dL (65-99) H 03/13/21 04:22 POC Glucose (mg/dL) 99 mg/dL (65-99) 03/09/21 11:51 Calcium 8.0 mg/dL (8.5-10.1) L 03/13/21 04:22 Corrected Calcium 9.3 mg/dL (8.5-10.1) 03/13/21 04:22 Magnesium 2.5 mg/dL (1.7-2.9) 03/05/21 04:10 Ferritin 1988 ng/mL (26-388) H 03/01/21 11:20 Total Bilirubin 0.60 mg/dL (0.2-1.0) 03/13/21 04:22 AST 19 Units/L (15-37) 03/13/21 04:22 ALT 34 Units/L (12-78) 03/13/21 04:22 Alkaline Phosphatase 81 Units/L (46-116) 03/13/21 04:22 Creatine Kinase 121 Units/L (39-308) 03/01/21 11:20 CK-MB (CK-2) < 1.0 ng/mL (0-4.0) 03/01/21 11:20 CK/CKMB % Calc 0.8 % (<4) 03/01/21 11:20 Troponin I < 0.02 ng/mL (0-1.5) 03/01/21 11:20 C-Reactive Protein < 0.50 mg/L (0-3.0) 03/13/21 04:22 B-Natriuretic Peptide 49.9 pg/mL (0-79) 03/13/21 04:22 Total Protein 5.5 g/dL (6.4-8.2) L 03/13/21 04:22 Albumin 2.4 g/dL (3.4-5.0) L 03/13/21 04:22 Globulin 3.1 g/dL (2.5-4.5) 03/13/21 04:22 Albumin/Globulin Ratio 0.8 Ratio (1.1-2.1) L 03/13/21 04:22 Specimen Type Catherized urine 03/04/21 07:00 Urine Color Yellow (YELLOW) 03/04/21 07:00 Urine Appearance Clear (CLEAR) 03/04/21 07:00 Urine pH 6.0 (5.0 - 8.0) 03/04/21 07:00 Ur Specific [place] 1.015 (1.000-1.030) 03/04/21 07:00 Urine Protein 1+ (NEGATIVE) 03/04/21 07:00 Urine Glucose (UA) Negative (NEGATIVE) 03/04/21 07:00 Urine Ketones Negative (NEGATIVE) 03/04/21 07:00 Urine Occult Blood Negative (NEGATIVE) 03/04/21 07:00 Urine Nitrite Negative (NEGATIVE) 03/04/21 07:00 Urine Bilirubin Negative (NEGATIVE) 03/04/21 07:00 Urine Urobilinogen Normal (NORMAL) 03/04/21 07:00 Ur Leukocyte Esterase Negative (NEGATIVE) 03/04/21 07:00 Urine RBC 0-2 /HPF (0-3) 03/04/21 07:00 Urine WBC 0-2 /HPF (0-5) 03/04/21 07:00 Ur Squamous Epith Cells Few /HPF (NEGATIVE) 03/04/21 07:00 Urine Bacteria Negative /HPF (NEGATIVE) 03/04/21 07:00 Ur Culture Indicated? No/not indicated 03/04/21 07:00 - Plan (1) Pneumonia Status: Acute Qualifiers: Pneumonia type: due to unspecified organism Laterality: bilateral Lung location: lower lobe of lung Qualified Code(s): J18.9 - Pneumonia, unspecified organism (2) Acute respiratory failure with hypoxia Status: Acute (3) COVID-19 virus infection Status: Acute (4) Hypokalemia Status: Acute (5) Elevated d-dimer Status: Acute
[2021-03-14] MEDS: ASCORBIC ACID INJ MULTI-DOSE VIAL 1,500 MG in NS 100 ML IV 100 ML IV SCH ×4 (03:50→20:30)
[2021-03-14 05:17] LABS: BASOPHILS % (AUTO) 0.1 % (0.2-1.0); HEMATOCRIT 38.7 % (42.0-54.0); HEMOGLOBIN 13.6 g/dL (13.5-18.0); LYMPHOCYTES # (AUTO) 0.3 X10^3/uL (1.3-2.9); LYMPHOCYTES % (AUTO) 1.8 % (21.0-51.0); MEAN CORPUSCULAR HEMOGLOBIN 29.3 pg (27.0-34.0); MEAN CORPUSCULAR HGB CONC 35.1 g/dL (33.0-35.0); MEAN CORPUSCULAR VOLUME 83.5 fL (80.0-100.0); MEAN PLATELET VOLUME 9.4 fL (7.4-11.0); MONOCYTES # (AUTO) 0.5 x10^3/uL (0.3-0.8); MONOCYTES % (AUTO) 3.1 % (0.0-13.0); PLATELET COUNT 147 X10^3/uL (150.0-450.0); RED BLOOD COUNT 4.63 X10^6/uL (4.7-6.0); RED CELL DISTRIBUTION WIDTH 13.3 % (11.6-16.5); WHITE BLOOD COUNT 16.8 X10^3/uL (3.6-10.0)
[2021-03-14 05:34] LABS: ALANINE AMINOTRANSFERASE 46 Units/L (12-78); ALBUMIN 2.4 g/dL (3.4-5.0); ALKALINE PHOSPHATASE 82 Units/L (46-116); ASPARTATE AMINO TRANSFERASE 21 Units/L (15-37); BLOOD UREA NITROGEN 36 mg/dL (7-18); CALCIUM 8.1 mg/dL (8.5-10.1); CARBON DIOXIDE 27.7 mmol/L (21-32); CHLORIDE 105 mmol/L (98-107); COR CA(FOR HYPOALB) 9.4 mg/dL (8.5-10.1); COR NA(FOR HYPERGLY) 142 mmol/L (136-145); CREATININE 1.05 mg/dL (0.70-1.30); SODIUM 141 mmol/L (136-145); TOTAL PROTEIN 5.4 g/dL (6.4-8.2); eGFR NON BLACK RACES > 60 (>60)
[2021-03-14] MEDS: DUONEB 0.5 MG/3 MG (3 mL) NEB SCH ×3 (05:55→20:35)
[2021-03-14] MEDS: FORTAZ or TAZICEF VIAL INJ 1 G in NS 100 ML IV 100 ML IV SCH ×3 (06:05→21:33)
[2021-03-14 06:18] LABS: PLATELET MORPHOLOGY COMMENT NORMAL (NORMAL)
[2021-03-14 06:29] LABS: ABG ALLEN TEST POS; ABG BASE EXCESS 3.5 mmol/L (-2.0-2.0); ABG HCO3 26.7 mmol/L (22-26)
[2021-03-14] MEDS: SOLU-Medrol 40 MG VIAL IVP SCH ×3 (06:47→21:33)
[2021-03-14] MEDS: PEPCID 20 MG IV PREMIX* 20 MG/50 ML BAG IV SCH (07:50)
[2021-03-14] MEDS: COZAAR PO SCH (08:10)
[2021-03-14] MEDS: ZINC SULFATE PO SCH ×2 (08:10→20:31)
[2021-03-14] MEDS: VITAMIN A PO SCH (08:10)
[2021-03-14] MEDS: VITAMIN D3 125 mcg (5,000 UNITS) PO SCH (08:10)
[2021-03-14] MEDS: PriLOSEC PO SCH (08:10)
[2021-03-14] MEDS: LOPRESSOR TAB 50 MG PO SCH (08:11)
[2021-03-14] MEDS: FLOMAX PO SCH (08:11)
[2021-03-14] MEDS: ELIQUIS PO SCH ×2 (08:11→20:31)
[2021-03-14] MEDS: HYDROCHLOROTHIAZIDE 25 MG TAB PO SCH (08:11)
--- NOTE | 2021-03-14 08:28 | RAD ---
HISTORYSOB HX: HTN, SX: ORTHOSTUDYCHEST, 1 [id number] trachea is midline. There is stable heart size. There is again seen ground-glass radiopacities in the periphery of the lungs with alveolar radiopacities involving the midlung zones and the bases. Overall no interval change. No evidence of subcutaneous emphysema or pneumothorax, no pleural effusions.IMPRESSIONPersistent ground-glass and alveolar radiopacities involving the periphery of the lungs in the midlung zone and in the lower lobes.Electronically signed by: Roxana Monteiro (Mar 14, 2021 08:26:20)
[2021-03-14] MEDS: PULMICORT NEB TX 0.5 MG NEB SCH ×2 (08:32→20:35)
[2021-03-14] MEDS: DIFLUCAN 200 MG IV PREMIX* 200 MG/100 ML BAG IV SCH (09:08)
--- NOTE | 2021-03-14 13:26 | PCM.PROG ---
Progress Note Progress Note for Day of Date of Exam: 03/14/21 Subjective Subjective: Patient seen at bedside, no overnight events. He remains on HHFNC at FiO2 93%. He has been on the same settings over the weekend, did not require BiPAP in between. He states he feels better but gets short of breath with minimal exertion. His sats drop if he sits up and eats. His sats right now are in the mid 80s. He is not in any respiratory distress. He continues to have productive cough. Labs: WBC 16.8 Hgb 13.6 Plt 147 BUN/Cr: 36/1.05 AB.49/35/52/26 CXR: unchanged bronchopneumonia Sputum: yeast + [place] Plan: Wean HHFNC as tolerated to keep sats above 88%. Continue Fortaz and Diflucan. Continue Solumedrol. Continue nebs, pulmicort, IS and smart vest. Continue eliquis. Continue vitamin support. Continue PT/OT as tolerated. Advised patient to sit up as tolerated, lay on each side and self-prone. Monitor AM labs and imaging. Time spent for clinical assessment, reviewing labs/imaging, physical exam, decision making and documentation greater than 45 mins. Past Medical Family Social History Past Med/Fam/Surg Hx: No changes since H&P Allergies: Allergies temazepam [From Restoril] Allergy (Verified 03/05/21 09:47) IVP DYE Allergy (Uncoded 03/02/21 18:20) Review of Systems ROS: No change since H&P Vital Signs and I&O's Vital Signs: Temperature 98.0 F Pulse Rate [Left Brachial] 85 Pulse Rate 74 Respiratory Rate 32 Blood Pressure [Left Arm] 153/80 Blood Pressure 143/85 O2 Sat by Pulse Oximetry 88 Intake and Output: Intake & Output 03/11/21 03/12/21 03/13/21 03/14/21 23:59 23:59 23:59 23:59 Intake Total 1725 / 1725 2715 / 2715 3084 / 3084 400 / 400 Output Total 1775 / 1775 1530 / 1530 2350 / 2350 450 / 450 Balance -50 / -50 1185 / 1185 734 / 734 -50 / -50 Physical Exam Oriented: Normal Eyes: Normal Ear: Normal Nose: Normal Throat: Normal Respiratory: Generalized and Diminished Cardiovascular: Normal Auscultation: Bowel Sounds: Normal Tenderness: Normal Skin: Normal Musculoskeletal: Normal Psychiatric: Normal Mood Description: Calm Affect: Normal Speech Pattern: Clear and Appropriate Laboratory and Diagnostics Result Diagrams: 03/14/21 04:39 03/14/21 04:39 Labs: 03/11/21 08:10 Sputum - Expectorated Sputum Sputum Culture - Final Klebsiella Pneumoniae 03/11/21 08:10 Sputum - Expectorated Sputum - Final 03/09/21 11:50 Sputum - Expectorated Sputum Sputum Culture - Preliminary Klebsiella Pneumoniae 03/09/21 11:50 Sputum - Expectorated Sputum - Final Laboratory WBC 16.8 X10^3/uL (3.6-10.0) H 03/14/21 04:39 RBC 4.63 X10^6/uL (4.7-6.0) L 03/14/21 04:39 Hgb 13.6 g/dL (13.5-18.0) 03/14/21 04:39 Hct 38.7 % (42.0-54.0) L 03/14/21 04:39 MCV 83.5 fL (80.0-100.0) 03/14/21 04:39 MCH 29.3 pg (27.0-34.0) 03/14/21 04:39 MCHC 35.1 g/dL (33.0-35.0) H 03/14/21 04:39 RDW 13.3 % (11.6-16.5) 03/14/21 04:39 Plt Count 147 X10^3/uL (150.0-450.0) L 03/14/21 04:39 Plt Count Comment Decreased (ADEQUATE) 03/14/21 04:39 MPV 9.4 fL (7.4-11.0) 03/14/21 04:39 Neut % (Auto) 95.0 % (42.0-75.0) H 03/14/21 04:39 Lymph % (Auto) 1.8 % (21.0-51.0) L 03/14/21 04:39 [place] % (Auto) 3.1 % (0.0-13.0) 03/14/21 04:39 Eos % (Auto) 0.0 % (0.9-2.9) L 03/14/21 04:39 Baso % (Auto) 0.1 % (0.2-1.0) L 03/14/21 04:39 Neut # (Auto) 16.0 x10^3/uL (2.2-4.8) H 03/14/21 04:39 Lymph # (Auto) 0.3 X10^3/uL (1.3-2.9) L 03/14/21 04:39 [place] # (Auto) 0.5 x10^3/uL (0.3-0.8) 03/14/21 04:39 Eos # (Auto) 0.0 x10^3/uL (0.0-0.2) 03/14/21 04:39 Baso # (Auto) 0.0 X10^3/uL (0.0-0.1) 03/14/21 04:39 Absolute Nucleated RBC 0.0 /100WBC 03/14/21 04:39 Total Counted 100 03/14/21 04:39 Neutrophils % (Manual) 97 % (39-76) H 03/14/21 04:39 Lymphocytes % (Manual) 1 % (13-43) L 03/14/21 04:39 Monocytes % (Manual) 2 % (4-9) L 03/14/21 04:39 Plt Morphology Comment Normal (NORMAL) 03/14/21 04:39 RBC Morphology Normal (NORMAL) 03/14/21 04:39 D-Dimer 2.51 ug/ml (0.0-0.57) H* 03/14/21 04:39 Sample Site Rrad 03/14/21 06:28 ABG pH 7.490 (7.35-7.45) H 03/14/21 06:28 ABG pCO2 35.0 mmHg (35.0-45.0) 03/14/21 06:28 ABG pO2 52.0 mmHg (80.0-100.0) L 03/14/21 06:28 ABG HCO3 26.7 mmol/L (22-26) H 03/14/21 06:28 ABG O2 Saturation 89.0 % (90-100) L 03/14/21 06:28 ABG Base Excess 3.5 mmol/L (-2.0-2.0) H 03/14/21 06:28 Sree Test Pos 03/14/21 06:28 A-a Gradient 567.0 mmHg 03/14/21 06:28 FiO2 93.0 03/14/21 06:28 Blood Gas Comments Elbert well 03/14/21 06:28 Sodium 141 mmol/L (136-145) 03/14/21 04:39 Corrected Sodium 142 mmol/L (136-145) 03/14/21 04:39 Potassium 4.4 mmol/L (3.5-5.1) 03/14/21 04:39 Chloride 105 mmol/L (98-107) 03/14/21 04:39 Carbon Dioxide 27.7 mmol/L (21-32) 03/14/21 04:39 BUN 36 mg/dL (7-18) H 03/14/21 04:39 Creatinine 1.05 mg/dL (0.70-1.30) 03/14/21 04:39 Est GFR (MDRD) Af Amer > 60 (>60) 03/14/21 04:39 Est GFR (MDRD) Non-Af > 60 (>60) 03/14/21 04:39 Glucose 142 mg/dL (65-99) H 03/14/21 04:39 POC Glucose (mg/dL) 99 mg/dL (65-99) 03/09/21 11:51 Calcium 8.1 mg/dL (8.5-10.1) L 03/14/21 04:39 Corrected Calcium 9.4 mg/dL (8.5-10.1) 03/14/21 04:39 Magnesium 2.5 mg/dL (1.7-2.9) 03/05/21 04:10 Ferritin 1988 ng/mL (26-388) H 03/01/21 11:20 Total Bilirubin 0.70 mg/dL (0.2-1.0) 03/14/21 04:39 AST 21 Units/L (15-37) 03/14/21 04:39 ALT 46 Units/L (12-78) 03/14/21 04:39 Alkaline Phosphatase 82 Units/L (46-116) 03/14/21 04:39 Creatine Kinase 121 Units/L (39-308) 03/01/21 11:20 CK-MB (CK-2) < 1.0 ng/mL (0-4.0) 03/01/21 11:20 CK/CKMB % Calc 0.8 % (<4) 03/01/21 11:20 Troponin I < 0.02 ng/mL (0-1.5) 03/01/21 11:20 C-Reactive Protein < 0.50 mg/L (0-3.0) 03/13/21 04:22 B-Natriuretic Peptide 78.7 pg/mL (0-79) 03/14/21 04:39 Total Protein 5.4 g/dL (6.4-8.2) L 03/14/21 04:39 Albumin 2.4 g/dL (3.4-5.0) L 03/14/21 04:39 Globulin 3.0 g/dL (2.5-4.5) 03/14/21 04:39 Albumin/Globulin Ratio 0.8 Ratio (1.1-2.1) L 03/14/21 04:39 Specimen Type Catherized urine 03/04/21 07:00 Urine Color Yellow (YELLOW) 03/04/21 07:00 Urine Appearance Clear (CLEAR) 03/04/21 07:00 Urine pH 6.0 (5.0 - 8.0) 03/04/21 07:00 Ur Specific [place] 1.015 (1.000-1.030) 03/04/21 07:00 Urine Protein 1+ (NEGATIVE) 03/04/21 07:00 Urine Glucose (UA) Negative (NEGATIVE) 03/04/21 07:00 Urine Ketones Negative (NEGATIVE) 03/04/21 07:00 Urine Occult Blood Negative (NEGATIVE) 03/04/21 07:00 Urine Nitrite Negative (NEGATIVE) 03/04/21 07:00 Urine Bilirubin Negative (NEGATIVE) 03/04/21 07:00 Urine Urobilinogen Normal (NORMAL) 03/04/21 07:00 Ur Leukocyte Esterase Negative (NEGATIVE) 03/04/21 07:00 Urine RBC 0-2 /HPF (0-3) 03/04/21 07:00 Urine WBC 0-2 /HPF (0-5) 03/04/21 07:00 Ur Squamous Epith Cells Few /HPF (NEGATIVE) 03/04/21 07:00 Urine Bacteria Negative /HPF (NEGATIVE) 03/04/21 07:00 Ur Culture Indicated? No/not indicated 03/04/21 07:00 Plan (1) Pneumonia: Status: Acute Qualifiers: Laterality: bilateral Lung location: lower lobe of lung Pneumonia type: due to unspecified organism Qualified Code(s): J18.9 - Pneumonia, unspecified organism (2) Acute respiratory failure with hypoxia: Status: Acute (3) COVID-19 virus infection: Status: Acute (4) Hypokalemia: Status: Acute (5) Elevated d-dimer: Status: Acute
[2021-03-14] MEDS ORDERED: NS 100 ML IV 100 ML ONE (21:37)
[2021-03-15] MEDS: ASCORBIC ACID INJ MULTI-DOSE VIAL 1,500 MG in NS 100 ML IV 100 ML IV SCH ×4 (02:36→20:34)
[2021-03-15] MEDS: FORTAZ or TAZICEF VIAL INJ 1 G in NS 100 ML IV 100 ML IV SCH ×3 (05:03→21:13)
[2021-03-15] MEDS: SOLU-Medrol 40 MG VIAL IVP SCH ×3 (05:03→21:13)
[2021-03-15] MEDS: DUONEB 0.5 MG/3 MG (3 mL) NEB SCH ×3 (05:21→21:20)
[2021-03-15] MEDS: LEVSIN/MAALOX/LIDOC VISC PO PRN (05:24)
[2021-03-15 05:44] LABS: BASOPHILS % (AUTO) 0.1 % (0.2-1.0); HEMATOCRIT 38.8 % (42.0-54.0); HEMOGLOBIN 13.6 g/dL (13.5-18.0); LYMPHOCYTES # (AUTO) 0.3 X10^3/uL (1.3-2.9); LYMPHOCYTES % (AUTO) 1.8 % (21.0-51.0); MEAN CORPUSCULAR HEMOGLOBIN 29.4 pg (27.0-34.0); MEAN CORPUSCULAR HGB CONC 35.1 g/dL (33.0-35.0); MEAN PLATELET VOLUME 9.2 fL (7.4-11.0); MONOCYTES # (AUTO) 0.6 x10^3/uL (0.3-0.8); MONOCYTES % (AUTO) 3.7 % (0.0-13.0); NEUTROPHILS # (AUTO) 16.1 x10^3/uL (2.2-4.8); NEUTROPHILS % (AUTO) 94.4 % (42.0-75.0); PLATELET COUNT 137 X10^3/uL (150.0-450.0); RED BLOOD COUNT 4.63 X10^6/uL (4.7-6.0); RED CELL DISTRIBUTION WIDTH 13.2 % (11.6-16.5); WHITE BLOOD COUNT 17.1 X10^3/uL (3.6-10.0)
[2021-03-15 05:47] LABS: ALANINE AMINOTRANSFERASE 42 Units/L (12-78); ALBUMIN 2.4 g/dL (3.4-5.0); ALKALINE PHOSPHATASE 78 Units/L (46-116); ASPARTATE AMINO TRANSFERASE 22 Units/L (15-37); BLOOD UREA NITROGEN 39 mg/dL (7-18); CARBON DIOXIDE 28.5 mmol/L (21-32); CHLORIDE 104 mmol/L (98-107); COR CA(FOR HYPOALB) 9.3 mg/dL (8.5-10.1); COR NA(FOR HYPERGLY) 141 mmol/L (136-145); CREATININE 0.98 mg/dL (0.70-1.30); SODIUM 140 mmol/L (136-145); TOTAL PROTEIN 5.5 g/dL (6.4-8.2); eGFR NON BLACK RACES > 60 (>60)
[2021-03-15 06:22] LABS: BAND NEUTROPHILS % 2 % (0-10); PLATELET MORPHOLOGY COMMENT NORMAL (NORMAL)
--- NOTE | 2021-03-15 07:28 | RAD ---
HISTORYSOBSTUDYCHEST, 1 [id number]/27/2021.TECHNIQUEAP view of the chestFINDINGSThe cardiac and mediastinal contours appear stable. No significant change in bilateral airspace and interstitial opacities. Subtle curvilinear lucency at junction of the right lung and right hemidiaphragm. No definite pleural effusion. Mild subcutaneous emphysema projects over the left scapula.IMPRESSIONSubtle curvilinear lucency at the junction of the right lung and right hemidiaphragm may represent a Mach band(artifact) but attention on follow-up is recommended. Mild subcutaneous emphysema projects over the left scapula. No significant change in pulmonary opacities.Electronically signed by: Elmer Gonzalez (Mar 15, 2021 07:27:38)
[2021-03-15] MEDS: COZAAR PO SCH (08:45)
[2021-03-15] MEDS: ZINC SULFATE PO SCH ×2 (08:45→20:35)
[2021-03-15] MEDS: LOPRESSOR TAB 50 MG PO SCH (08:46)
[2021-03-15] MEDS: HYDROCHLOROTHIAZIDE 25 MG TAB PO SCH (08:46)
[2021-03-15] MEDS: PEPCID 20 MG IV PREMIX* 20 MG/50 ML BAG IV SCH (08:46)
[2021-03-15] MEDS: ELIQUIS PO SCH ×2 (08:46→20:35)
[2021-03-15] MEDS: PriLOSEC PO SCH (08:46)
[2021-03-15] MEDS: FLOMAX PO SCH (08:46)
[2021-03-15] MEDS: VITAMIN A PO SCH (08:47)
[2021-03-15] MEDS: VITAMIN D3 125 mcg (5,000 UNITS) PO SCH (08:47)
[2021-03-15] MEDS: PULMICORT NEB TX 0.5 MG NEB SCH ×2 (09:00→21:20)
[2021-03-15] MEDS: DIFLUCAN 200 MG IV PREMIX* 200 MG/100 ML BAG IV SCH (11:00)
--- NOTE | 2021-03-15 13:52 | PCM.PROG ---
Progress Note Progress Note for Day of Date of Exam: 03/15/21 Subjective Subjective: Patient seen at bedside, no overnight events. He is currently on HHFNC at FiO2 90%. He states he slept pretty good. He did work with PT yesterday. He has been sitting up on the side of the bed. He reports feeling better but does feel SOB with minimal exertion. His sats right now 86-89%. He is in no respiratory distress. Labs: WBC 17.1 Hgb 13.6 Plt 137 BUN/Cr: 39/0.98 AB.49/35/52/26 Sputum: yeast + [place] CXR: Subtle curvilinear lucency at the junction of the right lung and right hemidiaphragm may represent a Mach band(artifact) but attention on follow-up is recommended. Mild subcutaneous emphysema projects over the left scapula. No significant change in pulmonary opacities. Plan: Wean HHFNC as tolerated to keep sats above 88%. Will repeat CXR tomorrow for follow up. Continue Fortaz and Diflucan. Continue Solumedrol. Continue nebs, pulmicort, IS and smart vest. Continue eliquis. Continue vitamin support. Continue PT/OT as tolerated. Advised patient to sit up as tolerated, lay on each side and self-prone. Monitor AM labs and imaging. Time spent for clinical assessment, reviewing labs/imaging, physical exam, decision making and documentation greater than 45 mins. Past Medical Family Social History Past Med/Fam/Surg Hx: No changes since H&P Allergies: Allergies temazepam [From Restoril] Allergy (Verified 03/05/21 09:47) IVP DYE Allergy (Uncoded 03/02/21 18:20) Review of Systems ROS: No change since H&P Vital Signs and I&O's Vital Signs: Temperature 97.9 F Pulse Rate [Left Brachial] 85 Pulse Rate 72 Respiratory Rate 30 Blood Pressure [Left Arm] 153/80 Blood Pressure 154/79 O2 Sat by Pulse Oximetry 91 Intake and Output: Intake & Output 03/12/21 03/13/21 03/14/21 03/15/21 23:59 23:59 23:59 23:59 Intake Total 2715 / 2715 3084 / 3084 2747 / 2747 256 / 256 Output Total 1530 / 1530 2350 / 2350 2125 / 2125 300 / 300 Balance 1185 / 1185 734 / 734 622 / 622 -44 / -44 Physical Exam Oriented: Normal Eyes: Normal Ear: Normal Nose: Normal Throat: Normal Respiratory: Generalized and Diminished Cardiovascular: Normal Auscultation: Bowel Sounds: Normal Tenderness: Normal Skin: Normal Musculoskeletal: Normal Psychiatric: Normal Mood Description: Calm Affect: Normal Speech Pattern: Clear and Appropriate Laboratory and Diagnostics Result Diagrams: 03/15/21 04:46 03/15/21 04:46 Labs: 03/11/21 08:10 Sputum - Expectorated Sputum Sputum Culture - Final Klebsiella Pneumoniae 03/11/21 08:10 Sputum - Expectorated Sputum - Final 03/09/21 11:50 Sputum - Expectorated Sputum Sputum Culture - Preliminary Klebsiella Pneumoniae 03/09/21 11:50 Sputum - Expectorated Sputum - Final Laboratory WBC 17.1 X10^3/uL (3.6-10.0) H 03/15/21 04:46 RBC 4.63 X10^6/uL (4.7-6.0) L 03/15/21 04:46 Hgb 13.6 g/dL (13.5-18.0) 03/15/21 04:46 Hct 38.8 % (42.0-54.0) L 03/15/21 04:46 MCV 84.0 fL (80.0-100.0) 03/15/21 04:46 MCH 29.4 pg (27.0-34.0) 03/15/21 04:46 MCHC 35.1 g/dL (33.0-35.0) H 03/15/21 04:46 RDW 13.2 % (11.6-16.5) 03/15/21 04:46 Plt Count 137 X10^3/uL (150.0-450.0) L 03/15/21 04:46 Plt Count Comment Decreased (ADEQUATE) 03/15/21 04:46 MPV 9.2 fL (7.4-11.0) 03/15/21 04:46 Neut % (Auto) 94.4 % (42.0-75.0) H 03/15/21 04:46 Lymph % (Auto) 1.8 % (21.0-51.0) L 03/15/21 04:46 [place] % (Auto) 3.7 % (0.0-13.0) 03/15/21 04:46 Eos % (Auto) 0.0 % (0.9-2.9) L 03/15/21 04:46 Baso % (Auto) 0.1 % (0.2-1.0) L 03/15/21 04:46 Neut # (Auto) 16.1 x10^3/uL (2.2-4.8) H 03/15/21 04:46 Lymph # (Auto) 0.3 X10^3/uL (1.3-2.9) L 03/15/21 04:46 [place] # (Auto) 0.6 x10^3/uL (0.3-0.8) 03/15/21 04:46 Eos # (Auto) 0.0 x10^3/uL (0.0-0.2) 03/15/21 04:46 Baso # (Auto) 0.0 X10^3/uL (0.0-0.1) 03/15/21 04:46 Absolute Nucleated RBC 0.0 /100WBC 03/15/21 04:46 Total Counted 100 03/15/21 04:46 Neutrophils % (Manual) 92 % (39-76) H 03/15/21 04:46 Band Neutrophils % 2 % (0-10) 03/15/21 04:46 Lymphocytes % (Manual) 3 % (13-43) L 03/15/21 04:46 Monocytes % (Manual) 3 % (4-9) L 03/15/21 04:46 Plt Morphology Comment Normal (NORMAL) 03/15/21 04:46 RBC Morphology Normal (NORMAL) 03/15/21 04:46 D-Dimer 2.51 ug/ml (0.0-0.57) H* 03/14/21 04:39 Sample Site Rrad 03/14/21 06:28 ABG pH 7.490 (7.35-7.45) H 03/14/21 06:28 ABG pCO2 35.0 mmHg (35.0-45.0) 03/14/21 06:28 ABG pO2 52.0 mmHg (80.0-100.0) L 03/14/21 06:28 ABG HCO3 26.7 mmol/L (22-26) H 03/14/21 06:28 ABG O2 Saturation 89.0 % (90-100) L 03/14/21 06:28 ABG Base Excess 3.5 mmol/L (-2.0-2.0) H 03/14/21 06:28 Sree Test Pos 03/14/21 06:28 A-a Gradient 567.0 mmHg 03/14/21 06:28 FiO2 93.0 03/14/21 06:28 Blood Gas Comments Elbert well 03/14/21 06:28 Sodium 140 mmol/L (136-145) 03/15/21 04:46 Corrected Sodium 141 mmol/L (136-145) 03/15/21 04:46 Potassium 4.5 mmol/L (3.5-5.1) 03/15/21 04:46 Chloride 104 mmol/L (98-107) 03/15/21 04:46 Carbon Dioxide 28.5 mmol/L (21-32) 03/15/21 04:46 BUN 39 mg/dL (7-18) H 03/15/21 04:46 Creatinine 0.98 mg/dL (0.70-1.30) 03/15/21 04:46 Est GFR (MDRD) Af Amer > 60 (>60) 03/15/21 04:46 Est GFR (MDRD) Non-Af > 60 (>60) 03/15/21 04:46 Glucose 131 mg/dL (65-99) H 03/15/21 04:46 POC Glucose (mg/dL) 99 mg/dL (65-99) 03/09/21 11:51 Calcium 8.0 mg/dL (8.5-10.1) L 03/15/21 04:46 Corrected Calcium 9.3 mg/dL (8.5-10.1) 03/15/21 04:46 Magnesium 2.5 mg/dL (1.7-2.9) 03/05/21 04:10 Ferritin 1988 ng/mL (26-388) H 03/01/21 11:20 Total Bilirubin 0.80 mg/dL (0.2-1.0) 03/15/21 04:46 AST 22 Units/L (15-37) 03/15/21 04:46 ALT 42 Units/L (12-78) 03/15/21 04:46 Alkaline Phosphatase 78 Units/L (46-116) 03/15/21 04:46 Creatine Kinase 121 Units/L (39-308) 03/01/21 11:20 CK-MB (CK-2) < 1.0 ng/mL (0-4.0) 03/01/21 11:20 CK/CKMB % Calc 0.8 % (<4) 03/01/21 11:20 Troponin I < 0.02 ng/mL (0-1.5) 03/01/21 11:20 C-Reactive Protein < 0.50 mg/L (0-3.0) 03/13/21 04:22 B-Natriuretic Peptide 78.7 pg/mL (0-79) 03/14/21 04:39 Total Protein 5.5 g/dL (6.4-8.2) L 03/15/21 04:46 Albumin 2.4 g/dL (3.4-5.0) L 03/15/21 04:46 Globulin 3.1 g/dL (2.5-4.5) 03/15/21 04:46 Albumin/Globulin Ratio 0.8 Ratio (1.1-2.1) L 03/15/21 04:46 Specimen Type Catherized urine 03/04/21 07:00 Urine Color Yellow (YELLOW) 03/04/21 07:00 Urine Appearance Clear (CLEAR) 03/04/21 07:00 Urine pH 6.0 (5.0 - 8.0) 03/04/21 07:00 Ur Specific [place] 1.015 (1.000-1.030) 03/04/21 07:00 Urine Protein 1+ (NEGATIVE) 03/04/21 07:00 Urine Glucose (UA) Negative (NEGATIVE) 03/04/21 07:00 Urine Ketones Negative (NEGATIVE) 03/04/21 07:00 Urine Occult Blood Negative (NEGATIVE) 03/04/21 07:00 Urine Nitrite Negative (NEGATIVE) 03/04/21 07:00 Urine Bilirubin Negative (NEGATIVE) 03/04/21 07:00 Urine Urobilinogen Normal (NORMAL) 03/04/21 07:00 Ur Leukocyte Esterase Negative (NEGATIVE) 03/04/21 07:00 Urine RBC 0-2 /HPF (0-3) 03/04/21 07:00 Urine WBC 0-2 /HPF (0-5) 03/04/21 07:00 Ur Squamous Epith Cells Few /HPF (NEGATIVE) 03/04/21 07:00 Urine Bacteria Negative /HPF (NEGATIVE) 03/04/21 07:00 Ur Culture Indicated? No/not indicated 03/04/21 07:00 Plan (1) Acute respiratory failure with hypoxia: Status: Acute (2) COVID-19 virus infection: Status: Acute (3) Hypokalemia: Status: Acute (4) Elevated d-dimer: Status: Acute (5) Klebsiella pneumonia: Status: Acute Qualifiers: Laterality: bilateral Lung location: unspecified part of lung Qualified Code(s): J15.0 - Pneumonia due to Klebsiella pneumoniae
[2021-03-16] MEDS: ASCORBIC ACID INJ MULTI-DOSE VIAL 1,500 MG in NS 100 ML IV 100 ML IV SCH ×2 (02:28→10:00)
[2021-03-16 05:27] LABS: BASOPHILS % (AUTO) 0.1 % (0.2-1.0); HEMOGLOBIN 13.8 g/dL (13.5-18.0); LYMPHOCYTES # (AUTO) 0.3 X10^3/uL (1.3-2.9); LYMPHOCYTES % (AUTO) 1.7 % (21.0-51.0); MEAN CORPUSCULAR HEMOGLOBIN 29.5 pg (27.0-34.0); MEAN CORPUSCULAR HGB CONC 35.4 g/dL (33.0-35.0); MEAN CORPUSCULAR VOLUME 83.4 fL (80.0-100.0); MEAN PLATELET VOLUME 9.4 fL (7.4-11.0); MONOCYTES # (AUTO) 0.5 x10^3/uL (0.3-0.8); MONOCYTES % (AUTO) 2.7 % (0.0-13.0); NEUTROPHILS # (AUTO) 18.1 x10^3/uL (2.2-4.8); NEUTROPHILS % (AUTO) 95.5 % (42.0-75.0); PLATELET COUNT 134 X10^3/uL (150.0-450.0); RED BLOOD COUNT 4.67 X10^6/uL (4.7-6.0); RED CELL DISTRIBUTION WIDTH 13.3 % (11.6-16.5)
[2021-03-16 05:39] LABS: ALANINE AMINOTRANSFERASE 44 Units/L (12-78); ALBUMIN 2.4 g/dL (3.4-5.0); ALKALINE PHOSPHATASE 79 Units/L (46-116); ASPARTATE AMINO TRANSFERASE 20 Units/L (15-37); BLOOD UREA NITROGEN 37 mg/dL (7-18); CALCIUM 7.9 mg/dL (8.5-10.1); CARBON DIOXIDE 26.5 mmol/L (21-32); CHLORIDE 104 mmol/L (98-107); COR CA(FOR HYPOALB) 9.2 mg/dL (8.5-10.1); COR NA(FOR HYPERGLY) 139 mmol/L (136-145); CREATININE 1.01 mg/dL (0.70-1.30); SODIUM 138 mmol/L (136-145); TOTAL PROTEIN 5.4 g/dL (6.4-8.2); eGFR NON BLACK RACES > 60 (>60)
[2021-03-16] MEDS: FORTAZ or TAZICEF VIAL INJ 1 G in NS 100 ML IV 100 ML IV SCH ×3 (05:44→21:13)
[2021-03-16] MEDS: SOLU-Medrol 40 MG VIAL IVP SCH ×3 (05:46→21:11)
--- NOTE | 2021-03-16 05:49 | RAD ---
HISTORYSOB HX: HTN, SX: ORTHOSTUDYCHEST, 1 [id number]/28/2021 aFINDINGSThe trachea is midline. The cardiac silhouette is stable.. Bilateral airspace and interstitial opacities unchanged. No pneumothorax. The bony thorax is unremarkable.IMPRESSIONStable portable chestElectronically signed by: Dominick Kraus (Mar 16, 2021 05:47:22)
[2021-03-16 06:04] LABS: PLATELET MORPHOLOGY COMMENT NORMAL (NORMAL)
[2021-03-16] MEDS: DUONEB 0.5 MG/3 MG (3 mL) NEB SCH ×3 (06:10→21:36)
[2021-03-16] MEDS ORDERED: NS 250 ML IV 250 ML IV ONE (08:16)
[2021-03-16] MEDS: PEPCID 20 MG IV PREMIX* 20 MG/50 ML BAG IV SCH (08:30)
[2021-03-16] MEDS: DIFLUCAN 200 MG IV PREMIX* 200 MG/100 ML BAG IV SCH (09:00)
[2021-03-16] MEDS: PULMICORT NEB TX 0.5 MG NEB SCH ×2 (09:20→21:36)
[2021-03-16] MEDS: VITAMIN D3 125 mcg (5,000 UNITS) PO SCH (09:21)
[2021-03-16] MEDS: COZAAR PO SCH (09:21)
[2021-03-16] MEDS: VITAMIN A PO SCH (09:22)
[2021-03-16] MEDS: PriLOSEC PO SCH (09:22)
[2021-03-16] MEDS: ZINC SULFATE PO SCH ×2 (09:22→21:10)
[2021-03-16] MEDS: LOPRESSOR TAB 50 MG PO SCH (09:22)
[2021-03-16] MEDS: HYDROCHLOROTHIAZIDE 25 MG TAB PO SCH (09:24)
[2021-03-16] MEDS: FLOMAX PO SCH (09:24)
[2021-03-16] MEDS: ELIQUIS PO SCH ×2 (09:24→21:09)
--- NOTE | 2021-03-16 12:08 | CT ---
HISTORYCOVID PNEUMONIASTUDYCT chest without IV contrastCOMPARISONChest x-ray from same dayTECHNIQUEMultiple axial images of the chest were obtained from the thoracic inlet to the upper abdomenwithout the administration of IV contrast. Sagittal and coronal reformations are performed. Dose reduction techniques including Automated Exposure Control (AEC) and adjustment of mA and kV were utilized.FINDINGSThere is pneumomediastinum and free air in the lower neck. This is seen in retrospect on prior x-ray. Diffuse ground-glass and interstitial infiltrates in the lungs suggest prominent COVID-19 pneumonia. No pneumothorax or pleural effusion is seen.Cardiomegaly is present without pulmonary venous congestion. There is dilation of the ascending thoracic aorta to 4.7 cm in diameter. It tapers to 3.9 cm in the proximal arch and is normal in size in the distal arch. No mediastinal lymphadenopathy is seen.IMPRESSIONPneumomediastinum with prominent COVID-19 pneumonia.4.7 cm ascending thoracic aortic aneurysm tapers to normal diameter in the arch.Electronically signed by: Daniel Miller (Mar 16, 2021 12:06:50)
--- NOTE | 2021-03-16 15:17 | PCM.PROG ---
Progress Note Progress Note for Day of Date of Exam: 03/16/21 Subjective Subjective: Patient seen at bedside, no overnight events. He is currently on HHFNC at FiO2 90% sats between 86-89%. He does desat with minimal exertion and conversation. He sat up in the recliner yesterday and did well. He has been using the spirometer and smart vest. He states his cough is better, mostly dry now. Denies fever or chills. He reports good appetite. Labs: WBC 19 Plt 134 BUN/Cr: 37/1.01 Glucose 131 AB.49/35/52/26 Sputum: yeast + Klebsiella CXR: stable chest, b/l bronchopneumonia Plan: Wean HHFNC as tolerated to keep sats above 88%. Order CT-chest without contrast and echo. Will Continue Fortaz and Diflucan. Continue taper Solumedrol. Continue nebs, pulmicort, IS and smart vest. Remove leo as tolerated. Continue eliquis. Continue vitamin support. Continue PT/OT as tolerated. Advised patient to sit up as tolerated, lay on each side and self-prone. Monitor AM labs and imaging. Patient's daughter Luna was updated on patient's condition. All her questi ons and concerns were answered. She will try to call tomorrow morning during rounds for further updates. Time spent for clinical assessment, reviewing labs/imaging, physical exam, decision making and documentation greater than 45 mins. Past Medical Family Social History Past Med/Fam/Surg Hx: No changes since H&P Allergies: Allergies temazepam [From Restoril] Allergy (Verified 03/05/21 09:47) IVP DYE Allergy (Uncoded 03/02/21 18:20) Review of Systems ROS: No change since H&P Vital Signs and I&O's Vital Signs: Temperature 98.2 F Pulse Rate [Left Brachial] 85 Pulse Rate 93 Respiratory Rate 34 Blood Pressure [Left Arm] 153/80 Blood Pressure 147/78 O2 Sat by Pulse Oximetry 88 Intake and Output: Intake & Output 03/13/21 03/14/21 03/15/21 03/16/21 23:59 23:59 23:59 23:59 Intake Total 3084 / 3084 2747 / 2747 2627 / 2627 200 / 200 Output Total 2350 / 2350 2125 / 2125 2500 / 2500 350 / 350 Balance 734 / 734 622 / 622 127 / 127 -150 / -150 Physical Exam Oriented: Normal Eyes: Normal Ear: Normal Nose: Normal Throat: Normal Respiratory: Generalized and Diminished Cardiovascular: Normal Auscultation: Bowel Sounds: Normal Tenderness: Normal Skin: Normal Musculoskeletal: Normal Psychiatric: Normal Mood Description: Calm Affect: Normal Speech Pattern: Clear and Appropriate Laboratory and Diagnostics Result Diagrams: 03/16/21 04:47 03/16/21 04:47 Labs: 03/11/21 08:10 Sputum - Expectorated Sputum Sputum Culture - Final Klebsiella Pneumoniae 03/11/21 08:10 Sputum - Expectorated Sputum - Final 03/09/21 11:50 Sputum - Expectorated Sputum Sputum Culture - Preliminary Klebsiella Pneumoniae 03/09/21 11:50 Sputum - Expectorated Sputum - Final Laboratory WBC 19.0 X10^3/uL (3.6-10.0) H 03/16/21 04:47 RBC 4.67 X10^6/uL (4.7-6.0) L 03/16/21 04:47 Hgb 13.8 g/dL (13.5-18.0) 03/16/21 04:47 Hct 39.0 % (42.0-54.0) L 03/16/21 04:47 MCV 83.4 fL (80.0-100.0) 03/16/21 04:47 MCH 29.5 pg (27.0-34.0) 03/16/21 04:47 MCHC 35.4 g/dL (33.0-35.0) H 03/16/21 04:47 RDW 13.3 % (11.6-16.5) 03/16/21 04:47 Plt Count 134 X10^3/uL (150.0-450.0) L 03/16/21 04:47 Plt Count Comment Decreased (ADEQUATE) 03/16/21 04:47 MPV 9.4 fL (7.4-11.0) 03/16/21 04:47 Neut % (Auto) 95.5 % (42.0-75.0) H 03/16/21 04:47 Lymph % (Auto) 1.7 % (21.0-51.0) L 03/16/21 04:47 [place] % (Auto) 2.7 % (0.0-13.0) 03/16/21 04:47 Eos % (Auto) 0.0 % (0.9-2.9) L 03/16/21 04:47 Baso % (Auto) 0.1 % (0.2-1.0) L 03/16/21 04:47 Neut # (Auto) 18.1 x10^3/uL (2.2-4.8) H 03/16/21 04:47 Lymph # (Auto) 0.3 X10^3/uL (1.3-2.9) L 03/16/21 04:47 [place] # (Auto) 0.5 x10^3/uL (0.3-0.8) 03/16/21 04:47 Eos # (Auto) 0.0 x10^3/uL (0.0-0.2) 03/16/21 04:47 Baso # (Auto) 0.0 X10^3/uL (0.0-0.1) 03/16/21 04:47 Absolute Nucleated RBC 0.0 /100WBC 03/16/21 04:47 Total Counted 100 03/16/21 04:47 Neutrophils % (Manual) 96 % (39-76) H 03/16/21 04:47 Band Neutrophils % 2 % (0-10) 03/15/21 04:46 Lymphocytes % (Manual) 2 % (13-43) L 03/16/21 04:47 Monocytes % (Manual) 2 % (4-9) L 03/16/21 04:47 Plt Morphology Comment Normal (NORMAL) 03/16/21 04:47 RBC Morphology Normal (NORMAL) 03/16/21 04:47 D-Dimer 2.51 ug/ml (0.0-0.57) H* 03/14/21 04:39 Sample Site Rrad 03/14/21 06:28 ABG pH 7.490 (7.35-7.45) H 03/14/21 06:28 ABG pCO2 35.0 mmHg (35.0-45.0) 03/14/21 06:28 ABG pO2 52.0 mmHg (80.0-100.0) L 03/14/21 06:28 ABG HCO3 26.7 mmol/L (22-26) H 03/14/21 06:28 ABG O2 Saturation 89.0 % (90-100) L 03/14/21 06:28 ABG Base Excess 3.5 mmol/L (-2.0-2.0) H 03/14/21 06:28 Sree Test Pos 03/14/21 06:28 A-a Gradient 567.0 mmHg 03/14/21 06:28 FiO2 93.0 03/14/21 06:28 Blood Gas Comments Elbert well 03/14/21 06:28 Sodium 138 mmol/L (136-145) 03/16/21 04:47 Corrected Sodium 139 mmol/L (136-145) 03/16/21 04:47 Potassium 3.9 mmol/L (3.5-5.1) 03/16/21 04:47 Chloride 104 mmol/L (98-107) 03/16/21 04:47 Carbon Dioxide 26.5 mmol/L (21-32) 03/16/21 04:47 BUN 37 mg/dL (7-18) H 03/16/21 04:47 Creatinine 1.01 mg/dL (0.70-1.30) 03/16/21 04:47 Est GFR (MDRD) Af Amer > 60 (>60) 03/16/21 04:47 Est GFR (MDRD) Non-Af > 60 (>60) 03/16/21 04:47 Glucose 131 mg/dL (65-99) H 03/16/21 04:47 POC Glucose (mg/dL) 99 mg/dL (65-99) 03/09/21 11:51 Calcium 7.9 mg/dL (8.5-10.1) L 03/16/21 04:47 Corrected Calcium 9.2 mg/dL (8.5-10.1) 03/16/21 04:47 Magnesium 2.5 mg/dL (1.7-2.9) 03/05/21 04:10 Ferritin 1988 ng/mL (26-388) H 03/01/21 11:20 Total Bilirubin 0.80 mg/dL (0.2-1.0) 03/16/21 04:47 AST 20 Units/L (15-37) 03/16/21 04:47 ALT 44 Units/L (12-78) 03/16/21 04:47 Alkaline Phosphatase 79 Units/L (46-116) 03/16/21 04:47 Creatine Kinase 121 Units/L (39-308) 03/01/21 11:20 CK-MB (CK-2) < 1.0 ng/mL (0-4.0) 03/01/21 11:20 CK/CKMB % Calc 0.8 % (<4) 03/01/21 11:20 Troponin I < 0.02 ng/mL (0-1.5) 03/01/21 11:20 C-Reactive Protein < 0.50 mg/L (0-3.0) 03/13/21 04:22 B-Natriuretic Peptide 78.7 pg/mL (0-79) 03/14/21 04:39 Total Protein 5.4 g/dL (6.4-8.2) L 03/16/21 04:47 Albumin 2.4 g/dL (3.4-5.0) L 03/16/21 04:47 Globulin 3.0 g/dL (2.5-4.5) 03/16/21 04:47 Albumin/Globulin Ratio 0.8 Ratio (1.1-2.1) L 03/16/21 04:47 Specimen Type Catherized urine 03/04/21 07:00 Urine Color Yellow (YELLOW) 03/04/21 07:00 Urine Appearance Clear (CLEAR) 03/04/21 07:00 Urine pH 6.0 (5.0 - 8.0) 03/04/21 07:00 Ur Specific [place] 1.015 (1.000-1.030) 03/04/21 07:00 Urine Protein 1+ (NEGATIVE) 03/04/21 07:00 Urine Glucose (UA) Negative (NEGATIVE) 03/04/21 07:00 Urine Ketones Negative (NEGATIVE) 03/04/21 07:00 Urine Occult Blood Negative (NEGATIVE) 03/04/21 07:00 Urine Nitrite Negative (NEGATIVE) 03/04/21 07:00 Urine Bilirubin Negative (NEGATIVE) 03/04/21 07:00 Urine Urobilinogen Normal (NORMAL) 03/04/21 07:00 Ur Leukocyte Esterase Negative (NEGATIVE) 03/04/21 07:00 Urine RBC 0-2 /HPF (0-3) 03/04/21 07:00 Urine WBC 0-2 /HPF (0-5) 03/04/21 07:00 Ur Squamous Epith Cells Few /HPF (NEGATIVE) 03/04/21 07:00 Urine Bacteria Negative /HPF (NEGATIVE) 03/04/21 07:00 Ur Culture Indicated? No/not indicated 03/04/21 07:00 Plan (1) Acute respiratory failure with hypoxia: Status: Acute (2) COVID-19 virus infection: Status: Acute (3) Hypokalemia: Status: Acute (4) Elevated d-dimer: Status: Acute (5) Klebsiella pneumonia: Status: Acute Qualifiers: Laterality: bilateral Lung location: unspecified part of lung Qualified Code(s): J15.0 - Pneumonia due to Klebsiella pneumoniae
[2021-03-16] MEDS: ASCORBIC ACID INJ MULTI-DOSE VIAL 1,500 MG in NS 50 ML IV 50 ML IV SCH (21:10)
[2021-03-17] MEDS: ASCORBIC ACID INJ MULTI-DOSE VIAL 1,500 MG in NS 50 ML IV 50 ML IV SCH ×4 (02:23→20:27)
[2021-03-17 05:21] LABS: BASOPHILS % (AUTO) 0.2 % (0.2-1.0); HEMATOCRIT 41.2 % (42.0-54.0); HEMOGLOBIN 14.2 g/dL (13.5-18.0); LYMPHOCYTES # (AUTO) 0.3 X10^3/uL (1.3-2.9); LYMPHOCYTES % (AUTO) 1.4 % (21.0-51.0); MEAN CORPUSCULAR HGB CONC 34.5 g/dL (33.0-35.0); MEAN CORPUSCULAR VOLUME 84.1 fL (80.0-100.0); MONOCYTES # (AUTO) 0.5 x10^3/uL (0.3-0.8); MONOCYTES % (AUTO) 2.1 % (0.0-13.0); NEUTROPHILS # (AUTO) 21.1 x10^3/uL (2.2-4.8); NEUTROPHILS % (AUTO) 96.3 % (42.0-75.0); PLATELET COUNT 130 X10^3/uL (150.0-450.0); RED CELL DISTRIBUTION WIDTH 13.5 % (11.6-16.5); WHITE BLOOD COUNT 21.9 X10^3/uL (3.6-10.0)
[2021-03-17 05:33] LABS: ALANINE AMINOTRANSFERASE 71 Units/L (12-78); ALBUMIN 2.5 g/dL (3.4-5.0); ALKALINE PHOSPHATASE 90 Units/L (46-116); ASPARTATE AMINO TRANSFERASE 32 Units/L (15-37); BLOOD UREA NITROGEN 32 mg/dL (7-18); CALCIUM 8.1 mg/dL (8.5-10.1); CARBON DIOXIDE 27.9 mmol/L (21-32); CHLORIDE 104 mmol/L (98-107); COR CA(FOR HYPOALB) 9.3 mg/dL (8.5-10.1); COR NA(FOR HYPERGLY) 140 mmol/L (136-145); SODIUM 139 mmol/L (136-145); TOTAL PROTEIN 5.5 g/dL (6.4-8.2); eGFR NON BLACK RACES > 60 (>60)
[2021-03-17] MEDS: DUONEB 0.5 MG/3 MG (3 mL) NEB SCH ×3 (05:40→21:08)
[2021-03-17 05:57] LABS: PLATELET MORPHOLOGY COMMENT NORMAL (NORMAL)
[2021-03-17] MEDS: FORTAZ or TAZICEF VIAL INJ 1 G in NS 100 ML IV 100 ML IV SCH ×3 (06:00→21:25)
[2021-03-17] MEDS: PULMICORT NEB TX 0.5 MG NEB SCH ×2 (08:10→21:08)
[2021-03-17] MEDS: PEPCID 20 MG IV PREMIX* 20 MG/50 ML BAG IV SCH (08:26)
[2021-03-17] MEDS: LOPRESSOR TAB 50 MG PO SCH (08:26)
[2021-03-17] MEDS: HYDROCHLOROTHIAZIDE 25 MG TAB PO SCH (08:26)
[2021-03-17] MEDS: ELIQUIS PO SCH ×2 (08:27→20:29)
[2021-03-17] MEDS: COZAAR PO SCH (08:27)
[2021-03-17] MEDS: VITAMIN D3 125 mcg (5,000 UNITS) PO SCH (08:27)
[2021-03-17] MEDS: PriLOSEC PO SCH (08:27)
[2021-03-17] MEDS: ZINC SULFATE PO SCH ×2 (08:28→20:31)
[2021-03-17] MEDS: FLOMAX PO SCH (08:28)
[2021-03-17] MEDS: SOLU-Medrol 40 MG VIAL IVP SCH ×2 (08:44→20:30)
[2021-03-17] MEDS: VITAMIN A PO SCH (08:44)
[2021-03-17] MEDS: DIFLUCAN 200 MG IV PREMIX* 200 MG/100 ML BAG IV SCH (09:44)
--- NOTE | 2021-03-17 12:41 | PCM.PROG ---
Progress Note Progress Note for Day of Date of Exam: 03/17/21 Subjective Subjective: Patient seen at bedside, no overnight events. He is currently on HHFNC at FiO2 88% sats between 86-89%. He does desat with minimal exertion and conversation. He is sitting up in the recliner and eating breakfast. His leo was removed yesterday and he did ambulate a little in the room with PT. He has been using the spirometer and smart vest. He states his cough is better. Denies fever or chills. He reports good appetite. Labs: WBC 21.9 Plt 130 BUN/Cr: 32/0.90 Glucose 127 AB.49/35/52/26 Sputum: C. albicans + Klebsiella CT-chest (03/16/21): pneumomediastinum and free air in the lower neck. This is seen in retrospect on prior x-ray. Diffuse ground-glass and interstitial inf iltrates in the lungs suggest prominent COVID-19 pneumonia. No pneumothorax or pleural effusion is seen. Cardiomegaly is present without pulmonary venous congestion. There is dilation of the ascending thoracic aorta to 4.7 cm in diameter. ECHO (03/16/21): Normal global wall motion. EF 55% with grade 3 restrictive diastolic dysfunction. Normal IVC. Plan: Wean HHFNC as tolerated to keep sats above 88%. Patient's sputum culture is sensitive to Fortaz and Diflucan, continue both. Continue taper Solumedrol. Continue nebs, pulmicort, IS and smart vest. Continue eliquis. Continue vitamin support. Continue PT/OT as tolerated. Advised patient to sit up as tolerated, lay on each side and self-prone. Monitor AM labs and imaging. Patient's daughter Luna was updated on patient's condition during rounds. All her questions and concerns were answered. Time spent for clinical assessment, reviewing labs/imaging, physical exam, decision making and documentation greater than 45 mins. Past Medical Family Social History Past Med/Fam/Surg Hx: No changes since H&P Allergies: Allergies temazepam [From Restoril] Allergy (Verified 03/05/21 09:47) IVP DYE Allergy (Uncoded 03/02/21 18:20) Review of Systems ROS: No change since H&P Vital Signs and I&O's Vital Signs: Temperature 98.2 F Pulse Rate [Left Brachial] 85 Pulse Rate 74 Respiratory Rate 41 Blood Pressure [Left Arm] 153/80 Blood Pressure 160/88 O2 Sat by Pulse Oximetry 94 Intake and Output: Intake & Output 03/14/21 03/15/21 03/16/21 03/17/21 23:59 23:59 23:59 23:59 Intake Total 2747 / 2747 2627 / 2627 2627 / 2627 137 / 137 Output Total 2125 / 2125 2500 / 2500 1850 / 1850 720 / 720 Balance 622 / 622 127 / 127 777 / 777 -583 / -583 Physical Exam Oriented: Normal Eyes: Normal Ear: Normal Nose: Normal Throat: Normal Respiratory: Generalized and Diminished Cardiovascular: Normal Auscultation: Bowel Sounds: Normal Tenderness: Normal Skin: Normal Musculoskeletal: Normal Psychiatric: Normal Mood Description: Calm Affect: Normal Speech Pattern: Clear and Appropriate Laboratory and Diagnostics Result Diagrams: 03/17/21 04:57 03/17/21 04:57 Labs: 03/09/21 11:50 Sputum - Expectorated Sputum Sputum Culture - Final Klebsiella Pneumoniae 03/09/21 11:50 Sputum - Expectorated Sputum - Final 03/11/21 08:10 Sputum - Expectorated Sputum Sputum Culture - Final Klebsiella Pneumoniae 03/11/21 08:10 Sputum - Expectorated Sputum - Final Laboratory WBC 21.9 X10^3/uL (3.6-10.0) H 03/17/21 04:57 RBC 4.90 X10^6/uL (4.7-6.0) 03/17/21 04:57 Hgb 14.2 g/dL (13.5-18.0) 03/17/21 04:57 Hct 41.2 % (42.0-54.0) L 03/17/21 04:57 MCV 84.1 fL (80.0-100.0) 03/17/21 04:57 MCH 29.0 pg (27.0-34.0) 03/17/21 04:57 MCHC 34.5 g/dL (33.0-35.0) 03/17/21 04:57 RDW 13.5 % (11.6-16.5) 03/17/21 04:57 Plt Count 130 X10^3/uL (150.0-450.0) L 03/17/21 04:57 Plt Count Comment Decreased (ADEQUATE) 03/17/21 04:57 MPV 9.0 fL (7.4-11.0) 03/17/21 04:57 Neut % (Auto) 96.3 % (42.0-75.0) H 03/17/21 04:57 Lymph % (Auto) 1.4 % (21.0-51.0) L 03/17/21 04:57 [place] % (Auto) 2.1 % (0.0-13.0) 03/17/21 04:57 Eos % (Auto) 0.0 % (0.9-2.9) L 03/17/21 04:57 Baso % (Auto) 0.2 % (0.2-1.0) 03/17/21 04:57 Neut # (Auto) 21.1 x10^3/uL (2.2-4.8) H 03/17/21 04:57 Lymph # (Auto) 0.3 X10^3/uL (1.3-2.9) L 03/17/21 04:57 [place] # (Auto) 0.5 x10^3/uL (0.3-0.8) 03/17/21 04:57 Eos # (Auto) 0.0 x10^3/uL (0.0-0.2) 03/17/21 04:57 Baso # (Auto) 0.0 X10^3/uL (0.0-0.1) 03/17/21 04:57 Absolute Nucleated RBC 0.0 /100WBC 03/17/21 04:57 Total Counted 100 03/17/21 04:57 Neutrophils % (Manual) 96 % (39-76) H 03/17/21 04:57 Band Neutrophils % 2 % (0-10) 03/15/21 04:46 Lymphocytes % (Manual) 2 % (13-43) L 03/17/21 04:57 Monocytes % (Manual) 2 % (4-9) L 03/17/21 04:57 Plt Morphology Comment Normal (NORMAL) 03/17/21 04:57 RBC Morphology Normal (NORMAL) 03/17/21 04:57 D-Dimer 2.51 ug/ml (0.0-0.57) H* 03/14/21 04:39 Sample Site Rrad 03/14/21 06:28 ABG pH 7.490 (7.35-7.45) H 03/14/21 06:28 ABG pCO2 35.0 mmHg (35.0-45.0) 03/14/21 06:28 ABG pO2 52.0 mmHg (80.0-100.0) L 03/14/21 06:28 ABG HCO3 26.7 mmol/L (22-26) H 03/14/21 06:28 ABG O2 Saturation 89.0 % (90-100) L 03/14/21 06:28 ABG Base Excess 3.5 mmol/L (-2.0-2.0) H 03/14/21 06:28 Sree Test Pos 03/14/21 06:28 A-a Gradient 567.0 mmHg 03/14/21 06:28 FiO2 93.0 03/14/21 06:28 Blood Gas Comments Elbert well 03/14/21 06:28 Sodium 139 mmol/L (136-145) 03/17/21 04:57 Corrected Sodium 140 mmol/L (136-145) 03/17/21 04:57 Potassium 4.3 mmol/L (3.5-5.1) 03/17/21 04:57 Chloride 104 mmol/L (98-107) 03/17/21 04:57 Carbon Dioxide 27.9 mmol/L (21-32) 03/17/21 04:57 BUN 32 mg/dL (7-18) H 03/17/21 04:57 Creatinine 0.90 mg/dL (0.70-1.30) 03/17/21 04:57 Est GFR (MDRD) Af Amer > 60 (>60) 03/17/21 04:57 Est GFR (MDRD) Non-Af > 60 (>60) 03/17/21 04:57 Glucose 127 mg/dL (65-99) H 03/17/21 04:57 POC Glucose (mg/dL) 99 mg/dL (65-99) 03/09/21 11:51 Calcium 8.1 mg/dL (8.5-10.1) L 03/17/21 04:57 Corrected Calcium 9.3 mg/dL (8.5-10.1) 03/17/21 04:57 Magnesium 2.5 mg/dL (1.7-2.9) 03/05/21 04:10 Ferritin 1988 ng/mL (26-388) H 03/01/21 11:20 Total Bilirubin 0.90 mg/dL (0.2-1.0) 03/17/21 04:57 AST 32 Units/L (15-37) 03/17/21 04:57 ALT 71 Units/L (12-78) 03/17/21 04:57 Alkaline Phosphatase 90 Units/L (46-116) 03/17/21 04:57 Creatine Kinase 121 Units/L (39-308) 03/01/21 11:20 CK-MB (CK-2) < 1.0 ng/mL (0-4.0) 03/01/21 11:20 CK/CKMB % Calc 0.8 % (<4) 03/01/21 11:20 Troponin I < 0.02 ng/mL (0-1.5) 03/01/21 11:20 C-Reactive Protein < 0.50 mg/L (0-3.0) 03/13/21 04:22 B-Natriuretic Peptide 78.7 pg/mL (0-79) 03/14/21 04:39 Total Protein 5.5 g/dL (6.4-8.2) L 03/17/21 04:57 Albumin 2.5 g/dL (3.4-5.0) L 03/17/21 04:57 Globulin 3.0 g/dL (2.5-4.5) 03/17/21 04:57 Albumin/Globulin Ratio 0.8 Ratio (1.1-2.1) L 03/17/21 04:57 Specimen Type Catherized urine 03/04/21 07:00 Urine Color Yellow (YELLOW) 03/04/21 07:00 Urine Appearance Clear (CLEAR) 03/04/21 07:00 Urine pH 6.0 (5.0 - 8.0) 03/04/21 07:00 Ur Specific [place] 1.015 (1.000-1.030) 03/04/21 07:00 Urine Protein 1+ (NEGATIVE) 03/04/21 07:00 Urine Glucose (UA) Negative (NEGATIVE) 03/04/21 07:00 Urine Ketones Negative (NEGATIVE) 03/04/21 07:00 Urine Occult Blood Negative (NEGATIVE) 03/04/21 07:00 Urine Nitrite Negative (NEGATIVE) 03/04/21 07:00 Urine Bilirubin Negative (NEGATIVE) 03/04/21 07:00 Urine Urobilinogen Normal (NORMAL) 03/04/21 07:00 Ur Leukocyte Esterase Negative (NEGATIVE) 03/04/21 07:00 Urine RBC 0-2 /HPF (0-3) 03/04/21 07:00 Urine WBC 0-2 /HPF (0-5) 03/04/21 07:00 Ur Squamous Epith Cells Few /HPF (NEGATIVE) 03/04/21 07:00 Urine Bacteria Negative /HPF (NEGATIVE) 03/04/21 07:00 Ur Culture Indicated? No/not indicated 03/04/21 07:00 Plan (1) Acute respiratory failure with hypoxia: Status: Acute (2) COVID-19 virus infection: Status: Acute (3) Hypokalemia: Status: Acute (4) Elevated d-dimer: Status: Acute (5) Klebsiella pneumonia: Status: Acute Qualifiers: Laterality: bilateral Lung location: unspecified part of lung Qualified Code(s): J15.0 - Pneumonia due to Klebsiella pneumoniae
[2021-03-18] MEDS: ASCORBIC ACID INJ MULTI-DOSE VIAL 1,500 MG in NS 50 ML IV 50 ML IV SCH ×4 (03:14→21:06)
[2021-03-18] MEDS: DUONEB 0.5 MG/3 MG (3 mL) NEB SCH ×3 (05:12→21:01)
[2021-03-18 05:23] LABS: BASOPHILS # (AUTO) 0.1 X10^3/uL (0.0-0.1); BASOPHILS % (AUTO) 0.3 % (0.2-1.0); HEMOGLOBIN 14.1 g/dL (13.5-18.0); LYMPHOCYTES # (AUTO) 0.2 X10^3/uL (1.3-2.9); LYMPHOCYTES % (AUTO) 1.1 % (21.0-51.0); MEAN CORPUSCULAR HEMOGLOBIN 29.3 pg (27.0-34.0); MEAN CORPUSCULAR HGB CONC 34.4 g/dL (33.0-35.0); MEAN CORPUSCULAR VOLUME 85.2 fL (80.0-100.0); MEAN PLATELET VOLUME 9.3 fL (7.4-11.0); MONOCYTES # (AUTO) 0.4 x10^3/uL (0.3-0.8); MONOCYTES % (AUTO) 1.9 % (0.0-13.0); NEUTROPHILS # (AUTO) 19.8 x10^3/uL (2.2-4.8); NEUTROPHILS % (AUTO) 96.7 % (42.0-75.0); PLATELET COUNT 122 X10^3/uL (150.0-450.0); RED BLOOD COUNT 4.81 X10^6/uL (4.7-6.0); RED CELL DISTRIBUTION WIDTH 13.4 % (11.6-16.5); WHITE BLOOD COUNT 20.5 X10^3/uL (3.6-10.0)
[2021-03-18] MEDS: FORTAZ or TAZICEF VIAL INJ 1 G in NS 100 ML IV 100 ML IV SCH ×3 (06:05→22:58)
[2021-03-18 06:10] LABS: PLATELET MORPHOLOGY COMMENT NORMAL (NORMAL)
[2021-03-18] MEDS: MORPHINE SULFATE INJ 2 MG INJ IVP PRN (07:46)
[2021-03-18] MEDS: COZAAR PO SCH (08:19)
[2021-03-18] MEDS: ELIQUIS PO SCH ×2 (08:20→21:06)
[2021-03-18] MEDS: HYDROCHLOROTHIAZIDE 25 MG TAB PO SCH (08:20)
[2021-03-18] MEDS: LOPRESSOR TAB 50 MG PO SCH (08:20)
[2021-03-18] MEDS: DIFLUCAN 200 MG IV PREMIX* 200 MG/100 ML BAG IV SCH (08:20)
[2021-03-18] MEDS: FLOMAX PO SCH (08:20)
[2021-03-18] MEDS: PriLOSEC PO SCH (08:21)
[2021-03-18] MEDS: PEPCID 20 MG IV PREMIX* 20 MG/50 ML BAG IV SCH (08:21)
[2021-03-18] MEDS: SOLU-Medrol 40 MG VIAL IVP SCH ×2 (08:30→21:06)
[2021-03-18] MEDS: VITAMIN A PO SCH (08:30)
[2021-03-18] MEDS: ZINC SULFATE PO SCH ×2 (08:34→21:06)
[2021-03-18] MEDS: VITAMIN D3 125 mcg (5,000 UNITS) PO SCH (08:34)
[2021-03-18 09:21] LABS: ALANINE AMINOTRANSFERASE 58 Units/L (12-78); ALBUMIN 2.6 g/dL (3.4-5.0); ALKALINE PHOSPHATASE 87 Units/L (46-116); ASPARTATE AMINO TRANSFERASE 26 Units/L (15-37); BLOOD UREA NITROGEN 30 mg/dL (7-18); CHLORIDE 104 mmol/L (98-107); COR CA(FOR HYPOALB) 9.1 mg/dL (8.5-10.1); COR NA(FOR HYPERGLY) 139 mmol/L (136-145); CREATININE 0.89 mg/dL (0.70-1.30); SODIUM 139 mmol/L (136-145); TOTAL PROTEIN 5.5 g/dL (6.4-8.2); eGFR NON BLACK RACES > 60 (>60)
[2021-03-18] MEDS: PULMICORT NEB TX 0.5 MG NEB SCH ×2 (09:30→21:01)
--- NOTE | 2021-03-18 13:00 | PCM.PROG ---
Progress Note Progress Note for Day of Date of Exam: 03/18/21 Subjective Subjective: Patient seen at bedside, no overnight events. He is currently on HHFNC at FiO2 89% sats between 86-90%. He does desat with minimal exertion and conversation. He is sitting up and eating breakfast. He has been using the spirometer and smart vest. He coughed up some more sputum this morning. Denies fever or chills. He reports good appetite. Labs: WBC 20.5 Plt 122 BUN/Cr: 30/0.89 Glucose 116 Sputum: C. albicans + Klebsiella CT-chest (03/16/21): pneumomediastinum and free air in the lower neck. This is seen in retrospect on prior x-ray. Diffuse ground-glass and interstitial infiltr ates in the lungs suggest prominent COVID-19 pneumonia. No pneumothorax or pleural effusion is seen. Cardiomegaly is present without pulmonary venous congestion. There is dilation of the ascending thoracic aorta to 4.7 cm in diameter. ECHO (03/16/21): Normal global wall motion. EF 55% with grade 3 restrictive diastolic dysfunction. Normal IVC. Plan: Wean HHFNC as tolerated to keep sats above 88%. Repeat CXR today. Patient's sputum culture is sensitive to Fortaz and Diflucan, continue both. Continue taper Solumedrol. Continue nebs, pulmicort, IS and smart vest. Continue eliquis. Continue vitamin support. Continue PT/OT as tolerated. Advised patient to sit up as tolerated, lay on each side and self-prone. Monitor AM labs and imaging. Time spent for clinical assessment, reviewing labs/imaging, physical exam, decision making and documentation greater than 45 mins. Past Medical Family Social History Past Med/Fam/Surg Hx: No changes since H&P Allergies: Allergies temazepam [From Restoril] Allergy (Verified 03/05/21 09:47) IVP DYE Allergy (Uncoded 03/02/21 18:20) Review of Systems ROS: No change since H&P Vital Signs and I&O's Vital Signs: Temperature 98.0 F Pulse Rate [Left Brachial] 85 Pulse Rate 71 Respiratory Rate 36 Blood Pressure [Left Arm] 153/80 Blood Pressure 136/87 O2 Sat by Pulse Oximetry 88 Intake and Output: Intake & Output 03/15/21 03/16/21 03/17/21 03/18/21 23:59 23:59 23:59 23:59 Intake Total 2626 / 2627 2627 / 2627 2257 / 7 669 / 669 Output Total 2500 / 2500 1850 / 1850 2570 / 2570 775 / 775 Balance 127 / 127 777 / 777 -313 / -313 -106 / -106 Physical Exam Oriented: Normal Eyes: Normal Ear: Normal Nose: Normal Throat: Normal Respiratory: Generalized and Diminished Cardiovascular: Normal Auscultation: Bowel Sounds: Normal Tenderness: Normal Skin: Normal Musculoskeletal: Normal Psychiatric: Normal Mood Description: Calm Affect: Normal Speech Pattern: Clear and Appropriate Laboratory and Diagnostics Result Diagrams: 03/18/21 04:36 03/18/21 04:36 Labs: 03/09/21 11:50 Sputum - Expectorated Sputum Sputum Culture - Final Klebsiella Pneumoniae 03/09/21 11:50 Sputum - Expectorated Sputum - Final 03/11/21 08:10 Sputum - Expectorated Sputum Sputum Culture - Final Klebsiella Pneumoniae 03/11/21 08:10 Sputum - Expectorated Sputum - Final Laboratory WBC 20.5 X10^3/uL (3.6-10.0) H 03/18/21 04:36 RBC 4.81 X10^6/uL (4.7-6.0) 03/18/21 04:36 Hgb 14.1 g/dL (13.5-18.0) 03/18/21 04:36 Hct 41.0 % (42.0-54.0) L 03/18/21 04:36 MCV 85.2 fL (80.0-100.0) 03/18/21 04:36 MCH 29.3 pg (27.0-34.0) 03/18/21 04:36 MCHC 34.4 g/dL (33.0-35.0) 03/18/21 04:36 RDW 13.4 % (11.6-16.5) 03/18/21 04:36 Plt Count 122 X10^3/uL (150.0-450.0) L 03/18/21 04:36 Plt Count Comment Decreased (ADEQUATE) 03/18/21 04:36 MPV 9.3 fL (7.4-11.0) 03/18/21 04:36 Neut % (Auto) 96.7 % (42.0-75.0) H 03/18/21 04:36 Lymph % (Auto) 1.1 % (21.0-51.0) L 03/18/21 04:36 [place] % (Auto) 1.9 % (0.0-13.0) 03/18/21 04:36 Eos % (Auto) 0.0 % (0.9-2.9) L 03/18/21 04:36 Baso % (Auto) 0.3 % (0.2-1.0) 03/18/21 04:36 Neut # (Auto) 19.8 x10^3/uL (2.2-4.8) H 03/18/21 04:36 Lymph # (Auto) 0.2 X10^3/uL (1.3-2.9) L 03/18/21 04:36 [place] # (Auto) 0.4 x10^3/uL (0.3-0.8) 03/18/21 04:36 Eos # (Auto) 0.0 x10^3/uL (0.0-0.2) 03/18/21 04:36 Baso # (Auto) 0.1 X10^3/uL (0.0-0.1) 03/18/21 04:36 Absolute Nucleated RBC 0.0 /100WBC 03/18/21 04:36 Total Counted 100 03/18/21 04:36 Neutrophils % (Manual) 91 % (39-76) H 03/18/21 04:36 Band Neutrophils % 2 % (0-10) 03/15/21 04:46 Lymphocytes % (Manual) 4 % (13-43) L 03/18/21 04:36 Monocytes % (Manual) 5 % (4-9) 03/18/21 04:36 Plt Morphology Comment Normal (NORMAL) 03/18/21 04:36 RBC Morphology Normal (NORMAL) 03/18/21 04:36 D-Dimer 2.51 ug/ml (0.0-0.57) H* 03/14/21 04:39 Sample Site Rrad 03/14/21 06:28 ABG pH 7.490 (7.35-7.45) H 03/14/21 06:28 ABG pCO2 35.0 mmHg (35.0-45.0) 03/14/21 06:28 ABG pO2 52.0 mmHg (80.0-100.0) L 03/14/21 06:28 ABG HCO3 26.7 mmol/L (22-26) H 03/14/21 06:28 ABG O2 Saturation 89.0 % (90-100) L 03/14/21 06:28 ABG Base Excess 3.5 mmol/L (-2.0-2.0) H 03/14/21 06:28 Sree Test Pos 03/14/21 06:28 A-a Gradient 567.0 mmHg 03/14/21 06:28 FiO2 93.0 03/14/21 06:28 Blood Gas Comments Elbert well 03/14/21 06:28 Sodium 139 mmol/L (136-145) 03/18/21 04:36 Corrected Sodium 139 mmol/L (136-145) 03/18/21 04:36 Potassium 4.3 mmol/L (3.5-5.1) 03/18/21 04:36 Chloride 104 mmol/L (98-107) 03/18/21 04:36 Carbon Dioxide 29.0 mmol/L (21-32) 03/18/21 04:36 BUN 30 mg/dL (7-18) H 03/18/21 04:36 Creatinine 0.89 mg/dL (0.70-1.30) 03/18/21 04:36 Est GFR (MDRD) Af Amer > 60 (>60) 03/18/21 04:36 Est GFR (MDRD) Non-Af > 60 (>60) 03/18/21 04:36 Glucose 116 mg/dL (65-99) H 03/18/21 04:36 POC Glucose (mg/dL) 99 mg/dL (65-99) 03/09/21 11:51 Calcium 8.0 mg/dL (8.5-10.1) L 03/18/21 04:36 Corrected Calcium 9.1 mg/dL (8.5-10.1) 03/18/21 04:36 Magnesium 2.5 mg/dL (1.7-2.9) 03/05/21 04:10 Ferritin 1988 ng/mL (26-388) H 03/01/21 11:20 Total Bilirubin 0.90 mg/dL (0.2-1.0) 03/18/21 04:36 AST 26 Units/L (15-37) 03/18/21 04:36 ALT 58 Units/L (12-78) 03/18/21 04:36 Alkaline Phosphatase 87 Units/L (46-116) 03/18/21 04:36 Creatine Kinase 121 Units/L (39-308) 03/01/21 11:20 CK-MB (CK-2) < 1.0 ng/mL (0-4.0) 03/01/21 11:20 CK/CKMB % Calc 0.8 % (<4) 03/01/21 11:20 Troponin I < 0.02 ng/mL (0-1.5) 03/01/21 11:20 C-Reactive Protein < 0.50 mg/L (0-3.0) 03/13/21 04:22 B-Natriuretic Peptide 78.7 pg/mL (0-79) 03/14/21 04:39 Total Protein 5.5 g/dL (6.4-8.2) L 03/18/21 04:36 Albumin 2.6 g/dL (3.4-5.0) L 03/18/21 04:36 Globulin 2.9 g/dL (2.5-4.5) 03/18/21 04:36 Albumin/Globulin Ratio 0.9 Ratio (1.1-2.1) L 03/18/21 04:36 Specimen Type Catherized urine 03/04/21 07:00 Urine Color Yellow (YELLOW) 03/04/21 07:00 Urine Appearance Clear (CLEAR) 03/04/21 07:00 Urine pH 6.0 (5.0 - 8.0) 03/04/21 07:00 Ur Specific [place] 1.015 (1.000-1.030) 03/04/21 07:00 Urine Protein 1+ (NEGATIVE) 03/04/21 07:00 Urine Glucose (UA) Negative (NEGATIVE) 03/04/21 07:00 Urine Ketones Negative (NEGATIVE) 03/04/21 07:00 Urine Occult Blood Negative (NEGATIVE) 03/04/21 07:00 Urine Nitrite Negative (NEGATIVE) 03/04/21 07:00 Urine Bilirubin Negative (NEGATIVE) 03/04/21 07:00 Urine Urobilinogen Normal (NORMAL) 03/04/21 07:00 Ur Leukocyte Esterase Negative (NEGATIVE) 03/04/21 07:00 Urine RBC 0-2 /HPF (0-3) 03/04/21 07:00 Urine WBC 0-2 /HPF (0-5) 03/04/21 07:00 Ur Squamous Epith Cells Few /HPF (NEGATIVE) 03/04/21 07:00 Urine Bacteria Negative /HPF (NEGATIVE) 03/04/21 07:00 Ur Culture Indicated? No/not indicated 03/04/21 07:00 Plan (1) Acute respiratory failure with hypoxia: Status: Acute (2) COVID-19 virus infection: Status: Acute (3) Hypokalemia: Status: Acute (4) Elevated d-dimer: Status: Acute (5) Klebsiella pneumonia: Status: Acute Qualifiers: Laterality: bilateral Lung location: unspecified part of lung Qualified Code(s): J15.0 - Pneumonia due to Klebsiella pneumoniae (6) Candidal pneumonia: Status: Acute
--- NOTE | 2021-03-18 14:50 | RAD ---
HISTORYCOVID HYPOXIA HX: HTN, SX: ORTHOSTUDYCHEST, 1 VIEWCOMPARISONPortable chest March 16, 2021FINDINGSThe trachea is midline. The cardiac silhouette is unremarkable. The bilateral peripheral pulmonary opacities right greater than left are not significantly changed compared to March 16, 2000 31. There is however new subcutaneous emphysema over the upper chest in lower neck and pneumomediastinum along the left heart border and aortic arch which are new. Pneumomediastinum is also seen along the right heart border. No definite pneumothorax is observed. The bony thorax is unremarkable.IMPRESSIONNo change in bilateral infiltrates compared to March 16, 2021 however there is new subcutaneous emphysema and new bilateral pneumomediastinum without definite visualized pneumothorax.Electronically signed by: NARCISO DAVIS (Mar 18, 2021 14:49:10)
[2021-03-19] MEDS: ASCORBIC ACID INJ MULTI-DOSE VIAL 1,500 MG in NS 50 ML IV 50 ML IV SCH ×4 (03:34→21:26)
[2021-03-19 05:11] LABS: BASOPHILS % (AUTO) 0.1 % (0.2-1.0); EOSINOPHILS % (AUTO) 0.1 % (0.9-2.9); HEMOGLOBIN 14.1 g/dL (13.5-18.0); LYMPHOCYTES # (AUTO) 0.2 X10^3/uL (1.3-2.9); LYMPHOCYTES % (AUTO) 1.1 % (21.0-51.0); MEAN CORPUSCULAR HEMOGLOBIN 29.3 pg (27.0-34.0); MEAN CORPUSCULAR HGB CONC 34.5 g/dL (33.0-35.0); MEAN CORPUSCULAR VOLUME 84.7 fL (80.0-100.0); MEAN PLATELET VOLUME 9.1 fL (7.4-11.0); MONOCYTES # (AUTO) 0.3 x10^3/uL (0.3-0.8); MONOCYTES % (AUTO) 1.5 % (0.0-13.0); NEUTROPHILS # (AUTO) 19.3 x10^3/uL (2.2-4.8); NEUTROPHILS % (AUTO) 97.2 % (42.0-75.0); PLATELET COUNT 109 X10^3/uL (150.0-450.0); RED BLOOD COUNT 4.83 X10^6/uL (4.7-6.0); RED CELL DISTRIBUTION WIDTH 13.9 % (11.6-16.5); WHITE BLOOD COUNT 19.9 X10^3/uL (3.6-10.0)
[2021-03-19] MEDS: DUONEB 0.5 MG/3 MG (3 mL) NEB SCH ×3 (05:13→21:03)
[2021-03-19 05:33] LABS: ALANINE AMINOTRANSFERASE 49 Units/L (12-78); ALBUMIN 2.4 g/dL (3.4-5.0); ALKALINE PHOSPHATASE 82 Units/L (46-116); ASPARTATE AMINO TRANSFERASE 22 Units/L (15-37); BLOOD UREA NITROGEN 32 mg/dL (7-18); CALCIUM 7.9 mg/dL (8.5-10.1); CHLORIDE 103 mmol/L (98-107); COR CA(FOR HYPOALB) 9.2 mg/dL (8.5-10.1); COR NA(FOR HYPERGLY) 139 mmol/L (136-145); CREATININE 0.88 mg/dL (0.70-1.30); SODIUM 138 mmol/L (136-145); TOTAL PROTEIN 5.3 g/dL (6.4-8.2); eGFR NON BLACK RACES > 60 (>60)
[2021-03-19] MEDS: FORTAZ or TAZICEF VIAL INJ 1 G in NS 100 ML IV 100 ML IV SCH ×3 (05:40→21:26)
[2021-03-19 06:00] LABS: PLATELET MORPHOLOGY COMMENT NORMAL (NORMAL)
[2021-03-19] MEDS: MORPHINE SULFATE INJ 2 MG INJ IVP PRN ×2 (08:30→14:28)
[2021-03-19] MEDS: PEPCID 20 MG IV PREMIX* 20 MG/50 ML BAG IV SCH (08:30)
[2021-03-19] MEDS: SOLU-Medrol 40 MG VIAL IVP SCH ×2 (08:30→21:27)
[2021-03-19] MEDS: VITAMIN A PO SCH (08:30)
[2021-03-19] MEDS: FLOMAX PO SCH (08:30)
[2021-03-19] MEDS: ZINC SULFATE PO SCH ×2 (08:30→21:26)
[2021-03-19] MEDS: ELIQUIS PO SCH ×2 (08:30→21:26)
[2021-03-19] MEDS: HYDROCHLOROTHIAZIDE 25 MG TAB PO SCH (08:30)
[2021-03-19] MEDS: LOPRESSOR TAB 50 MG PO SCH (08:30)
[2021-03-19] MEDS: VITAMIN D3 125 mcg (5,000 UNITS) PO SCH (08:30)
[2021-03-19] MEDS: PriLOSEC PO SCH (08:30)
[2021-03-19] MEDS: COZAAR PO SCH (08:30)
[2021-03-19] MEDS: DIFLUCAN 200 MG IV PREMIX* 200 MG/100 ML BAG IV SCH (08:30)
[2021-03-19] MEDS: PULMICORT NEB TX 0.5 MG NEB SCH ×2 (09:30→21:03)
[2021-03-19] MEDS: AVELOX IV 400 MG/250 ML BAG 400 MG/250 ML PIGGYBACK IV SCH (15:49)
[2021-03-19] MEDS: ROBITUSSIN DM PO PRN (21:26)
[2021-03-20] MEDS: ASCORBIC ACID INJ MULTI-DOSE VIAL 1,500 MG in NS 50 ML IV 50 ML IV SCH ×4 (03:55→21:58)
[2021-03-20 05:09] LABS: BASOPHILS # (AUTO) 0.1 X10^3/uL (0.0-0.1); BASOPHILS % (AUTO) 0.3 % (0.2-1.0); HEMATOCRIT 42.1 % (42.0-54.0); HEMOGLOBIN 14.6 g/dL (13.5-18.0); LYMPHOCYTES # (AUTO) 0.2 X10^3/uL (1.3-2.9); LYMPHOCYTES % (AUTO) 0.7 % (21.0-51.0); MEAN CORPUSCULAR HEMOGLOBIN 29.5 pg (27.0-34.0); MEAN CORPUSCULAR HGB CONC 34.8 g/dL (33.0-35.0); MEAN CORPUSCULAR VOLUME 84.9 fL (80.0-100.0); MEAN PLATELET VOLUME 9.1 fL (7.4-11.0); MONOCYTES # (AUTO) 0.4 x10^3/uL (0.3-0.8); MONOCYTES % (AUTO) 1.8 % (0.0-13.0); NEUTROPHILS # (AUTO) 20.5 x10^3/uL (2.2-4.8); NEUTROPHILS % (AUTO) 97.2 % (42.0-75.0); PLATELET COUNT 115 X10^3/uL (150.0-450.0); RED BLOOD COUNT 4.97 X10^6/uL (4.7-6.0); RED CELL DISTRIBUTION WIDTH 13.6 % (11.6-16.5); WHITE BLOOD COUNT 21.1 X10^3/uL (3.6-10.0)
[2021-03-20 05:26] LABS: ALANINE AMINOTRANSFERASE 47 Units/L (12-78); ALBUMIN 2.6 g/dL (3.4-5.0); ALKALINE PHOSPHATASE 91 Units/L (46-116); ASPARTATE AMINO TRANSFERASE 20 Units/L (15-37); BLOOD UREA NITROGEN 34 mg/dL (7-18); CALCIUM 8.2 mg/dL (8.5-10.1); CHLORIDE 103 mmol/L (98-107); COR CA(FOR HYPOALB) 9.3 mg/dL (8.5-10.1); COR NA(FOR HYPERGLY) 139 mmol/L (136-145); CREATININE 0.84 mg/dL (0.70-1.30); SODIUM 138 mmol/L (136-145); TOTAL PROTEIN 5.7 g/dL (6.4-8.2); eGFR NON BLACK RACES > 60 (>60)
[2021-03-20] MEDS: DUONEB 0.5 MG/3 MG (3 mL) NEB SCH ×3 (05:36→21:18)
[2021-03-20] MEDS ORDERED: NS 100 ML IV 100 ML ONE ×2 (05:37→19:13)
[2021-03-20 05:45] LABS: PLATELET MORPHOLOGY COMMENT NORMAL (NORMAL)
[2021-03-20] MEDS: FORTAZ or TAZICEF VIAL INJ 1 G in NS 100 ML IV 100 ML IV SCH ×3 (05:55→22:33)
[2021-03-20] MEDS: MORPHINE SULFATE INJ 2 MG INJ IVP PRN ×3 (05:56→19:15)
[2021-03-20] MEDS ORDERED: FLOMAX ONE (06:22)
--- NOTE | 2021-03-20 06:25 | RAD ---
HISTORYCOVID PNEUMONIA, ACUTRE RESPIRATORY FAILURESTUDYSingle-view [id number]/01/2021FINDINGSThe trachea is midline. The cardiac silhouette is enlarged with a tortuous thoracic aorta. Diffuse interstitial and airspace opacities consistent with multifocal atypical pneumonia. The findings are stable compared to prior examination. The bony thorax is unremarkable.IMPRESSIONStable multifocal COVID-19 pneumonia.Electronically signed by: RADHA BURTON (Mar 20, 2021 06:23:13)
[2021-03-20] MEDS: FLOMAX PO SCH ×2 (06:38→10:19)
[2021-03-20] MEDS ORDERED: FLOMAX PO SCH (09:00)
[2021-03-20] MEDS: PEPCID 20 MG IV PREMIX* 20 MG/50 ML BAG IV SCH (10:19)
[2021-03-20] MEDS: DIFLUCAN 200 MG IV PREMIX* 200 MG/100 ML BAG IV SCH (10:19)
[2021-03-20] MEDS: COZAAR PO SCH (10:20)
[2021-03-20] MEDS: PriLOSEC PO SCH (10:20)
[2021-03-20] MEDS: LOPRESSOR TAB 50 MG PO SCH (10:21)
[2021-03-20] MEDS: VITAMIN D3 125 mcg (5,000 UNITS) PO SCH (10:21)
[2021-03-20] MEDS: ELIQUIS PO SCH ×2 (10:21→21:59)
[2021-03-20] MEDS: ZINC SULFATE PO SCH ×2 (10:22→21:58)
[2021-03-20] MEDS: HYDROCHLOROTHIAZIDE 25 MG TAB PO SCH (10:22)
[2021-03-20] MEDS: SOLU-Medrol 40 MG VIAL IVP SCH ×2 (11:30→21:58)
[2021-03-20] MEDS: VITAMIN A PO SCH (12:06)
--- NOTE | 2021-03-20 14:15 | CT ---
HISTORYCOVID, ACUTE RESP FAILURE, PNEUMONIASTUDYABDOMEN/PELVIS W/O CONCOMPARISONNoneTECHNIQUEMultiple axial images of the abdomen and pelvis were obtained from the lung bases to the pubic symphysis without the administration of IV contrast. Dose reduction techniques including Automated Exposure Control (AEC) and adjustment of mA and kV were utilized.FINDINGSThe visualized portions of the lung bases demonstrates diffuse interstitial lung changes and focal regions of ground-glass opacification consistent with multifocal COVID-19 pneumonia. The liver, spleen, pancreas, kidneys, and adrenal glands are unremarkable in their CT appearance. The gallbladder is unremarkable in its CT appearance . No significant mesenteric lymphadenopathy or stranding can be observed. No free fluid or free air is seen within the abdomen. No bowel wall thickening or bowel dilatation is present. The colon is unremarkable. Specifically, there is no diverticulosis noted within the sigmoid colon. The urinary bladder is grossly unremarkable. The bony structures are grossly intact.IMPRESSIONChanges lung base consistent with multifocal COVID pneumonia. Otherwise, unremarkable evaluation of the abdomen and pelvis without contrast.Electronically signed by: RADHA BURTON (Mar 20, 2021 14:13:29)
[2021-03-20] MEDS: AVELOX IV 400 MG/250 ML BAG 400 MG/250 ML PIGGYBACK IV SCH (14:22)
[2021-03-20] MEDS: MORPHINE SULFATE INJ 4 MG IV PRN ×4 (14:23→21:40)
[2021-03-20] MEDS: PULMICORT NEB TX 0.5 MG NEB SCH ×2 (15:47→21:18)
[2021-03-21] MEDS: MORPHINE SULFATE INJ 4 MG IV PRN ×2 (01:10→05:00)
[2021-03-21] MEDS: ASCORBIC ACID INJ MULTI-DOSE VIAL 1,500 MG in NS 50 ML IV 50 ML IV SCH ×4 (03:05→20:33)
[2021-03-21 05:25] LABS: BASOPHILS # (AUTO) 0.1 X10^3/uL (0.0-0.1); BASOPHILS % (AUTO) 0.4 % (0.2-1.0); EOSINOPHILS % (AUTO) 0.1 % (0.9-2.9); HEMATOCRIT 41.6 % (42.0-54.0); HEMOGLOBIN 14.5 g/dL (13.5-18.0); LYMPHOCYTES # (AUTO) 0.1 X10^3/uL (1.3-2.9); LYMPHOCYTES % (AUTO) 0.7 % (21.0-51.0); MEAN CORPUSCULAR HEMOGLOBIN 29.7 pg (27.0-34.0); MEAN CORPUSCULAR HGB CONC 34.9 g/dL (33.0-35.0); MEAN CORPUSCULAR VOLUME 84.9 fL (80.0-100.0); MEAN PLATELET VOLUME 9.2 fL (7.4-11.0); MONOCYTES # (AUTO) 0.3 x10^3/uL (0.3-0.8); MONOCYTES % (AUTO) 1.6 % (0.0-13.0); NEUTROPHILS # (AUTO) 17.6 x10^3/uL (2.2-4.8); NEUTROPHILS % (AUTO) 97.2 % (42.0-75.0); PLATELET COUNT 97 X10^3/uL (150.0-450.0); RED CELL DISTRIBUTION WIDTH 14.1 % (11.6-16.5); WHITE BLOOD COUNT 18.1 X10^3/uL (3.6-10.0)
[2021-03-21 05:43] LABS: ALANINE AMINOTRANSFERASE 46 Units/L (12-78); ALBUMIN 2.6 g/dL (3.4-5.0); ALKALINE PHOSPHATASE 87 Units/L (46-116); ASPARTATE AMINO TRANSFERASE 28 Units/L (15-37); BLOOD UREA NITROGEN 41 mg/dL (7-18); CALCIUM 7.8 mg/dL (8.5-10.1); CARBON DIOXIDE 27.5 mmol/L (21-32); CHLORIDE 101 mmol/L (98-107); COR CA(FOR HYPOALB) 8.9 mg/dL (8.5-10.1); COR NA(FOR HYPERGLY) 138 mmol/L (136-145); CREATININE 0.79 mg/dL (0.70-1.30); SODIUM 137 mmol/L (136-145); TOTAL PROTEIN 5.6 g/dL (6.4-8.2); eGFR NON BLACK RACES > 60 (>60)
[2021-03-21 05:52] LABS: PLATELET MORPHOLOGY COMMENT NORMAL (NORMAL)
[2021-03-21 05:57] LABS: BILIRUBIN,URINE NEGATIVE (NEGATIVE); BLOOD/HEMOGLOBIN,URINE 5+ (NEGATIVE); GLUCOSE, URINE NEGATIVE (NEGATIVE); KETONES,URINE NEGATIVE (NEGATIVE); LEUKOCYTE ESTERASE ,URINE NEGATIVE (NEGATIVE); NITRITES,URINE NEGATIVE (NEGATIVE); PROTEIN,URINE NEGATIVE (NEGATIVE); UROBILINOGEN,URINE NORMAL (NORMAL)
[2021-03-21] MEDS: DUONEB 0.5 MG/3 MG (3 mL) NEB SCH ×3 (06:03→20:15)
[2021-03-21] MEDS: FORTAZ or TAZICEF VIAL INJ 1 G in NS 100 ML IV 100 ML IV SCH ×3 (06:09→22:30)
[2021-03-21 06:20] LABS: APPEARANCE,URINE CLEAR (CLEAR); BACTERIA,URINE NEGATIVE /HPF (NEGATIVE); COLOR,URINE YELLOW (YELLOW); MUCUS,URINE RARE /HPF (NEGATIVE); SQUAMOUS EPITHELIAL CELL,UR NEGATIVE /HPF (NEGATIVE)
--- NOTE | 2021-03-21 06:37 | RAD ---
HISTORYHypoxiaSTUDYAP [id number]/03/2021FINDINGSContinu ed normal heart size with similar degree and distribution of bilateral pulmonary infiltrates. No new consolidation is identified. There is essentially complete resolution of extrapulmonary air in the subcutaneous tissues and mediastinum.IMPRESSIONStable appearance of bilateral pneumonia. Interval resolution of subcutaneous emphysema and pneumomediastinum.Electronically signed by: LEIGH BARON (Mar 21, 2021 06:36:30)
[2021-03-21 09:03] LABS: ABG ALLEN TEST POS; ABG BASE EXCESS 1.2 mmol/L (-2.0-2.0)
[2021-03-21] MEDS: HYDROCHLOROTHIAZIDE 25 MG TAB PO SCH (09:06)
[2021-03-21] MEDS: COZAAR PO SCH (09:06)
[2021-03-21] MEDS: ELIQUIS PO SCH ×2 (09:06→20:33)
[2021-03-21] MEDS: FLOMAX PO SCH (09:06)
[2021-03-21] MEDS: LOPRESSOR TAB 50 MG PO SCH (09:07)
[2021-03-21] MEDS: PEPCID 20 MG IV PREMIX* 20 MG/50 ML BAG IV SCH (09:07)
[2021-03-21] MEDS: PriLOSEC PO SCH (09:08)
[2021-03-21] MEDS: VITAMIN A PO SCH (09:10)
[2021-03-21] MEDS: SOLU-Medrol 40 MG VIAL IVP SCH (09:10)
[2021-03-21] MEDS: ZINC SULFATE PO SCH ×2 (09:11→20:33)
[2021-03-21] MEDS: VITAMIN D3 125 mcg (5,000 UNITS) PO SCH (09:11)
[2021-03-21] MEDS: PULMICORT NEB TX 0.5 MG NEB SCH ×2 (09:45→20:15)
--- NOTE | 2021-03-21 12:58 | DR.CONSULT ---
CONSULT Consultation for Day of: Date: 03/21/21 Chief Complaint Chief Complaint: Dyspnea Allergies Allergies Allergy/AdvReac Type Severity Reaction Status Date / Time temazepam [From Restoril] Allergy Verified 03/05/21 09:47 IVP DYE Allergy Uncoded 03/02/21 18:20 History of Present Illness History of Present Illness: 70 year old male with PMH of HTN, and GERD who presented to [facility] on 03/01[facility]2021 with worsening shortness of breath, and fatigue, he tested positive for COVID-19 on 02/24/2021 about 5 days prior to presentation. upon presentation the patient was noted to be profoundly hypoxemic and required to be placed on NIPPV, he was treated with remdesivir, IV steroids and empiric antibiotics, he had since managed to be weaned off BIPAP to heated high flow nasal cannula but his O2 requirements remained high over the course of the last several day. he had sputum cultures that were positive for klebsiella and ragini albicans for which he is on appropriate antibiotics coverage. his IV steroids are being currently tapered down, and he was started empirically on eliquis full anticoagulation. he is maintaining a good urine output and his total fluid balance is slightly negative. his nurse is reporting that he is mostly comfortable on HHFNC except if has to undergo any minimal activity which would trigger moderate distress and a drop in O2 sats. Past Medical History Past Medical History: GERD and Hypertension Past Surgical History Surgical History: Ortho Surgery Family History Family Medical History: Diabetes Mellitus Social History Does patient currently use any type of tobacco product: No Have you used tobacco products in the last 12 months: No Alcohol Use: None Drug Use: None Medications Home Medications: temazepam [From Restoril] Allergy (Verified 03/05/21 09:47) IVP DYE Allergy (Uncoded 03/02/21 18:20) CONTINUE taking the following medications albuterol sulfate 1 puff INHALATION Q6PM PRN 03/01/21 [History] azithromycin 250 mg PO DAILY 03/01/21 [History] candesartan 16 mg PO DAILY 03/01/21 [History] methylprednisolone 4 mg PO DIRECTED 03/01/21 [History] metoprolol ta-hydrochlorothiaz 1 tab PO DAILY 03/01/21 [History] omeprazole 20 mg PO DAILY 03/01/21 [History] tamsulosin 0.4 mg PO DAILY 03/01/21 [History] Physical Exam Vital Signs: Temperature 97.3 F Pulse Rate [Left Brachial] 85 Pulse Rate 83 Respiratory Rate 27 Blood Pressure [Left Arm] 153/80 Blood Pressure 129/81 O2 Sat by Pulse Oximetry 88 Plan (1) Acute respiratory failure with hypoxia: Status: Acute Plan: continue supplemental O2 with HHFNC wean as tolerated. aggressive pulmonary hygiene. CPT/IS/bronchodilators. encourage self prone positioning as tolerated. intermittent diuresis. monitor urine output and renal function. (2) COVID-19 virus infection: Status: Acute Plan: s/p remdesivir. taper down steroids. trend inflammatory markers. (3) Hypokalemia: Status: Acute Plan: correct K as needed. may need to add spironolactone is hypokalemia got worse after lasix. (4) Elevated d-dimer: Status: Acute Plan: continue eliquis. (5) Klebsiella pneumonia: Status: Acute Qualifiers: Laterality: bilateral Lung location: unspecified part of lung Qualified Code(s): J15.0 - Pneumonia due to Klebsiella pneumoniae Plan: continue fortaz. (6) Candidal pneumonia: Status: Acute Plan: continue diflucan.
[2021-03-21] MEDS: AVELOX IV 400 MG/250 ML BAG 400 MG/250 ML PIGGYBACK IV SCH (14:26)
--- NOTE | 2021-03-21 15:26 | PCM.PROG ---
Progress Note Progress Note for Day of Date of Exam: 03/21/21 Subjective Subjective: Patient seen at bedside, no overnight events. He is currently on HHFNC at FiO2 91% sats between 86-90%. Over the weekend, he was having severe abdominal pain/pressure and unable to void. CTAP was done which did not show any acute abnormality. García was placed and patient felt a lot better. He was also started on flomax. He continue to have some cough. Denies fever or chills. He has good appetite. He does desat with minimal exertion and conversation. He is sitting up and eating breakfast. He has been using the spirometer and smart vest. He is in no respiratory distress. Labs: WBC 18.1 Plt 97 BUN/Cr: 41/0.79 Glucose 123 Sputum: C. albicans + Klebsiella CXR: 03/21/21: stable bilateral multifocal pneumonia ECHO (03/16/21): Normal global wall motion. EF 55% with grade 3 restrictive diastolic dysfunction. Normal IVC. Plan: Wean HHFNC as tolerated to keep sats above 88%. Repeat ABG today. Will consult tele critical care for further recommendations. Patient has completed course of Remdesivir and has received Actemra. Continue IV abx. Continue taper Solumedrol. Continue nebs, pulmicort, IS and smart vest. Continue eliquis. Continue vitamin support. Continue PT/OT as tolerated. Advised patient to sit up as tolerated, encouraged to lay on each side and self-prone. Monitor AM labs and imaging. Time spent for clinical assessment, reviewing labs/imaging, physical exam, decision making and documentation greater than 45 mins. Past Medical Family Social History Past Med/Fam/Surg Hx: No changes since H&P Allergies: Allergies temazepam [From Restoril] Allergy (Verified 03/05/21 09:47) IVP DYE Allergy (Uncoded 03/02/21 18:20) Review of Systems ROS: No change since H&P Vital Signs and I&O's Vital Signs: Temperature 97.3 F Pulse Rate [Left Brachial] 85 Pulse Rate 84 Respiratory Rate 33 Blood Pressure [Left Arm] 153/80 Blood Pressure 130/84 O2 Sat by Pulse Oximetry 85 Intake and Output: Intake & Output 03/18/21 03/19/21 03/20/21 03/21/21 23:59 23:59 23:59 23:59 Intake Total 1789 / 1789 2247 / 2247 1421 / 1421 400 / 400 Output Total 3075 / 3075 2125 / 2125 1000 / 1000 950 / 950 Balance -1286 / -1286 122 / 122 421 / 421 -550 / -550 Physical Exam Oriented: Normal Eyes: Normal Ear: Normal Nose: Normal Throat: Normal Respiratory: Generalized and Diminished Cardiovascular: Normal Auscultation: Bowel Sounds: Normal Tenderness: Normal Skin: Normal Musculoskeletal: Normal Psychiatric: Normal Mood Description: Calm Affect: Normal Speech Pattern: Clear Laboratory and Diagnostics Result Diagrams: 03/21/21 04:35 03/21/21 04:35 Labs: 03/09/21 11:50 Sputum - Expectorated Sputum Sputum Culture - Final Klebsiella Pneumoniae 03/09/21 11:50 Sputum - Expectorated Sputum - Final 03/11/21 08:10 Sputum - Expectorated Sputum Sputum Culture - Final Klebsiella Pneumoniae 03/11/21 08:10 Sputum - Expectorated Sputum - Final Laboratory WBC 18.1 X10^3/uL (3.6-10.0) H 03/21/21 04:35 RBC 4.90 X10^6/uL (4.7-6.0) 03/21/21 04:35 Hgb 14.5 g/dL (13.5-18.0) 03/21/21 04:35 Hct 41.6 % (42.0-54.0) L 03/21/21 04:35 MCV 84.9 fL (80.0-100.0) 03/21/21 04:35 MCH 29.7 pg (27.0-34.0) 03/21/21 04:35 MCHC 34.9 g/dL (33.0-35.0) 03/21/21 04:35 RDW 14.1 % (11.6-16.5) 03/21/21 04:35 Plt Count 97 X10^3/uL (150.0-450.0) L 03/21/21 04:35 Plt Count Comment Decreased (ADEQUATE) 03/21/21 04:35 MPV 9.2 fL (7.4-11.0) 03/21/21 04:35 Neut % (Auto) 97.2 % (42.0-75.0) H 03/21/21 04:35 Lymph % (Auto) 0.7 % (21.0-51.0) L 03/21/21 04:35 [place] % (Auto) 1.6 % (0.0-13.0) 03/21/21 04:35 Eos % (Auto) 0.1 % (0.9-2.9) L 03/21/21 04:35 Baso % (Auto) 0.4 % (0.2-1.0) 03/21/21 04:35 Neut # (Auto) 17.6 x10^3/uL (2.2-4.8) H 03/21/21 04:35 Lymph # (Auto) 0.1 X10^3/uL (1.3-2.9) L 03/21/21 04:35 [place] # (Auto) 0.3 x10^3/uL (0.3-0.8) 03/21/21 04:35 Eos # (Auto) 0.0 x10^3/uL (0.0-0.2) 03/21/21 04:35 Baso # (Auto) 0.1 X10^3/uL (0.0-0.1) 03/21/21 04:35 Absolute Nucleated RBC 0.1 /100WBC 03/21/21 04:35 Total Counted 100 03/21/21 04:35 Neutrophils % (Manual) 99 % (39-76) H 03/21/21 04:35 Band Neutrophils % 2 % (0-10) 03/15/21 04:46 Lymphocytes % (Manual) 1 % (13-43) L 03/21/21 04:35 Monocytes % (Manual) 2 % (4-9) L 03/19/21 04:20 Plt Morphology Comment Normal (NORMAL) 03/21/21 04:35 RBC Morphology Normal (NORMAL) 03/21/21 04:35 D-Dimer 2.51 ug/ml (0.0-0.57) H* 03/14/21 04:39 Sample Site Rra 03/21/21 08:59 ABG pH 7.450 (7.35-7.45) 03/21/21 08:59 ABG pCO2 36.0 mmHg (35.0-45.0) 03/21/21 08:59 ABG pO2 51.0 mmHg (80.0-100.0) L 03/21/21 08:59 ABG HCO3 25.0 mmol/L (22-26) 03/21/21 08:59 ABG O2 Saturation 88.0 % (90-100) L 03/21/21 08:59 ABG Base Excess 1.2 mmol/L (-2.0-2.0) 03/21/21 08:59 Sree Test Pos 03/21/21 08:59 A-a Gradient 574.0 mmHg 03/21/21 08:59 FiO2 94.0 03/21/21 08:59 Blood Gas Comments Pt hernandez well eb 03/21/21 08:59 Sodium 137 mmol/L (136-145) 03/21/21 04:35 Corrected Sodium 138 mmol/L (136-145) 03/21/21 04:35 Potassium 4.2 mmol/L (3.5-5.1) 03/21/21 04:35 Chloride 101 mmol/L (98-107) 03/21/21 04:35 Carbon Dioxide 27.5 mmol/L (21-32) 03/21/21 04:35 BUN 41 mg/dL (7-18) H 03/21/21 04:35 Creatinine 0.79 mg/dL (0.70-1.30) 03/21/21 04:35 Est GFR (MDRD) Af Amer > 60 (>60) 03/21/21 04:35 Est GFR (MDRD) Non-Af > 60 (>60) 03/21/21 04:35 Glucose 123 mg/dL (65-99) H 03/21/21 04:35 POC Glucose (mg/dL) 99 mg/dL (65-99) 03/09/21 11:51 Calcium 7.8 mg/dL (8.5-10.1) L 03/21/21 04:35 Corrected Calcium 8.9 mg/dL (8.5-10.1) 03/21/21 04:35 Magnesium 2.5 mg/dL (1.7-2.9) 03/05/21 04:10 Ferritin 1988 ng/mL (26-388) H 03/01/21 11:20 Total Bilirubin 1.20 mg/dL (0.2-1.0) H 03/21/21 04:35 AST 28 Units/L (15-37) 03/21/21 04:35 ALT 46 Units/L (12-78) 03/21/21 04:35 Alkaline Phosphatase 87 Units/L (46-116) 03/21/21 04:35 Creatine Kinase 121 Units/L (39-308) 03/01/21 11:20 CK-MB (CK-2) < 1.0 ng/mL (0-4.0) 03/01/21 11:20 CK/CKMB % Calc 0.8 % (<4) 03/01/21 11:20 Troponin I < 0.02 ng/mL (0-1.5) 03/01/21 11:20 C-Reactive Protein < 0.50 mg/L (0-3.0) 03/13/21 04:22 B-Natriuretic Peptide 78.7 pg/mL (0-79) 03/14/21 04:39 Total Protein 5.6 g/dL (6.4-8.2) L 03/21/21 04:35 Albumin 2.6 g/dL (3.4-5.0) L 03/21/21 04:35 Globulin 3.0 g/dL (2.5-4.5) 03/21/21 04:35 Albumin/Globulin Ratio 0.9 Ratio (1.1-2.1) L 03/21/21 04:35 Specimen Type Catherized urine 03/21/21 05:35 Urine Color Yellow (YELLOW) 03/21/21 05:35 Urine Appearance Clear (CLEAR) 03/21/21 05:35 Urine pH 5.0 (5.0 - 8.0) 03/21/21 05:35 Ur Specific [place] 1.015 (1.000-1.030) 03/21/21 05:35 Urine Protein Negative (NEGATIVE) 03/21/21 05:35 Urine Glucose (UA) Negative (NEGATIVE) 03/21/21 05:35 Urine Ketones Negative (NEGATIVE) 03/21/21 05:35 Urine Occult Blood 5+ (NEGATIVE) 03/21/21 05:35 Urine Nitrite Negative (NEGATIVE) 03/21/21 05:35 Urine Bilirubin Negative (NEGATIVE) 03/21/21 05:35 Urine Urobilinogen Normal (NORMAL) 03/21/21 05:35 Ur Leukocyte Esterase Negative (NEGATIVE) 03/21/21 05:35 Urine RBC 5-10 /HPF (0-3) A 03/21/21 05:35 Urine WBC 0-2 /HPF (0-5) 03/21/21 05:35 Ur Squamous Epith Cells Negative /HPF (NEGATIVE) 03/21/21 05:35 Urine Bacteria Negative /HPF (NEGATIVE) 03/21/21 05:35 Urine Mucus Rare /HPF (NEGATIVE) 03/21/21 05:35 Ur Culture Indicated? No/not indicated 03/21/21 05:35 Plan (1) Acute respiratory failure with hypoxia: Status: Acute (2) COVID-19 virus infection: Status: Acute (3) Hypokalemia: Status: Acute (4) Elevated d-dimer: Status: Acute (5) Klebsiella pneumonia: Status: Acute Qualifiers: Laterality: bilateral Lung location: unspecified part of lung Qualified Code(s): J15.0 - Pneumonia due to Klebsiella pneumoniae (6) Candidal pneumonia: Status: Acute
[2021-03-21] MEDS ORDERED: NS 250 ML IV 250 ML IV ONE (20:06)
[2021-03-22] MEDS: ASCORBIC ACID INJ MULTI-DOSE VIAL 1,500 MG in NS 50 ML IV 50 ML IV SCH ×4 (02:09→21:42)
[2021-03-22 05:16] LABS: BASOPHILS % (AUTO) 0 % (0.2-1.0); EOSINOPHILS # (AUTO) 0.4 x10^3/uL (0.0-0.2); EOSINOPHILS % (AUTO) 2.4 % (0.9-2.9); HEMATOCRIT 39.2 % (42.0-54.0); HEMOGLOBIN 13.8 g/dL (13.5-18.0); LYMPHOCYTES # (AUTO) 0.4 X10^3/uL (1.3-2.9); LYMPHOCYTES % (AUTO) 2.2 % (21.0-51.0); MEAN CORPUSCULAR HEMOGLOBIN 29.7 pg (27.0-34.0); MEAN CORPUSCULAR HGB CONC 35.2 g/dL (33.0-35.0); MEAN CORPUSCULAR VOLUME 84.5 fL (80.0-100.0); MEAN PLATELET VOLUME 9.4 fL (7.4-11.0); MONOCYTES # (AUTO) 0.8 x10^3/uL (0.3-0.8); MONOCYTES % (AUTO) 4.6 % (0.0-13.0); NEUTROPHILS # (AUTO) 15.3 x10^3/uL (2.2-4.8); NEUTROPHILS % (AUTO) 90.8 % (42.0-75.0); PLATELET COUNT 94 X10^3/uL (150.0-450.0); RED BLOOD COUNT 4.63 X10^6/uL (4.7-6.0); RED CELL DISTRIBUTION WIDTH 13.7 % (11.6-16.5); WHITE BLOOD COUNT 16.9 X10^3/uL (3.6-10.0)
[2021-03-22] MEDS: DUONEB 0.5 MG/3 MG (3 mL) NEB SCH ×3 (05:29→20:36)
[2021-03-22 05:30] LABS: BLOOD UREA NITROGEN 30 mg/dL (7-18); CARBON DIOXIDE 27.1 mmol/L (21-32); CHLORIDE 102 mmol/L (98-107); COR NA(FOR HYPERGLY) 136 mmol/L (136-145); CREATININE 0.73 mg/dL (0.70-1.30); SODIUM 136 mmol/L (136-145); eGFR NON BLACK RACES > 60 (>60)
[2021-03-22] MEDS: FORTAZ or TAZICEF VIAL INJ 1 G in NS 100 ML IV 100 ML IV SCH ×3 (05:33→22:30)
[2021-03-22 05:51] LABS: PLATELET MORPHOLOGY COMMENT NORMAL (NORMAL)
--- NOTE | 2021-03-22 06:49 | RAD ---
HISTORYPneumoniaSTUDYAP [id number]/04/2021FINDINGSThere is no change in appearance of the chest. Heart size is similar with persistent bilateral pulmonary infiltrates. No new areas of involvement, pleural fluid or pneumothorax identified.IMPRESSIONNo change in appearance of bilateral pneumonia.Electronically signed by: LEIGH BARON (Mar 22, 2021 06:47:48)
[2021-03-22] MEDS: PULMICORT NEB TX 0.5 MG NEB SCH ×2 (08:30→20:36)
[2021-03-22] MEDS: PEPCID 20 MG IV PREMIX* 20 MG/50 ML BAG IV SCH (09:03)
[2021-03-22] MEDS: HYDROCHLOROTHIAZIDE 25 MG TAB PO SCH (09:03)
[2021-03-22] MEDS: PriLOSEC PO SCH (09:04)
[2021-03-22] MEDS: FLOMAX PO SCH (09:04)
[2021-03-22] MEDS: LOPRESSOR TAB 50 MG PO SCH (09:04)
[2021-03-22] MEDS: COZAAR PO SCH (09:05)
[2021-03-22] MEDS: ZINC SULFATE PO SCH ×2 (09:05→21:17)
[2021-03-22] MEDS: ELIQUIS PO SCH ×2 (09:06→21:17)
[2021-03-22] MEDS: VITAMIN D3 125 mcg (5,000 UNITS) PO SCH (09:08)
[2021-03-22] MEDS: VITAMIN A PO SCH (09:11)
[2021-03-22] MEDS: SOLU-Medrol 40 MG VIAL IVP SCH (09:11)
[2021-03-22] MEDS: MORPHINE SULFATE INJ 2 MG INJ IVP PRN (09:12)
--- NOTE | 2021-03-22 09:34 | PCM.PROG ---
Progress Note Progress Note for Day of Date of Exam: 03/22/21 Subjective Subjective: Patient seen at bedside, no overnight events. Patient appears to be slightly anxious this morning. Daughter also present at bedside. He is currently on HHFNC at FiO2 92%, sats appear to be better this morning, low to mid 90s. Tele critical care was consulted yesterday and discussed patient's care with Dr. Navarro. He advised to continue with current care, encourage self proning and intermittent diuresis. Patient is not able to self prone but did lay on his sides. He continues to use smart vest and IS. Labs: WBC 16.9 Plt 94 BUN/Cr: 30/0.73 Glucose 114 Sputum: C. albicans + Klebsiella CXR: 03/23/21: stable bilateral multifocal pneumonia ECHO (03/16/21): Normal global wall motion. EF 55% with grade 3 restrictive diastolic dysfunction. Normal IVC. Plan: Wean HHFNC as tolerated to keep sats above 88%. Remove leo, mobilize patient as tolerated. Patient has completed course of Remdesivir and has received Actemra. Continue IV abx. Continue taper Solumedrol. Continue nebs, pulmicort, IS and smart vest. Continue morphine prn for air hunger/anxiety. Continue eliquis. Continue vitamin support. Continue PT/OT as tolerated. Advised patient to sit up as tolerated, encouraged to lay on each side and self-prone. Monitor AM labs and imaging. Time spent for clinical assessment, reviewing labs/imaging, physical exam, decision making and documentation greater than 45 mins. Past Medical Family Social History Past Med/Fam/Surg Hx: No changes since H&P Allergies: Allergies temazepam [From Restoril] Allergy (Verified 03/05/21 09:47) IVP DYE Allergy (Uncoded 03/02/21 18:20) Review of Systems ROS: No change since H&P Vital Signs and I&O's Vital Signs: Temperature 98.2 F Pulse Rate [Left Brachial] 85 Pulse Rate 95 Respiratory Rate 25 Blood Pressure [Left Arm] 153/80 Blood Pressure 144/78 O2 Sat by Pulse Oximetry 99 Intake and Output: Intake & Output 03/19/21 03/20/21 03/21/21 03/22/21 23:59 23:59 23:59 23:59 Intake Total 2247 / 2247 1421 / 1421 1515 / 1515 260 / 260 Output Total 2124 / 2124 1000 / 1000 4350 / 4350 400 / 400 Balance 122 / 122 421 / 421 -2835 / -2835 -140 / -140 Physical Exam Oriented: Normal Eyes: Normal Ear: Normal Nose: Normal Throat: Normal Respiratory: Generalized and Diminished Cardiovascular: Normal Auscultation: Bowel Sounds: Normal Tenderness: Normal Skin: Normal Musculoskeletal: Normal Psychiatric: Anxiety Mood Description: Anxious Affect: Normal Speech Pattern: Clear Laboratory and Diagnostics Result Diagrams: 03/22/21 04:10 03/22/21 04:10 Labs: 03/09/21 11:50 Sputum - Expectorated Sputum Sputum Culture - Final Klebsiella Pneumoniae 03/09/21 11:50 Sputum - Expectorated Sputum - Final 03/11/21 08:10 Sputum - Expectorated Sputum Sputum Culture - Final Klebsiella Pneumoniae 03/11/21 08:10 Sputum - Expectorated Sputum - Final Laboratory WBC 16.9 X10^3/uL (3.6-10.0) H 03/22/21 04:10 RBC 4.63 X10^6/uL (4.7-6.0) L 03/22/21 04:10 Hgb 13.8 g/dL (13.5-18.0) 03/22/21 04:10 Hct 39.2 % (42.0-54.0) L 03/22/21 04:10 MCV 84.5 fL (80.0-100.0) 03/22/21 04:10 MCH 29.7 pg (27.0-34.0) 03/22/21 04:10 MCHC 35.2 g/dL (33.0-35.0) H 03/22/21 04:10 RDW 13.7 % (11.6-16.5) 03/22/21 04:10 Plt Count 94 X10^3/uL (150.0-450.0) L 03/22/21 04:10 Plt Count Comment Decreased (ADEQUATE) 03/22/21 04:10 MPV 9.4 fL (7.4-11.0) 03/22/21 04:10 Neut % (Auto) 90.8 % (42.0-75.0) H 03/22/21 04:10 Lymph % (Auto) 2.2 % (21.0-51.0) L 03/22/21 04:10 [place] % (Auto) 4.6 % (0.0-13.0) 03/22/21 04:10 Eos % (Auto) 2.4 % (0.9-2.9) 03/22/21 04:10 Baso % (Auto) 0 % (0.2-1.0) L 03/22/21 04:10 Neut # (Auto) 15.3 x10^3/uL (2.2-4.8) H 03/22/21 04:10 Lymph # (Auto) 0.4 X10^3/uL (1.3-2.9) L 03/22/21 04:10 [place] # (Auto) 0.8 x10^3/uL (0.3-0.8) 03/22/21 04:10 Eos # (Auto) 0.4 x10^3/uL (0.0-0.2) H 03/22/21 04:10 Baso # (Auto) 0.0 X10^3/uL (0.0-0.1) 03/22/21 04:10 Absolute Nucleated RBC 0.0 /100WBC 03/22/21 04:10 Total Counted 100 03/22/21 04:10 Neutrophils % (Manual) 91 % (39-76) H 03/22/21 04:10 Band Neutrophils % 2 % (0-10) 03/15/21 04:46 Lymphocytes % (Manual) 8 % (13-43) L 03/22/21 04:10 Monocytes % (Manual) 1 % (4-9) L 03/22/21 04:10 Plt Morphology Comment Normal (NORMAL) 03/22/21 04:10 RBC Morphology Normal (NORMAL) 03/22/21 04:10 D-Dimer 2.51 ug/ml (0.0-0.57) H* 03/14/21 04:39 Sample Site Rra 03/21/21 08:59 ABG pH 7.450 (7.35-7.45) 03/21/21 08:59 ABG pCO2 36.0 mmHg (35.0-45.0) 03/21/21 08:59 ABG pO2 51.0 mmHg (80.0-100.0) L 03/21/21 08:59 ABG HCO3 25.0 mmol/L (22-26) 03/21/21 08:59 ABG O2 Saturation 88.0 % (90-100) L 03/21/21 08:59 ABG Base Excess 1.2 mmol/L (-2.0-2.0) 03/21/21 08:59 Sree Test Pos 03/21/21 08:59 A-a Gradient 574.0 mmHg 03/21/21 08:59 FiO2 94.0 03/21/21 08:59 Blood Gas Comments Pt hernandez well eb 03/21/21 08:59 Sodium 136 mmol/L (136-145) 03/22/21 04:10 Corrected Sodium 136 mmol/L (136-145) 03/22/21 04:10 Potassium 3.6 mmol/L (3.5-5.1) 03/22/21 04:10 Chloride 102 mmol/L (98-107) 03/22/21 04:10 Carbon Dioxide 27.1 mmol/L (21-32) 03/22/21 04:10 BUN 30 mg/dL (7-18) H 03/22/21 04:10 Creatinine 0.73 mg/dL (0.70-1.30) 03/22/21 04:10 Est GFR (MDRD) Af Amer > 60 (>60) 03/22/21 04:10 Est GFR (MDRD) Non-Af > 60 (>60) 03/22/21 04:10 Glucose 114 mg/dL (65-99) H 03/22/21 04:10 POC Glucose (mg/dL) 99 mg/dL (65-99) 03/09/21 11:51 Calcium 8.0 mg/dL (8.5-10.1) L 03/22/21 04:10 Corrected Calcium 8.9 mg/dL (8.5-10.1) 03/21/21 04:35 Magnesium 2.5 mg/dL (1.7-2.9) 03/05/21 04:10 Ferritin 1988 ng/mL (26-388) H 03/01/21 11:20 Total Bilirubin 1.20 mg/dL (0.2-1.0) H 03/21/21 04:35 AST 28 Units/L (15-37) 03/21/21 04:35 ALT 46 Units/L (12-78) 03/21/21 04:35 Alkaline Phosphatase 87 Units/L (46-116) 03/21/21 04:35 Creatine Kinase 121 Units/L (39-308) 03/01/21 11:20 CK-MB (CK-2) < 1.0 ng/mL (0-4.0) 03/01/21 11:20 CK/CKMB % Calc 0.8 % (<4) 03/01/21 11:20 Troponin I < 0.02 ng/mL (0-1.5) 03/01/21 11:20 C-Reactive Protein < 0.50 mg/L (0-3.0) 03/13/21 04:22 B-Natriuretic Peptide 78.7 pg/mL (0-79) 03/14/21 04:39 Total Protein 5.6 g/dL (6.4-8.2) L 03/21/21 04:35 Albumin 2.6 g/dL (3.4-5.0) L 03/21/21 04:35 Globulin 3.0 g/dL (2.5-4.5) 03/21/21 04:35 Albumin/Globulin Ratio 0.9 Ratio (1.1-2.1) L 03/21/21 04:35 Specimen Type Catherized urine 03/21/21 05:35 Urine Color Yellow (YELLOW) 03/21/21 05:35 Urine Appearance Clear (CLEAR) 03/21/21 05:35 Urine pH 5.0 (5.0 - 8.0) 03/21/21 05:35 Ur Specific [place] 1.015 (1.000-1.030) 03/21/21 05:35 Urine Protein Negative (NEGATIVE) 03/21/21 05:35 Urine Glucose (UA) Negative (NEGATIVE) 03/21/21 05:35 Urine Ketones Negative (NEGATIVE) 03/21/21 05:35 Urine Occult Blood 5+ (NEGATIVE) 03/21/21 05:35 Urine Nitrite Negative (NEGATIVE) 03/21/21 05:35 Urine Bilirubin Negative (NEGATIVE) 03/21/21 05:35 Urine Urobilinogen Normal (NORMAL) 03/21/21 05:35 Ur Leukocyte Esterase Negative (NEGATIVE) 03/21/21 05:35 Urine RBC 5-10 /HPF (0-3) A 03/21/21 05:35 Urine WBC 0-2 /HPF (0-5) 03/21/21 05:35 Ur Squamous Epith Cells Negative /HPF (NEGATIVE) 03/21/21 05:35 Urine Bacteria Negative /HPF (NEGATIVE) 03/21/21 05:35 Urine Mucus Rare /HPF (NEGATIVE) 03/21/21 05:35 Ur Culture Indicated? No/not indicated 03/21/21 05:35 Plan (1) Acute respiratory failure with hypoxia: Status: Acute (2) COVID-19 virus infection: Status: Acute (3) Hypokalemia: Status: Acute (4) Elevated d-dimer: Status: Acute (5) Klebsiella pneumonia: Status: Acute Qualifiers: Laterality: bilateral Lung location: unspecified part of lung Qualified Code(s): J15.0 - Pneumonia due to Klebsiella pneumoniae (6) Candidal pneumonia: Status: Acute
[2021-03-22] MEDS: AVELOX IV 400 MG/250 ML BAG 400 MG/250 ML PIGGYBACK IV SCH (13:58)
[2021-03-22] MEDS: PROSCAR PO SCH (18:03)
[2021-03-22] MEDS: K-DUR TAB 20 MEQ PO PRN (21:17)
[2021-03-23] MEDS: ASCORBIC ACID INJ MULTI-DOSE VIAL 1,500 MG in NS 50 ML IV 50 ML IV SCH ×4 (03:22→21:09)
[2021-03-23 05:13] LABS: BASOPHILS % (AUTO) 0.1 % (0.2-1.0); EOSINOPHILS # (AUTO) 0.6 x10^3/uL (0.0-0.2); EOSINOPHILS % (AUTO) 4.1 % (0.9-2.9); HEMATOCRIT 38.8 % (42.0-54.0); HEMOGLOBIN 13.6 g/dL (13.5-18.0); LYMPHOCYTES # (AUTO) 0.4 X10^3/uL (1.3-2.9); LYMPHOCYTES % (AUTO) 3.1 % (21.0-51.0); MEAN CORPUSCULAR HEMOGLOBIN 29.7 pg (27.0-34.0); MEAN CORPUSCULAR HGB CONC 34.9 g/dL (33.0-35.0); MEAN CORPUSCULAR VOLUME 84.9 fL (80.0-100.0); MEAN PLATELET VOLUME 9.2 fL (7.4-11.0); MONOCYTES # (AUTO) 0.5 x10^3/uL (0.3-0.8); MONOCYTES % (AUTO) 3.8 % (0.0-13.0); NEUTROPHILS # (AUTO) 12.4 x10^3/uL (2.2-4.8); NEUTROPHILS % (AUTO) 88.9 % (42.0-75.0); PLATELET COUNT 94 X10^3/uL (150.0-450.0); RED BLOOD COUNT 4.57 X10^6/uL (4.7-6.0); WHITE BLOOD COUNT 13.9 X10^3/uL (3.6-10.0)
[2021-03-23] MEDS: DUONEB 0.5 MG/3 MG (3 mL) NEB SCH ×4 (05:14→21:07)
[2021-03-23 05:20] LABS: BLOOD UREA NITROGEN 25 mg/dL (7-18); CALCIUM 7.9 mg/dL (8.5-10.1); CHLORIDE 102 mmol/L (98-107); CREATININE 0.77 mg/dL (0.70-1.30); SODIUM 137 mmol/L (136-145); eGFR NON BLACK RACES > 60 (>60)
[2021-03-23] MEDS: FORTAZ or TAZICEF VIAL INJ 1 G in NS 100 ML IV 100 ML IV SCH ×3 (05:30→21:10)
[2021-03-23] MEDS: PEPCID 20 MG IV PREMIX* 20 MG/50 ML BAG IV SCH (08:44)
[2021-03-23] MEDS: COZAAR PO SCH (08:46)
[2021-03-23] MEDS: FLOMAX PO SCH (08:46)
[2021-03-23] MEDS: ELIQUIS PO SCH ×2 (08:46→21:09)
[2021-03-23] MEDS: LOPRESSOR TAB 50 MG PO SCH (08:47)
[2021-03-23] MEDS: HYDROCHLOROTHIAZIDE 25 MG TAB PO SCH (08:47)
[2021-03-23] MEDS: PriLOSEC PO SCH (08:47)
[2021-03-23] MEDS: VITAMIN A PO SCH (08:48)
[2021-03-23] MEDS: ZINC SULFATE PO SCH ×2 (08:48→21:09)
[2021-03-23] MEDS: SOLU-Medrol 40 MG VIAL IVP SCH (08:48)
[2021-03-23] MEDS: PROSCAR PO SCH (08:48)
[2021-03-23] MEDS: VITAMIN D3 125 mcg (5,000 UNITS) PO SCH (08:49)
[2021-03-23] MEDS: PULMICORT NEB TX 0.5 MG NEB SCH ×2 (09:05→21:07)
--- NOTE | 2021-03-23 10:52 | PCM.PROG ---
Progress Note Progress Note for Day of Date of Exam: 03/23/21 Subjective Subjective: Patient seen at bedside, no overnight events. Patient states he slept well. He is currently on HHFNC at 56%. He states he tried to work with PT yesterday but felt really anxious when he stood up so did not do much activity. He states he feels anxious at times. He reports good appetite. Denies fever or chills. Patient had bladder training with clamped leo yesterday and he would like to removed today. Labs: WBC 13.9 Plt 94 BUN/Cr: 25/0.77 Glucose 107 Sputum: C. albicans + Klebsiella CXR: 03/23/21: stable bilateral multifocal pneumonia ECHO (03/16/21): Normal global wall motion. EF 55% with grade 3 restrictive diastolic dysfunction. Normal IVC. Plan: Wean HHFNC as tolerated to keep sats above 88%. Remove leo, mobilize patient as tolerated. Patient has completed course of Remdesivir and has received Actemra. Continue IV abx. Continue taper Solumedrol 40 mg daily. Con tinue nebs, pulmicort, IS and smart vest. Continue morphine prn for air hunger/anxiety. Will add vistaril prn. Continue eliquis. Continue vitamin support. Continue PT/OT as tolerated. Advised patient to sit up as tolerated, encouraged to lay on each side and self-prone. Monitor AM labs and imaging. Time spent for clinical assessment, reviewing labs/imaging, physical exam, decision making and documentation greater than 45 mins. Past Medical Family Social History Past Med/Fam/Surg Hx: No changes since H&P Allergies: Allergies temazepam [From Restoril] Allergy (Verified 03/05/21 09:47) IVP DYE Allergy (Uncoded 03/02/21 18:20) Review of Systems ROS: No change since H&P Vital Signs and I&O's Vital Signs: Temperature 97.7 F Pulse Rate [Left Brachial] 85 Pulse Rate 93 Respiratory Rate 36 Blood Pressure [Left Arm] 153/80 Blood Pressure 135/72 O2 Sat by Pulse Oximetry 83 Intake and Output: Intake & Output 03/20/21 03/21/21 03/22/21 03/23/21 23:59 23:59 23:59 23:59 Intake Total 1421 / 1421 1515 / 1515 1368 / 1368 300 / 300 Output Total 1000 / 1000 4350 / 4350 2250 / 2250 600 / 600 Balance 421 / 421 -2835 / -2835 -882 / -882 -300 / -300 Physical Exam Oriented: Normal Eyes: Normal Ear: Normal Nose: Normal Throat: Normal Respiratory: Generalized and Diminished Cardiovascular: Normal Auscultation: Bowel Sounds: Normal Tenderness: Normal Skin: Normal Musculoskeletal: Normal Psychiatric: Anxiety Mood Description: Anxious Affect: Normal Speech Pattern: Clear Laboratory and Diagnostics Result Diagrams: 03/23/21 04:25 03/23/21 04:25 Labs: 03/09/21 11:50 Sputum - Expectorated Sputum Sputum Culture - Final Klebsiella Pneumoniae 03/09/21 11:50 Sputum - Expectorated Sputum - Final 03/11/21 08:10 Sputum - Expectorated Sputum Sputum Culture - Final Klebsiella Pneumoniae 03/11/21 08:10 Sputum - Expectorated Sputum - Final Laboratory WBC 13.9 X10^3/uL (3.6-10.0) H 03/23/21 04:25 RBC 4.57 X10^6/uL (4.7-6.0) L 03/23/21 04:25 Hgb 13.6 g/dL (13.5-18.0) 03/23/21 04:25 Hct 38.8 % (42.0-54.0) L 03/23/21 04:25 MCV 84.9 fL (80.0-100.0) 03/23/21 04:25 MCH 29.7 pg (27.0-34.0) 03/23/21 04:25 MCHC 34.9 g/dL (33.0-35.0) 03/23/21 04:25 RDW 14.0 % (11.6-16.5) 03/23/21 04:25 Plt Count 94 X10^3/uL (150.0-450.0) L 03/23/21 04:25 Plt Count Comment Decreased (ADEQUATE) 03/22/21 04:10 MPV 9.2 fL (7.4-11.0) 03/23/21 04:25 Neut % (Auto) 88.9 % (42.0-75.0) H 03/23/21 04:25 Lymph % (Auto) 3.1 % (21.0-51.0) L 03/23/21 04:25 [place] % (Auto) 3.8 % (0.0-13.0) 03/23/21 04:25 Eos % (Auto) 4.1 % (0.9-2.9) H 03/23/21 04:25 Baso % (Auto) 0.1 % (0.2-1.0) L 03/23/21 04:25 Neut # (Auto) 12.4 x10^3/uL (2.2-4.8) H 03/23/21 04:25 Lymph # (Auto) 0.4 X10^3/uL (1.3-2.9) L 03/23/21 04:25 [place] # (Auto) 0.5 x10^3/uL (0.3-0.8) 03/23/21 04:25 Eos # (Auto) 0.6 x10^3/uL (0.0-0.2) H 03/23/21 04:25 Baso # (Auto) 0.0 X10^3/uL (0.0-0.1) 03/23/21 04:25 Absolute Nucleated RBC 0.0 /100WBC 03/23/21 04:25 Total Counted 100 03/22/21 04:10 Neutrophils % (Manual) 91 % (39-76) H 03/22/21 04:10 Band Neutrophils % 2 % (0-10) 03/15/21 04:46 Lymphocytes % (Manual) 8 % (13-43) L 03/22/21 04:10 Monocytes % (Manual) 1 % (4-9) L 03/22/21 04:10 Plt Morphology Comment Normal (NORMAL) 03/22/21 04:10 RBC Morphology Normal (NORMAL) 03/22/21 04:10 D-Dimer 2.51 ug/ml (0.0-0.57) H* 03/14/21 04:39 Sample Site Rra 03/21/21 08:59 ABG pH 7.450 (7.35-7.45) 03/21/21 08:59 ABG pCO2 36.0 mmHg (35.0-45.0) 03/21/21 08:59 ABG pO2 51.0 mmHg (80.0-100.0) L 03/21/21 08:59 ABG HCO3 25.0 mmol/L (22-26) 03/21/21 08:59 ABG O2 Saturation 88.0 % (90-100) L 03/21/21 08:59 ABG Base Excess 1.2 mmol/L (-2.0-2.0) 03/21/21 08:59 Sree Test Pos 03/21/21 08:59 A-a Gradient 574.0 mmHg 03/21/21 08:59 FiO2 94.0 03/21/21 08:59 Blood Gas Comments Pt hernandez well eb 03/21/21 08:59 Sodium 137 mmol/L (136-145) 03/23/21 04:25 Corrected Sodium TNP 03/23/21 04:25 Potassium 3.7 mmol/L (3.5-5.1) 03/23/21 04:25 Chloride 102 mmol/L (98-107) 03/23/21 04:25 Carbon Dioxide 27.0 mmol/L (21-32) 03/23/21 04:25 BUN 25 mg/dL (7-18) H 03/23/21 04:25 Creatinine 0.77 mg/dL (0.70-1.30) 03/23/21 04:25 Est GFR (MDRD) Af Amer > 60 (>60) 03/23/21 04:25 Est GFR (MDRD) Non-Af > 60 (>60) 03/23/21 04:25 Glucose 107 mg/dL (65-99) H 03/23/21 04:25 POC Glucose (mg/dL) 99 mg/dL (65-99) 03/09/21 11:51 Calcium 7.9 mg/dL (8.5-10.1) L 03/23/21 04:25 Corrected Calcium 8.9 mg/dL (8.5-10.1) 03/21/21 04:35 Magnesium 2.5 mg/dL (1.7-2.9) 03/05/21 04:10 Ferritin 1988 ng/mL (26-388) H 03/01/21 11:20 Total Bilirubin 1.20 mg/dL (0.2-1.0) H 03/21/21 04:35 AST 28 Units/L (15-37) 03/21/21 04:35 ALT 46 Units/L (12-78) 03/21/21 04:35 Alkaline Phosphatase 87 Units/L (46-116) 03/21/21 04:35 Creatine Kinase 121 Units/L (39-308) 03/01/21 11:20 CK-MB (CK-2) < 1.0 ng/mL (0-4.0) 03/01/21 11:20 CK/CKMB % Calc 0.8 % (<4) 03/01/21 11:20 Troponin I < 0.02 ng/mL (0-1.5) 03/01/21 11:20 C-Reactive Protein < 0.50 mg/L (0-3.0) 03/13/21 04:22 B-Natriuretic Peptide 78.7 pg/mL (0-79) 03/14/21 04:39 Total Protein 5.6 g/dL (6.4-8.2) L 03/21/21 04:35 Albumin 2.6 g/dL (3.4-5.0) L 03/21/21 04:35 Globulin 3.0 g/dL (2.5-4.5) 03/21/21 04:35 Albumin/Globulin Ratio 0.9 Ratio (1.1-2.1) L 03/21/21 04:35 Specimen Type Catherized urine 03/21/21 05:35 Urine Color Yellow (YELLOW) 03/21/21 05:35 Urine Appearance Clear (CLEAR) 03/21/21 05:35 Urine pH 5.0 (5.0 - 8.0) 03/21/21 05:35 Ur Specific [place] 1.015 (1.000-1.030) 03/21/21 05:35 Urine Protein Negative (NEGATIVE) 03/21/21 05:35 Urine Glucose (UA) Negative (NEGATIVE) 03/21/21 05:35 Urine Ketones Negative (NEGATIVE) 03/21/21 05:35 Urine Occult Blood 5+ (NEGATIVE) 03/21/21 05:35 Urine Nitrite Negative (NEGATIVE) 03/21/21 05:35 Urine Bilirubin Negative (NEGATIVE) 03/21/21 05:35 Urine Urobilinogen Normal (NORMAL) 03/21/21 05:35 Ur Leukocyte Esterase Negative (NEGATIVE) 03/21/21 05:35 Urine RBC 5-10 /HPF (0-3) A 03/21/21 05:35 Urine WBC 0-2 /HPF (0-5) 03/21/21 05:35 Ur Squamous Epith Cells Negative /HPF (NEGATIVE) 03/21/21 05:35 Urine Bacteria Negative /HPF (NEGATIVE) 03/21/21 05:35 Urine Mucus Rare /HPF (NEGATIVE) 03/21/21 05:35 Ur Culture Indicated? No/not indicated 03/21/21 05:35 Plan (1) Acute respiratory failure with hypoxia: Status: Acute (2) COVID-19 virus infection: Status: Acute (3) Hypokalemia: Status: Acute (4) Elevated d-dimer: Status: Acute (5) Klebsiella pneumonia: Status: Acute Qualifiers: Laterality: bilateral Lung location: unspecified part of lung Quali fied Code(s): J15.0 - Pneumonia due to Klebsiella pneumoniae (6) Candidal pneumonia: Status: Acute (7) Anxiety: Status: Acute
[2021-03-23] MEDS: VISTARIL PO PRN (11:41)
[2021-03-23] MEDS: CHLORASEPTIC SPRAY MT PRN (11:42)
[2021-03-23] MEDS: AVELOX IV 400 MG/250 ML BAG 400 MG/250 ML PIGGYBACK IV SCH (15:21)
[2021-03-23] MEDS: K-DUR TAB 20 MEQ PO PRN (21:10)
[2021-03-23] MEDS ORDERED: NS 250 ML IV 250 ML IV ONE (23:20)
[2021-03-23] MEDS: MORPHINE SULFATE INJ 2 MG INJ IVP PRN (23:25)
[2021-03-24] MEDS: ASCORBIC ACID INJ MULTI-DOSE VIAL 1,500 MG in NS 50 ML IV 50 ML IV SCH ×4 (03:00→20:17)
[2021-03-24 05:18] LABS: BASOPHILS % (AUTO) 0.2 % (0.2-1.0); EOSINOPHILS # (AUTO) 0.7 x10^3/uL (0.0-0.2); EOSINOPHILS % (AUTO) 5.6 % (0.9-2.9); HEMATOCRIT 39.6 % (42.0-54.0); HEMOGLOBIN 13.8 g/dL (13.5-18.0); LYMPHOCYTES # (AUTO) 0.5 X10^3/uL (1.3-2.9); LYMPHOCYTES % (AUTO) 3.7 % (21.0-51.0); MEAN CORPUSCULAR HEMOGLOBIN 29.7 pg (27.0-34.0); MEAN CORPUSCULAR HGB CONC 34.8 g/dL (33.0-35.0); MEAN CORPUSCULAR VOLUME 85.3 fL (80.0-100.0); MEAN PLATELET VOLUME 9.4 fL (7.4-11.0); MONOCYTES # (AUTO) 0.6 x10^3/uL (0.3-0.8); MONOCYTES % (AUTO) 4.3 % (0.0-13.0); NEUTROPHILS # (AUTO) 11.3 x10^3/uL (2.2-4.8); NEUTROPHILS % (AUTO) 86.2 % (42.0-75.0); PLATELET COUNT 94 X10^3/uL (150.0-450.0); RED BLOOD COUNT 4.64 X10^6/uL (4.7-6.0); RED CELL DISTRIBUTION WIDTH 14.4 % (11.6-16.5); WHITE BLOOD COUNT 13.1 X10^3/uL (3.6-10.0)
[2021-03-24 05:20] LABS: ABG BASE EXCESS 5.7 mmol/L (-2.0-2.0); ABG HCO3 28.6 mmol/L (22-26)
[2021-03-24 05:21] LABS: ABG ALLEN TEST POS
[2021-03-24] MEDS: DUONEB 0.5 MG/3 MG (3 mL) NEB SCH ×3 (05:22→21:14)
[2021-03-24 05:24] LABS: BLOOD UREA NITROGEN 26 mg/dL (7-18); CALCIUM 7.9 mg/dL (8.5-10.1); CARBON DIOXIDE 27.7 mmol/L (21-32); CHLORIDE 103 mmol/L (98-107); CREATININE 0.81 mg/dL (0.70-1.30); SODIUM 138 mmol/L (136-145); eGFR NON BLACK RACES > 60 (>60)
[2021-03-24] MEDS: VISTARIL PO PRN ×2 (05:30→20:18)
[2021-03-24] MEDS: FORTAZ or TAZICEF VIAL INJ 1 G in NS 100 ML IV 100 ML IV SCH ×3 (06:05→21:55)
--- NOTE | 2021-03-24 06:17 | RAD ---
HISTORYPneumoniaSTUDYAP [id number] is no change in appearance of the chest. Heart size is similar with persistent bilateral pulmonary infiltrates. There are no new areas of involvement, pleural fluid or pneumothorax.IMPRESSIONNo change in bilateral pneumonia.Electronically signed by: LEIGH BARON (Mar 24, 2021 06:16:05)
[2021-03-24] MEDS: ELIQUIS PO SCH ×2 (08:15→20:17)
[2021-03-24] MEDS: COZAAR PO SCH (08:33)
[2021-03-24] MEDS: LOPRESSOR TAB 50 MG PO SCH (08:36)
[2021-03-24] MEDS: FLOMAX PO SCH (08:36)
[2021-03-24] MEDS: HYDROCHLOROTHIAZIDE 25 MG TAB PO SCH (08:36)
[2021-03-24] MEDS: PEPCID 20 MG IV PREMIX* 20 MG/50 ML BAG IV SCH (08:37)
[2021-03-24] MEDS: VITAMIN D3 125 mcg (5,000 UNITS) PO SCH (08:37)
[2021-03-24] MEDS: ZINC SULFATE PO SCH ×2 (08:37→20:16)
[2021-03-24] MEDS: PriLOSEC PO SCH (08:37)
[2021-03-24] MEDS: PROSCAR PO SCH (08:38)
[2021-03-24] MEDS: VITAMIN A PO SCH (08:38)
[2021-03-24] MEDS: SOLU-Medrol 40 MG VIAL IVP SCH (09:00)
[2021-03-24] MEDS: PULMICORT NEB TX 0.5 MG NEB SCH ×2 (09:20→21:14)
--- NOTE | 2021-03-24 15:03 | PCM.PROG ---
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 He is currently on HHFNC at FIo2 91%. He states he feels better now. He said he had to go to the bathroom and was waiting on the nurse and got really anxious and started breathing fast. He states Vistaril did help with anxiety. He did sit in the recliner yesterday and was doing well. He denies fever or chills. He has some productive cough. He has been having bladder training for leo removal. Labs: WBC 13.1 Plt 94 BUN/Cr: 26/0.81 Glucose 101 Sputum: C. albicans + Klebsiella AB.52/35/39/29 sats 80% CXR: 03/24/21: persistent bilateral multifocal pneumonia ECHO (03/16/21): Normal global wall motion. EF 55% with grade 3 restrictive diastolic dysfunction. Normal IVC. Plan: Discussed in detail about ways to cope with anxiety, breathing technique and exercises. Will add zoloft for depression/anxiety. Continue vistaril prn. Continue morphine prn for air hunger. Wean HHFNC as tolerated to keep sats above 88%. Remove leo, mobilize patient as tolerated. Patient has completed course of Remdesivir and has received Actemra. Continue IV abx. Continue taper Solumedrol 40 mg daily. Continue nebs, pulmicort, IS and smart vest. Continue eliquis. Continue vitamin support. Continue PT/OT as tolerated. Advised patient to sit up as tolerated, encouraged to lay on each side and self-prone. Monitor AM labs and imaging. Time spent for clinical assessment, reviewing labs/imaging, physical exam, decision making and documentation greater than 45 mins. Past Medical Family Social History Past Med/Fam/Surg Hx: No changes since H&P Allergies: Allergies temazepam [From Restoril] Allergy (Verified 03/05/21 09:47) IVP DYE Allergy (Uncoded 03/02/21 18:20) Review of Systems ROS: No change since H&P Vital Signs and I&O's Vital Signs: Temperature 97.8 F Pulse Rate [Left Brachial] 85 Pulse Rate 96 Respiratory Rate 43 Blood Pressure [Left Arm] 153/80 Blood Pressure 113/68 O2 Sat by Pulse Oximetry 94 Intake and Output: Intake & Output 03/21/21 03/22/21 03/23/21 03/24/21 23:59 23:59 23:59 23:59 Intake Total 1515 / 1515 1368 / 1368 1626 / 1626 250 / 250 Output Total 4350 / 4350 2250 / 2250 3500 / 3500 400 / 400 Balance -2835 / -2835 -882 / -882 -1874 / -1874 -150 / -150 Physical Exam Oriented: Normal Eyes: Normal Ear: Normal Nose: Normal Throat: Normal Respiratory: Generalized and Diminished Cardiovascular: Normal Auscultation: Bowel Sounds: Normal Tenderness: Normal Skin: Normal Musculoskeletal: Normal Psychiatric: Anxiety Mood Description: Anxious Affect: Anxious Speech Pattern: Clear Laboratory and Diagnostics Result Diagrams: 03/24/21 04:25 03/24/21 04:25 Labs: 03/09/21 11:50 Sputum - Expectorated Sputum Sputum Culture - Final Klebsiella Pneumoniae 03/09/21 11:50 Sputum - Expectorated Sputum - Final 03/11/21 08:10 Sputum - Expectorated Sputum Sputum Culture - Final Klebsiella Pneumoniae 03/11/21 08:10 Sputum - Expectorated Sputum - Final Laboratory WBC 13.1 X10^3/uL (3.6-10.0) H 03/24/21 04:25 RBC 4.64 X10^6/uL (4.7-6.0) L 03/24/21 04:25 Hgb 13.8 g/dL (13.5-18.0) 03/24/21 04:25 Hct 39.6 % (42.0-54.0) L 03/24/21 04:25 MCV 85.3 fL (80.0-100.0) 03/24/21 04:25 MCH 29.7 pg (27.0-34.0) 03/24/21 04:25 MCHC 34.8 g/dL (33.0-35.0) 03/24/21 04:25 RDW 14.4 % (11.6-16.5) 03/24/21 04:25 Plt Count 94 X10^3/uL (150.0-450.0) L 03/24/21 04:25 Plt Count Comment Decreased (ADEQUATE) 03/22/21 04:10 MPV 9.4 fL (7.4-11.0) 03/24/21 04:25 Neut % (Auto) 86.2 % (42.0-75.0) H 03/24/21 04:25 Lymph % (Auto) 3.7 % (21.0-51.0) L 03/24/21 04:25 [place] % (Auto) 4.3 % (0.0-13.0) 03/24/21 04:25 Eos % (Auto) 5.6 % (0.9-2.9) H 03/24/21 04:25 Baso % (Auto) 0.2 % (0.2-1.0) 03/24/21 04:25 Neut # (Auto) 11.3 x10^3/uL (2.2-4.8) H 03/24/21 04:25 Lymph # (Auto) 0.5 X10^3/uL (1.3-2.9) L 03/24/21 04:25 [place] # (Auto) 0.6 x10^3/uL (0.3-0.8) 03/24/21 04:25 Eos # (Auto) 0.7 x10^3/uL (0.0-0.2) H 03/24/21 04:25 Baso # (Auto) 0.0 X10^3/uL (0.0-0.1) 03/24/21 04:25 Absolute Nucleated RBC 0.0 /100WBC 03/24/21 04:25 Total Counted 100 03/22/21 04:10 Neutrophils % (Manual) 91 % (39-76) H 03/22/21 04:10 Band Neutrophils % 2 % (0-10) 03/15/21 04:46 Lymphocytes % (Manual) 8 % (13-43) L 03/22/21 04:10 Monocytes % (Manual) 1 % (4-9) L 03/22/21 04:10 Plt Morphology Comment Normal (NORMAL) 03/22/21 04:10 RBC Morphology Normal (NORMAL) 03/22/21 04:10 D-Dimer 2.51 ug/ml (0.0-0.57) H* 03/14/21 04:39 Sample Site Lr 03/24/21 05:15 ABG pH 7.520 (7.35-7.45) H 03/24/21 05:15 ABG pCO2 35.0 mmHg (35.0-45.0) 03/24/21 05:15 ABG pO2 39.0 mmHg (80.0-100.0) L* 03/24/21 05:15 ABG HCO3 28.6 mmol/L (22-26) H 03/24/21 05:15 ABG O2 Saturation 80.0 % (90-100) L* 03/24/21 05:15 ABG Base Excess 5.7 mmol/L (-2.0-2.0) H 03/24/21 05:15 Sree Test Pos 03/24/21 05:15 A-a Gradient 338.0 mmHg 03/24/21 05:15 FiO2 59.0 03/24/21 05:15 Blood Gas Comments Elebrt well ae 03/24/21 05:15 Sodium 138 mmol/L (136-145) 03/24/21 04:25 Corrected Sodium TNP 03/24/21 04:25 Potassium 3.9 mmol/L (3.5-5.1) 03/24/21 04:25 Chloride 103 mmol/L (98-107) 03/24/21 04:25 Carbon Dioxide 27.7 mmol/L (21-32) 03/24/21 04:25 BUN 26 mg/dL (7-18) H 03/24/21 04:25 Creatinine 0.81 mg/dL (0.70-1.30) 03/24/21 04:25 Est GFR (MDRD) Af Amer > 60 (>60) 03/24/21 04:25 Est GFR (MDRD) Non-Af > 60 (>60) 03/24/21 04:25 Glucose 101 mg/dL (65-99) H 03/24/21 04:25 POC Glucose (mg/dL) 99 mg/dL (65-99) 03/09/21 11:51 Calcium 7.9 mg/dL (8.5-10.1) L 03/24/21 04:25 Corrected Calcium 8.9 mg/dL (8.5-10.1) 03/21/21 04:35 Magnesium 2.5 mg/dL (1.7-2.9) 03/05/21 04:10 Ferritin 1988 ng/mL (26-388) H 03/01/21 11:20 Total Bilirubin 1.20 mg/dL (0.2-1.0) H 03/21/21 04:35 AST 28 Units/L (15-37) 03/21/21 04:35 ALT 46 Units/L (12-78) 03/21/21 04:35 Alkaline Phosphatase 87 Units/L (46-116) 03/21/21 04:35 Creatine Kinase 121 Units/L (39-308) 03/01/21 11:20 CK-MB (CK-2) < 1.0 ng/mL (0-4.0) 03/01/21 11:20 CK/CKMB % Calc 0.8 % (<4) 03/01/21 11:20 Troponin I < 0.02 ng/mL (0-1.5) 03/01/21 11:20 C-Reactive Protein < 0.50 mg/L (0-3.0) 03/13/21 04:22 B-Natriuretic Peptide 78.7 pg/mL (0-79) 03/14/21 04:39 Total Protein 5.6 g/dL (6.4-8.2) L 03/21/21 04:35 Albumin 2.6 g/dL (3.4-5.0) L 03/21/21 04:35 Globulin 3.0 g/dL (2.5-4.5) 03/21/21 04:35 Albumin/Globulin Ratio 0.9 Ratio (1.1-2.1) L 03/21/21 04:35 Specimen Type Catherized urine 03/21/21 05:35 Urine Color Yellow (YELLOW) 03/21/21 05:35 Urine Appearance Clear (CLEAR) 03/21/21 05:35 Urine pH 5.0 (5.0 - 8.0) 03/21/21 05:35 Ur Specific [place] 1.015 (1.000-1.030) 03/21/21 05:35 Urine Protein Negative (NEGATIVE) 03/21/21 05:35 Urine Glucose (UA) Negative (NEGATIVE) 03/21/21 05:35 Urine Ketones Negative (NEGATIVE) 03/21/21 05:35 Urine Occult Blood 5+ (NEGATIVE) 03/21/21 05:35 Urine Nitrite Negative (NEGATIVE) 03/21/21 05:35 Urine Bilirubin Negative (NEGATIVE) 03/21/21 05:35 Urine Urobilinogen Normal (NORMAL) 03/21/21 05:35 Ur Leukocyte Esterase Negative (NEGATIVE) 03/21/21 05:35 Urine RBC 5-10 /HPF (0-3) A 03/21/21 05:35 Urine WBC 0-2 /HPF (0-5) 03/21/21 05:35 Ur Squamous Epith Cells Negative /HPF (NEGATIVE) 03/21/21 05:35 Urine Bacteria Negative /HPF (NEGATIVE) 03/21/21 05:35 Urine Mucus Rare /HPF (NEGATIVE) 03/21/21 05:35 Ur Culture Indicated? No/not indicated 03/21/21 05:35 Plan (1) Acute respiratory failure with hypoxia: Status: Acute (2) COVID-19 virus infection: Status: Acute (3) Hypokalemia: Status: Acute (4) Elevated d-dimer: Status: Acute (5) Klebsiella pneumonia: Status: Acute Qualifiers: Laterality: bilateral Lung location: unspecified part of lung Qualified Code(s): J15.0 - Pneumonia due to Klebsiella pneumoniae (6) Candidal pneumonia: Status: Acute (7) Anxiety: Status: Acute
[2021-03-24] MEDS: AVELOX IV 400 MG/250 ML BAG 400 MG/250 ML PIGGYBACK IV SCH (15:17)
[2021-03-24] MEDS ORDERED: NS 250 ML IV 250 ML IV ONE (16:02)
[2021-03-24] MEDS ORDERED: NS 100 ML IV 100 ML ONE (19:38)
[2021-03-24] MEDS: ZOLOFT PO SCH (21:43)
[2021-03-24] MEDS: CHLORASEPTIC SPRAY MT PRN (22:07)
[2021-03-25] MEDS: ASCORBIC ACID INJ MULTI-DOSE VIAL 1,500 MG in NS 50 ML IV 50 ML IV SCH ×2 (02:44→09:00)
[2021-03-25] MEDS: MORPHINE SULFATE INJ 2 MG INJ IVP PRN ×2 (02:47→12:15)
[2021-03-25 05:18] LABS: BASOPHILS % (AUTO) 0 % (0.2-1.0); BLOOD UREA NITROGEN 24 mg/dL (7-18); CALCIUM 7.7 mg/dL (8.5-10.1); CARBON DIOXIDE 26.7 mmol/L (21-32); CHLORIDE 104 mmol/L (98-107); CREATININE 0.76 mg/dL (0.70-1.30); EOSINOPHILS # (AUTO) 0.7 x10^3/uL (0.0-0.2); HEMATOCRIT 37.6 % (42.0-54.0); HEMOGLOBIN 13.4 g/dL (13.5-18.0); LYMPHOCYTES # (AUTO) 0.4 X10^3/uL (1.3-2.9); LYMPHOCYTES % (AUTO) 2.6 % (21.0-51.0); MEAN CORPUSCULAR HEMOGLOBIN 30.3 pg (27.0-34.0); MEAN CORPUSCULAR HGB CONC 35.6 g/dL (33.0-35.0); MEAN PLATELET VOLUME 9.6 fL (7.4-11.0); MONOCYTES # (AUTO) 0.5 x10^3/uL (0.3-0.8); MONOCYTES % (AUTO) 3.7 % (0.0-13.0); NEUTROPHILS # (AUTO) 12.5 x10^3/uL (2.2-4.8); NEUTROPHILS % (AUTO) 88.7 % (42.0-75.0); PLATELET COUNT 85 X10^3/uL (150.0-450.0); RED BLOOD COUNT 4.42 X10^6/uL (4.7-6.0); RED CELL DISTRIBUTION WIDTH 14.6 % (11.6-16.5); SODIUM 140 mmol/L (136-145); WHITE BLOOD COUNT 14.1 X10^3/uL (3.6-10.0); eGFR NON BLACK RACES > 60 (>60)
[2021-03-25] MEDS: DUONEB 0.5 MG/3 MG (3 mL) NEB SCH (05:21)
[2021-03-25] MEDS: FORTAZ or TAZICEF VIAL INJ 1 G in NS 100 ML IV 100 ML IV SCH ×3 (05:40→21:10)
[2021-03-25] MEDS: KLOR-CON PO PRN (05:44)
[2021-03-25] MEDS ORDERED: VISTARIL PO PRN (08:48)
[2021-03-25] MEDS: FLOMAX PO SCH (09:01)
[2021-03-25] MEDS: ELIQUIS PO SCH ×2 (09:01→20:11)
[2021-03-25] MEDS: PriLOSEC PO SCH (09:02)
[2021-03-25] MEDS: PEPCID 20 MG IV PREMIX* 20 MG/50 ML BAG IV SCH (09:02)
[2021-03-25] MEDS: ZOLOFT PO SCH (09:03)
[2021-03-25] MEDS: PROSCAR PO SCH (09:03)
[2021-03-25] MEDS: ZINC SULFATE PO SCH ×2 (09:03→20:11)
[2021-03-25] MEDS: SOLU-Medrol 40 MG VIAL IVP SCH (09:03)
[2021-03-25] MEDS: VITAMIN D3 125 mcg (5,000 UNITS) PO SCH (09:04)
[2021-03-25] MEDS: VITAMIN A PO SCH (09:04)
[2021-03-25] MEDS: COZAAR PO SCH (09:07)
[2021-03-25] MEDS: LOPRESSOR TAB 50 MG PO SCH (09:08)
[2021-03-25] MEDS: HYDROCHLOROTHIAZIDE 25 MG TAB PO SCH (09:08)
[2021-03-25] MEDS: PULMICORT NEB TX 0.5 MG NEB SCH ×2 (09:35→21:15)
--- NOTE | 2021-03-25 11:31 | PCM.PROG ---
Progress Note Progress Note for Day of Date of Exam: 03/25/21 Subjective Subjective: Patient seen at bedside, no acute events overnight. He is currently on HHFNC at FiO2 88%. His leo was just removed. He states the breathing treatment makes him anxious and zapata his throat. He did sit up yesterday and tolerated HHFNC well. He continues to have cough. He denies fever or chills, good appetite. He continues to use IS and smart vest. Labs: WBC 14.1 Plt 85 Hgb 13.4 BUN/Cr: 24/0.76 Glucose 106 K: 3.2 Sputum: C. albicans + Klebsiella AB.52/35/39/29 sats 80% CXR: 03/24/21: persistent bilateral multifocal pneumonia ECHO (03/16/21): Normal global wall motion. EF 55% with grade 3 restrictive diastolic dysfunction. Normal IVC. Plan: Will switch to Xopenex nebs instead of albuterol. Continue zoloft for anxiety, increase vistaril to q8h prn. Continue morphine for air hunger. Continue to wean down HHFNC to keep sats > 88%. Discussed with patient about be ing mobile and sitting in the recliner, working with PT. Encouraged to sit on the side of the bed when eating and lay on sides to help with oxygenation. Patient has completed course of Remdesivir and has received Actemra. Continue IV abx. Will give one dose of lasix to keep a neg fluid balance. Continue taper Solumedrol 40 mg daily. Continue nebs, pulmicort, IS and smart vest. Continue eliquis. Continue vitamin support. Replace K as per protocol.Monitor platelet count. Monitor AM labs and imaging. Time spent for clinical assessment, reviewing labs/imaging, physical exam, decision making and documentation greater than 45 mins. Past Medical Family Social History Past Med/Fam/Surg Hx: No changes since H&P Allergies: Allergies temazepam [From Restoril] Allergy (Verified 03/05/21 09:47) IVP DYE Allergy (Uncoded 03/02/21 18:20) Review of Systems ROS: No change since H&P Vital Signs and I&O's Vital Signs: Temperature 98.0 F Pulse Rate [Left Brachial] 85 Pulse Rate 80 Respiratory Rate 30 Blood Pressure [Left Arm] 153/80 Blood Pressure 140/86 O2 Sat by Pulse Oximetry 97 Intake and Output: Intake & Output 03/22/21 03/23/21 03/24/21 03/25/21 23:59 23:59 23:59 23:59 Intake Total 1368 / 1368 1626 / 1626 2219 / 2219 548 / 548 Output Total 2250 / 2250 3500 / 3500 3000 / 3000 550 / 550 Balance -882 / -882 -1874 / -1874 -781 / -781 -2 / -2 Physical Exam Oriented: Normal Eyes: Normal Ear: Normal Nose: Normal Throat: Normal Respiratory: Generalized and Diminished Cardiovascular: Normal Auscultation: Bowel Sounds: Normal Tenderness: Normal Skin: Normal Musculoskeletal: Normal Psychiatric: Anxiety Mood Description: Anxious Affect: Anxious Speech Pattern: Clear Laboratory and Diagnostics Result Diagrams: 03/25/21 04:30 03/25/21 10:24 Labs: 03/09/21 11:50 Sputum - Expectorated Sputum Sputum Culture - Final Klebsiella Pneumoniae 03/09/21 11:50 Sputum - Expectorated Sputum - Final 03/11/21 08:10 Sputum - Expectorated Sputum Sputum Culture - Final Klebsiella Pneumoniae 03/11/21 08:10 Sputum - Expectorated Sputum - Final Laboratory WBC 14.1 X10^3/uL (3.6-10.0) H 03/25/21 04:30 RBC 4.42 X10^6/uL (4.7-6.0) L 03/25/21 04:30 Hgb 13.4 g/dL (13.5-18.0) L 03/25/21 04:30 Hct 37.6 % (42.0-54.0) L 03/25/21 04:30 MCV 85.0 fL (80.0-100.0) 03/25/21 04:30 MCH 30.3 pg (27.0-34.0) 03/25/21 04:30 MCHC 35.6 g/dL (33.0-35.0) H 03/25/21 04:30 RDW 14.6 % (11.6-16.5) 03/25/21 04:30 Plt Count 85 X10^3/uL (150.0-450.0) L 03/25/21 04:30 Plt Count Comment Decreased (ADEQUATE) 03/22/21 04:10 MPV 9.6 fL (7.4-11.0) 03/25/21 04:30 Neut % (Auto) 88.7 % (42.0-75.0) H 03/25/21 04:30 Lymph % (Auto) 2.6 % (21.0-51.0) L 03/25/21 04:30 [place] % (Auto) 3.7 % (0.0-13.0) 03/25/21 04:30 Eos % (Auto) 5.0 % (0.9-2.9) H 03/25/21 04:30 Baso % (Auto) 0 % (0.2-1.0) L 03/25/21 04:30 Neut # (Auto) 12.5 x10^3/uL (2.2-4.8) H 03/25/21 04:30 Lymph # (Auto) 0.4 X10^3/uL (1.3-2.9) L 03/25/21 04:30 [place] # (Auto) 0.5 x10^3/uL (0.3-0.8) 03/25/21 04:30 Eos # (Auto) 0.7 x10^3/uL (0.0-0.2) H 03/25/21 04:30 Baso # (Auto) 0.0 X10^3/uL (0.0-0.1) 03/25/21 04:30 Absolute Nucleated RBC 0.0 /100WBC 03/25/21 04:30 Total Counted 100 03/22/21 04:10 Neutrophils % (Manual) 91 % (39-76) H 03/22/21 04:10 Band Neutrophils % 2 % (0-10) 03/15/21 04:46 Lymphocytes % (Manual) 8 % (13-43) L 03/22/21 04:10 Monocytes % (Manual) 1 % (4-9) L 03/22/21 04:10 Plt Morphology Comment Normal (NORMAL) 03/22/21 04:10 RBC Morphology Normal (NORMAL) 03/22/21 04:10 D-Dimer 2.51 ug/ml (0.0-0.57) H* 03/14/21 04:39 Sample Site Lr 03/24/21 05:15 ABG pH 7.520 (7.35-7.45) H 03/24/21 05:15 ABG pCO2 35.0 mmHg (35.0-45.0) 03/24/21 05:15 ABG pO2 39.0 mmHg (80.0-100.0) L* 03/24/21 05:15 ABG HCO3 28.6 mmol/L (22-26) H 03/24/21 05:15 ABG O2 Saturation 80.0 % (90-100) L* 03/24/21 05:15 ABG Base Excess 5.7 mmol/L (-2.0-2.0) H 03/24/21 05:15 Sree Test Pos 03/24/21 05:15 A-a Gradient 338.0 mmHg 03/24/21 05:15 FiO2 59.0 03/24/21 05:15 Blood Gas Comments Elbert well ae 03/24/21 05:15 Sodium 140 mmol/L (136-145) 03/25/21 04:30 Corrected Sodium TNP 03/25/21 04:30 Potassium 3.7 mmol/L (3.5-5.1) 03/25/21 10:24 Chloride 104 mmol/L (98-107) 03/25/21 04:30 Carbon Dioxide 26.7 mmol/L (21-32) 03/25/21 04:30 BUN 24 mg/dL (7-18) H 03/25/21 04:30 Creatinine 0.76 mg/dL (0.70-1.30) 03/25/21 04:30 Est GFR (MDRD) Af Amer > 60 (>60) 03/25/21 04:30 Est GFR (MDRD) Non-Af > 60 (>60) 03/25/21 04:30 Glucose 106 mg/dL (65-99) H 03/25/21 04:30 POC Glucose (mg/dL) 99 mg/dL (65-99) 03/09/21 11:51 Calcium 7.7 mg/dL (8.5-10.1) L 03/25/21 04:30 Corrected Calcium 8.9 mg/dL (8.5-10.1) 03/21/21 04:35 Magnesium 1.9 mg/dL (1.7-2.9) 03/25/21 04:30 Ferritin 1988 ng/mL (26-388) H 03/01/21 11:20 Total Bilirubin 1.20 mg/dL (0.2-1.0) H 03/21/21 04:35 AST 28 Units/L (15-37) 03/21/21 04:35 ALT 46 Units/L (12-78) 03/21/21 04:35 Alkaline Phosphatase 87 Units/L (46-116) 03/21/21 04:35 Creatine Kinase 121 Units/L (39-308) 03/01/21 11:20 CK-MB (CK-2) < 1.0 ng/mL (0-4.0) 03/01/21 11:20 CK/CKMB % Calc 0.8 % (<4) 03/01/21 11:20 Troponin I < 0.02 ng/mL (0-1.5) 03/01/21 11:20 C-Reactive Protein < 0.50 mg/L (0-3.0) 03/13/21 04:22 B-Natriuretic Peptide 78.7 pg/mL (0-79) 03/14/21 04:39 Total Protein 5.6 g/dL (6.4-8.2) L 03/21/21 04:35 Albumin 2.6 g/dL (3.4-5.0) L 03/21/21 04:35 Globulin 3.0 g/dL (2.5-4.5) 03/21/21 04:35 Albumin/Globulin Ratio 0.9 Ratio (1.1-2.1) L 03/21/21 04:35 Specimen Type Catherized urine 03/21/21 05:35 Urine Color Yellow (YELLOW) 03/21/21 05:35 Urine Appearance Clear (CLEAR) 03/21/21 05:35 Urine pH 5.0 (5.0 - 8.0) 03/21/21 05:35 Ur Specific [place] 1.015 (1.000-1.030) 03/21/21 05:35 Urine Protein Negative (NEGATIVE) 03/21/21 05:35 Urine Glucose (UA) Negative (NEGATIVE) 03/21/21 05:35 Urine Ketones Negative (NEGATIVE) 03/21/21 05:35 Urine Occult Blood 5+ (NEGATIVE) 03/21/21 05:35 Urine Nitrite Negative (NEGATIVE) 03/21/21 05:35 Urine Bilirubin Negative (NEGATIVE) 03/21/21 05:35 Urine Urobilinogen Normal (NORMAL) 03/21/21 05:35 Ur Leukocyte Esterase Negative (NEGATIVE) 03/21/21 05:35 Urine RBC 5-10 /HPF (0-3) A 03/21/21 05:35 Urine WBC 0-2 /HPF (0-5) 03/21/21 05:35 Ur Squamous Epith Cells Negative /HPF (NEGATIVE) 03/21/21 05:35 Urine Bacteria Negative /HPF (NEGATIVE) 03/21/21 05:35 Urine Mucus Rare /HPF (NEGATIVE) 03/21/21 05:35 Ur Culture Indicated? No/not indicated 03/21/21 05:35 Plan (1) Acute respiratory failure with hypoxia: Status: Acute (2) COVID-19 virus infection: Status: Acute (3) Hypokalemia: Status: Acute (4) Elevated d-dimer: Status: Acute (5) Klebsiella pneumonia: Status: Acute Qualifiers: Laterality: bilateral Lung location: unspecified part of lung Qualified Code(s): J15.0 - Pneumonia due to Klebsiella pneumoniae (6) Candidal pneumonia: Status: Acute (7) Anxiety: Status: Acute (8) Thrombocytopenia: Status: Acute
[2021-03-25] MEDS ORDERED: LASIX IVP ONE (11:32)
[2021-03-25] MEDS ORDERED: LASIX ONE (11:51)
[2021-03-25] MEDS: XOPENEX 1.25 MG/3 ML NEBULE NEB SCH ×2 (14:35→21:15)
[2021-03-25] MEDS: AVELOX IV 400 MG/250 ML BAG 400 MG/250 ML PIGGYBACK IV SCH (15:18)
[2021-03-26] MEDS ORDERED: NS 100 ML IV 100 ML ONE (03:53)
[2021-03-26 05:26] LABS: BASOPHILS % (AUTO) 0.1 % (0.2-1.0); EOSINOPHILS # (AUTO) 0.5 x10^3/uL (0.0-0.2); EOSINOPHILS % (AUTO) 3.5 % (0.9-2.9); HEMATOCRIT 38.2 % (42.0-54.0); HEMOGLOBIN 13.4 g/dL (13.5-18.0); LYMPHOCYTES # (AUTO) 0.5 X10^3/uL (1.3-2.9); LYMPHOCYTES % (AUTO) 3.2 % (21.0-51.0); MEAN CORPUSCULAR HEMOGLOBIN 29.9 pg (27.0-34.0); MEAN CORPUSCULAR HGB CONC 35.1 g/dL (33.0-35.0); MEAN CORPUSCULAR VOLUME 85.3 fL (80.0-100.0); MEAN PLATELET VOLUME 9.1 fL (7.4-11.0); MONOCYTES # (AUTO) 0.4 x10^3/uL (0.3-0.8); MONOCYTES % (AUTO) 2.7 % (0.0-13.0); NEUTROPHILS # (AUTO) 13.1 x10^3/uL (2.2-4.8); NEUTROPHILS % (AUTO) 90.5 % (42.0-75.0); PLATELET COUNT 90 X10^3/uL (150.0-450.0); RED BLOOD COUNT 4.48 X10^6/uL (4.7-6.0); RED CELL DISTRIBUTION WIDTH 14.9 % (11.6-16.5); WHITE BLOOD COUNT 14.5 X10^3/uL (3.6-10.0)
[2021-03-26] MEDS: FORTAZ or TAZICEF VIAL INJ 1 G in NS 100 ML IV 100 ML IV SCH ×3 (05:30→21:24)
[2021-03-26] MEDS: XOPENEX 1.25 MG/3 ML NEBULE NEB SCH ×4 (05:33→21:25)
[2021-03-26 05:36] LABS: BLOOD UREA NITROGEN 27 mg/dL (7-18); CARBON DIOXIDE 27.6 mmol/L (21-32); CHLORIDE 102 mmol/L (98-107); CREATININE 0.63 mg/dL (0.70-1.30); SODIUM 137 mmol/L (136-145); eGFR NON BLACK RACES > 60 (>60)
[2021-03-26] MEDS: K-DUR TAB 20 MEQ PO PRN ×2 (06:04→15:31)
[2021-03-26 06:11] LABS: BAND NEUTROPHILS % 3 % (0-10); PLATELET MORPHOLOGY COMMENT NORMAL (NORMAL)
--- NOTE | 2021-03-26 06:34 | RAD ---
HISTORYCOVID-19 hypoxiaSTUDYAP [id number] ed normal heart size and contour. Persistent bilateral airspace disease with slight suggested improvement. No new areas of consolidation, developing extrapulmonary air or pleural fluid.IMPRESSIONSlight improvement in bilateral pneumonia with no additional abnormality identified.Electronically signed by: LEIGH BARON (Mar 26, 2021 06:32:08)
[2021-03-26] MEDS: PriLOSEC PO SCH (08:37)
[2021-03-26] MEDS: PEPCID 20 MG IV PREMIX* 20 MG/50 ML BAG IV SCH (08:37)
[2021-03-26] MEDS: VITAMIN D3 125 mcg (5,000 UNITS) PO SCH (08:38)
[2021-03-26] MEDS: ZINC SULFATE PO SCH ×2 (08:38→20:10)
[2021-03-26] MEDS: HYDROCHLOROTHIAZIDE 25 MG TAB PO SCH (08:39)
[2021-03-26] MEDS: ELIQUIS PO SCH ×2 (08:39→20:10)
[2021-03-26] MEDS: LOPRESSOR TAB 50 MG PO SCH (08:39)
[2021-03-26] MEDS: PROSCAR PO SCH (08:39)
[2021-03-26] MEDS: COZAAR PO SCH (08:40)
[2021-03-26] MEDS: VITAMIN C PO SCH (08:40)
[2021-03-26] MEDS: FLOMAX PO SCH (08:41)
[2021-03-26] MEDS: VITAMIN A PO SCH (08:41)
[2021-03-26] MEDS: ZOLOFT PO SCH (08:42)
[2021-03-26] MEDS: SOLU-Medrol 40 MG VIAL IVP SCH (08:54)
[2021-03-26] MEDS: PULMICORT NEB TX 0.5 MG NEB SCH ×2 (09:05→21:25)
[2021-03-26] MEDS: LOMOTIL PO PRN (10:38)
[2021-03-26] MEDS: AVELOX IV 400 MG/250 ML BAG 400 MG/250 ML PIGGYBACK IV SCH (13:54)
[2021-03-26] MEDS: MAGNESIUM SULFATE 1 GRAM/100 mL PREMIX 1 G/100 ML BAG IV PRN ×2 (15:31→17:48)
--- NOTE | 2021-03-26 16:07 | PCM.PROG ---
Progress Note Progress Note for Day of Date of Exam: 03/26/21 Subjective Subjective: Patient seen at bedside, no acute events overnight. He is currently on HHFNC at FiO2 88%. His leo was just removed. He states the breathing treatment makes him anxious and zapata his throat. He did sit up yesterday and tolerated HHFNC well. He continues to have cough. He denies fever or chills, good appetite. He continues to use IS and smart vest. Labs: WBC 14.1 Plt 85 Hgb 13.4 BUN/Cr: 24/0.76 Glucose 106 K: 3.2 Sputum: C. albicans + Klebsiella AB.52/35/39/29 sats 80% CXR: 03/24/21: persistent bilateral multifocal pneumonia ECHO (03/16/21): Normal global wall motion. EF 55% with grade 3 restrictive diastolic dysfunction. Normal IVC. Plan: Will switch to Xopenex nebs instead of albuterol. Continue zoloft for anxiety, increase vistaril to q8h prn. Continue morphine for air hunger. Continue to wean down HHFNC to keep sats > 88%. Discussed with patient about be ing mobile and sitting in the recliner, working with PT. Encouraged to sit on the side of the bed when eating and lay on sides to help with oxygenation. Patient has completed course of Remdesivir and has received Actemra. Continue IV abx. Will give one dose of lasix to keep a neg fluid balance. Continue taper Solumedrol 40 mg daily. Continue nebs, pulmicort, IS and smart vest. Continue eliquis. Continue vitamin support. Replace K as per protocol.Monitor platelet count. Monitor AM labs and imaging. Time spent for clinical assessment, reviewing labs/imaging, physical exam, decision making and documentation greater than 45 mins. Past Medical Family Social History Past Med/Fam/Surg Hx: No changes since H&P Allergies: Allergies temazepam [From Restoril] Allergy (Verified 03/05/21 09:47) IVP DYE Allergy (Uncoded 03/02/21 18:20) Review of Systems ROS: No change since H&P Vital Signs and I&O's Vital Signs: Temperature 97.5 F Pulse Rate [Left Brachial] 85 Pulse Rate 87 Respiratory Rate 35 Blood Pressure [Left Arm] 153/80 Blood Pressure 102/74 O2 Sat by Pulse Oximetry 92 Intake and Output: Intake & Output 03/24/21 03/25/21 03/26/21 03/27/21 11:59 11:59 11:59 11:59 Intake Total 1576 / 1576 2517 / 2517 1730 / 1730 Output Total 3300 / 3300 3150 / 3150 2550 / 2550 550 / 550 Balance -1724 / -1724 -633 / -633 -820 / -820 -550 / -550 Physical Exam Oriented: Normal Eyes: Normal Ear: Normal Respiratory: Generalized and Diminished Cardiovascular: Normal Auscultation: Bowel Sounds: Normal Tenderness: Normal Skin: Normal Psychiatric: Anxiety Mood Description: Anxious Affect: Anxious Speech Pattern: Clear Laboratory and Diagnostics Result Diagrams: 03/26/21 04:36 03/26/21 07:52 Labs: 03/09/21 11:50 Sputum - Expectorated Sputum Sputum Culture - Final Klebsiella Pneumoniae 03/09/21 11:50 Sputum - Expectorated Sputum - Final 03/11/21 08:10 Sputum - Expectorated Sputum Sputum Culture - Final Klebsiella Pneumoniae 03/11/21 08:10 Sputum - Expectorated Sputum - Final Laboratory WBC 14.5 X10^3/uL (3.6-10.0) H 03/26/21 04:36 RBC 4.48 X10^6/uL (4.7-6.0) L 03/26/21 04:36 Hgb 13.4 g/dL (13.5-18.0) L 03/26/21 04:36 Hct 38.2 % (42.0-54.0) L 03/26/21 04:36 MCV 85.3 fL (80.0-100.0) 03/26/21 04:36 MCH 29.9 pg (27.0-34.0) 03/26/21 04:36 MCHC 35.1 g/dL (33.0-35.0) H 03/26/21 04:36 RDW 14.9 % (11.6-16.5) 03/26/21 04:36 Plt Count 90 X10^3/uL (150.0-450.0) L 03/26/21 04:36 Plt Count Comment Decreased (ADEQUATE) 03/26/21 04:36 MPV 9.1 fL (7.4-11.0) 03/26/21 04:36 Neut % (Auto) 90.5 % (42.0-75.0) H 03/26/21 04:36 Lymph % (Auto) 3.2 % (21.0-51.0) L 03/26/21 04:36 [place] % (Auto) 2.7 % (0.0-13.0) 03/26/21 04:36 Eos % (Auto) 3.5 % (0.9-2.9) H 03/26/21 04:36 Baso % (Auto) 0.1 % (0.2-1.0) L 03/26/21 04:36 Neut # (Auto) 13.1 x10^3/uL (2.2-4.8) H 03/26/21 04:36 Lymph # (Auto) 0.5 X10^3/uL (1.3-2.9) L 03/26/21 04:36 [place] # (Auto) 0.4 x10^3/uL (0.3-0.8) 03/26/21 04:36 Eos # (Auto) 0.5 x10^3/uL (0.0-0.2) H 03/26/21 04:36 Baso # (Auto) 0.0 X10^3/uL (0.0-0.1) 03/26/21 04:36 Absolute Nucleated RBC 0.0 /100WBC 03/26/21 04:36 Total Counted 100 03/26/21 04:36 Neutrophils % (Manual) 93 % (39-76) H 03/26/21 04:36 Band Neutrophils % 3 % (0-10) 03/26/21 04:36 Lymphocytes % (Manual) 3 % (13-43) L 03/26/21 04:36 Monocytes % (Manual) 1 % (4-9) L 03/26/21 04:36 Plt Morphology Comment Normal (NORMAL) 03/26/21 04:36 RBC Morphology Normal (NORMAL) 03/26/21 04:36 D-Dimer 2.51 ug/ml (0.0-0.57) H* 03/14/21 04:39 Sample Site Lr 03/24/21 05:15 ABG pH 7.520 (7.35-7.45) H 03/24/21 05:15 ABG pCO2 35.0 mmHg (35.0-45.0) 03/24/21 05:15 ABG pO2 39.0 mmHg (80.0-100.0) L* 03/24/21 05:15 ABG HCO3 28.6 mmol/L (22-26) H 03/24/21 05:15 ABG O2 Saturation 80.0 % (90-100) L* 03/24/21 05:15 ABG Base Excess 5.7 mmol/L (-2.0-2.0) H 03/24/21 05:15 Sree Test Pos 03/24/21 05:15 A-a Gradient 338.0 mmHg 03/24/21 05:15 FiO2 59.0 03/24/21 05:15 Blood Gas Comments Elbert well ae 03/24/21 05:15 Sodium 137 mmol/L (136-145) 03/26/21 04:36 Corrected Sodium TNP 03/26/21 04:36 Potassium 3.6 mmol/L (3.5-5.1) 03/26/21 07:52 Chloride 102 mmol/L (98-107) 03/26/21 04:36 Carbon Dioxide 27.6 mmol/L (21-32) 03/26/21 04:36 BUN 27 mg/dL (7-18) H 03/26/21 04:36 Creatinine 0.63 mg/dL (0.70-1.30) L 03/26/21 04:36 Est GFR (MDRD) Af Amer > 60 (>60) 03/26/21 04:36 Est GFR (MDRD) Non-Af > 60 (>60) 03/26/21 04:36 Glucose 105 mg/dL (65-99) H 03/26/21 04:36 POC Glucose (mg/dL) 99 mg/dL (65-99) 03/09/21 11:51 Calcium 8.0 mg/dL (8.5-10.1) L 03/26/21 04:36 Corrected Calcium 8.9 mg/dL (8.5-10.1) 03/21/21 04:35 Magnesium 1.9 mg/dL (1.7-2.9) 03/26/21 04:36 Ferritin 1988 ng/mL (26-388) H 03/01/21 11:20 Total Bilirubin 1.20 mg/dL (0.2-1.0) H 03/21/21 04:35 AST 28 Units/L (15-37) 03/21/21 04:35 ALT 46 Units/L (12-78) 03/21/21 04:35 Alkaline Phosphatase 87 Units/L (46-116) 03/21/21 04:35 Creatine Kinase 121 Units/L (39-308) 03/01/21 11:20 CK-MB (CK-2) < 1.0 ng/mL (0-4.0) 03/01/21 11:20 CK/CKMB % Calc 0.8 % (<4) 03/01/21 11:20 Troponin I < 0.02 ng/mL (0-1.5) 03/01/21 11:20 C-Reactive Protein < 0.50 mg/L (0-3.0) 03/13/21 04:22 B-Natriuretic Peptide 78.7 pg/mL (0-79) 03/14/21 04:39 Total Protein 5.6 g/dL (6.4-8.2) L 03/21/21 04:35 Albumin 2.6 g/dL (3.4-5.0) L 03/21/21 04:35 Globulin 3.0 g/dL (2.5-4.5) 03/21/21 04:35 Albumin/Globulin Ratio 0.9 Ratio (1.1-2.1) L 03/21/21 04:35 Specimen Type Catherized urine 03/21/21 05:35 Urine Color Yellow (YELLOW) 03/21/21 05:35 Urine Appearance Clear (CLEAR) 03/21/21 05:35 Urine pH 5.0 (5.0 - 8.0) 03/21/21 05:35 Ur Specific [place] 1.015 (1.000-1.030) 03/21/21 05:35 Urine Protein Negative (NEGATIVE) 03/21/21 05:35 Urine Glucose (UA) Negative (NEGATIVE) 03/21/21 05:35 Urine Ketones Negative (NEGATIVE) 03/21/21 05:35 Urine Occult Blood 5+ (NEGATIVE) 03/21/21 05:35 Urine Nitrite Negative (NEGATIVE) 03/21/21 05:35 Urine Bilirubin Negative (NEGATIVE) 03/21/21 05:35 Urine Urobilinogen Normal (NORMAL) 03/21/21 05:35 Ur Leukocyte Esterase Negative (NEGATIVE) 03/21/21 05:35 Urine RBC 5-10 /HPF (0-3) A 03/21/21 05:35 Urine WBC 0-2 /HPF (0-5) 03/21/21 05:35 Ur Squamous Epith Cells Negative /HPF (NEGATIVE) 03/21/21 05:35 Urine Bacteria Negative /HPF (NEGATIVE) 03/21/21 05:35 Urine Mucus Rare /HPF (NEGATIVE) 03/21/21 05:35 Ur Culture Indicated? No/not indicated 03/21/21 05:35 Radiology Reviewed: Yes Plan (1) Acute respiratory failure with hypoxia: Status: Acute Plan: Continue Rx. (2) COVID-19 virus infection: Status: Acute (3) Hypokalemia: Status: Acute Narrative Support Text: Resolved. (4) Elevated d-dimer: Status: Acute (5) Klebsiella pneumonia: Status: Acute Qualifiers: Laterality: bilateral Lung location: unspecified part of lung Qualified Code(s): J15.0 - Pneumonia due to Klebsiella pneumoniae Plan: Cont ABX (6) Candidal pneumonia: Status: Acute (7) Anxiety: Status: Acute (8) Thrombocytopenia: Status: Acute
[2021-03-27] MEDS: FORTAZ or TAZICEF VIAL INJ 1 G in NS 100 ML IV 100 ML IV SCH ×3 (05:02→22:12)
[2021-03-27 06:04] LABS: BASOPHILS % (AUTO) 0.1 % (0.2-1.0); EOSINOPHILS # (AUTO) 0.4 x10^3/uL (0.0-0.2); EOSINOPHILS % (AUTO) 2.8 % (0.9-2.9); HEMATOCRIT 36.9 % (42.0-54.0); LYMPHOCYTES # (AUTO) 0.4 X10^3/uL (1.3-2.9); LYMPHOCYTES % (AUTO) 3.3 % (21.0-51.0); MEAN CORPUSCULAR HEMOGLOBIN 30.1 pg (27.0-34.0); MEAN CORPUSCULAR HGB CONC 35.2 g/dL (33.0-35.0); MEAN CORPUSCULAR VOLUME 85.5 fL (80.0-100.0); MEAN PLATELET VOLUME 9.2 fL (7.4-11.0); MONOCYTES # (AUTO) 0.5 x10^3/uL (0.3-0.8); MONOCYTES % (AUTO) 3.6 % (0.0-13.0); NEUTROPHILS # (AUTO) 12.1 x10^3/uL (2.2-4.8); NEUTROPHILS % (AUTO) 90.2 % (42.0-75.0); PLATELET COUNT 95 X10^3/uL (150.0-450.0); RED BLOOD COUNT 4.31 X10^6/uL (4.7-6.0); RED CELL DISTRIBUTION WIDTH 15.8 % (11.6-16.5); WHITE BLOOD COUNT 13.4 X10^3/uL (3.6-10.0)
[2021-03-27 06:12] LABS: ALANINE AMINOTRANSFERASE 38 Units/L (12-78); ALBUMIN 2.5 g/dL (3.4-5.0); ALKALINE PHOSPHATASE 78 Units/L (46-116); ASPARTATE AMINO TRANSFERASE 15 Units/L (15-37); BLOOD UREA NITROGEN 30 mg/dL (7-18); CALCIUM 8.1 mg/dL (8.5-10.1); CARBON DIOXIDE 26.9 mmol/L (21-32); CHLORIDE 101 mmol/L (98-107); COR CA(FOR HYPOALB) 9.3 mg/dL (8.5-10.1); CREATININE 0.61 mg/dL (0.70-1.30); SODIUM 136 mmol/L (136-145); TOTAL PROTEIN 5.5 g/dL (6.4-8.2); eGFR NON BLACK RACES > 60 (>60)
--- NOTE | 2021-03-27 06:22 | RAD ---
HISTORYCOVID-19STUDYCHEST, 1 [id number] cardiomediastinal silhouette is stable. Similar bilateral airspace opacities. The bony thorax appears intact.IMPRESSIONNo significant change.Electronically signed by: SUSAN SILVA (Mar 27, 2021 06:20:22)
[2021-03-27] MEDS: XOPENEX 1.25 MG/3 ML NEBULE NEB SCH ×3 (06:23→20:20)
[2021-03-27 07:14] LABS: BAND NEUTROPHILS % 3 % (0-10)
[2021-03-27 07:15] LABS: PLATELET MORPHOLOGY COMMENT NORMAL (NORMAL)
[2021-03-27 08:51] LABS: CRYPTOSPORIDIUM PARVUM ANTIGEN NEGATIVE (NEGATIVE); GIARDIA LAMBLIA ANTIGEN NEGATIVE (NEGATIVE)
[2021-03-27] MEDS: PULMICORT NEB TX 0.5 MG NEB SCH ×2 (08:55→20:20)
[2021-03-27] MEDS: ELIQUIS PO SCH ×2 (09:09→20:34)
[2021-03-27] MEDS: FLOMAX PO SCH (09:10)
[2021-03-27] MEDS: ZINC SULFATE PO SCH ×2 (09:10→20:34)
[2021-03-27] MEDS: SOLU-Medrol 40 MG VIAL IVP SCH (09:10)
[2021-03-27] MEDS: LOPRESSOR TAB 50 MG PO SCH (09:11)
[2021-03-27] MEDS: VITAMIN C PO SCH (09:11)
[2021-03-27] MEDS: COZAAR PO SCH (09:11)
[2021-03-27] MEDS: VITAMIN A PO SCH (09:11)
[2021-03-27] MEDS: LOMOTIL PO PRN (09:12)
[2021-03-27] MEDS: ZOLOFT PO SCH (09:12)
[2021-03-27] MEDS: VITAMIN D3 125 mcg (5,000 UNITS) PO SCH (09:13)
[2021-03-27] MEDS: PROSCAR PO SCH (09:13)
[2021-03-27] MEDS: HYDROCHLOROTHIAZIDE 25 MG TAB PO SCH (09:13)
[2021-03-27] MEDS: PriLOSEC PO SCH (09:13)
[2021-03-27] MEDS: PEPCID 20 MG IV PREMIX* 20 MG/50 ML BAG IV SCH (09:14)
--- NOTE | 2021-03-27 13:52 | PCM.PROG ---
Progress Note Progress Note for Day of Date of Exam: 03/27/21 Subjective Subjective: Patient seen at bedside, no acute events overnight. He is currently on HHFNC at FiO2 88%. His leo was just removed. He states the breathing treatment makes him anxious and zapata his throat. He did sit up yesterday and tolerated HHFNC well. He continues to have cough. He denies fever or chills, good appetite. He continues to use IS and smart vest. Labs: WBC 14.1 Plt 85 Hgb 13.4 BUN/Cr: 24/0.76 Glucose 106 K: 3.2 Sputum: C. albicans + Klebsiella AB.52/35/39/29 sats 80% CXR: 03/24/21: persistent bilateral multifocal pneumonia ECHO (03/16/21): Normal global wall motion. EF 55% with grade 3 restrictive diastolic dysfunction. Normal IVC. Plan: Will switch to Xopenex nebs instead of albuterol. Continue zoloft for anxiety, increase vistaril to q8h prn. Continue morphine for air hunger. Continue to wean down HHFNC to keep sats > 88%. Discussed with patient about be ing mobile and sitting in the recliner, working with PT. Encouraged to sit on the side of the bed when eating and lay on sides to help with oxygenation. Patient has completed course of Remdesivir and has received Actemra. Continue IV abx. Will give one dose of lasix to keep a neg fluid balance. Continue taper Solumedrol 40 mg daily. Continue nebs, pulmicort, IS and smart vest. Continue eliquis. Continue vitamin support. Replace K as per protocol.Monitor platelet count. Monitor AM labs and imaging. Time spent for clinical assessment, reviewing labs/imaging, physical exam, decision making and documentation greater than 45 mins. Past Medical Family Social History Past Med/Fam/Surg Hx: No changes since H&P Allergies: Allergies temazepam [From Restoril] Allergy (Verified 03/05/21 09:47) IVP DYE Allergy (Uncoded 03/02/21 18:20) Review of Systems ROS: No change since H&P Vital Signs and I&O's Vital Signs: Temperature 97.6 F Pulse Rate [Left Brachial] 85 Pulse Rate 76 Respiratory Rate 34 Blood Pressure [Left Arm] 153/80 Blood Pressure 112/74 O2 Sat by Pulse Oximetry 97 Intake and Output: Intake & Output 03/25/21 03/26/21 03/27/21 03/28/21 11:59 11:59 11:59 11:59 Intake Total 2517 / 2517 1730 / 1730 676 / 676 Output Total 3150 / 3150 2550 / 2550 1350 / 1350 Balance -633 / -633 -820 / -820 -674 / -674 Physical Exam Oriented: Normal Eyes: Normal Ear: Normal Nose: Normal Throat: Normal Respiratory: Generalized and Diminished Cardiovascular: Normal Auscultation: Bowel Sounds: Normal Tenderness: Normal Skin: Normal Musculoskeletal: Normal Psychiatric: Anxiety Mood Description: Anxious Affect: Anxious Speech Pattern: Clear Laboratory and Diagnostics Result Diagrams: 03/27/21 05:08 03/27/21 05:08 Labs: 03/27/21 07:00 Stool - Final 03/09/21 11:50 Sputum - Expectorated Sputum Sputum Culture - Final Klebsiella Pneumoniae 03/09/21 11:50 Sputum - Expectorated Sputum - Final 03/11/21 08:10 Sputum - Expectorated Sputum Sputum Culture - Final Klebsiella Pneumoniae 03/11/21 08:10 Sputum - Expectorated Sputum - Final Laboratory WBC 13.4 X10^3/uL (3.6-10.0) H 03/27/21 05:08 RBC 4.31 X10^6/uL (4.7-6.0) L 03/27/21 05:08 Hgb 13.0 g/dL (13.5-18.0) L 03/27/21 05:08 Hct 36.9 % (42.0-54.0) L 03/27/21 05:08 MCV 85.5 fL (80.0-100.0) 03/27/21 05:08 MCH 30.1 pg (27.0-34.0) 03/27/21 05:08 MCHC 35.2 g/dL (33.0-35.0) H 03/27/21 05:08 RDW 15.8 % (11.6-16.5) 03/27/21 05:08 Plt Count 95 X10^3/uL (150.0-450.0) L 03/27/21 05:08 Plt Count Comment Decreased (ADEQUATE) 03/27/21 05:08 MPV 9.2 fL (7.4-11.0) 03/27/21 05:08 Neut % (Auto) 90.2 % (42.0-75.0) H 03/27/21 05:08 Lymph % (Auto) 3.3 % (21.0-51.0) L 03/27/21 05:08 [place] % (Auto) 3.6 % (0.0-13.0) 03/27/21 05:08 Eos % (Auto) 2.8 % (0.9-2.9) 03/27/21 05:08 Baso % (Auto) 0.1 % (0.2-1.0) L 03/27/21 05:08 Neut # (Auto) 12.1 x10^3/uL (2.2-4.8) H 03/27/21 05:08 Lymph # (Auto) 0.4 X10^3/uL (1.3-2.9) L 03/27/21 05:08 [place] # (Auto) 0.5 x10^3/uL (0.3-0.8) 03/27/21 05:08 Eos # (Auto) 0.4 x10^3/uL (0.0-0.2) H 03/27/21 05:08 Baso # (Auto) 0.0 X10^3/uL (0.0-0.1) 03/27/21 05:08 Absolute Nucleated RBC 0.0 /100WBC 03/27/21 05:08 Total Counted 100 03/27/21 05:08 Neutrophils % (Manual) 87 % (39-76) H 03/27/21 05:08 Band Neutrophils % 3 % (0-10) 03/27/21 05:08 Lymphocytes % (Manual) 5 % (13-43) L 03/27/21 05:08 Monocytes % (Manual) 3 % (4-9) L 03/27/21 05:08 Eosinophils % (Manual) 2 % (0-6) 03/27/21 05:08 Plt Morphology Comment Normal (NORMAL) 03/27/21 05:08 RBC Morphology Normal (NORMAL) 03/27/21 05:08 D-Dimer 2.51 ug/ml (0.0-0.57) H* 03/14/21 04:39 Sample Site Lr 03/24/21 05:15 ABG pH 7.520 (7.35-7.45) H 03/24/21 05:15 ABG pCO2 35.0 mmHg (35.0-45.0) 03/24/21 05:15 ABG pO2 39.0 mmHg (80.0-100.0) L* 03/24/21 05:15 ABG HCO3 28.6 mmol/L (22-26) H 03/24/21 05:15 ABG O2 Saturation 80.0 % (90-100) L* 03/24/21 05:15 ABG Base Excess 5.7 mmol/L (-2.0-2.0) H 03/24/21 05:15 Sree Test Pos 03/24/21 05:15 A-a Gradient 338.0 mmHg 03/24/21 05:15 FiO2 59.0 03/24/21 05:15 Blood Gas Comments Elbert well ae 03/24/21 05:15 Sodium 136 mmol/L (136-145) 03/27/21 05:08 Corrected Sodium TNP 03/27/21 05:08 Potassium 3.6 mmol/L (3.5-5.1) 03/27/21 05:08 Chloride 101 mmol/L (98-107) 03/27/21 05:08 Carbon Dioxide 26.9 mmol/L (21-32) 03/27/21 05:08 BUN 30 mg/dL (7-18) H 03/27/21 05:08 Creatinine 0.61 mg/dL (0.70-1.30) L 03/27/21 05:08 Est GFR (MDRD) Af Amer > 60 (>60) 03/27/21 05:08 Est GFR (MDRD) Non-Af > 60 (>60) 03/27/21 05:08 Glucose 105 mg/dL (65-99) H 03/27/21 05:08 POC Glucose (mg/dL) 99 mg/dL (65-99) 03/09/21 11:51 Calcium 8.1 mg/dL (8.5-10.1) L 03/27/21 05:08 Corrected Calcium 9.3 mg/dL (8.5-10.1) 03/27/21 05:08 Magnesium 2.0 mg/dL (1.7-2.9) 03/27/21 05:08 Ferritin 1988 ng/mL (26-388) H 03/01/21 11:20 Total Bilirubin 1.30 mg/dL (0.2-1.0) H 03/27/21 05:08 AST 15 Units/L (15-37) 03/27/21 05:08 ALT 38 Units/L (12-78) 03/27/21 05:08 Alkaline Phosphatase 78 Units/L (46-116) 03/27/21 05:08 Creatine Kinase 121 Units/L (39-308) 03/01/21 11:20 CK-MB (CK-2) < 1.0 ng/mL (0-4.0) 03/01/21 11:20 CK/CKMB % Calc 0.8 % (<4) 03/01/21 11:20 Troponin I < 0.02 ng/mL (0-1.5) 03/01/21 11:20 C-Reactive Protein < 0.50 mg/L (0-3.0) 03/13/21 04:22 B-Natriuretic Peptide 78.7 pg/mL (0-79) 03/14/21 04:39 Total Protein 5.5 g/dL (6.4-8.2) L 03/27/21 05:08 Albumin 2.5 g/dL (3.4-5.0) L 03/27/21 05:08 Globulin 3.0 g/dL (2.5-4.5) 03/27/21 05:08 Albumin/Globulin Ratio 0.8 Ratio (1.1-2.1) L 03/27/21 05:08 Specimen Type Catherized urine 03/21/21 05:35 Urine Color Yellow (YELLOW) 03/21/21 05:35 Urine Appearance Clear (CLEAR) 03/21/21 05:35 Urine pH 5.0 (5.0 - 8.0) 03/21/21 05:35 Ur Specific [place] 1.015 (1.000-1.030) 03/21/21 05:35 Urine Protein Negative (NEGATIVE) 03/21/21 05:35 Urine Glucose (UA) Negative (NEGATIVE) 03/21/21 05:35 Urine Ketones Negative (NEGATIVE) 03/21/21 05:35 Urine Occult Blood 5+ (NEGATIVE) 03/21/21 05:35 Urine Nitrite Negative (NEGATIVE) 03/21/21 05:35 Urine Bilirubin Negative (NEGATIVE) 03/21/21 05:35 Urine Urobilinogen Normal (NORMAL) 03/21/21 05:35 Ur Leukocyte Esterase Negative (NEGATIVE) 03/21/21 05:35 Urine RBC 5-10 /HPF (0-3) A 03/21/21 05:35 Urine WBC 0-2 /HPF (0-5) 03/21/21 05:35 Ur Squamous Epith Cells Negative /HPF (NEGATIVE) 03/21/21 05:35 Urine Bacteria Negative /HPF (NEGATIVE) 03/21/21 05:35 Urine Mucus Rare /HPF (NEGATIVE) 03/21/21 05:35 Ur Culture Indicated? No/not indicated 03/21/21 05:35 Stool Description 3g semisolid brown 03/27/21 07:00 Stool Description Fob tube 03/27/21 07:00 Stl Occult Blood (IFOB) Negative (NEGATIVE) 03/27/21 07:00 Stool for White Cells Positive (NEGATIVE) A 03/27/21 07:00 Stl C. diff Tox B Gene Negative (NEGATIVE) 03/27/21 07:00 Stl C. diff [id number] Presumptive negative (NEGATIVE) 03/27/21 07:00 Cryptosporid parvum Ag Negative (NEGATIVE) 03/27/21 07:00 Giardia lamblia Ag Negative (NEGATIVE) 03/27/21 07:00 Radiology Reviewed: Yes Plan (1) Infective diarrhea: Status: Acute Narrative Support Text: Stool was positive for WBC's. Plan: F/U with stool culture when available. Continue Moxifloxacin. (2) Acute respiratory failure with hypoxia: Status: Acute Narrative Support Text: Breathing better today. Plan: Continue Rx. (3) COVID-19 virus infection: Status: Acute (4) Hypokalemia: Status: Acute (5) Elevated d-dimer: Status: Acute (6) Klebsiella pneumonia: Status: Acute Qualifiers: Laterality: bilateral Lung location: unspecified part of lung Qualified Code(s): J15.0 - Pneumonia due to Klebsiella pneumoniae Plan: Cont ABX (7) Candidal pneumonia: Status: Acute (8) Anxiety: Status: Acute (9) Thrombocytopenia: Status: Acute Plan: Monitor daily platelet levels.
[2021-03-27] MEDS: AVELOX IV 400 MG/250 ML BAG 400 MG/250 ML PIGGYBACK IV SCH (14:47)
[2021-03-27] MEDS: K-DUR TAB 20 MEQ PO PRN (18:22)
[2021-03-27] MEDS ORDERED: NS 100 ML IV 100 ML ONE (20:13)
[2021-03-28 05:13] LABS: BASOPHILS % (AUTO) 0.1 % (0.2-1.0); EOSINOPHILS # (AUTO) 0.3 x10^3/uL (0.0-0.2); HEMATOCRIT 36.5 % (42.0-54.0); LYMPHOCYTES # (AUTO) 0.4 X10^3/uL (1.3-2.9); LYMPHOCYTES % (AUTO) 3.5 % (21.0-51.0); MEAN CORPUSCULAR HEMOGLOBIN 30.2 pg (27.0-34.0); MEAN CORPUSCULAR HGB CONC 35.5 g/dL (33.0-35.0); MEAN CORPUSCULAR VOLUME 84.9 fL (80.0-100.0); MEAN PLATELET VOLUME 8.7 fL (7.4-11.0); MONOCYTES # (AUTO) 0.3 x10^3/uL (0.3-0.8); MONOCYTES % (AUTO) 2.6 % (0.0-13.0); NEUTROPHILS # (AUTO) 11.9 x10^3/uL (2.2-4.8); NEUTROPHILS % (AUTO) 91.8 % (42.0-75.0); PLATELET COUNT 92 X10^3/uL (150.0-450.0); RED CELL DISTRIBUTION WIDTH 16.5 % (11.6-16.5); WHITE BLOOD COUNT 12.9 X10^3/uL (3.6-10.0)
[2021-03-28 05:29] LABS: ALANINE AMINOTRANSFERASE 37 Units/L (12-78); ALBUMIN 2.5 g/dL (3.4-5.0); ALKALINE PHOSPHATASE 77 Units/L (46-116); ASPARTATE AMINO TRANSFERASE 15 Units/L (15-37); BLOOD UREA NITROGEN 25 mg/dL (7-18); CALCIUM 8.3 mg/dL (8.5-10.1); CARBON DIOXIDE 27.4 mmol/L (21-32); CHLORIDE 100 mmol/L (98-107); COR CA(FOR HYPOALB) 9.5 mg/dL (8.5-10.1); CREATININE 0.58 mg/dL (0.70-1.30); SODIUM 135 mmol/L (136-145); TOTAL PROTEIN 5.6 g/dL (6.4-8.2); eGFR NON BLACK RACES > 60 (>60)
[2021-03-28] MEDS: XOPENEX 1.25 MG/3 ML NEBULE NEB SCH (05:42)
[2021-03-28] MEDS: K-DUR TAB 20 MEQ PO PRN (05:51)
[2021-03-28] MEDS: FORTAZ or TAZICEF VIAL INJ 1 G in NS 100 ML IV 100 ML IV SCH (05:51)
[2021-03-28 05:55] LABS: PLATELET MORPHOLOGY COMMENT NORMAL (NORMAL)
--- NOTE | 2021-03-28 06:39 | RAD ---
HISTORYFollow-up COVID-19STUDYChest AP [id number]/[id number] t is within normal limits in size. Fernanda are normal. Diffuse bilateral interstitial, ground-glass, and some alveolar infiltrates are unchanged considering a difference in film technique. No pleural effusion or pneumothorax. Bony thorax is unremarkable.IMPRESSIONNo change diffuse bilateral interstitial, ground-glass, and alveolar infiltratesElectronically signed by: SUSAN SILVA (Mar 28, 2021 06:37:35)
[2021-03-28] MEDS: PULMICORT NEB TX 0.5 MG NEB SCH ×2 (09:00→20:30)
[2021-03-28] MEDS: COZAAR PO SCH (10:00)
[2021-03-28] MEDS: ELIQUIS PO SCH ×2 (10:00→20:48)
[2021-03-28] MEDS: VITAMIN A PO SCH (10:00)
[2021-03-28] MEDS: ZOLOFT PO SCH (10:00)
[2021-03-28] MEDS: FLOMAX PO SCH (10:00)
[2021-03-28] MEDS: HYDROCHLOROTHIAZIDE 25 MG TAB PO SCH (10:00)
[2021-03-28] MEDS: LOPRESSOR TAB 50 MG PO SCH (10:00)
[2021-03-28] MEDS: SOLU-Medrol 40 MG VIAL IVP SCH (10:00)
[2021-03-28] MEDS: PROSCAR PO SCH (10:00)
[2021-03-28] MEDS: VITAMIN D3 125 mcg (5,000 UNITS) PO SCH (10:00)
[2021-03-28] MEDS: PriLOSEC PO SCH (10:00)
[2021-03-28] MEDS: VITAMIN C PO SCH (10:00)
[2021-03-28] MEDS: VSL#3 PO SCH (11:49)
[2021-03-28] MEDS: LOMOTIL PO PRN ×2 (11:50→16:40)
--- NOTE | 2021-03-28 14:42 | PCM.PROG ---
Progress Note Progress Note for Day of Date of Exam: 03/28/21 Subjective Subjective: Patient seen at bedside, no acute events overnight. He is currently on HHFNC at FiO2 60% with a flow rate of 35L. He states he is doing ok. He was having diarrhea over the weekend, stool studies are negative except Fecal WBCs. His leo was removed Sunday but then had to be re-inserted in the afternoon as patient was not able to void and was having abdominal distension. He does see Urology. He is still having some cough. He has been sitting on the side of the bed. Labs: WBC 12.9 Plt 92 Hgb 13.0 BUN/Cr: 25/0.58 Glucose 106 K: 3.2 Sputum: C. albicans + Klebsiella CXR: 03/28/21: persistent bilateral multifocal pneumonia, no change ECHO (03/16/21): Normal global wall motion. EF 55% with grade 3 restrictive diastolic dysfunction. Normal IVC. Plan: Will DC Fortaz. Add probiotic. DC Xopenex as patient states it makes him anxious. Add Mucomyst. Continue pulmicort. Wean O2 as tolerated to keep sats > 88%. Continue zoloft for anxiety, vistaril to q8h prn. Continue morphine for air hunger. Discussed with patient about being mobile and sitting in the recliner, working with PT. Encouraged to sit on the side of the bed when eating and lay on sides to help with oxygenation. Patient has completed course of Remdesivir and has received Actemra. Continue IV abx. Continue taper Solumedrol 40 mg daily. Continue IS and smart vest. Continue eliquis. Continue vitamin support. Monitor platelet count. Keep leo for now, patient has failed removal twice. He is on flomax and finasteride. He does see Urology outpatient. Monitor AM labs and imaging. Time spent for clinical assessment, reviewing labs/imaging, physical exam, decision making and documentation greater than 45 mins. Past Medical Family Social History Past Med/Fam/Surg Hx: No changes since H&P Allergies: Allergies temazepam [From Restoril] Allergy (Verified 03/05/21 09:47) IVP DYE Allergy (Uncoded 03/02/21 18:20) Review of Systems ROS: No change since H&P Vital Signs and I&O's Vital Signs: Temperature 98.3 F Pulse Rate [Left Brachial] 85 Pulse Rate 84 Respiratory Rate 29 Blood Pressure [Left Arm] 153/80 Blood Pressure 102/74 O2 Sat by Pulse Oximetry 88 Intake and Output: Intake & Output 03/25/21 03/26/21 03/27/21 03/28/21 23:59 23:59 23:59 23:59 Intake Total 2017 770 / 770 966 / 966 225 / 225 Output Total 2750 / 2750 1400 / 1400 2300 / 2300 500 / 500 Balance -732 / -732 -630 / -630 -1334 / -1334 -275 / -275 Physical Exam Oriented: Normal Eyes: Normal Ear: Normal Nose: Normal Throat: Normal Respiratory: Generalized and Diminished Cardiovascular: Normal Auscultation: Bowel Sounds: Normal Tenderness: Normal Skin: Normal Musculoskeletal: Normal Psychiatric: Anxiety Mood Description: Anxious Affect: Anxious Speech Pattern: Clear and Appropriate Laboratory and Diagnostics Result Diagrams: 03/28/21 04:32 03/28/21 04:32 Labs: 03/27/21 07:00 Stool Stool Culture - Preliminary 03/27/21 07:00 Stool - Final 03/09/21 11:50 Sputum - Expectorated Sputum Sputum Culture - Final Klebsiella Pneumoniae 03/09/21 11:50 Sputum - Expectorated Sputum - Final 03/11/21 08:10 Sputum - Expectorated Sputum Sputum Culture - Final Klebsiella Pneumoniae 03/11/21 08:10 Sputum - Expectorated Sputum - Final Laboratory WBC 12.9 X10^3/uL (3.6-10.0) H 03/28/21 04:32 RBC 4.30 X10^6/uL (4.7-6.0) L 03/28/21 04:32 Hgb 13.0 g/dL (13.5-18.0) L 03/28/21 04:32 Hct 36.5 % (42.0-54.0) L 03/28/21 04:32 MCV 84.9 fL (80.0-100.0) 03/28/21 04:32 MCH 30.2 pg (27.0-34.0) 03/28/21 04:32 MCHC 35.5 g/dL (33.0-35.0) H 03/28/21 04:32 RDW 16.5 % (11.6-16.5) 03/28/21 04:32 Plt Count 92 X10^3/uL (150.0-450.0) L 03/28/21 04:32 Plt Count Comment Decreased (ADEQUATE) 03/28/21 04:32 MPV 8.7 fL (7.4-11.0) 03/28/21 04:32 Neut % (Auto) 91.8 % (42.0-75.0) H 03/28/21 04:32 Lymph % (Auto) 3.5 % (21.0-51.0) L 03/28/21 04:32 [place] % (Auto) 2.6 % (0.0-13.0) 03/28/21 04:32 Eos % (Auto) 2.0 % (0.9-2.9) 03/28/21 04:32 Baso % (Auto) 0.1 % (0.2-1.0) L 03/28/21 04:32 Neut # (Auto) 11.9 x10^3/uL (2.2-4.8) H 03/28/21 04:32 Lymph # (Auto) 0.4 X10^3/uL (1.3-2.9) L 03/28/21 04:32 [place] # (Auto) 0.3 x10^3/uL (0.3-0.8) 03/28/21 04:32 Eos # (Auto) 0.3 x10^3/uL (0.0-0.2) H 03/28/21 04:32 Baso # (Auto) 0.0 X10^3/uL (0.0-0.1) 03/28/21 04:32 Absolute Nucleated RBC 0.1 /100WBC 03/28/21 04:32 Total Counted 100 03/28/21 04:32 Neutrophils % (Manual) 96 % (39-76) H 03/28/21 04:32 Band Neutrophils % 3 % (0-10) 03/27/21 05:08 Lymphocytes % (Manual) 3 % (13-43) L 03/28/21 04:32 Monocytes % (Manual) 1 % (4-9) L 03/28/21 04:32 Eosinophils % (Manual) 2 % (0-6) 03/27/21 05:08 Plt Morphology Comment Normal (NORMAL) 03/28/21 04:32 RBC Morphology Normal (NORMAL) 03/28/21 04:32 D-Dimer 2.51 ug/ml (0.0-0.57) H* 03/14/21 04:39 Sample Site Lr 03/24/21 05:15 ABG pH 7.520 (7.35-7.45) H 03/24/21 05:15 ABG pCO2 35.0 mmHg (35.0-45.0) 03/24/21 05:15 ABG pO2 39.0 mmHg (80.0-100.0) L* 03/24/21 05:15 ABG HCO3 28.6 mmol/L (22-26) H 03/24/21 05:15 ABG O2 Saturation 80.0 % (90-100) L* 03/24/21 05:15 ABG Base Excess 5.7 mmol/L (-2.0-2.0) H 03/24/21 05:15 Sree Test Pos 03/24/21 05:15 A-a Gradient 338.0 mmHg 03/24/21 05:15 FiO2 59.0 03/24/21 05:15 Blood Gas Comments Elbert well ae 03/24/21 05:15 Sodium 135 mmol/L (136-145) L 03/28/21 04:32 Corrected Sodium TNP 03/28/21 04:32 Potassium 3.5 mmol/L (3.5-5.1) 03/28/21 04:32 Chloride 100 mmol/L (98-107) 03/28/21 04:32 Carbon Dioxide 27.4 mmol/L (21-32) 03/28/21 04:32 BUN 25 mg/dL (7-18) H 03/28/21 04:32 Creatinine 0.58 mg/dL (0.70-1.30) L 03/28/21 04:32 Est GFR (MDRD) Af Amer > 60 (>60) 03/28/21 04:32 Est GFR (MDRD) Non-Af > 60 (>60) 03/28/21 04:32 Glucose 108 mg/dL (65-99) H 03/28/21 04:32 POC Glucose (mg/dL) 111 mg/dL (65-99) H 03/28/21 11:45 Calcium 8.3 mg/dL (8.5-10.1) L 03/28/21 04:32 Corrected Calcium 9.5 mg/dL (8.5-10.1) 03/28/21 04:32 Magnesium 2.0 mg/dL (1.7-2.9) 03/27/21 05:08 Ferritin 1988 ng/mL (26-388) H 03/01/21 11:20 Total Bilirubin 1.00 mg/dL (0.2-1.0) 03/28/21 04:32 AST 15 Units/L (15-37) 03/28/21 04:32 ALT 37 Units/L (12-78) 03/28/21 04:32 Alkaline Phosphatase 77 Units/L (46-116) 03/28/21 04:32 Creatine Kinase 121 Units/L (39-308) 03/01/21 11:20 CK-MB (CK-2) < 1.0 ng/mL (0-4.0) 03/01/21 11:20 CK/CKMB % Calc 0.8 % (<4) 03/01/21 11:20 Troponin I < 0.02 ng/mL (0-1.5) 03/01/21 11:20 C-Reactive Protein < 0.50 mg/L (0-3.0) 03/13/21 04:22 B-Natriuretic Peptide 78.7 pg/mL (0-79) 03/14/21 04:39 Total Protein 5.6 g/dL (6.4-8.2) L 03/28/21 04:32 Albumin 2.5 g/dL (3.4-5.0) L 03/28/21 04:32 Globulin 3.1 g/dL (2.5-4.5) 03/28/21 04:32 Albumin/Globulin Ratio 0.8 Ratio (1.1-2.1) L 03/28/21 04:32 Specimen Type Catherized urine 03/21/21 05:35 Urine Color Yellow (YELLOW) 03/21/21 05:35 Urine Appearance Clear (CLEAR) 03/21/21 05:35 Urine pH 5.0 (5.0 - 8.0) 03/21/21 05:35 Ur Specific [place] 1.015 (1.000-1.030) 03/21/21 05:35 Urine Protein Negative (NEGATIVE) 03/21/21 05:35 Urine Glucose (UA) Negative (NEGATIVE) 03/21/21 05:35 Urine Ketones Negative (NEGATIVE) 03/21/21 05:35 Urine Occult Blood 5+ (NEGATIVE) 03/21/21 05:35 Urine Nitrite Negative (NEGATIVE) 03/21/21 05:35 Urine Bilirubin Negative (NEGATIVE) 03/21/21 05:35 Urine Urobilinogen Normal (NORMAL) 03/21/21 05:35 Ur Leukocyte Esterase Negative (NEGATIVE) 03/21/21 05:35 Urine RBC 5-10 /HPF (0-3) A 03/21/21 05:35 Urine WBC 0-2 /HPF (0-5) 03/21/21 05:35 Ur Squamous Epith Cells Negative /HPF (NEGATIVE) 03/21/21 05:35 Urine Bacteria Negative /HPF (NEGATIVE) 03/21/21 05:35 Urine Mucus Rare /HPF (NEGATIVE) 03/21/21 05:35 Ur Culture Indicated? No/not indicated 03/21/21 05:35 Stool Description 3g semisolid brown 03/27/21 07:00 Stool Description Fob tube 03/27/21 07:00 Stl Occult Blood (IFOB) Negative (NEGATIVE) 03/27/21 07:00 Stool for White Cells Positive (NEGATIVE) A 03/27/21 07:00 Stl C. diff Tox B Gene Negative (NEGATIVE) 03/27/21 07:00 Stl C. diff [id number] Presumptive negative (NEGATIVE) 03/27/21 07:00 Cryptosporid parvum Ag Negative (NEGATIVE) 03/27/21 07:00 Giardia lamblia Ag Negative (NEGATIVE) 03/27/21 07:00 Plan (1) Infective diarrhea: Status: Acute (2) Acute respiratory failure with hypoxia: Status: Acute (3) COVID-19 virus infection: Status: Acute (4) Hypokalemia: Status: Acute (5) Elevated d-dimer: Status: Acute (6) Klebsiella pneumonia: Status: Acute Qualifiers: Laterality: bilateral Lung location: unspecified part of lung Qualified Code(s): J15.0 - Pneumonia due to Klebsiella pneumoniae Plan: Cont ABX (7) Candidal pneumonia: Status: Acute (8) Anxiety: Status: Acute (9) Thrombocytopenia: Status: Acute (10) BPH (benign prostatic hyperplasia): Status: Acute (11) Urinary retention: Status: Acute
[2021-03-28] MEDS ORDERED: NS 100 ML IV 100 ML ONE ×2 (14:52→23:35)
[2021-03-28] MEDS: AVELOX IV 400 MG/250 ML BAG 400 MG/250 ML PIGGYBACK IV SCH (15:45)
[2021-03-28] MEDS: MUCOMYST 20% 200 MG/ML NEB SCH ×2 (17:22→20:48)
[2021-03-28] MEDS ORDERED: XOPENEX 1.25 MG/3 ML NEBULE NEB ONE (19:12)
[2021-03-29 05:31] LABS: BASOPHILS # (AUTO) 0.1 X10^3/uL (0.0-0.1); BASOPHILS % (AUTO) 0.6 % (0.2-1.0); EOSINOPHILS # (AUTO) 0.2 x10^3/uL (0.0-0.2); EOSINOPHILS % (AUTO) 2.1 % (0.9-2.9); HEMATOCRIT 34.6 % (42.0-54.0); HEMOGLOBIN 12.2 g/dL (13.5-18.0); LYMPHOCYTES # (AUTO) 0.3 X10^3/uL (1.3-2.9); MEAN CORPUSCULAR HEMOGLOBIN 30.3 pg (27.0-34.0); MEAN CORPUSCULAR HGB CONC 35.2 g/dL (33.0-35.0); MEAN CORPUSCULAR VOLUME 86.1 fL (80.0-100.0); MEAN PLATELET VOLUME 8.8 fL (7.4-11.0); MONOCYTES # (AUTO) 0.3 x10^3/uL (0.3-0.8); MONOCYTES % (AUTO) 3.1 % (0.0-13.0); NEUTROPHILS # (AUTO) 10.4 x10^3/uL (2.2-4.8); NEUTROPHILS % (AUTO) 91.2 % (42.0-75.0); PLATELET COUNT 93 X10^3/uL (150.0-450.0); RED BLOOD COUNT 4.02 X10^6/uL (4.7-6.0); RED CELL DISTRIBUTION WIDTH 16.2 % (11.6-16.5); WHITE BLOOD COUNT 11.4 X10^3/uL (3.6-10.0)
[2021-03-29 05:43] LABS: ALANINE AMINOTRANSFERASE 35 Units/L (12-78); ALBUMIN 2.3 g/dL (3.4-5.0); ALKALINE PHOSPHATASE 76 Units/L (46-116); ASPARTATE AMINO TRANSFERASE 16 Units/L (15-37); BLOOD UREA NITROGEN 20 mg/dL (7-18); CALCIUM 8.1 mg/dL (8.5-10.1); CARBON DIOXIDE 28.6 mmol/L (21-32); CHLORIDE 99 mmol/L (98-107); COR CA(FOR HYPOALB) 9.5 mg/dL (8.5-10.1); CREATININE 0.54 mg/dL (0.70-1.30); MAGNESIUM 1.8 mg/dL (1.7-2.9); SODIUM 136 mmol/L (136-145); TOTAL PROTEIN 5.5 g/dL (6.4-8.2); eGFR NON BLACK RACES > 60 (>60)
[2021-03-29 06:18] LABS: BAND NEUTROPHILS % 1 % (0-10); PLATELET MORPHOLOGY COMMENT NORMAL (NORMAL)
[2021-03-29] MEDS: MAGNESIUM SULFATE 1 GRAM/100 mL PREMIX 1 G/100 ML BAG IV PRN ×2 (06:26→08:14)
[2021-03-29] MEDS: K-DUR TAB 20 MEQ PO PRN (06:27)
[2021-03-29] MEDS ORDERED: MUCOMYST (RESPIRATORY USE ONLY) ONE (07:58)
[2021-03-29] MEDS ORDERED: Atrovent NEB TX 0.02% ONE (07:58)
[2021-03-29] MEDS ORDERED: NS 100 ML IV 100 ML ONE (08:47)
--- NOTE | 2021-03-29 09:24 | PCM.PROG ---
Progress Note Progress Note for Day of Date of Exam: 03/29/21 Subjective Subjective: Patient seen at bedside, he is doing well. This morning his HHFNC stopped working and it was blocked up so RT has to temporarily put him on the non-breather as his sats dropped to 60s. His sats right now are between 85-90%. He does not appear to be in any distress. He states he slept well. His diarrhea has improved, went 3 times yesterday. He is eating well. Denies N/V. He did sit up in the recliner for a few hrs yesterday. He states he felt a lot better sitting up. Labs: WBC 11.4 Plt 93 Hgb 12.2 BUN/Cr: 20/0.54 Glucose 106 K: 3.3 Sputum: C. albicans + Klebsiella CXR: 03/28/21: persistent bilateral multifocal pneumonia, no change ECHO (03/16/21): Normal global wall motion. EF 55% with grade 3 restrictive diastolic dysfunction. Normal IVC. Plan: Wean O2 as tolerated to keep sats > 88%. Continue zoloft for anxiety, vistaril to q8h prn. Continue morphine for air hunger. Discussed with patient about being mobile and sitting in the recliner, working with PT. Encouraged to sit on the side of the bed when eating and lay on sides to help with oxygenation. Patient has completed course of Remdesivir and has received Actemra. Continue IV abx. Continue taper Solumedrol 40 mg daily. Continue IS, nebs, pulmicort and smart vest. Continue eliquis. Continue probiotic. Replace K. Continue vitamin support. Monitor platelet count. Keep leo for now, patient has failed removal twice. He is on flomax and finasteride. He does see Urology outpatient. Monitor AM labs and imaging. Time spent for clinical assessment, reviewing labs/imaging, physical exam, decision making and documentation greater than 45 mins. Past Medical Family Social History Past Med/Fam/Surg Hx: No changes since H&P Allergies: Allergies temazepam [From Restoril] Allergy (Verified 03/05/21 09:47) IVP DYE Allergy (Uncoded 03/02/21 18:20) Review of Systems ROS: No change since H&P Vital Signs and I&O's Vital Signs: Temperature 97.6 F Pulse Rate [Left Brachial] 85 Pulse Rate 81 Respiratory Rate 30 Blood Pressure [Left Arm] 153/80 Blood Pressure 105/61 O2 Sat by Pulse Oximetry 90 Intake and Output: Intake & Output 03/26/21 03/27/21 03/28/21 03/29/21 23:59 23:59 23:59 23:59 Intake Total 770 / 770 966 / 966 1355 / 1355 170 / 170 Output Total 1400 / 1400 2300 / 2300 1450 / 1450 200 / 200 Balance -630 / -630 -1334 / -1334 -95 / -95 -30 / -30 Physical Exam Oriented: Normal Eyes: Normal Ear: Normal Nose: Normal Throat: Normal Respiratory: Generalized and Diminished Cardiovascular: Normal Auscultation: Bowel Sounds: Normal Tenderness: Normal Skin: Normal Musculoskeletal: Normal Psychiatric: Anxiety Mood Description: Anxious Affect: Anxious Speech Pattern: Clear and Appropriate Laboratory and Diagnostics Result Diagrams: 03/29/21 04:55 03/29/21 04:55 Labs: 03/27/21 07:00 Stool Stool Culture - Final 03/27/21 07:00 Stool - Final 03/09/21 11:50 Sputum - Expectorated Sputum Sputum Culture - Final Klebsiella Pneumoniae 03/09/21 11:50 Sputum - Expectorated Sputum - Final 03/11/21 08:10 Sputum - Expectorated Sputum Sputum Culture - Final Klebsiella Pneumoniae 03/11/21 08:10 Sputum - Expectorated Sputum - Final Laboratory WBC 11.4 X10^3/uL (3.6-10.0) H 03/29/21 04:55 RBC 4.02 X10^6/uL (4.7-6.0) L 03/29/21 04:55 Hgb 12.2 g/dL (13.5-18.0) L 03/29/21 04:55 Hct 34.6 % (42.0-54.0) L 03/29/21 04:55 MCV 86.1 fL (80.0-100.0) 03/29/21 04:55 MCH 30.3 pg (27.0-34.0) 03/29/21 04:55 MCHC 35.2 g/dL (33.0-35.0) H 03/29/21 04:55 RDW 16.2 % (11.6-16.5) 03/29/21 04:55 Plt Count 93 X10^3/uL (150.0-450.0) L 03/29/21 04:55 Plt Count Comment Decreased (ADEQUATE) 03/29/21 04:55 MPV 8.8 fL (7.4-11.0) 03/29/21 04:55 Neut % (Auto) 91.2 % (42.0-75.0) H 03/29/21 04:55 Lymph % (Auto) 3.0 % (21.0-51.0) L 03/29/21 04:55 [place] % (Auto) 3.1 % (0.0-13.0) 03/29/21 04:55 Eos % (Auto) 2.1 % (0.9-2.9) 03/29/21 04:55 Baso % (Auto) 0.6 % (0.2-1.0) 03/29/21 04:55 Neut # (Auto) 10.4 x10^3/uL (2.2-4.8) H 03/29/21 04:55 Lymph # (Auto) 0.3 X10^3/uL (1.3-2.9) L 03/29/21 04:55 [place] # (Auto) 0.3 x10^3/uL (0.3-0.8) 03/29/21 04:55 Eos # (Auto) 0.2 x10^3/uL (0.0-0.2) 03/29/21 04:55 Baso # (Auto) 0.1 X10^3/uL (0.0-0.1) 03/29/21 04:55 Absolute Nucleated RBC 0.0 /100WBC 03/29/21 04:55 Total Counted 100 03/29/21 04:55 Neutrophils % (Manual) 93 % (39-76) H 03/29/21 04:55 Band Neutrophils % 1 % (0-10) 03/29/21 04:55 Lymphocytes % (Manual) 4 % (13-43) L 03/29/21 04:55 Monocytes % (Manual) 2 % (4-9) L 03/29/21 04:55 Eosinophils % (Manual) 2 % (0-6) 03/27/21 05:08 Plt Morphology Comment Normal (NORMAL) 03/29/21 04:55 RBC Morphology Normal (NORMAL) 03/29/21 04:55 D-Dimer 2.51 ug/ml (0.0-0.57) H* 03/14/21 04:39 Sample Site Lr 03/24/21 05:15 ABG pH 7.520 (7.35-7.45) H 03/24/21 05:15 ABG pCO2 35.0 mmHg (35.0-45.0) 03/24/21 05:15 ABG pO2 39.0 mmHg (80.0-100.0) L* 03/24/21 05:15 ABG HCO3 28.6 mmol/L (22-26) H 03/24/21 05:15 ABG O2 Saturation 80.0 % (90-100) L* 03/24/21 05:15 ABG Base Excess 5.7 mmol/L (-2.0-2.0) H 03/24/21 05:15 Sree Test Pos 03/24/21 05:15 A-a Gradient 338.0 mmHg 03/24/21 05:15 FiO2 59.0 03/24/21 05:15 Blood Gas Comments Elbert well ae 03/24/21 05:15 Sodium 136 mmol/L (136-145) 03/29/21 04:55 Corrected Sodium TNP 03/29/21 04:55 Potassium 3.3 mmol/L (3.5-5.1) L 03/29/21 04:55 Chloride 99 mmol/L (98-107) 03/29/21 04:55 Carbon Dioxide 28.6 mmol/L (21-32) 03/29/21 04:55 BUN 20 mg/dL (7-18) H 03/29/21 04:55 Creatinine 0.54 mg/dL (0.70-1.30) L 03/29/21 04:55 Est GFR (MDRD) Af Amer > 60 (>60) 03/29/21 04:55 Est GFR (MDRD) Non-Af > 60 (>60) 03/29/21 04:55 Glucose 91 mg/dL (65-99) 03/29/21 04:55 POC Glucose (mg/dL) 111 mg/dL (65-99) H 03/28/21 11:45 Calcium 8.1 mg/dL (8.5-10.1) L 03/29/21 04:55 Corrected Calcium 9.5 mg/dL (8.5-10.1) 03/29/21 04:55 Magnesium 1.8 mg/dL (1.7-2.9) 03/29/21 04:55 Ferritin 1988 ng/mL (26-388) H 03/01/21 11:20 Total Bilirubin 1.30 mg/dL (0.2-1.0) H 03/29/21 04:55 AST 16 Units/L (15-37) 03/29/21 04:55 ALT 35 Units/L (12-78) 03/29/21 04:55 Alkaline Phosphatase 76 Units/L (46-116) 03/29/21 04:55 Creatine Kinase 121 Units/L (39-308) 03/01/21 11:20 CK-MB (CK-2) < 1.0 ng/mL (0-4.0) 03/01/21 11:20 CK/CKMB % Calc 0.8 % (<4) 03/01/21 11:20 Troponin I < 0.02 ng/mL (0-1.5) 03/01/21 11:20 C-Reactive Protein < 0.50 mg/L (0-3.0) 03/13/21 04:22 B-Natriuretic Peptide 78.7 pg/mL (0-79) 03/14/21 04:39 Total Protein 5.5 g/dL (6.4-8.2) L 03/29/21 04:55 Albumin 2.3 g/dL (3.4-5.0) L 03/29/21 04:55 Globulin 3.2 g/dL (2.5-4.5) 03/29/21 04:55 Albumin/Globulin Ratio 0.7 Ratio (1.1-2.1) L 03/29/21 04:55 Specimen Type Catherized urine 03/21/21 05:35 Urine Color Yellow (YELLOW) 03/21/21 05:35 Urine Appearance Clear (CLEAR) 03/21/21 05:35 Urine pH 5.0 (5.0 - 8.0) 03/21/21 05:35 Ur Specific [place] 1.015 (1.000-1.030) 03/21/21 05:35 Urine Protein Negative (NEGATIVE) 03/21/21 05:35 Urine Glucose (UA) Negative (NEGATIVE) 03/21/21 05:35 Urine Ketones Negative (NEGATIVE) 03/21/21 05:35 Urine Occult Blood 5+ (NEGATIVE) 03/21/21 05:35 Urine Nitrite Negative (NEGATIVE) 03/21/21 05:35 Urine Bilirubin Negative (NEGATIVE) 03/21/21 05:35 Urine Urobilinogen Normal (NORMAL) 03/21/21 05:35 Ur Leukocyte Esterase Negative (NEGATIVE) 03/21/21 05:35 Urine RBC 5-10 /HPF (0-3) A 03/21/21 05:35 Urine WBC 0-2 /HPF (0-5) 03/21/21 05:35 Ur Squamous Epith Cells Negative /HPF (NEGATIVE) 03/21/21 05:35 Urine Bacteria Negative /HPF (NEGATIVE) 03/21/21 05:35 Urine Mucus Rare /HPF (NEGATIVE) 03/21/21 05:35 Ur Culture Indicated? No/not indicated 03/21/21 05:35 Stool Description 3g semisolid brown 03/27/21 07:00 Stool Description Fob tube 03/27/21 07:00 Stl Occult Blood (IFOB) Negative (NEGATIVE) 03/27/21 07:00 Stool for White Cells Positive (NEGATIVE) A 03/27/21 07:00 Stl C. diff Tox B Gene Negative (NEGATIVE) 03/27/21 07:00 Stl C. diff [id number] Presumptive negative (NEGATIVE) 03/27/21 07:00 Cryptosporid parvum Ag Negative (NEGATIVE) 03/27/21 07:00 Giardia lamblia Ag Negative (NEGATIVE) 03/27/21 07:00 Plan (1) Infective diarrhea: Status: Acute (2) Acute respiratory failure with hypoxia: Status: Acute Plan: Continue Rx. (3) COVID-19 virus infection: Status: Acute (4) Hypokalemia: Status: Acute (5) Elevated d-dimer: Status: Acute (6) Klebsiella pneumonia: Status: Acute Qualifiers: Laterality: bilateral Lung location: unspecified part of lung Qualified Code(s): J15.0 - Pneumonia due to Klebsiella pneumoniae (7) Candidal pneumonia: Status: Acute (8) Anxiety: Status: Acute (9) Thrombocytopenia: Status: Acute (10) BPH (benign prostatic hyperplasia): Status: Acute (11) Urinary retention: Status: Acute
[2021-03-29] MEDS: Atrovent NEB TX 0.02% NEB SCH ×2 (09:50→20:35)
[2021-03-29] MEDS: PULMICORT NEB TX 0.5 MG NEB SCH ×2 (09:50→20:35)
[2021-03-29] MEDS: MUCOMYST 20% 200 MG/ML NEB SCH ×2 (09:50→20:35)
[2021-03-29] MEDS: ZOLOFT PO SCH (09:51)
[2021-03-29] MEDS: ELIQUIS PO SCH ×2 (09:52→20:23)
[2021-03-29] MEDS: FLOMAX PO SCH (09:53)
[2021-03-29] MEDS: HYDROCHLOROTHIAZIDE 25 MG TAB PO SCH (09:53)
[2021-03-29] MEDS: LOPRESSOR TAB 50 MG PO SCH (09:54)
[2021-03-29] MEDS: COZAAR PO SCH (09:55)
[2021-03-29] MEDS: PriLOSEC PO SCH (09:55)
[2021-03-29] MEDS: PROSCAR PO SCH (09:56)
[2021-03-29] MEDS: SOLU-Medrol 40 MG VIAL IVP SCH (09:56)
[2021-03-29] MEDS: VITAMIN D3 125 mcg (5,000 UNITS) PO SCH (09:57)
[2021-03-29] MEDS: VITAMIN A PO SCH (09:57)
[2021-03-29] MEDS: VSL#3 PO SCH (09:58)
[2021-03-29] MEDS: VITAMIN C PO SCH (09:58)
[2021-03-29] MEDS: AVELOX IV 400 MG/250 ML BAG 400 MG/250 ML PIGGYBACK IV SCH (15:41)
[2021-03-30 05:27] LABS: BASOPHILS # (AUTO) 0.1 X10^3/uL (0.0-0.1); BASOPHILS % (AUTO) 0.6 % (0.2-1.0); EOSINOPHILS # (AUTO) 0.1 x10^3/uL (0.0-0.2); EOSINOPHILS % (AUTO) 1.5 % (0.9-2.9); HEMATOCRIT 34.9 % (42.0-54.0); HEMOGLOBIN 12.5 g/dL (13.5-18.0); LYMPHOCYTES # (AUTO) 0.5 X10^3/uL (1.3-2.9); LYMPHOCYTES % (AUTO) 4.9 % (21.0-51.0); MEAN CORPUSCULAR HEMOGLOBIN 30.7 pg (27.0-34.0); MEAN CORPUSCULAR HGB CONC 35.9 g/dL (33.0-35.0); MEAN CORPUSCULAR VOLUME 85.5 fL (80.0-100.0); MEAN PLATELET VOLUME 8.6 fL (7.4-11.0); MONOCYTES # (AUTO) 0.4 x10^3/uL (0.3-0.8); MONOCYTES % (AUTO) 3.8 % (0.0-13.0); NEUTROPHILS # (AUTO) 8.5 x10^3/uL (2.2-4.8); NEUTROPHILS % (AUTO) 89.2 % (42.0-75.0); PLATELET COUNT 98 X10^3/uL (150.0-450.0); RED BLOOD COUNT 4.08 X10^6/uL (4.7-6.0); RED CELL DISTRIBUTION WIDTH 17.5 % (11.6-16.5); WHITE BLOOD COUNT 9.5 X10^3/uL (3.6-10.0)
[2021-03-30 05:32] LABS: ALANINE AMINOTRANSFERASE 40 Units/L (12-78); ALBUMIN 2.3 g/dL (3.4-5.0); ALKALINE PHOSPHATASE 77 Units/L (46-116); ASPARTATE AMINO TRANSFERASE 16 Units/L (15-37); BLOOD UREA NITROGEN 25 mg/dL (7-18); CALCIUM 8.4 mg/dL (8.5-10.1); CARBON DIOXIDE 28.7 mmol/L (21-32); CHLORIDE 100 mmol/L (98-107); COR CA(FOR HYPOALB) 9.8 mg/dL (8.5-10.1); CREATININE 0.57 mg/dL (0.70-1.30); SODIUM 137 mmol/L (136-145); TOTAL PROTEIN 5.7 g/dL (6.4-8.2); eGFR NON BLACK RACES > 60 (>60)
[2021-03-30] MEDS: HYDROCHLOROTHIAZIDE 25 MG TAB PO SCH (09:51)
[2021-03-30] MEDS: COZAAR PO SCH (09:51)
[2021-03-30] MEDS: FLOMAX PO SCH (09:51)
[2021-03-30] MEDS: ELIQUIS PO SCH ×2 (09:51→20:45)
[2021-03-30] MEDS: LOPRESSOR TAB 50 MG PO SCH (09:52)
[2021-03-30] MEDS: PROSCAR PO SCH (09:52)
[2021-03-30] MEDS: VITAMIN A PO SCH (09:52)
[2021-03-30] MEDS: PriLOSEC PO SCH (09:52)
[2021-03-30] MEDS: VITAMIN D3 125 mcg (5,000 UNITS) PO SCH (09:53)
[2021-03-30] MEDS: SOLU-Medrol 40 MG VIAL IVP SCH (09:53)
[2021-03-30] MEDS: VSL#3 PO SCH (09:53)
[2021-03-30] MEDS: VITAMIN C PO SCH (09:53)
[2021-03-30] MEDS: ZOLOFT PO SCH (09:54)
[2021-03-30] MEDS: MUCOMYST 20% 200 MG/ML NEB SCH ×2 (10:10→20:36)
[2021-03-30] MEDS: Atrovent NEB TX 0.02% NEB SCH ×2 (10:10→20:36)
[2021-03-30] MEDS: PULMICORT NEB TX 0.5 MG NEB SCH ×2 (10:10→20:36)
--- NOTE | 2021-03-30 11:24 | PCM.PROG ---
Progress Note Progress Note for Day of Date of Exam: 03/30/21 Subjective Subjective: Patient seen at bedside, no acute events overnight. He had a anxiety episode this morning. He is currently on HHFNC at FiO2 50% sats in low 80s. He is working on doing deep breathing exercises. He did sit up in the chair for a few hrs yesterday. He slept well. He reports diarrhea as resolved. He has good appetite. Labs: WBC 9.5 Plt 98 Hgb 12.5 BUN/Cr: 25/0.57 Glucose 104 K: 3.6 Sputum: C. albicans + Klebsiella CXR: 03/28/21: persistent bilateral multifocal pneumonia, no change ECHO (03/16/21): Normal global wall motion. EF 55% with grade 3 restrictive diastolic dysfunction. Normal IVC. Plan: Wean O2 as tolerated to keep sats > 88%. Continue zoloft for anxiety, vistaril to q8h prn. Continue morphine for air hunger. Will stop moxifloxacin. Add magic mouthwash and nystatin swish & swallow. Continue taper Solumedrol 40 mg daily. Continue IS, nebs, pulmicort and smart vest. Continue eliquis. Discussed with patient about being mobile and sitting in the recliner, working with PT. Encouraged to sit on the side of the bed when eating and lay on sides to help with oxygenation. Patient has completed course of Remdesivir and has received Actemra. Continue probiotic. Continue vitamin support. Monitor platelet count. Keep leo for now, patient has failed removal twice. He is on flomax and finasteride. He does see Urology outpatient. Monitor AM labs and imaging. Time spent for clinical assessment, reviewing labs/imaging, physical exam, decision making and documentation greater than 45 mins. Past Medical Family Social History Past Med/Fam/Surg Hx: No changes since H&P Allergies: Allergies temazepam [From Restoril] Allergy (Verified 03/05/21 09:47) IVP DYE Allergy (Uncoded 03/02/21 18:20) Review of Systems ROS: No change since H&P Vital Signs and I&O's Vital Signs: Temperature 97.9 F Pulse Rate [Left Brachial] 85 Pulse Rate 89 Respiratory Rate 35 Blood Pressure [Left Arm] 153/80 Blood Pressure 128/75 O2 Sat by Pulse Oximetry 90 Intake and Output: Intake & Output 03/27/21 03/28/21 03/29/21 03/30/21 23:59 23:59 23:59 23:59 Intake Total 966 / 966 1355 / 1355 1824 / 1824 60 / 60 Output Total 2300 / 2300 1450 / 1450 1500 / 1500 200 / 200 Balance -1334 / -1334 -95 / -95 324 / 324 -140 / -140 Physical Exam Oriented: Normal Eyes: Normal Ear: Normal Nose: Normal Throat: Normal and Other (small ulcers noted on the tip of the tongue. Some oral thrush ) Respiratory: Generalized and Diminished Cardiovascular: Normal Auscultation: Bowel Sounds: Normal Tenderness: Normal Skin: Normal Musculoskeletal: Normal Psychiatric: Anxiety Mood Description: Anxious Affect: Anxious Speech Pattern: Clear and Appropriate Laboratory and Diagnostics Result Diagrams: 03/30/21 04:59 03/30/21 04:59 Labs: 03/27/21 07:00 Stool Stool Culture - Final 03/27/21 07:00 Stool - Final 03/09/21 11:50 Sputum - Expectorated Sputum Sputum Culture - Final Klebsiella Pneumoniae 03/09/21 11:50 Sputum - Expectorated Sputum - Final 03/11/21 08:10 Sputum - Expectorated Sputum Sputum Culture - Final Klebsiella Pneumoniae 03/11/21 08:10 Sputum - Expectorated Sputum - Final Laboratory WBC 9.5 X10^3/uL (3.6-10.0) 03/30/21 04:59 RBC 4.08 X10^6/uL (4.7-6.0) L 03/30/21 04:59 Hgb 12.5 g/dL (13.5-18.0) L 03/30/21 04:59 Hct 34.9 % (42.0-54.0) L 03/30/21 04:59 MCV 85.5 fL (80.0-100.0) 03/30/21 04:59 MCH 30.7 pg (27.0-34.0) 03/30/21 04:59 MCHC 35.9 g/dL (33.0-35.0) H 03/30/21 04:59 RDW 17.5 % (11.6-16.5) H 03/30/21 04:59 Plt Count 98 X10^3/uL (150.0-450.0) L 03/30/21 04:59 Plt Count Comment Decreased (ADEQUATE) 03/29/21 04:55 MPV 8.6 fL (7.4-11.0) 03/30/21 04:59 Neut % (Auto) 89.2 % (42.0-75.0) H 03/30/21 04:59 Lymph % (Auto) 4.9 % (21.0-51.0) L 03/30/21 04:59 [place] % (Auto) 3.8 % (0.0-13.0) 03/30/21 04:59 Eos % (Auto) 1.5 % (0.9-2.9) 03/30/21 04:59 Baso % (Auto) 0.6 % (0.2-1.0) 03/30/21 04:59 Neut # (Auto) 8.5 x10^3/uL (2.2-4.8) H 03/30/21 04:59 Lymph # (Auto) 0.5 X10^3/uL (1.3-2.9) L 03/30/21 04:59 [place] # (Auto) 0.4 x10^3/uL (0.3-0.8) 03/30/21 04:59 Eos # (Auto) 0.1 x10^3/uL (0.0-0.2) 03/30/21 04:59 Baso # (Auto) 0.1 X10^3/uL (0.0-0.1) 03/30/21 04:59 Absolute Nucleated RBC 0.1 /100WBC 03/30/21 04:59 Total Counted 100 03/29/21 04:55 Neutrophils % (Manual) 93 % (39-76) H 03/29/21 04:55 Band Neutrophils % 1 % (0-10) 03/29/21 04:55 Lymphocytes % (Manual) 4 % (13-43) L 03/29/21 04:55 Monocytes % (Manual) 2 % (4-9) L 03/29/21 04:55 Eosinophils % (Manual) 2 % (0-6) 03/27/21 05:08 Plt Morphology Comment Normal (NORMAL) 03/29/21 04:55 RBC Morphology Normal (NORMAL) 03/29/21 04:55 D-Dimer 2.51 ug/ml (0.0-0.57) H* 03/14/21 04:39 Sample Site Lr 03/24/21 05:15 ABG pH 7.520 (7.35-7.45) H 03/24/21 05:15 ABG pCO2 35.0 mmHg (35.0-45.0) 03/24/21 05:15 ABG pO2 39.0 mmHg (80.0-100.0) L* 03/24/21 05:15 ABG HCO3 28.6 mmol/L (22-26) H 03/24/21 05:15 ABG O2 Saturation 80.0 % (90-100) L* 03/24/21 05:15 ABG Base Excess 5.7 mmol/L (-2.0-2.0) H 03/24/21 05:15 Sree Test Pos 03/24/21 05:15 A-a Gradient 338.0 mmHg 03/24/21 05:15 FiO2 59.0 03/24/21 05:15 Blood Gas Comments Elbert well ae 03/24/21 05:15 Sodium 137 mmol/L (136-145) 03/30/21 04:59 Corrected Sodium TNP 03/30/21 04:59 Potassium 3.6 mmol/L (3.5-5.1) 03/30/21 04:59 Chloride 100 mmol/L (98-107) 03/30/21 04:59 Carbon Dioxide 28.7 mmol/L (21-32) 03/30/21 04:59 BUN 25 mg/dL (7-18) H 03/30/21 04:59 Creatinine 0.57 mg/dL (0.70-1.30) L 03/30/21 04:59 Est GFR (MDRD) Af Amer > 60 (>60) 03/30/21 04:59 Est GFR (MDRD) Non-Af > 60 (>60) 03/30/21 04:59 Glucose 104 mg/dL (65-99) H 03/30/21 04:59 POC Glucose (mg/dL) 111 mg/dL (65-99) H 03/28/21 11:45 Calcium 8.4 mg/dL (8.5-10.1) L 03/30/21 04:59 Corrected Calcium 9.8 mg/dL (8.5-10.1) 03/30/21 04:59 Magnesium 1.9 mg/dL (1.7-2.9) 03/30/21 04:59 Ferritin 1988 ng/mL (26-388) H 03/01/21 11:20 Total Bilirubin 1.00 mg/dL (0.2-1.0) 03/30/21 04:59 AST 16 Units/L (15-37) 03/30/21 04:59 ALT 40 Units/L (12-78) 03/30/21 04:59 Alkaline Phosphatase 77 Units/L (46-116) 03/30/21 04:59 Creatine Kinase 121 Units/L (39-308) 03/01/21 11:20 CK-MB (CK-2) < 1.0 ng/mL (0-4.0) 03/01/21 11:20 CK/CKMB % Calc 0.8 % (<4) 03/01/21 11:20 Troponin I < 0.02 ng/mL (0-1.5) 03/01/21 11:20 C-Reactive Protein < 0.50 mg/L (0-3.0) 03/13/21 04:22 B-Natriuretic Peptide 78.7 pg/mL (0-79) 03/14/21 04:39 Total Protein 5.7 g/dL (6.4-8.2) L 03/30/21 04:59 Albumin 2.3 g/dL (3.4-5.0) L 03/30/21 04:59 Globulin 3.4 g/dL (2.5-4.5) 03/30/21 04:59 Albumin/Globulin Ratio 0.7 Ratio (1.1-2.1) L 03/30/21 04:59 Specimen Type Catherized urine 03/21/21 05:35 Urine Color Yellow (YELLOW) 03/21/21 05:35 Urine Appearance Clear (CLEAR) 03/21/21 05:35 Urine pH 5.0 (5.0 - 8.0) 03/21/21 05:35 Ur Specific [place] 1.015 (1.000-1.030) 03/21/21 05:35 Urine Protein Negative (NEGATIVE) 03/21/21 05:35 Urine Glucose (UA) Negative (NEGATIVE) 03/21/21 05:35 Urine Ketones Negative (NEGATIVE) 03/21/21 05:35 Urine Occult Blood 5+ (NEGATIVE) 03/21/21 05:35 Urine Nitrite Negative (NEGATIVE) 03/21/21 05:35 Urine Bilirubin Negative (NEGATIVE) 03/21/21 05:35 Urine Urobilinogen Normal (NORMAL) 03/21/21 05:35 Ur Leukocyte Esterase Negative (NEGATIVE) 03/21/21 05:35 Urine RBC 5-10 /HPF (0-3) A 03/21/21 05:35 Urine WBC 0-2 /HPF (0-5) 03/21/21 05:35 Ur Squamous Epith Cells Negative /HPF (NEGATIVE) 03/21/21 05:35 Urine Bacteria Negative /HPF (NEGATIVE) 03/21/21 05:35 Urine Mucus Rare /HPF (NEGATIVE) 03/21/21 05:35 Ur Culture Indicated? No/not indicated 03/21/21 05:35 Stool Description 3g semisolid brown 03/27/21 07:00 Stool Description Fob tube 03/27/21 07:00 Stl Occult Blood (IFOB) Negative (NEGATIVE) 03/27/21 07:00 Stool for White Cells Positive (NEGATIVE) A 03/27/21 07:00 Stl C. diff Tox B Gene Negative (NEGATIVE) 03/27/21 07:00 Stl C. diff [id number] Presumptive negative (NEGATIVE) 03/27/21 07:00 Cryptosporid parvum Ag Negative (NEGATIVE) 03/27/21 07:00 Giardia lamblia Ag Negative (NEGATIVE) 03/27/21 07:00 Plan (1) Infective diarrhea: Status: Acute (2) Acute respiratory failure with hypoxia: Status: Acute (3) COVID-19 virus infection: Status: Acute (4) Hypokalemia: Status: Acute (5) Elevated d-dimer: Status: Acute (6) Klebsiella pneumonia: Status: Acute Qualifiers: Laterality: bilateral Lung location: unspecified part of lung Qualified Code(s): J15.0 - Pneumonia due to Klebsiella pneumoniae (7) Candidal pneumonia: Status: Acute (8) Anxiety: Status: Acute (9) Thrombocytopenia: Status: Acute (10) BPH (benign prostatic hyperplasia): Status: Acute (11) Urinary retention: Status: Acute (12) Hypomagnesemia: Status: Acute
[2021-03-30] MEDS: NYSTATIN SUSP PO SCH ×2 (14:18→20:45)
[2021-03-31 05:11] LABS: BASOPHILS # (AUTO) 0.1 X10^3/uL (0.0-0.1); BASOPHILS % (AUTO) 0.5 % (0.2-1.0); EOSINOPHILS # (AUTO) 0.2 x10^3/uL (0.0-0.2); EOSINOPHILS % (AUTO) 2.2 % (0.9-2.9); HEMATOCRIT 37.9 % (42.0-54.0); HEMOGLOBIN 13.4 g/dL (13.5-18.0); LYMPHOCYTES # (AUTO) 0.6 X10^3/uL (1.3-2.9); LYMPHOCYTES % (AUTO) 6.2 % (21.0-51.0); MEAN CORPUSCULAR HEMOGLOBIN 30.3 pg (27.0-34.0); MEAN CORPUSCULAR HGB CONC 35.4 g/dL (33.0-35.0); MEAN CORPUSCULAR VOLUME 85.6 fL (80.0-100.0); MEAN PLATELET VOLUME 8.3 fL (7.4-11.0); MONOCYTES # (AUTO) 0.4 x10^3/uL (0.3-0.8); MONOCYTES % (AUTO) 4.4 % (0.0-13.0); NEUTROPHILS # (AUTO) 8.4 x10^3/uL (2.2-4.8); NEUTROPHILS % (AUTO) 86.7 % (42.0-75.0); PLATELET COUNT 125 X10^3/uL (150.0-450.0); RED BLOOD COUNT 4.42 X10^6/uL (4.7-6.0); RED CELL DISTRIBUTION WIDTH 17.8 % (11.6-16.5); WHITE BLOOD COUNT 9.7 X10^3/uL (3.6-10.0)
[2021-03-31 05:32] LABS: ALANINE AMINOTRANSFERASE 49 Units/L (12-78); ALBUMIN 2.4 g/dL (3.4-5.0); ALKALINE PHOSPHATASE 87 Units/L (46-116); ASPARTATE AMINO TRANSFERASE 16 Units/L (15-37); BLOOD UREA NITROGEN 27 mg/dL (7-18); CALCIUM 8.6 mg/dL (8.5-10.1); CARBON DIOXIDE 28.4 mmol/L (21-32); CHLORIDE 99 mmol/L (98-107); COR CA(FOR HYPOALB) 9.9 mg/dL (8.5-10.1); CREATININE 0.58 mg/dL (0.70-1.30); SODIUM 136 mmol/L (136-145); TOTAL PROTEIN 6.3 g/dL (6.4-8.2); eGFR NON BLACK RACES > 60 (>60)
[2021-03-31] MEDS: NYSTATIN SUSP PO SCH ×3 (06:15→21:05)
[2021-03-31] MEDS: Atrovent NEB TX 0.02% NEB SCH ×2 (09:10→20:05)
[2021-03-31] MEDS: PULMICORT NEB TX 0.5 MG NEB SCH ×2 (09:10→20:05)
[2021-03-31] MEDS: COZAAR PO SCH (09:47)
[2021-03-31] MEDS: ELIQUIS PO SCH ×2 (09:47→21:05)
[2021-03-31] MEDS: PriLOSEC PO SCH (09:48)
[2021-03-31] MEDS: PROSCAR PO SCH (09:48)
[2021-03-31] MEDS: FLOMAX PO SCH (09:48)
[2021-03-31] MEDS: SOLU-Medrol 40 MG VIAL IVP SCH (09:48)
[2021-03-31] MEDS: HYDROCHLOROTHIAZIDE 25 MG TAB PO SCH (09:48)
[2021-03-31] MEDS: VITAMIN A PO SCH (09:48)
[2021-03-31] MEDS: VITAMIN C PO SCH (09:48)
[2021-03-31] MEDS: LOPRESSOR TAB 50 MG PO SCH (09:48)
[2021-03-31] MEDS: VITAMIN D3 125 mcg (5,000 UNITS) PO SCH (09:49)
[2021-03-31] MEDS: VSL#3 PO SCH (09:49)
[2021-03-31] MEDS: ZOLOFT PO SCH (09:49)
[2021-03-31] MEDS: VALIUM PO PRN ×2 (12:35→21:05)
--- NOTE | 2021-03-31 21:03 | PCM.PROG ---
Progress Note Progress Note for Day of Date of Exam: 03/31/21 Subjective Subjective: Patient is anxious this am. Had anxiety overnight. Past Medical Family Social History Past Med/Fam/Surg Hx: No changes since H&P Allergies: Allergies temazepam [From Restoril] Allergy (Verified 03/05/21 09:47) IVP DYE Allergy (Uncoded 03/02/21 18:20) Review of Systems ROS: No change since H&P Vital Signs and I&O's Vital Signs: Temperature 97.2 F Pulse Rate [Left Brachial] 85 Pulse Rate 94 Respiratory Rate 26 Blood Pressure [Left Arm] 153/80 Blood Pressure 88/50 O2 Sat by Pulse Oximetry 92 Intake and Output: Intake & Output 03/29/21 03/30/21 03/31/21 04/01/21 11:59 11:59 11:59 11:59 Intake Total 1300 / 1300 1714 / 1714 330 / 330 120 / 120 Output Total 1150 / 1150 1500 / 1500 1150 / 1150 325 / 325 Balance 150 / 150 214 / 214 -820 / -820 -205 / -205 Physical Exam Oriented: Normal Eyes: Normal Throat: Other (small ulcers noted on the tip of the tongue. Some oral thrush ) Respiratory: Generalized and Diminished Cardiovascular: Normal Auscultation: Bowel Sounds: Normal Tenderness: Normal Skin: Normal Musculoskeletal: Normal Psychiatric: Anxiety Mood Description: Anxious Affect: Anxious Speech Pattern: Clear and Appropriate Laboratory and Diagnostics Result Diagrams: 03/31/21 04:45 03/31/21 04:45 Labs: 03/27/21 07:00 Stool Stool Culture - Final 03/27/21 07:00 Stool - Final 03/09/21 11:50 Sputum - Expectorated Sputum Sputum Culture - Final Klebsiella Pneumoniae 03/09/21 11:50 Sputum - Expectorated Sputum - Final 03/11/21 08:10 Sputum - Expectorated Sputum Sputum Culture - Final Klebsiella Pneumoniae 03/11/21 08:10 Sputum - Expectorated Sputum - Final Laboratory WBC 9.7 X10^3/uL (3.6-10.0) 03/31/21 04:45 RBC 4.42 X10^6/uL (4.7-6.0) L 03/31/21 04:45 Hgb 13.4 g/dL (13.5-18.0) L 03/31/21 04:45 Hct 37.9 % (42.0-54.0) L 03/31/21 04:45 MCV 85.6 fL (80.0-100.0) 03/31/21 04:45 MCH 30.3 pg (27.0-34.0) 03/31/21 04:45 MCHC 35.4 g/dL (33.0-35.0) H 03/31/21 04:45 RDW 17.8 % (11.6-16.5) H 03/31/21 04:45 Plt Count 125 X10^3/uL (150.0-450.0) L 03/31/21 04:45 Plt Count Comment Decreased (ADEQUATE) 03/29/21 04:55 MPV 8.3 fL (7.4-11.0) 03/31/21 04:45 Neut % (Auto) 86.7 % (42.0-75.0) H 03/31/21 04:45 Lymph % (Auto) 6.2 % (21.0-51.0) L 03/31/21 04:45 [place] % (Auto) 4.4 % (0.0-13.0) 03/31/21 04:45 Eos % (Auto) 2.2 % (0.9-2.9) 03/31/21 04:45 Baso % (Auto) 0.5 % (0.2-1.0) 03/31/21 04:45 Neut # (Auto) 8.4 x10^3/uL (2.2-4.8) H 03/31/21 04:45 Lymph # (Auto) 0.6 X10^3/uL (1.3-2.9) L 03/31/21 04:45 [place] # (Auto) 0.4 x10^3/uL (0.3-0.8) 03/31/21 04:45 Eos # (Auto) 0.2 x10^3/uL (0.0-0.2) 03/31/21 04:45 Baso # (Auto) 0.1 X10^3/uL (0.0-0.1) 03/31/21 04:45 Absolute Nucleated RBC 0.0 /100WBC 03/31/21 04:45 Total Counted 100 03/29/21 04:55 Neutrophils % (Manual) 93 % (39-76) H 03/29/21 04:55 Band Neutrophils % 1 % (0-10) 03/29/21 04:55 Lymphocytes % (Manual) 4 % (13-43) L 03/29/21 04:55 Monocytes % (Manual) 2 % (4-9) L 03/29/21 04:55 Eosinophils % (Manual) 2 % (0-6) 03/27/21 05:08 Plt Morphology Comment Normal (NORMAL) 03/29/21 04:55 RBC Morphology Normal (NORMAL) 03/29/21 04:55 D-Dimer 2.51 ug/ml (0.0-0.57) H* 03/14/21 04:39 Sample Site Lr 03/24/21 05:15 ABG pH 7.520 (7.35-7.45) H 03/24/21 05:15 ABG pCO2 35.0 mmHg (35.0-45.0) 03/24/21 05:15 ABG pO2 39.0 mmHg (80.0-100.0) L* 03/24/21 05:15 ABG HCO3 28.6 mmol/L (22-26) H 03/24/21 05:15 ABG O2 Saturation 80.0 % (90-100) L* 03/24/21 05:15 ABG Base Excess 5.7 mmol/L (-2.0-2.0) H 03/24/21 05:15 Sree Test Pos 03/24/21 05:15 A-a Gradient 338.0 mmHg 03/24/21 05:15 FiO2 59.0 03/24/21 05:15 Blood Gas Comments Elbert well ae 03/24/21 05:15 Sodium 136 mmol/L (136-145) 03/31/21 04:45 Corrected Sodium TNP 03/31/21 04:45 Potassium 3.5 mmol/L (3.5-5.1) 03/31/21 04:45 Chloride 99 mmol/L (98-107) 03/31/21 04:45 Carbon Dioxide 28.4 mmol/L (21-32) 03/31/21 04:45 BUN 27 mg/dL (7-18) H 03/31/21 04:45 Creatinine 0.58 mg/dL (0.70-1.30) L 03/31/21 04:45 Est GFR (MDRD) Af Amer > 60 (>60) 03/31/21 04:45 Est GFR (MDRD) Non-Af > 60 (>60) 03/31/21 04:45 Glucose 108 mg/dL (65-99) H 03/31/21 04:45 POC Glucose (mg/dL) 111 mg/dL (65-99) H 03/28/21 11:45 Calcium 8.6 mg/dL (8.5-10.1) 03/31/21 04:45 Corrected Calcium 9.9 mg/dL (8.5-10.1) 03/31/21 04:45 Magnesium 1.9 mg/dL (1.7-2.9) 03/30/21 04:59 Ferritin 1988 ng/mL (26-388) H 03/01/21 11:20 Total Bilirubin 1.20 mg/dL (0.2-1.0) H 03/31/21 04:45 AST 16 Units/L (15-37) 03/31/21 04:45 ALT 49 Units/L (12-78) 03/31/21 04:45 Alkaline Phosphatase 87 Units/L (46-116) 03/31/21 04:45 Creatine Kinase 121 Units/L (39-308) 03/01/21 11:20 CK-MB (CK-2) < 1.0 ng/mL (0-4.0) 03/01/21 11:20 CK/CKMB % Calc 0.8 % (<4) 03/01/21 11:20 Troponin I < 0.02 ng/mL (0-1.5) 03/01/21 11:20 C-Reactive Protein < 0.50 mg/L (0-3.0) 03/13/21 04:22 B-Natriuretic Peptide 78.7 pg/mL (0-79) 03/14/21 04:39 Total Protein 6.3 g/dL (6.4-8.2) L 03/31/21 04:45 Albumin 2.4 g/dL (3.4-5.0) L 03/31/21 04:45 Globulin 3.9 g/dL (2.5-4.5) 03/31/21 04:45 Albumin/Globulin Ratio 0.6 Ratio (1.1-2.1) L 03/31/21 04:45 Specimen Type Catherized urine 03/21/21 05:35 Urine Color Yellow (YELLOW) 03/21/21 05:35 Urine Appearance Clear (CLEAR) 03/21/21 05:35 Urine pH 5.0 (5.0 - 8.0) 03/21/21 05:35 Ur Specific [place] 1.015 (1.000-1.030) 03/21/21 05:35 Urine Protein Negative (NEGATIVE) 03/21/21 05:35 Urine Glucose (UA) Negative (NEGATIVE) 03/21/21 05:35 Urine Ketones Negative (NEGATIVE) 03/21/21 05:35 Urine Occult Blood 5+ (NEGATIVE) 03/21/21 05:35 Urine Nitrite Negative (NEGATIVE) 03/21/21 05:35 Urine Bilirubin Negative (NEGATIVE) 03/21/21 05:35 Urine Urobilinogen Normal (NORMAL) 03/21/21 05:35 Ur Leukocyte Esterase Negative (NEGATIVE) 03/21/21 05:35 Urine RBC 5-10 /HPF (0-3) A 03/21/21 05:35 Urine WBC 0-2 /HPF (0-5) 03/21/21 05:35 Ur Squamous Epith Cells Negative /HPF (NEGATIVE) 03/21/21 05:35 Urine Bacteria Negative /HPF (NEGATIVE) 03/21/21 05:35 Urine Mucus Rare /HPF (NEGATIVE) 03/21/21 05:35 Ur Culture Indicated? No/not indicated 03/21/21 05:35 Stool Description 3g semisolid brown 03/27/21 07:00 Stool Description Fob tube 03/27/21 07:00 Stl Occult Blood (IFOB) Negative (NEGATIVE) 03/27/21 07:00 Stool for White Cells Positive (NEGATIVE) A 03/27/21 07:00 Stl C. diff Tox B Gene Negative (NEGATIVE) 03/27/21 07:00 Stl C. diff [id number] Presumptive negative (NEGATIVE) 03/27/21 07:00 Cryptosporid parvum Ag Negative (NEGATIVE) 03/27/21 07:00 Giardia lamblia Ag Negative (NEGATIVE) 03/27/21 07:00 Plan (1) Infective diarrhea: Status: Acute Plan: Diarrhea has resolved. (2) Acute respiratory failure with hypoxia: Status: Acute Plan: Continue Rx. (3) COVID-19 virus infection: Status: Acute (4) Hypokalemia: Status: Resolved (5) Elevated d-dimer: Status: Acute (6) Klebsiella pneumonia: Status: Acute Qualifiers: Laterality: bilateral Lung location: unspecified part of lung Qualified Code(s): J15.0 - Pneumonia due to Klebsiella pneumoniae Plan: Cont ABX (7) Candidal pneumonia: Status: Acute (8) Anxiety: Status: Acute Plan: Patient agrees to po valim this am. Will start at 2.5mg tid prn. (9) Thrombocytopenia: Status: Acute Plan: Monitor daily platelet levels. Platelets stable. (10) BPH (benign prostatic hyperplasia): Status: Acute (11) Urinary retention: Status: Acute (12) Hypomagnesemia: Status: Acute
[2021-04-01 04:52] LABS: BASOPHILS # (AUTO) 0.1 X10^3/uL (0.0-0.1); BASOPHILS % (AUTO) 0.7 % (0.2-1.0); EOSINOPHILS # (AUTO) 0.2 x10^3/uL (0.0-0.2); HEMATOCRIT 36.8 % (42.0-54.0); LYMPHOCYTES # (AUTO) 0.7 X10^3/uL (1.3-2.9); LYMPHOCYTES % (AUTO) 7.2 % (21.0-51.0); MEAN CORPUSCULAR HEMOGLOBIN 30.2 pg (27.0-34.0); MEAN CORPUSCULAR HGB CONC 35.3 g/dL (33.0-35.0); MEAN CORPUSCULAR VOLUME 85.7 fL (80.0-100.0); MEAN PLATELET VOLUME 8.4 fL (7.4-11.0); MONOCYTES # (AUTO) 0.4 x10^3/uL (0.3-0.8); MONOCYTES % (AUTO) 4.5 % (0.0-13.0); NEUTROPHILS # (AUTO) 8.3 x10^3/uL (2.2-4.8); NEUTROPHILS % (AUTO) 85.6 % (42.0-75.0); PLATELET COUNT 140 X10^3/uL (150.0-450.0); RED BLOOD COUNT 4.29 X10^6/uL (4.7-6.0); WHITE BLOOD COUNT 9.7 X10^3/uL (3.6-10.0)
[2021-04-01 05:26] LABS: ALANINE AMINOTRANSFERASE 62 Units/L (12-78); ALBUMIN 2.3 g/dL (3.4-5.0); ALKALINE PHOSPHATASE 91 Units/L (46-116); ASPARTATE AMINO TRANSFERASE 21 Units/L (15-37); BLOOD UREA NITROGEN 29 mg/dL (7-18); CALCIUM 8.6 mg/dL (8.5-10.1); CARBON DIOXIDE 28.8 mmol/L (21-32); CHLORIDE 99 mmol/L (98-107); COR NA(FOR HYPERGLY) 135 mmol/L (136-145); SODIUM 135 mmol/L (136-145); TOTAL PROTEIN 6.2 g/dL (6.4-8.2); eGFR NON BLACK RACES > 60 (>60)
[2021-04-01] MEDS: NYSTATIN SUSP PO SCH ×3 (05:41→21:00)
--- NOTE | 2021-04-01 06:18 | RAD ---
HISTORYCOVID PNEUMONIASTUDYCHEST, 1 [id number]/2021.TECHNIQUEAP view of the chestFINDINGSThe cardiac and mediastinal contours appear stable. Mild worsening of airspace opacity in the left upper lobe. Otherwise no significant change in bilateral airspace and interstitial opacities. No definite pleural effusion or pneumothorax.IMPRESSIONMild worsening of left upper lobe airspace disease from COVID pneumonia. Otherwise similar to prior.Electronically signed by: Elmer Gonzalez (Apr 01, 2021 06:16:14)
[2021-04-01] MEDS: Atrovent NEB TX 0.02% NEB SCH ×2 (08:15→20:06)
[2021-04-01] MEDS: PULMICORT NEB TX 0.5 MG NEB SCH ×2 (08:15→20:06)
[2021-04-01] MEDS: VSL#3 PO SCH (09:30)
[2021-04-01] MEDS: VITAMIN A PO SCH (09:30)
[2021-04-01] MEDS: VITAMIN D3 125 mcg (5,000 UNITS) PO SCH (09:30)
[2021-04-01] MEDS: PROSCAR PO SCH (09:30)
[2021-04-01] MEDS: LOPRESSOR TAB 50 MG PO SCH (09:30)
[2021-04-01] MEDS: HYDROCHLOROTHIAZIDE 25 MG TAB PO SCH (09:30)
[2021-04-01] MEDS: VITAMIN C PO SCH (09:30)
[2021-04-01] MEDS: PriLOSEC PO SCH (09:30)
[2021-04-01] MEDS: ZOLOFT PO SCH (09:30)
[2021-04-01] MEDS: FLOMAX PO SCH (09:30)
[2021-04-01] MEDS: SOLU-Medrol 40 MG VIAL IVP SCH (09:30)
[2021-04-01] MEDS: ELIQUIS PO SCH ×2 (09:30→21:00)
[2021-04-01] MEDS: COZAAR PO SCH (11:49)
[2021-04-01] MEDS: MAGIC MOUTHWASH MT PRN ×2 (14:19→17:51)
[2021-04-01] MEDS ORDERED: K-DUR TAB 20 MEQ PO ONE (17:30)
--- NOTE | 2021-04-01 19:50 | PCM.PROG ---
Progress Note Progress Note for Day of Date of Exam: 04/01/21 Subjective Subjective: Patient's anxiety much improved this am. Feels better but still SOB. Past Medical Family Social History Past Med/Fam/Surg Hx: No changes since H&P Allergies: Allergies temazepam [From Restoril] Allergy (Verified 03/05/21 09:47) IVP DYE Allergy (Uncoded 03/02/21 18:20) Review of Systems ROS: No change since H&P Vital Signs and I&O's Vital Signs: Temperature 97.0 F Pulse Rate [Left Brachial] 85 Pulse Rate 97 Respiratory Rate 51 Blood Pressure [Left Arm] 153/80 Blood Pressure 113/69 O2 Sat by Pulse Oximetry 97 Intake and Output: Intake & Output 03/30/21 03/31/21 04/01/21 04/02/21 11:59 11:59 11:59 11:59 Intake Total 1714 / 1714 330 / 330 380 / 380 220 / 220 Output Total 1500 / 1500 1150 / 1150 975 / 975 600 / 600 Balance 214 / 214 -820 / -820 -595 / -595 -380 / -380 Physical Exam Oriented: Normal Eyes: Normal Ear: Normal Nose: Normal Throat: Other (small ulcers noted on the tip of the tongue. Some oral thrush ) Respiratory: Generalized and Diminished Cardiovascular: Normal Auscultation: Bowel Sounds: Normal Tenderness: Normal Skin: Normal Musculoskeletal: Normal Psychiatric: Anxiety Mood Description: Anxious Affect: Anxious Speech Pattern: Clear and Appropriate Laboratory and Diagnostics Result Diagrams: 04/01/21 04:06 04/01/21 04:06 Labs: 03/27/21 07:00 Stool Stool Culture - Final 03/27/21 07:00 Stool - Final 03/09/21 11:50 Sputum - Expectorated Sputum Sputum Culture - Final Klebsiella Pneumoniae 03/09/21 11:50 Sputum - Expectorated Sputum - Final 03/11/21 08:10 Sputum - Expectorated Sputum Sputum Culture - Final Klebsiella Pneumoniae 03/11/21 08:10 Sputum - Expectorated Sputum - Final Laboratory WBC 9.7 X10^3/uL (3.6-10.0) 04/01/21 04:06 RBC 4.29 X10^6/uL (4.7-6.0) L 04/01/21 04:06 Hgb 13.0 g/dL (13.5-18.0) L 04/01/21 04:06 Hct 36.8 % (42.0-54.0) L 04/01/21 04:06 MCV 85.7 fL (80.0-100.0) 04/01/21 04:06 MCH 30.2 pg (27.0-34.0) 04/01/21 04:06 MCHC 35.3 g/dL (33.0-35.0) H 04/01/21 04:06 RDW 17.0 % (11.6-16.5) H 04/01/21 04:06 Plt Count 140 X10^3/uL (150.0-450.0) L 04/01/21 04:06 Plt Count Comment Decreased (ADEQUATE) 03/29/21 04:55 MPV 8.4 fL (7.4-11.0) 04/01/21 04:06 Neut % (Auto) 85.6 % (42.0-75.0) H 04/01/21 04:06 Lymph % (Auto) 7.2 % (21.0-51.0) L 04/01/21 04:06 [place] % (Auto) 4.5 % (0.0-13.0) 04/01/21 04:06 Eos % (Auto) 2.0 % (0.9-2.9) 04/01/21 04:06 Baso % (Auto) 0.7 % (0.2-1.0) 04/01/21 04:06 Neut # (Auto) 8.3 x10^3/uL (2.2-4.8) H 04/01/21 04:06 Lymph # (Auto) 0.7 X10^3/uL (1.3-2.9) L 04/01/21 04:06 [place] # (Auto) 0.4 x10^3/uL (0.3-0.8) 04/01/21 04:06 Eos # (Auto) 0.2 x10^3/uL (0.0-0.2) 04/01/21 04:06 Baso # (Auto) 0.1 X10^3/uL (0.0-0.1) 04/01/21 04:06 Absolute Nucleated RBC 0.0 /100WBC 04/01/21 04:06 Total Counted 100 03/29/21 04:55 Neutrophils % (Manual) 93 % (39-76) H 03/29/21 04:55 Band Neutrophils % 1 % (0-10) 03/29/21 04:55 Lymphocytes % (Manual) 4 % (13-43) L 03/29/21 04:55 Monocytes % (Manual) 2 % (4-9) L 03/29/21 04:55 Eosinophils % (Manual) 2 % (0-6) 03/27/21 05:08 Plt Morphology Comment Normal (NORMAL) 03/29/21 04:55 RBC Morphology Normal (NORMAL) 03/29/21 04:55 D-Dimer 2.51 ug/ml (0.0-0.57) H* 03/14/21 04:39 Sample Site Lr 03/24/21 05:15 ABG pH 7.520 (7.35-7.45) H 03/24/21 05:15 ABG pCO2 35.0 mmHg (35.0-45.0) 03/24/21 05:15 ABG pO2 39.0 mmHg (80.0-100.0) L* 03/24/21 05:15 ABG HCO3 28.6 mmol/L (22-26) H 03/24/21 05:15 ABG O2 Saturation 80.0 % (90-100) L* 03/24/21 05:15 ABG Base Excess 5.7 mmol/L (-2.0-2.0) H 03/24/21 05:15 Sree Test Pos 03/24/21 05:15 A-a Gradient 338.0 mmHg 03/24/21 05:15 FiO2 59.0 03/24/21 05:15 Blood Gas Comments Elbert well ae 03/24/21 05:15 Sodium 135 mmol/L (136-145) L 04/01/21 04:06 Corrected Sodium 135 mmol/L (136-145) L 04/01/21 04:06 Potassium 3.3 mmol/L (3.5-5.1) L 04/01/21 04:06 Chloride 99 mmol/L (98-107) 04/01/21 04:06 Carbon Dioxide 28.8 mmol/L (21-32) 04/01/21 04:06 BUN 29 mg/dL (7-18) H 04/01/21 04:06 Creatinine 0.60 mg/dL (0.70-1.30) L 04/01/21 04:06 Est GFR (MDRD) Af Amer > 60 (>60) 04/01/21 04:06 Est GFR (MDRD) Non-Af > 60 (>60) 04/01/21 04:06 Glucose 112 mg/dL (65-99) H 04/01/21 04:06 POC Glucose (mg/dL) 111 mg/dL (65-99) H 03/28/21 11:45 Calcium 8.6 mg/dL (8.5-10.1) 04/01/21 04:06 Corrected Calcium 10.0 mg/dL (8.5-10.1) 04/01/21 04:06 Magnesium 2.0 mg/dL (1.7-2.9) 04/01/21 04:06 Ferritin 1988 ng/mL (26-388) H 03/01/21 11:20 Total Bilirubin 0.80 mg/dL (0.2-1.0) 04/01/21 04:06 AST 21 Units/L (15-37) 04/01/21 04:06 ALT 62 Units/L (12-78) 04/01/21 04:06 Alkaline Phosphatase 91 Units/L (46-116) 04/01/21 04:06 Creatine Kinase 121 Units/L (39-308) 03/01/21 11:20 CK-MB (CK-2) < 1.0 ng/mL (0-4.0) 03/01/21 11:20 CK/CKMB % Calc 0.8 % (<4) 03/01/21 11:20 Troponin I < 0.02 ng/mL (0-1.5) 03/01/21 11:20 C-Reactive Protein < 0.50 mg/L (0-3.0) 03/13/21 04:22 B-Natriuretic Peptide 78.7 pg/mL (0-79) 03/14/21 04:39 Total Protein 6.2 g/dL (6.4-8.2) L 04/01/21 04:06 Albumin 2.3 g/dL (3.4-5.0) L 04/01/21 04:06 Globulin 3.9 g/dL (2.5-4.5) 04/01/21 04:06 Albumin/Globulin Ratio 0.6 Ratio (1.1-2.1) L 04/01/21 04:06 Specimen Type Catherized urine 03/21/21 05:35 Urine Color Yellow (YELLOW) 03/21/21 05:35 Urine Appearance Clear (CLEAR) 03/21/21 05:35 Urine pH 5.0 (5.0 - 8.0) 03/21/21 05:35 Ur Specific [place] 1.015 (1.000-1.030) 03/21/21 05:35 Urine Protein Negative (NEGATIVE) 03/21/21 05:35 Urine Glucose (UA) Negative (NEGATIVE) 03/21/21 05:35 Urine Ketones Negative (NEGATIVE) 03/21/21 05:35 Urine Occult Blood 5+ (NEGATIVE) 03/21/21 05:35 Urine Nitrite Negative (NEGATIVE) 03/21/21 05:35 Urine Bilirubin Negative (NEGATIVE) 03/21/21 05:35 Urine Urobilinogen Normal (NORMAL) 03/21/21 05:35 Ur Leukocyte Esterase Negative (NEGATIVE) 03/21/21 05:35 Urine RBC 5-10 /HPF (0-3) A 03/21/21 05:35 Urine WBC 0-2 /HPF (0-5) 03/21/21 05:35 Ur Squamous Epith Cells Negative /HPF (NEGATIVE) 03/21/21 05:35 Urine Bacteria Negative /HPF (NEGATIVE) 03/21/21 05:35 Urine Mucus Rare /HPF (NEGATIVE) 03/21/21 05:35 Ur Culture Indicated? No/not indicated 03/21/21 05:35 Stool Description 3g semisolid brown 03/27/21 07:00 Stool Description Fob tube 03/27/21 07:00 Stl Occult Blood (IFOB) Negative (NEGATIVE) 03/27/21 07:00 Stool for White Cells Positive (NEGATIVE) A 03/27/21 07:00 Stl C. diff Tox B Gene Negative (NEGATIVE) 03/27/21 07:00 Stl C. diff [id number] Presumptive negative (NEGATIVE) 03/27/21 07:00 Cryptosporid parvum Ag Negative (NEGATIVE) 03/27/21 07:00 Giardia lamblia Ag Negative (NEGATIVE) 03/27/21 07:00 Radiology Reviewed: Yes Plan (1) Infective diarrhea: Status: Acute Plan: Diarrhea has resolved. (2) Acute respiratory failure with hypoxia: Status: Acute Narrative Support Text: Improving. Plan: Continue Rx. (3) COVID-19 virus infection: Status: Acute Plan: Cont. Rx. (4) Hypokalemia: Status: Resolved (5) Elevated d-dimer: Status: Acute (6) Klebsiella pneumonia: Status: Acute Qualifiers: Laterality: bilateral Lung location: unspecified part of lung Qualified Code(s): J15.0 - Pneumonia due to Klebsiella pneumoniae Plan: Cont ABX (7) Candidal pneumonia: Status: Acute (8) Anxiety: Status: Acute Plan: Anxiety resolved with Valium. (9) Thrombocytopenia: Status: Acute Plan: Monitor daily platelet levels. Platelets stable. (10) BPH (benign prostatic hyperplasia): Status: Acute (11) Urinary retention: Status: Acute (12) Hypomagnesemia: Status: Acute
[2021-04-02 05:14] LABS: BASOPHILS % (AUTO) 0.2 % (0.2-1.0); EOSINOPHILS # (AUTO) 0.2 x10^3/uL (0.0-0.2); EOSINOPHILS % (AUTO) 2.3 % (0.9-2.9); HEMATOCRIT 34.3 % (42.0-54.0); HEMOGLOBIN 12.3 g/dL (13.5-18.0); LYMPHOCYTES # (AUTO) 0.7 X10^3/uL (1.3-2.9); LYMPHOCYTES % (AUTO) 9.5 % (21.0-51.0); MEAN CORPUSCULAR HEMOGLOBIN 30.6 pg (27.0-34.0); MEAN CORPUSCULAR VOLUME 84.9 fL (80.0-100.0); MONOCYTES # (AUTO) 0.5 x10^3/uL (0.3-0.8); MONOCYTES % (AUTO) 6.5 % (0.0-13.0); NEUTROPHILS # (AUTO) 6.4 x10^3/uL (2.2-4.8); NEUTROPHILS % (AUTO) 81.5 % (42.0-75.0); PLATELET COUNT 151 X10^3/uL (150.0-450.0); RED BLOOD COUNT 4.04 X10^6/uL (4.7-6.0); RED CELL DISTRIBUTION WIDTH 17.1 % (11.6-16.5); WHITE BLOOD COUNT 7.8 X10^3/uL (3.6-10.0)
[2021-04-02 05:29] LABS: ALANINE AMINOTRANSFERASE 77 Units/L (12-78); ALBUMIN 2.3 g/dL (3.4-5.0); ALKALINE PHOSPHATASE 86 Units/L (46-116); ASPARTATE AMINO TRANSFERASE 20 Units/L (15-37); BLOOD UREA NITROGEN 24 mg/dL (7-18); CALCIUM 8.6 mg/dL (8.5-10.1); CHLORIDE 99 mmol/L (98-107); CREATININE 0.55 mg/dL (0.70-1.30); SODIUM 135 mmol/L (136-145); eGFR NON BLACK RACES > 60 (>60)
[2021-04-02] MEDS: NYSTATIN SUSP PO SCH ×3 (05:43→21:15)
[2021-04-02] MEDS: Atrovent NEB TX 0.02% NEB SCH ×2 (08:45→20:07)
[2021-04-02] MEDS: PULMICORT NEB TX 0.5 MG NEB SCH ×2 (08:45→20:07)
[2021-04-02] MEDS: VALIUM PO PRN (09:05)
--- NOTE | 2021-04-02 09:32 | RAD ---
HISTORYCOVID PENUMONIA HX: HTNSTUDYCHEST, 1 [id number]/15/2021FINDINGSCardiac silhouette is stable in size. Diffuse bilateral infiltrates appear essentially unchanged since prior. No significant pleural effusion is identified. No pneumothorax.IMPRESSIONPersistent but stable bilateral airspace disease.Electronically signed by: ALICIA MATTHEWS (Apr 02, 2021 09:30:20)
[2021-04-02] MEDS: COZAAR PO SCH (09:42)
[2021-04-02] MEDS: ELIQUIS PO SCH ×2 (09:43→23:54)
[2021-04-02] MEDS: FLOMAX PO SCH (09:44)
[2021-04-02] MEDS: HYDROCHLOROTHIAZIDE 25 MG TAB PO SCH (09:44)
[2021-04-02] MEDS: LOPRESSOR TAB 50 MG PO SCH (09:44)
[2021-04-02] MEDS: SOLU-Medrol 40 MG VIAL IVP SCH (09:45)
[2021-04-02] MEDS: PROSCAR PO SCH (09:45)
[2021-04-02] MEDS: VITAMIN C PO SCH (09:45)
[2021-04-02] MEDS: VITAMIN A PO SCH (09:45)
[2021-04-02] MEDS: PriLOSEC PO SCH (09:45)
[2021-04-02] MEDS: ZOLOFT PO SCH (09:46)
[2021-04-02] MEDS: VITAMIN D3 125 mcg (5,000 UNITS) PO SCH (09:46)
[2021-04-02] MEDS: VSL#3 PO SCH (09:46)
[2021-04-02] MEDS ORDERED: AFRIN NASAL SPRAY ONE (11:09)
[2021-04-02 11:57] LABS: BASOPHILS % (AUTO) 0 % (0.2-1.0); EOSINOPHILS # (AUTO) 0.2 x10^3/uL (0.0-0.2); EOSINOPHILS % (AUTO) 1.4 % (0.9-2.9); HEMATOCRIT 36.5 % (42.0-54.0); HEMOGLOBIN 12.8 g/dL (13.5-18.0); LYMPHOCYTES # (AUTO) 0.3 X10^3/uL (1.3-2.9); LYMPHOCYTES % (AUTO) 2.1 % (21.0-51.0); MEAN CORPUSCULAR VOLUME 85.7 fL (80.0-100.0); MEAN PLATELET VOLUME 8.2 fL (7.4-11.0); MONOCYTES # (AUTO) 0.6 x10^3/uL (0.3-0.8); MONOCYTES % (AUTO) 4.8 % (0.0-13.0); NEUTROPHILS # (AUTO) 10.9 x10^3/uL (2.2-4.8); NEUTROPHILS % (AUTO) 91.7 % (42.0-75.0); PLATELET COUNT 209 X10^3/uL (150.0-450.0); RED BLOOD COUNT 4.26 X10^6/uL (4.7-6.0); RED CELL DISTRIBUTION WIDTH 17.1 % (11.6-16.5); WHITE BLOOD COUNT 11.9 X10^3/uL (3.6-10.0)
[2021-04-02] MEDS: PROTONIX INJ 40 MG VIAL IVP SCH ×2 (12:41→21:15)
[2021-04-02] MEDS: LEVSIN/MAALOX/LIDOC VISC PO PRN (12:48)
[2021-04-02 12:54] LABS: ANISOCYTOSIS SLIGHT; PLATELET MORPHOLOGY COMMENT NORMAL (NORMAL)
[2021-04-02] MEDS: MAGIC MOUTHWASH MT PRN (13:29)
[2021-04-02 15:08] LABS: ABG BASE EXCESS 3.2 mmol/L (-2.0-2.0); ABG HCO3 26.9 mmol/L (22-26)
[2021-04-02 15:09] LABS: ABG ALLEN TEST POS
[2021-04-03 04:48] LABS: BASOPHILS % (AUTO) 0.4 % (0.2-1.0); EOSINOPHILS # (AUTO) 0.3 x10^3/uL (0.0-0.2); EOSINOPHILS % (AUTO) 3.5 % (0.9-2.9); HEMATOCRIT 32.4 % (42.0-54.0); HEMOGLOBIN 11.7 g/dL (13.5-18.0); LYMPHOCYTES # (AUTO) 0.8 X10^3/uL (1.3-2.9); LYMPHOCYTES % (AUTO) 9.8 % (21.0-51.0); MEAN CORPUSCULAR HEMOGLOBIN 30.7 pg (27.0-34.0); MEAN CORPUSCULAR VOLUME 85.2 fL (80.0-100.0); MEAN PLATELET VOLUME 8.1 fL (7.4-11.0); MONOCYTES # (AUTO) 0.6 x10^3/uL (0.3-0.8); MONOCYTES % (AUTO) 7.4 % (0.0-13.0); NEUTROPHILS # (AUTO) 6.2 x10^3/uL (2.2-4.8); NEUTROPHILS % (AUTO) 78.9 % (42.0-75.0); PLATELET COUNT 183 X10^3/uL (150.0-450.0); RED BLOOD COUNT 3.81 X10^6/uL (4.7-6.0); RED CELL DISTRIBUTION WIDTH 17.2 % (11.6-16.5); WHITE BLOOD COUNT 7.9 X10^3/uL (3.6-10.0)
[2021-04-03 04:58] LABS: ALANINE AMINOTRANSFERASE 72 Units/L (12-78); ALBUMIN 2.2 g/dL (3.4-5.0); ALKALINE PHOSPHATASE 78 Units/L (46-116); ASPARTATE AMINO TRANSFERASE 18 Units/L (15-37); BLOOD UREA NITROGEN 30 mg/dL (7-18); CALCIUM 8.6 mg/dL (8.5-10.1); CHLORIDE 102 mmol/L (98-107); CREATININE 0.59 mg/dL (0.70-1.30); SODIUM 138 mmol/L (136-145); TOTAL PROTEIN 5.7 g/dL (6.4-8.2); eGFR NON BLACK RACES > 60 (>60)
--- NOTE | 2021-04-03 06:34 | RAD ---
HISTORYCOVID PNEUMONIA HX: HTNSTUDYCHEST, 1 [id number]/16/2021FINDINGSCardiac silhouette is stable in size. There are diffuse bilateral interstitial and alveolar opacities, which given differences in technique appear essentially unchanged since prior. No significant pleural effusion is identified. No pneumothorax.IMPRESSIONStable chest exam.Electronically signed by: ALICIA MATTHEWS (Apr 03, 2021 06:32:22)
[2021-04-03] MEDS: NYSTATIN SUSP PO SCH ×3 (07:29→21:34)
[2021-04-03] MEDS: Atrovent NEB TX 0.02% NEB SCH ×2 (08:40→21:50)
[2021-04-03] MEDS: PULMICORT NEB TX 0.5 MG NEB SCH ×2 (08:40→21:50)
[2021-04-03] MEDS: COZAAR PO SCH (08:59)
[2021-04-03] MEDS: ELIQUIS PO SCH ×2 (09:00→20:42)
[2021-04-03] MEDS: HYDROCHLOROTHIAZIDE 25 MG TAB PO SCH (09:00)
[2021-04-03] MEDS: FLOMAX PO SCH (09:00)
[2021-04-03] MEDS: LOPRESSOR TAB 50 MG PO SCH (09:01)
[2021-04-03] MEDS: PROSCAR PO SCH (09:01)
[2021-04-03] MEDS: PROTONIX INJ 40 MG VIAL IVP SCH ×2 (09:01→20:26)
[2021-04-03] MEDS: PriLOSEC PO SCH (09:01)
[2021-04-03] MEDS: ZOLOFT PO SCH (09:02)
[2021-04-03] MEDS: VITAMIN C PO SCH (09:02)
[2021-04-03] MEDS: VSL#3 PO SCH (09:02)
[2021-04-03] MEDS: VITAMIN D3 125 mcg (5,000 UNITS) PO SCH (09:02)
[2021-04-03] MEDS: VITAMIN A PO SCH (09:02)
[2021-04-03] MEDS: SOLU-Medrol 40 MG VIAL IVP SCH (09:02)
[2021-04-04] MEDS: MAGIC MOUTHWASH MT PRN (05:25)
[2021-04-04] MEDS: NYSTATIN SUSP PO SCH ×3 (05:25→21:23)
--- NOTE | 2021-04-04 05:32 | RAD ---
HISTORYSOB HX: HTNSTUDYCHEST, 1 [id number]/2021FINDINGSThe trachea is midline. The cardiac silhouette is stable. Diffuse bilateral interstitial and alveolar infiltrates unchanged. The bony thorax is unremarkable.IMPRESSIONStable portable chestElectronically signed by: Dominick Kraus (Apr 04, 2021 05:30:58)
[2021-04-04 06:11] LABS: BASOPHILS % (AUTO) 0.2 % (0.2-1.0); EOSINOPHILS # (AUTO) 0.3 x10^3/uL (0.0-0.2); EOSINOPHILS % (AUTO) 3.8 % (0.9-2.9); HEMATOCRIT 32.3 % (42.0-54.0); HEMOGLOBIN 11.6 g/dL (13.5-18.0); LYMPHOCYTES # (AUTO) 0.7 X10^3/uL (1.3-2.9); LYMPHOCYTES % (AUTO) 7.9 % (21.0-51.0); MEAN CORPUSCULAR HEMOGLOBIN 30.9 pg (27.0-34.0); MEAN CORPUSCULAR VOLUME 85.9 fL (80.0-100.0); MEAN PLATELET VOLUME 7.9 fL (7.4-11.0); MONOCYTES # (AUTO) 0.6 x10^3/uL (0.3-0.8); MONOCYTES % (AUTO) 7.4 % (0.0-13.0); NEUTROPHILS % (AUTO) 80.7 % (42.0-75.0); PLATELET COUNT 196 X10^3/uL (150.0-450.0); RED BLOOD COUNT 3.76 X10^6/uL (4.7-6.0); RED CELL DISTRIBUTION WIDTH 17.3 % (11.6-16.5); WHITE BLOOD COUNT 8.6 X10^3/uL (3.6-10.0)
[2021-04-04 06:15] LABS: ALANINE AMINOTRANSFERASE 83 Units/L (12-78); ALBUMIN 2.3 g/dL (3.4-5.0); ALKALINE PHOSPHATASE 81 Units/L (46-116); ASPARTATE AMINO TRANSFERASE 25 Units/L (15-37); BLOOD UREA NITROGEN 21 mg/dL (7-18); CALCIUM 8.3 mg/dL (8.5-10.1); CHLORIDE 99 mmol/L (98-107); COR CA(FOR HYPOALB) 9.7 mg/dL (8.5-10.1); CREATININE 0.54 mg/dL (0.70-1.30); SODIUM 135 mmol/L (136-145); TOTAL PROTEIN 5.6 g/dL (6.4-8.2); eGFR NON BLACK RACES > 60 (>60)
[2021-04-04] MEDS: LOMOTIL PO PRN (08:44)
[2021-04-04] MEDS: FLOMAX PO SCH (08:44)
[2021-04-04] MEDS: ROBITUSSIN DM PO PRN (08:44)
[2021-04-04] MEDS: VSL#3 PO SCH (08:44)
[2021-04-04] MEDS: LOPRESSOR TAB 50 MG PO SCH (08:45)
[2021-04-04] MEDS: K-DUR TAB 20 MEQ PO PRN (08:45)
[2021-04-04] MEDS: ZOLOFT PO SCH (08:46)
[2021-04-04] MEDS: ELIQUIS PO SCH ×2 (08:47→20:21)
[2021-04-04] MEDS: SOLU-Medrol 40 MG VIAL IVP SCH (08:47)
[2021-04-04] MEDS: COZAAR PO SCH (08:47)
[2021-04-04] MEDS: HYDROCHLOROTHIAZIDE 25 MG TAB PO SCH (08:48)
[2021-04-04] MEDS: PROSCAR PO SCH (08:48)
[2021-04-04] MEDS: VITAMIN D3 125 mcg (5,000 UNITS) PO SCH (08:48)
[2021-04-04] MEDS: VITAMIN C PO SCH (08:48)
[2021-04-04] MEDS: PROTONIX INJ 40 MG VIAL IVP SCH ×2 (08:48→20:21)
[2021-04-04] MEDS: VITAMIN A PO SCH (08:49)
[2021-04-04] MEDS: PULMICORT NEB TX 0.5 MG NEB SCH ×2 (09:15→21:48)
[2021-04-04] MEDS: Atrovent NEB TX 0.02% NEB SCH ×2 (09:15→21:48)
--- NOTE | 2021-04-04 19:13 | PCM.PROG ---
Progress Note Progress Note for Day of Date of Exam: 04/04/21 Subjective Subjective: Patient's anxiety much improved. Feels better overall. Still coughing but less SOB. Past Medical Family Social History Past Med/Fam/Surg Hx: No changes since H&P Allergies: Allergies temazepam [From Restoril] Allergy (Verified 03/05/21 09:47) IVP DYE Allergy (Uncoded 03/02/21 18:20) Review of Systems ROS: No change since H&P Vital Signs and I&O's Vital Signs: Temperature 97.0 F Pulse Rate [Left Brachial] 85 Pulse Rate 89 Respiratory Rate 42 Blood Pressure [Left Arm] 153/80 Blood Pressure 92/70 O2 Sat by Pulse Oximetry 86 Intake and Output: Intake & Output 04/02/21 04/03/21 04/04/21 04/05/21 11:59 11:59 11:59 11:59 Intake Total 280 / 280 510 / 510 1550 / 1550 30 / 30 Output Total 1175 / 1175 650 / 650 2151 / 2151 800 / 800 Balance -895 / -895 -140 / -140 -601 / -601 -770 / -770 Physical Exam Oriented: Normal Eyes: Normal Throat: Other (small ulcers noted on the tip of the tongue. Some oral thrush ) Respiratory: Generalized and Diminished Cardiovascular: Normal Auscultation: Bowel Sounds: Normal Tenderness: Normal Skin: Normal Musculoskeletal: Normal Psychiatric: Normal Mood Description: Calm Affect: Normal Speech Pattern: Clear and Appropriate Laboratory and Diagnostics Result Diagrams: 04/04/21 05:21 04/04/21 05:21 Labs: 03/27/21 07:00 Stool Stool Culture - Final 03/27/21 07:00 Stool - Final 03/09/21 11:50 Sputum - Expectorated Sputum Sputum Culture - Final Klebsiella Pneumoniae 03/09/21 11:50 Sputum - Expectorated Sputum - Final 03/11/21 08:10 Sputum - Expectorated Sputum Sputum Culture - Final Klebsiella Pneumoniae 03/11/21 08:10 Sputum - Expectorated Sputum - Final Laboratory WBC 8.6 X10^3/uL (3.6-10.0) 04/04/21 05:21 RBC 3.76 X10^6/uL (4.7-6.0) L 04/04/21 05:21 Hgb 11.6 g/dL (13.5-18.0) L 04/04/21 05:21 Hct 32.3 % (42.0-54.0) L 04/04/21 05:21 MCV 85.9 fL (80.0-100.0) 04/04/21 05:21 MCH 30.9 pg (27.0-34.0) 04/04/21 05:21 MCHC 36.0 g/dL (33.0-35.0) H 04/04/21 05:21 RDW 17.3 % (11.6-16.5) H 04/04/21 05:21 Plt Count 196 X10^3/uL (150.0-450.0) 04/04/21 05:21 Plt Count Comment Adequate (ADEQUATE) 04/02/21 11:42 MPV 7.9 fL (7.4-11.0) 04/04/21 05:21 Neut % (Auto) 80.7 % (42.0-75.0) H 04/04/21 05:21 Lymph % (Auto) 7.9 % (21.0-51.0) L 04/04/21 05:21 [place] % (Auto) 7.4 % (0.0-13.0) 04/04/21 05:21 Eos % (Auto) 3.8 % (0.9-2.9) H 04/04/21 05:21 Baso % (Auto) 0.2 % (0.2-1.0) 04/04/21 05:21 Neut # (Auto) 7.0 x10^3/uL (2.2-4.8) H 04/04/21 05:21 Lymph # (Auto) 0.7 X10^3/uL (1.3-2.9) L 04/04/21 05:21 [place] # (Auto) 0.6 x10^3/uL (0.3-0.8) 04/04/21 05:21 Eos # (Auto) 0.3 x10^3/uL (0.0-0.2) H 04/04/21 05:21 Baso # (Auto) 0.0 X10^3/uL (0.0-0.1) 04/04/21 05:21 Absolute Nucleated RBC 0.0 /100WBC 04/04/21 05:21 Total Counted 100 04/02/21 11:42 Neutrophils % (Manual) 89 % (39-76) H 04/02/21 11:42 Band Neutrophils % 1 % (0-10) 03/29/21 04:55 Lymphocytes % (Manual) 4 % (13-43) L 04/02/21 11:42 Monocytes % (Manual) 5 % (4-9) 04/02/21 11:42 Eosinophils % (Manual) 2 % (0-6) 04/02/21 11:42 Plt Morphology Comment Normal (NORMAL) 04/02/21 11:42 RBC Morphology Abnormal (NORMAL) 04/02/21 11:42 Anisocytosis Slight A 04/02/21 11:42 PT 14.8 SECONDS (11.8-14.3) 04/02/21 11:42 INR Target Range - 04/02/21 11:42 INR 1.22 (0.8-1.3) 04/02/21 11:42 APTT 29.2 SECONDS (22.9-36.5) 04/02/21 11:42 PTT Comment - 04/02/21 11:42 D-Dimer 2.51 ug/ml (0.0-0.57) H* 03/14/21 04:39 Sample Site R rad 04/02/21 15:01 ABG pH 7.470 (7.35-7.45) H 04/02/21 15:01 ABG pCO2 37.0 mmHg (35.0-45.0) 04/02/21 15:01 ABG pO2 76.0 mmHg (80.0-100.0) L 04/02/21 15:01 ABG HCO3 26.9 mmol/L (22-26) H 04/02/21 15:01 ABG O2 Saturation 96.0 % (90-100) 04/02/21 15:01 ABG Base Excess 3.2 mmol/L (-2.0-2.0) H 04/02/21 15:01 Sree Test Pos 04/02/21 15:01 A-a Gradient 413.0 mmHg 04/02/21 15:01 FiO2 75.0 04/02/21 15:01 Blood Gas Comments Pt hernandez tx well mt 04/02/21 15:01 Sodium 135 mmol/L (136-145) L 04/04/21 05:21 Corrected Sodium TNP 04/04/21 05:21 Potassium 3.4 mmol/L (3.5-5.1) L 04/04/21 05:21 Chloride 99 mmol/L (98-107) 04/04/21 05:21 Carbon Dioxide 30.0 mmol/L (21-32) 04/04/21 05:21 BUN 21 mg/dL (7-18) H 04/04/21 05:21 Creatinine 0.54 mg/dL (0.70-1.30) L 04/04/21 05:21 Est GFR (MDRD) Af Amer > 60 (>60) 04/04/21 05:21 Est GFR (MDRD) Non-Af > 60 (>60) 04/04/21 05:21 Glucose 99 mg/dL (65-99) 04/04/21 05:21 POC Glucose (mg/dL) 111 mg/dL (65-99) H 03/28/21 11:45 Calcium 8.3 mg/dL (8.5-10.1) L 04/04/21 05:21 Corrected Calcium 9.7 mg/dL (8.5-10.1) 04/04/21 05:21 Magnesium 2.0 mg/dL (1.7-2.9) 04/01/21 04:06 Ferritin 1988 ng/mL (26-388) H 03/01/21 11:20 Total Bilirubin 0.60 mg/dL (0.2-1.0) 04/04/21 05:21 AST 25 Units/L (15-37) 04/04/21 05:21 ALT 83 Units/L (12-78) H 04/04/21 05:21 Alkaline Phosphatase 81 Units/L (46-116) 04/04/21 05:21 Creatine Kinase 121 Units/L (39-308) 03/01/21 11:20 CK-MB (CK-2) < 1.0 ng/mL (0-4.0) 03/01/21 11:20 CK/CKMB % Calc 0.8 % (<4) 03/01/21 11:20 Troponin I < 0.02 ng/mL (0-1.5) 03/01/21 11:20 C-Reactive Protein < 0.50 mg/L (0-3.0) 03/13/21 04:22 B-Natriuretic Peptide 78.7 pg/mL (0-79) 03/14/21 04:39 Total Protein 5.6 g/dL (6.4-8.2) L 04/04/21 05:21 Albumin 2.3 g/dL (3.4-5.0) L 04/04/21 05:21 Globulin 3.3 g/dL (2.5-4.5) 04/04/21 05:21 Albumin/Globulin Ratio 0.7 Ratio (1.1-2.1) L 04/04/21 05:21 Specimen Type Catherized urine 03/21/21 05:35 Urine Color Yellow (YELLOW) 03/21/21 05:35 Urine Appearance Clear (CLEAR) 03/21/21 05:35 Urine pH 5.0 (5.0 - 8.0) 03/21/21 05:35 Ur Specific [place] 1.015 (1.000-1.030) 03/21/21 05:35 Urine Protein Negative (NEGATIVE) 03/21/21 05:35 Urine Glucose (UA) Negative (NEGATIVE) 03/21/21 05:35 Urine Ketones Negative (NEGATIVE) 03/21/21 05:35 Urine Occult Blood 5+ (NEGATIVE) 03/21/21 05:35 Urine Nitrite Negative (NEGATIVE) 03/21/21 05:35 Urine Bilirubin Negative (NEGATIVE) 03/21/21 05:35 Urine Urobilinogen Normal (NORMAL) 03/21/21 05:35 Ur Leukocyte Esterase Negative (NEGATIVE) 03/21/21 05:35 Urine RBC 5-10 /HPF (0-3) A 03/21/21 05:35 Urine WBC 0-2 /HPF (0-5) 03/21/21 05:35 Ur Squamous Epith Cells Negative /HPF (NEGATIVE) 03/21/21 05:35 Urine Bacteria Negative /HPF (NEGATIVE) 03/21/21 05:35 Urine Mucus Rare /HPF (NEGATIVE) 03/21/21 05:35 Ur Culture Indicated? No/not indicated 03/21/21 05:35 Stool Description 3g semisolid brown 03/27/21 07:00 Stool Description Fob tube 03/27/21 07:00 Stl Occult Blood (IFOB) Negative (NEGATIVE) 03/27/21 07:00 Stool for White Cells Positive (NEGATIVE) A 03/27/21 07:00 Stl C. diff Tox B Gene Negative (NEGATIVE) 03/27/21 07:00 Stl C. diff [id number] Presumptive negative (NEGATIVE) 03/27/21 07:00 Cryptosporid parvum Ag Negative (NEGATIVE) 03/27/21 07:00 Giardia lamblia Ag Negative (NEGATIVE) 03/27/21 07:00 Blood Type A NEGATIVE 04/02/21 11:42 Antibody Screen Negative 04/02/21 11:42 Radiology Reviewed: Yes Plan (1) Cough: Status: Acute Plan: Robitussin DM (2) Infective diarrhea: Status: Acute Plan: Diarrhea has resolved. (3) Acute respiratory failure with hypoxia: Status: Acute Narrative Support Text: Improving overall. Plan: Continue Rx. (4) COVID-19 virus infection: Status: Acute Plan: Cont. Rx. (5) Hypokalemia: Status: Acute Plan: Replace potassium per protocol. (6) Elevated d-dimer: Status: Acute (7) Klebsiella pneumonia: Status: Acute Qualifiers: Laterality: bilateral Lung location: unspecified part of lung Qualified Code(s): J15.0 - Pneumonia due to Klebsiella pneumoniae Plan: Cont ABX (8) Candidal pneumonia: Status: Acute (9) Anxiety: Status: Resolved Plan: Anxiety resolved with Valium. (10) Thrombocytopenia: Status: Resolved Plan: Monitor daily platelet levels. Platelets stable. (11) BPH (benign prostatic hyperplasia): Status: Acute (12) Urinary retention: Status: Acute (13) Hypomagnesemia: Status: Acute
[2021-04-05] MEDS: MAGIC MOUTHWASH MT PRN (05:24)
[2021-04-05] MEDS: NYSTATIN SUSP PO SCH ×3 (05:24→21:26)
[2021-04-05] MEDS: PROTONIX INJ 40 MG VIAL IVP SCH ×2 (08:13→20:04)
[2021-04-05] MEDS: VITAMIN C PO SCH (08:13)
[2021-04-05] MEDS: ROBITUSSIN DM PO PRN ×2 (08:13→20:04)
[2021-04-05] MEDS: VALIUM PO PRN (08:14)
[2021-04-05] MEDS: COZAAR PO SCH (08:15)
[2021-04-05] MEDS: VSL#3 PO SCH (08:15)
[2021-04-05] MEDS: VITAMIN D3 125 mcg (5,000 UNITS) PO SCH (08:15)
[2021-04-05] MEDS: PROSCAR PO SCH (08:15)
[2021-04-05] MEDS: FLOMAX PO SCH (08:16)
[2021-04-05] MEDS: ZOLOFT PO SCH (08:16)
[2021-04-05] MEDS: ELIQUIS PO SCH ×2 (08:16→20:04)
[2021-04-05] MEDS: LOPRESSOR TAB 50 MG PO SCH (08:17)
[2021-04-05] MEDS: LOMOTIL PO PRN (08:17)
[2021-04-05] MEDS: HYDROCHLOROTHIAZIDE 25 MG TAB PO SCH (08:17)
[2021-04-05] MEDS: SOLU-Medrol 40 MG VIAL IVP SCH (08:18)
[2021-04-05] MEDS: VITAMIN A PO SCH (08:18)
[2021-04-05] MEDS: Atrovent NEB TX 0.02% NEB SCH ×2 (08:31→20:00)
[2021-04-05] MEDS: PULMICORT NEB TX 0.5 MG NEB SCH ×2 (08:31→20:00)
[2021-04-05 09:07] LABS: BASOPHILS % (AUTO) 0.3 % (0.2-1.0); EOSINOPHILS # (AUTO) 0.3 x10^3/uL (0.0-0.2); EOSINOPHILS % (AUTO) 3.2 % (0.9-2.9); HEMATOCRIT 32.5 % (42.0-54.0); HEMOGLOBIN 11.5 g/dL (13.5-18.0); LYMPHOCYTES # (AUTO) 0.7 X10^3/uL (1.3-2.9); LYMPHOCYTES % (AUTO) 9.1 % (21.0-51.0); MEAN CORPUSCULAR HEMOGLOBIN 30.4 pg (27.0-34.0); MEAN CORPUSCULAR HGB CONC 35.4 g/dL (33.0-35.0); MEAN CORPUSCULAR VOLUME 86.1 fL (80.0-100.0); MEAN PLATELET VOLUME 8.1 fL (7.4-11.0); MONOCYTES # (AUTO) 0.6 x10^3/uL (0.3-0.8); MONOCYTES % (AUTO) 7.6 % (0.0-13.0); NEUTROPHILS # (AUTO) 6.4 x10^3/uL (2.2-4.8); NEUTROPHILS % (AUTO) 79.8 % (42.0-75.0); PLATELET COUNT 220 X10^3/uL (150.0-450.0); RED BLOOD COUNT 3.77 X10^6/uL (4.7-6.0); RED CELL DISTRIBUTION WIDTH 17.8 % (11.6-16.5)
[2021-04-05 09:22] LABS: ALANINE AMINOTRANSFERASE 81 Units/L (12-78); ALBUMIN 2.3 g/dL (3.4-5.0); ALKALINE PHOSPHATASE 81 Units/L (46-116); ASPARTATE AMINO TRANSFERASE 20 Units/L (15-37); BLOOD UREA NITROGEN 23 mg/dL (7-18); CALCIUM 8.3 mg/dL (8.5-10.1); CARBON DIOXIDE 31.8 mmol/L (21-32); CHLORIDE 100 mmol/L (98-107); COR CA(FOR HYPOALB) 9.7 mg/dL (8.5-10.1); CREATININE 0.55 mg/dL (0.70-1.30); SODIUM 136 mmol/L (136-145); TOTAL PROTEIN 5.6 g/dL (6.4-8.2); eGFR NON BLACK RACES > 60 (>60)
[2021-04-05] MEDS: K-DUR TAB 20 MEQ PO PRN (17:53)
[2021-04-06] MEDS: NYSTATIN SUSP PO SCH ×3 (05:06→21:05)
[2021-04-06 05:18] LABS: BASOPHILS % (AUTO) 0.1 % (0.2-1.0); EOSINOPHILS # (AUTO) 0.2 x10^3/uL (0.0-0.2); EOSINOPHILS % (AUTO) 2.8 % (0.9-2.9); HEMATOCRIT 31.3 % (42.0-54.0); HEMOGLOBIN 11.3 g/dL (13.5-18.0); LYMPHOCYTES # (AUTO) 0.8 X10^3/uL (1.3-2.9); MEAN CORPUSCULAR HGB CONC 36.2 g/dL (33.0-35.0); MEAN CORPUSCULAR VOLUME 85.8 fL (80.0-100.0); MEAN PLATELET VOLUME 7.5 fL (7.4-11.0); MONOCYTES # (AUTO) 0.6 x10^3/uL (0.3-0.8); NEUTROPHILS # (AUTO) 5.6 x10^3/uL (2.2-4.8); NEUTROPHILS % (AUTO) 77.1 % (42.0-75.0); PLATELET COUNT 261 X10^3/uL (150.0-450.0); RED BLOOD COUNT 3.65 X10^6/uL (4.7-6.0); RED CELL DISTRIBUTION WIDTH 17.2 % (11.6-16.5); WHITE BLOOD COUNT 7.2 X10^3/uL (3.6-10.0)
[2021-04-06 05:27] LABS: ALANINE AMINOTRANSFERASE 78 Units/L (12-78); ALBUMIN 2.3 g/dL (3.4-5.0); ALKALINE PHOSPHATASE 83 Units/L (46-116); ASPARTATE AMINO TRANSFERASE 21 Units/L (15-37); BLOOD UREA NITROGEN 22 mg/dL (7-18); CALCIUM 8.4 mg/dL (8.5-10.1); CARBON DIOXIDE 29.6 mmol/L (21-32); CHLORIDE 101 mmol/L (98-107); COR CA(FOR HYPOALB) 9.8 mg/dL (8.5-10.1); CREATININE 0.63 mg/dL (0.70-1.30); SODIUM 137 mmol/L (136-145); TOTAL PROTEIN 5.6 g/dL (6.4-8.2); eGFR NON BLACK RACES > 60 (>60)
[2021-04-06] MEDS: PULMICORT NEB TX 0.5 MG NEB SCH ×2 (08:10→20:20)
[2021-04-06] MEDS: Atrovent NEB TX 0.02% NEB SCH ×2 (08:10→20:20)
--- NOTE | 2021-04-06 08:20 | PCM.PROG ---
Progress Note Progress Note for Day of Date of Exam: 04/05/21 Subjective Subjective: Patient's anxiety much improved. Feels better overall. Still coughing but less SOB. Past Medical Family Social History Past Med/Fam/Surg Hx: No changes since H&P Allergies: Allergies temazepam [From Restoril] Allergy (Verified 03/05/21 09:47) IVP DYE Allergy (Uncoded 03/02/21 18:20) Review of Systems ROS: No change since H&P Vital Signs and I&O's Vital Signs: Temperature 98.0 F Pulse Rate [Left Brachial] 85 Pulse Rate 84 Respiratory Rate 28 Blood Pressure [Left Arm] 153/80 Blood Pressure 114/72 O2 Sat by Pulse Oximetry 94 Intake and Output: Intake & Output 04/03/21 04/04/21 04/05/21 04/06/21 11:59 11:59 11:59 11:59 Intake Total 510 / 510 1550 / 1550 490 / 490 540 / 540 Output Total 650 / 650 2151 / 2151 1850 / 1850 600 / 600 Balance -140 / -140 -601 / -601 -1360 / -1360 -60 / -60 Physical Exam Oriented: Normal Eyes: Normal Ear: Normal Nose: Normal Throat: Other (small ulcers noted on the tip of the tongue. Some oral thrush ) Respiratory: Generalized and Diminished Cardiovascular: Normal Auscultation: Bowel Sounds: Normal Tenderness: Normal Skin: Normal Musculoskeletal: Normal Psychiatric: Normal Mood Description: Calm Affect: Normal Speech Pattern: Clear and Appropriate Laboratory and Diagnostics Result Diagrams: 04/06/21 04:40 04/06/21 04:40 Labs: 03/27/21 07:00 Stool Stool Culture - Final 03/27/21 07:00 Stool - Final 03/09/21 11:50 Sputum - Expectorated Sputum Sputum Culture - Final Klebsiella Pneumoniae 03/09/21 11:50 Sputum - Expectorated Sputum - Final 03/11/21 08:10 Sputum - Expectorated Sputum Sputum Culture - Final Klebsiella Pneumoniae 03/11/21 08:10 Sputum - Expectorated Sputum - Final Laboratory WBC 7.2 X10^3/uL (3.6-10.0) 04/06/21 04:40 RBC 3.65 X10^6/uL (4.7-6.0) L 04/06/21 04:40 Hgb 11.3 g/dL (13.5-18.0) L 04/06/21 04:40 Hct 31.3 % (42.0-54.0) L 04/06/21 04:40 MCV 85.8 fL (80.0-100.0) 04/06/21 04:40 MCH 31.0 pg (27.0-34.0) 04/06/21 04:40 MCHC 36.2 g/dL (33.0-35.0) H 04/06/21 04:40 RDW 17.2 % (11.6-16.5) H 04/06/21 04:40 Plt Count 261 X10^3/uL (150.0-450.0) 04/06/21 04:40 Plt Count Comment Adequate (ADEQUATE) 04/02/21 11:42 MPV 7.5 fL (7.4-11.0) 04/06/21 04:40 Neut % (Auto) 77.1 % (42.0-75.0) H 04/06/21 04:40 Lymph % (Auto) 11.0 % (21.0-51.0) L 04/06/21 04:40 [place] % (Auto) 9.0 % (0.0-13.0) 04/06/21 04:40 Eos % (Auto) 2.8 % (0.9-2.9) 04/06/21 04:40 Baso % (Auto) 0.1 % (0.2-1.0) L 04/06/21 04:40 Neut # (Auto) 5.6 x10^3/uL (2.2-4.8) H 04/06/21 04:40 Lymph # (Auto) 0.8 X10^3/uL (1.3-2.9) L 04/06/21 04:40 [place] # (Auto) 0.6 x10^3/uL (0.3-0.8) 04/06/21 04:40 Eos # (Auto) 0.2 x10^3/uL (0.0-0.2) 04/06/21 04:40 Baso # (Auto) 0.0 X10^3/uL (0.0-0.1) 04/06/21 04:40 Absolute Nucleated RBC 0.1 /100WBC 04/06/21 04:40 Total Counted 100 04/02/21 11:42 Neutrophils % (Manual) 89 % (39-76) H 04/02/21 11:42 Band Neutrophils % 1 % (0-10) 03/29/21 04:55 Lymphocytes % (Manual) 4 % (13-43) L 04/02/21 11:42 Monocytes % (Manual) 5 % (4-9) 04/02/21 11:42 Eosinophils % (Manual) 2 % (0-6) 04/02/21 11:42 Plt Morphology Comment Normal (NORMAL) 04/02/21 11:42 RBC Morphology Abnormal (NORMAL) 04/02/21 11:42 Anisocytosis Slight A 04/02/21 11:42 PT 14.8 SECONDS (11.8-14.3) 04/02/21 11:42 INR Target Range - 04/02/21 11:42 INR 1.22 (0.8-1.3) 04/02/21 11:42 APTT 29.2 SECONDS (22.9-36.5) 04/02/21 11:42 PTT Comment - 04/02/21 11:42 D-Dimer 2.51 ug/ml (0.0-0.57) H* 03/14/21 04:39 Sample Site R rad 04/02/21 15:01 ABG pH 7.470 (7.35-7.45) H 04/02/21 15:01 ABG pCO2 37.0 mmHg (35.0-45.0) 04/02/21 15:01 ABG pO2 76.0 mmHg (80.0-100.0) L 04/02/21 15:01 ABG HCO3 26.9 mmol/L (22-26) H 04/02/21 15:01 ABG O2 Saturation 96.0 % (90-100) 04/02/21 15:01 ABG Base Excess 3.2 mmol/L (-2.0-2.0) H 04/02/21 15:01 Sree Test Pos 04/02/21 15:01 A-a Gradient 413.0 mmHg 04/02/21 15:01 FiO2 75.0 04/02/21 15:01 Blood Gas Comments Pt hernandez tx well mt 04/02/21 15:01 Sodium 137 mmol/L (136-145) 04/06/21 04:40 Corrected Sodium TNP 04/06/21 04:40 Potassium 3.5 mmol/L (3.5-5.1) 04/06/21 04:40 Chloride 101 mmol/L (98-107) 04/06/21 04:40 Carbon Dioxide 29.6 mmol/L (21-32) 04/06/21 04:40 BUN 22 mg/dL (7-18) H 04/06/21 04:40 Creatinine 0.63 mg/dL (0.70-1.30) L 04/06/21 04:40 Est GFR (MDRD) Af Amer > 60 (>60) 04/06/21 04:40 Est GFR (MDRD) Non-Af > 60 (>60) 04/06/21 04:40 Glucose 94 mg/dL (65-99) 04/06/21 04:40 POC Glucose (mg/dL) 111 mg/dL (65-99) H 03/28/21 11:45 Calcium 8.4 mg/dL (8.5-10.1) L 04/06/21 04:40 Corrected Calcium 9.8 mg/dL (8.5-10.1) 04/06/21 04:40 Magnesium 2.0 mg/dL (1.7-2.9) 04/01/21 04:06 Ferritin 1988 ng/mL (26-388) H 03/01/21 11:20 Total Bilirubin 0.60 mg/dL (0.2-1.0) 04/06/21 04:40 AST 21 Units/L (15-37) 04/06/21 04:40 ALT 78 Units/L (12-78) 04/06/21 04:40 Alkaline Phosphatase 83 Units/L (46-116) 04/06/21 04:40 Creatine Kinase 121 Units/L (39-308) 03/01/21 11:20 CK-MB (CK-2) < 1.0 ng/mL (0-4.0) 03/01/21 11:20 CK/CKMB % Calc 0.8 % (<4) 03/01/21 11:20 Troponin I < 0.02 ng/mL (0-1.5) 03/01/21 11:20 C-Reactive Protein < 0.50 mg/L (0-3.0) 03/13/21 04:22 B-Natriuretic Peptide 78.7 pg/mL (0-79) 03/14/21 04:39 Total Protein 5.6 g/dL (6.4-8.2) L 04/06/21 04:40 Albumin 2.3 g/dL (3.4-5.0) L 04/06/21 04:40 Globulin 3.3 g/dL (2.5-4.5) 04/06/21 04:40 Albumin/Globulin Ratio 0.7 Ratio (1.1-2.1) L 04/06/21 04:40 Specimen Type Catherized urine 03/21/21 05:35 Urine Color Yellow (YELLOW) 03/21/21 05:35 Urine Appearance Clear (CLEAR) 03/21/21 05:35 Urine pH 5.0 (5.0 - 8.0) 03/21/21 05:35 Ur Specific [place] 1.015 (1.000-1.030) 03/21/21 05:35 Urine Protein Negative (NEGATIVE) 03/21/21 05:35 Urine Glucose (UA) Negative (NEGATIVE) 03/21/21 05:35 Urine Ketones Negative (NEGATIVE) 03/21/21 05:35 Urine Occult Blood 5+ (NEGATIVE) 03/21/21 05:35 Urine Nitrite Negative (NEGATIVE) 03/21/21 05:35 Urine Bilirubin Negative (NEGATIVE) 03/21/21 05:35 Urine Urobilinogen Normal (NORMAL) 03/21/21 05:35 Ur Leukocyte Esterase Negative (NEGATIVE) 03/21/21 05:35 Urine RBC 5-10 /HPF (0-3) A 03/21/21 05:35 Urine WBC 0-2 /HPF (0-5) 03/21/21 05:35 Ur Squamous Epith Cells Negative /HPF (NEGATIVE) 03/21/21 05:35 Urine Bacteria Negative /HPF (NEGATIVE) 03/21/21 05:35 Urine Mucus Rare /HPF (NEGATIVE) 03/21/21 05:35 Ur Culture Indicated? No/not indicated 03/21/21 05:35 Stool Description 3g semisolid brown 03/27/21 07:00 Stool Description Fob tube 03/27/21 07:00 Stl Occult Blood (IFOB) Negative (NEGATIVE) 03/27/21 07:00 Stool for White Cells Positive (NEGATIVE) A 03/27/21 07:00 Stl C. diff Tox B Gene Negative (NEGATIVE) 03/27/21 07:00 Stl C. diff [id number] Presumptive negative (NEGATIVE) 03/27/21 07:00 Cryptosporid parvum Ag Negative (NEGATIVE) 03/27/21 07:00 Giardia lamblia Ag Negative (NEGATIVE) 03/27/21 07:00 Blood Type A NEGATIVE 04/02/21 11:42 Antibody Screen Negative 04/02/21 11:42 Plan (1) Cough: Status: Acute Narrative Support Text: Improved. Plan: Robitussin DM (2) Acute respiratory failure with hypoxia: Status: Acute Plan: Continue Rx. (3) COVID-19 virus infection: Status: Acute Plan: Cont. Rx. (4) Hypokalemia: Status: Acute Narrative Support Text: Resolved. Plan: Replace potassium per protocol. (5) Elevated d-dimer: Status: Acute (6) Klebsiella pneumonia: Status: Acute Qualifiers: Laterality: bilateral Lung location: unspecified part of lung Qualified Code(s): J15.0 - Pneumonia due to Klebsiella pneumoniae Plan: Cont ABX (7) Candidal pneumonia: Status: Acute (8) Anxiety: Status: Resolved Plan: Anxiety resolved with Valium. (9) Thrombocytopenia: Status: Resolved Plan: Monitor daily platelet levels. Platelets stable. (10) BPH (benign prostatic hyperplasia): Status: Acute (11) Urinary retention: Status: Acute (12) Hypomagnesemia: Status: Acute
[2021-04-06] MEDS: LOMOTIL PO PRN (08:42)
[2021-04-06] MEDS: ELIQUIS PO SCH ×2 (08:46→21:05)
[2021-04-06] MEDS: COZAAR PO SCH (08:46)
[2021-04-06] MEDS: PROTONIX INJ 40 MG VIAL IVP SCH ×2 (08:47→21:05)
[2021-04-06] MEDS: PROSCAR PO SCH (08:47)
[2021-04-06] MEDS: HYDROCHLOROTHIAZIDE 25 MG TAB PO SCH (08:47)
[2021-04-06] MEDS: FLOMAX PO SCH (08:47)
[2021-04-06] MEDS: LOPRESSOR TAB 50 MG PO SCH (08:47)
[2021-04-06] MEDS: VITAMIN D3 125 mcg (5,000 UNITS) PO SCH (08:48)
[2021-04-06] MEDS: VITAMIN C PO SCH (08:48)
[2021-04-06] MEDS: SOLU-Medrol 40 MG VIAL IVP SCH (08:48)
[2021-04-06] MEDS: ZOLOFT PO SCH (08:48)
[2021-04-06] MEDS: VSL#3 PO SCH (08:48)
[2021-04-06] MEDS: VITAMIN A PO SCH (11:37)
[2021-04-07 05:18] LABS: BASOPHILS % (AUTO) 0.1 % (0.2-1.0); EOSINOPHILS # (AUTO) 0.2 x10^3/uL (0.0-0.2); EOSINOPHILS % (AUTO) 2.3 % (0.9-2.9); HEMATOCRIT 31.4 % (42.0-54.0); HEMOGLOBIN 11.3 g/dL (13.5-18.0); LYMPHOCYTES # (AUTO) 0.9 X10^3/uL (1.3-2.9); LYMPHOCYTES % (AUTO) 12.3 % (21.0-51.0); MEAN CORPUSCULAR HEMOGLOBIN 30.7 pg (27.0-34.0); MEAN CORPUSCULAR HGB CONC 35.9 g/dL (33.0-35.0); MEAN CORPUSCULAR VOLUME 85.7 fL (80.0-100.0); MEAN PLATELET VOLUME 7.4 fL (7.4-11.0); MONOCYTES # (AUTO) 0.6 x10^3/uL (0.3-0.8); MONOCYTES % (AUTO) 8.3 % (0.0-13.0); NEUTROPHILS # (AUTO) 5.8 x10^3/uL (2.2-4.8); PLATELET COUNT 288 X10^3/uL (150.0-450.0); RED BLOOD COUNT 3.66 X10^6/uL (4.7-6.0); RED CELL DISTRIBUTION WIDTH 17.2 % (11.6-16.5); WHITE BLOOD COUNT 7.5 X10^3/uL (3.6-10.0)
[2021-04-07 05:32] LABS: ALANINE AMINOTRANSFERASE 77 Units/L (12-78); ALBUMIN 2.3 g/dL (3.4-5.0); ALKALINE PHOSPHATASE 82 Units/L (46-116); ASPARTATE AMINO TRANSFERASE 21 Units/L (15-37); BLOOD UREA NITROGEN 22 mg/dL (7-18); CALCIUM 8.5 mg/dL (8.5-10.1); CARBON DIOXIDE 29.1 mmol/L (21-32); CHLORIDE 101 mmol/L (98-107); COR CA(FOR HYPOALB) 9.9 mg/dL (8.5-10.1); CREATININE 0.56 mg/dL (0.70-1.30); SODIUM 137 mmol/L (136-145); TOTAL PROTEIN 5.5 g/dL (6.4-8.2); eGFR NON BLACK RACES > 60 (>60)
[2021-04-07] MEDS: NYSTATIN SUSP PO SCH ×3 (05:55→21:05)
[2021-04-07] MEDS: ELIQUIS PO SCH ×2 (08:49→21:04)
[2021-04-07] MEDS: COZAAR PO SCH (08:49)
[2021-04-07] MEDS: FLOMAX PO SCH (08:51)
[2021-04-07] MEDS: BUTT CREAM (COMPOUND) TOP PRN (08:51)
[2021-04-07] MEDS: K-DUR TAB 20 MEQ PO PRN (08:51)
[2021-04-07] MEDS: PROSCAR PO SCH (08:51)
[2021-04-07] MEDS: PROTONIX INJ 40 MG VIAL IVP SCH ×2 (08:53→21:05)
[2021-04-07] MEDS: LOMOTIL PO PRN (08:54)
[2021-04-07] MEDS: ROBITUSSIN DM PO PRN ×2 (08:55→14:15)
[2021-04-07] MEDS: SOLU-Medrol 40 MG VIAL IVP SCH (08:58)
--- NOTE | 2021-04-07 09:05 | PCM.PROG ---
Progress Note Progress Note for Day of Date of Exam: 04/07/21 Subjective Subjective: Patient's anxiety much improved. Feels better overall. Still coughing but less SOB. Past Medical Family Social History Past Med/Fam/Surg Hx: No changes since H&P Allergies: Allergies temazepam [From Restoril] Allergy (Verified 03/05/21 09:47) IVP DYE Allergy (Uncoded 03/02/21 18:20) Review of Systems ROS: No change since H&P Vital Signs and I&O's Vital Signs: Temperature 97.0 F Pulse Rate [Left Brachial] 85 Pulse Rate 80 Respiratory Rate 36 Blood Pressure [Left Arm] 153/80 Blood Pressure 114/78 O2 Sat by Pulse Oximetry 94 Intake and Output: Intake & Output 04/04/21 04/05/21 04/06/21 04/07/21 11:59 11:59 11:59 11:59 Intake Total 1550 / 1550 490 / 490 540 / 540 1400 / 1400 Output Total 2151 / 2151 1850 / 1850 600 / 600 1875 / 1875 Balance -601 / -601 -1360 / -1360 -60 / -60 -475 / -475 Physical Exam Oriented: Normal Eyes: Normal Ear: Normal Nose: Normal Throat: Other (small ulcers noted on the tip of the tongue. Some oral thrush ) Respiratory: Normal Cardiovascular: Normal Auscultation: Bowel Sounds: Normal Tenderness: Normal Skin: Normal Musculoskeletal: Normal Psychiatric: Normal Mood Description: Calm Affect: Normal Speech Pattern: Clear and Appropriate Laboratory and Diagnostics Result Diagrams: 04/07/21 04:41 04/07/21 04:41 Labs: 03/27/21 07:00 Stool Stool Culture - Final 03/27/21 07:00 Stool - Final 03/09/21 11:50 Sputum - Expectorated Sputum Sputum Culture - Final Klebsiella Pneumoniae 03/09/21 11:50 Sputum - Expectorated Sputum - Final 03/11/21 08:10 Sputum - Expectorated Sputum Sputum Culture - Final Klebsiella Pneumoniae 03/11/21 08:10 Sputum - Expectorated Sputum - Final Laboratory WBC 7.5 X10^3/uL (3.6-10.0) 04/07/21 04:41 RBC 3.66 X10^6/uL (4.7-6.0) L 04/07/21 04:41 Hgb 11.3 g/dL (13.5-18.0) L 04/07/21 04:41 Hct 31.4 % (42.0-54.0) L 04/07/21 04:41 MCV 85.7 fL (80.0-100.0) 04/07/21 04:41 MCH 30.7 pg (27.0-34.0) 04/07/21 04:41 MCHC 35.9 g/dL (33.0-35.0) H 04/07/21 04:41 RDW 17.2 % (11.6-16.5) H 04/07/21 04:41 Plt Count 288 X10^3/uL (150.0-450.0) 04/07/21 04:41 Plt Count Comment Adequate (ADEQUATE) 04/02/21 11:42 MPV 7.4 fL (7.4-11.0) 04/07/21 04:41 Neut % (Auto) 77.0 % (42.0-75.0) H 04/07/21 04:41 Lymph % (Auto) 12.3 % (21.0-51.0) L 04/07/21 04:41 [place] % (Auto) 8.3 % (0.0-13.0) 04/07/21 04:41 Eos % (Auto) 2.3 % (0.9-2.9) 04/07/21 04:41 Baso % (Auto) 0.1 % (0.2-1.0) L 04/07/21 04:41 Neut # (Auto) 5.8 x10^3/uL (2.2-4.8) H 04/07/21 04:41 Lymph # (Auto) 0.9 X10^3/uL (1.3-2.9) L 04/07/21 04:41 [place] # (Auto) 0.6 x10^3/uL (0.3-0.8) 04/07/21 04:41 Eos # (Auto) 0.2 x10^3/uL (0.0-0.2) 04/07/21 04:41 Baso # (Auto) 0.0 X10^3/uL (0.0-0.1) 04/07/21 04:41 Absolute Nucleated RBC 0.1 /100WBC 04/07/21 04:41 Total Counted 100 04/02/21 11:42 Neutrophils % (Manual) 89 % (39-76) H 04/02/21 11:42 Band Neutrophils % 1 % (0-10) 03/29/21 04:55 Lymphocytes % (Manual) 4 % (13-43) L 04/02/21 11:42 Monocytes % (Manual) 5 % (4-9) 04/02/21 11:42 Eosinophils % (Manual) 2 % (0-6) 04/02/21 11:42 Plt Morphology Comment Normal (NORMAL) 04/02/21 11:42 RBC Morphology Abnormal (NORMAL) 04/02/21 11:42 Anisocytosis Slight A 04/02/21 11:42 PT 14.8 SECONDS (11.8-14.3) 04/02/21 11:42 INR Target Range - 04/02/21 11:42 INR 1.22 (0.8-1.3) 04/02/21 11:42 APTT 29.2 SECONDS (22.9-36.5) 04/02/21 11:42 PTT Comment - 04/02/21 11:42 D-Dimer 2.51 ug/ml (0.0-0.57) H* 03/14/21 04:39 Sample Site R rad 04/02/21 15:01 ABG pH 7.470 (7.35-7.45) H 04/02/21 15:01 ABG pCO2 37.0 mmHg (35.0-45.0) 04/02/21 15:01 ABG pO2 76.0 mmHg (80.0-100.0) L 04/02/21 15:01 ABG HCO3 26.9 mmol/L (22-26) H 04/02/21 15:01 ABG O2 Saturation 96.0 % (90-100) 04/02/21 15:01 ABG Base Excess 3.2 mmol/L (-2.0-2.0) H 04/02/21 15:01 Sree Test Pos 04/02/21 15:01 A-a Gradient 413.0 mmHg 04/02/21 15:01 FiO2 75.0 04/02/21 15:01 Blood Gas Comments Pt hernandez tx well mt 04/02/21 15:01 Sodium 137 mmol/L (136-145) 04/07/21 04:41 Corrected Sodium TNP 04/07/21 04:41 Potassium 3.3 mmol/L (3.5-5.1) L 04/07/21 04:41 Chloride 101 mmol/L (98-107) 04/07/21 04:41 Carbon Dioxide 29.1 mmol/L (21-32) 04/07/21 04:41 BUN 22 mg/dL (7-18) H 04/07/21 04:41 Creatinine 0.56 mg/dL (0.70-1.30) L 04/07/21 04:41 Est GFR (MDRD) Af Amer > 60 (>60) 04/07/21 04:41 Est GFR (MDRD) Non-Af > 60 (>60) 04/07/21 04:41 Glucose 100 mg/dL (65-99) H 04/07/21 04:41 POC Glucose (mg/dL) 111 mg/dL (65-99) H 03/28/21 11:45 Calcium 8.5 mg/dL (8.5-10.1) 04/07/21 04:41 Corrected Calcium 9.9 mg/dL (8.5-10.1) 04/07/21 04:41 Magnesium 2.0 mg/dL (1.7-2.9) 04/01/21 04:06 Ferritin 1988 ng/mL (26-388) H 03/01/21 11:20 Total Bilirubin 0.50 mg/dL (0.2-1.0) 04/07/21 04:41 AST 21 Units/L (15-37) 04/07/21 04:41 ALT 77 Units/L (12-78) 04/07/21 04:41 Alkaline Phosphatase 82 Units/L (46-116) 04/07/21 04:41 Creatine Kinase 121 Units/L (39-308) 03/01/21 11:20 CK-MB (CK-2) < 1.0 ng/mL (0-4.0) 03/01/21 11:20 CK/CKMB % Calc 0.8 % (<4) 03/01/21 11:20 Troponin I < 0.02 ng/mL (0-1.5) 03/01/21 11:20 C-Reactive Protein < 0.50 mg/L (0-3.0) 03/13/21 04:22 B-Natriuretic Peptide 78.7 pg/mL (0-79) 03/14/21 04:39 Total Protein 5.5 g/dL (6.4-8.2) L 04/07/21 04:41 Albumin 2.3 g/dL (3.4-5.0) L 04/07/21 04:41 Globulin 3.2 g/dL (2.5-4.5) 04/07/21 04:41 Albumin/Globulin Ratio 0.7 Ratio (1.1-2.1) L 04/07/21 04:41 Specimen Type Catherized urine 03/21/21 05:35 Urine Color Yellow (YELLOW) 03/21/21 05:35 Urine Appearance Clear (CLEAR) 03/21/21 05:35 Urine pH 5.0 (5.0 - 8.0) 03/21/21 05:35 Ur Specific [place] 1.015 (1.000-1.030) 03/21/21 05:35 Urine Protein Negative (NEGATIVE) 03/21/21 05:35 Urine Glucose (UA) Negative (NEGATIVE) 03/21/21 05:35 Urine Ketones Negative (NEGATIVE) 03/21/21 05:35 Urine Occult Blood 5+ (NEGATIVE) 03/21/21 05:35 Urine Nitrite Negative (NEGATIVE) 03/21/21 05:35 Urine Bilirubin Negative (NEGATIVE) 03/21/21 05:35 Urine Urobilinogen Normal (NORMAL) 03/21/21 05:35 Ur Leukocyte Esterase Negative (NEGATIVE) 03/21/21 05:35 Urine RBC 5-10 /HPF (0-3) A 03/21/21 05:35 Urine WBC 0-2 /HPF (0-5) 03/21/21 05:35 Ur Squamous Epith Cells Negative /HPF (NEGATIVE) 03/21/21 05:35 Urine Bacteria Negative /HPF (NEGATIVE) 03/21/21 05:35 Urine Mucus Rare /HPF (NEGATIVE) 03/21/21 05:35 Ur Culture Indicated? No/not indicated 03/21/21 05:35 Stool Description 3g semisolid brown 03/27/21 07:00 Stool Description Fob tube 03/27/21 07:00 Stl Occult Blood (IFOB) Negative (NEGATIVE) 03/27/21 07:00 Stool for White Cells Positive (NEGATIVE) A 03/27/21 07:00 Stl C. diff Tox B Gene Negative (NEGATIVE) 03/27/21 07:00 Stl C. diff [id number] Presumptive negative (NEGATIVE) 03/27/21 07:00 Cryptosporid parvum Ag Negative (NEGATIVE) 03/27/21 07:00 Giardia lamblia Ag Negative (NEGATIVE) 03/27/21 07:00 Blood Type A NEGATIVE 04/02/21 11:42 Antibody Screen Negative 04/02/21 11:42 Plan (1) Cough: Status: Acute Plan: Robitussin DM (2) Acute respiratory failure with hypoxia: Status: Acute Narrative Support Text: Continues to improve. Lungs much more clear this am. O2 sat 90% on humidified O2. Plan: Continue Rx. (3) COVID-19 virus infection: Status: Acute Plan: Cont. Rx. (4) Hypokalemia: Status: Acute Narrative Support Text: Decreased potassium this am. Plan: Replace potassium per protocol. (5) Elevated d-dimer: Status: Acute (6) Klebsiella pneumonia: Status: Acute Qualifiers: Laterality: bilateral Lung location: unspecified part of lung Qualified Code(s): J15.0 - Pneumonia due to Klebsiella pneumoniae Plan: Cont ABX (7) Candidal pneumonia: Status: Acute (8) Anxiety: Status: Resolved Plan: Anxiety resolved with Valium. (9) Thrombocytopenia: Status: Resolved Plan: Monitor daily platelet levels. Platelets stable. (10) BPH (benign prostatic hyperplasia): Status: Acute (11) Urinary retention: Status: Acute (12) Hypomagnesemia: Status: Acute
[2021-04-07] MEDS: VITAMIN D3 125 mcg (5,000 UNITS) PO SCH (09:07)
[2021-04-07] MEDS: VSL#3 PO SCH (09:07)
[2021-04-07] MEDS: VITAMIN C PO SCH (09:07)
[2021-04-07] MEDS: VITAMIN A PO SCH (09:07)
[2021-04-07] MEDS: ZOLOFT PO SCH (09:08)
[2021-04-07] MEDS: PULMICORT NEB TX 0.5 MG NEB SCH ×2 (09:55→21:12)
[2021-04-07] MEDS: Atrovent NEB TX 0.02% NEB SCH ×2 (09:55→21:12)
[2021-04-07] MEDS: LOPRESSOR TAB 50 MG PO SCH (13:39)
[2021-04-07] MEDS: HYDROCHLOROTHIAZIDE 25 MG TAB PO SCH (19:33)
[2021-04-08] MEDS: NYSTATIN SUSP PO SCH ×3 (07:35→22:00)
[2021-04-08] MEDS: ELIQUIS PO SCH ×2 (08:41→20:54)
[2021-04-08] MEDS: COZAAR PO SCH (08:41)
[2021-04-08] MEDS: FLOMAX PO SCH (08:41)
[2021-04-08] MEDS: HYDROCHLOROTHIAZIDE 25 MG TAB PO SCH (08:41)
[2021-04-08] MEDS: SOLU-Medrol 40 MG VIAL IVP SCH (08:42)
[2021-04-08] MEDS: VITAMIN C PO SCH (08:42)
[2021-04-08] MEDS: LOPRESSOR TAB 50 MG PO SCH (08:42)
[2021-04-08] MEDS: PROSCAR PO SCH (08:42)
[2021-04-08] MEDS: VITAMIN A PO SCH (08:42)
[2021-04-08] MEDS: PROTONIX INJ 40 MG VIAL IVP SCH ×2 (08:42→20:54)
[2021-04-08] MEDS: VITAMIN D3 125 mcg (5,000 UNITS) PO SCH (08:43)
[2021-04-08] MEDS: ZOLOFT PO SCH (08:43)
[2021-04-08] MEDS: VSL#3 PO SCH (08:43)
[2021-04-08] MEDS: PULMICORT NEB TX 0.5 MG NEB SCH ×2 (09:06→20:20)
[2021-04-08] MEDS: Atrovent NEB TX 0.02% NEB SCH ×2 (09:06→20:20)
--- NOTE | 2021-04-08 18:56 | PCM.PROG ---
Progress Note Progress Note for Day of Date of Exam: 04/08/21 Subjective Subjective: Patient's anxiety much improved. Feels better overall. Still coughing but less SOB. No new complaints today. Past Medical Family Social History Past Med/Fam/Surg Hx: No changes since H&P Allergies: Allergies temazepam [From Restoril] Allergy (Verified 03/05/21 09:47) IVP DYE Allergy (Uncoded 03/02/21 18:20) Review of Systems ROS: No change since H&P Vital Signs and I&O's Vital Signs: Temperature 97.8 F Pulse Rate [Left Brachial] 85 Pulse Rate 91 Respiratory Rate 45 Blood Pressure [Left Arm] 153/80 Blood Pressure 110/66 O2 Sat by Pulse Oximetry 88 Intake and Output: Intake & Output 04/06/21 04/07/21 04/08/21 04/09/21 11:59 11:59 11:59 11:59 Intake Total 540 / 540 1620 / 1620 860 / 860 510 / 510 Output Total 600 / 600 2026 / 2026 1450 / 1450 400 / 400 Balance -60 / -60 -407 / -407 -590 / -590 110 / 110 Physical Exam Oriented: Normal Eyes: Normal Throat: Other (small ulcers noted on the tip of the tongue. Some oral thrush ) Respiratory: Right, Left and Rhonchi Cardiovascular: Normal Auscultation: Bowel Sounds: Normal Tenderness: Normal Skin: Normal Musculoskeletal: Normal Psychiatric: Normal Mood Description: Calm Affect: Normal Speech Pattern: Clear and Appropriate Laboratory and Diagnostics Result Diagrams: 04/07/21 04:41 04/07/21 04:41 Labs: 03/27/21 07:00 Stool Stool Culture - Final 03/27/21 07:00 Stool - Final 03/09/21 11:50 Sputum - Expectorated Sputum Sputum Culture - Final Klebsiella Pneumoniae 03/09/21 11:50 Sputum - Expectorated Sputum - Final 03/11/21 08:10 Sputum - Expectorated Sputum Sputum Culture - Final Klebsiella Pneumoniae 03/11/21 08:10 Sputum - Expectorated Sputum - Final Laboratory WBC 7.5 X10^3/uL (3.6-10.0) 04/07/21 04:41 RBC 3.66 X10^6/uL (4.7-6.0) L 04/07/21 04:41 Hgb 11.3 g/dL (13.5-18.0) L 04/07/21 04:41 Hct 31.4 % (42.0-54.0) L 04/07/21 04:41 MCV 85.7 fL (80.0-100.0) 04/07/21 04:41 MCH 30.7 pg (27.0-34.0) 04/07/21 04:41 MCHC 35.9 g/dL (33.0-35.0) H 04/07/21 04:41 RDW 17.2 % (11.6-16.5) H 04/07/21 04:41 Plt Count 288 X10^3/uL (150.0-450.0) 04/07/21 04:41 Plt Count Comment Adequate (ADEQUATE) 04/02/21 11:42 MPV 7.4 fL (7.4-11.0) 04/07/21 04:41 Neut % (Auto) 77.0 % (42.0-75.0) H 04/07/21 04:41 Lymph % (Auto) 12.3 % (21.0-51.0) L 04/07/21 04:41 [place] % (Auto) 8.3 % (0.0-13.0) 04/07/21 04:41 Eos % (Auto) 2.3 % (0.9-2.9) 04/07/21 04:41 Baso % (Auto) 0.1 % (0.2-1.0) L 04/07/21 04:41 Neut # (Auto) 5.8 x10^3/uL (2.2-4.8) H 04/07/21 04:41 Lymph # (Auto) 0.9 X10^3/uL (1.3-2.9) L 04/07/21 04:41 [place] # (Auto) 0.6 x10^3/uL (0.3-0.8) 04/07/21 04:41 Eos # (Auto) 0.2 x10^3/uL (0.0-0.2) 04/07/21 04:41 Baso # (Auto) 0.0 X10^3/uL (0.0-0.1) 04/07/21 04:41 Absolute Nucleated RBC 0.1 /100WBC 04/07/21 04:41 Total Counted 100 04/02/21 11:42 Neutrophils % (Manual) 89 % (39-76) H 04/02/21 11:42 Band Neutrophils % 1 % (0-10) 03/29/21 04:55 Lymphocytes % (Manual) 4 % (13-43) L 04/02/21 11:42 Monocytes % (Manual) 5 % (4-9) 04/02/21 11:42 Eosinophils % (Manual) 2 % (0-6) 04/02/21 11:42 Plt Morphology Comment Normal (NORMAL) 04/02/21 11:42 RBC Morphology Abnormal (NORMAL) 04/02/21 11:42 Anisocytosis Slight A 04/02/21 11:42 PT 14.8 SECONDS (11.8-14.3) 04/02/21 11:42 INR Target Range - 04/02/21 11:42 INR 1.22 (0.8-1.3) 04/02/21 11:42 APTT 29.2 SECONDS (22.9-36.5) 04/02/21 11:42 PTT Comment - 04/02/21 11:42 D-Dimer 2.51 ug/ml (0.0-0.57) H* 03/14/21 04:39 Sample Site R rad 04/02/21 15:01 ABG pH 7.470 (7.35-7.45) H 04/02/21 15:01 ABG pCO2 37.0 mmHg (35.0-45.0) 04/02/21 15:01 ABG pO2 76.0 mmHg (80.0-100.0) L 04/02/21 15:01 ABG HCO3 26.9 mmol/L (22-26) H 04/02/21 15:01 ABG O2 Saturation 96.0 % (90-100) 04/02/21 15:01 ABG Base Excess 3.2 mmol/L (-2.0-2.0) H 04/02/21 15:01 Sree Test Pos 04/02/21 15:01 A-a Gradient 413.0 mmHg 04/02/21 15:01 FiO2 75.0 04/02/21 15:01 Blood Gas Comments Pt hernandez tx well mt 04/02/21 15:01 Sodium 137 mmol/L (136-145) 04/07/21 04:41 Corrected Sodium TNP 04/07/21 04:41 Potassium 3.3 mmol/L (3.5-5.1) L 04/07/21 04:41 Chloride 101 mmol/L (98-107) 04/07/21 04:41 Carbon Dioxide 29.1 mmol/L (21-32) 04/07/21 04:41 BUN 22 mg/dL (7-18) H 04/07/21 04:41 Creatinine 0.56 mg/dL (0.70-1.30) L 04/07/21 04:41 Est GFR (MDRD) Af Amer > 60 (>60) 04/07/21 04:41 Est GFR (MDRD) Non-Af > 60 (>60) 04/07/21 04:41 Glucose 100 mg/dL (65-99) H 04/07/21 04:41 POC Glucose (mg/dL) 111 mg/dL (65-99) H 03/28/21 11:45 Calcium 8.5 mg/dL (8.5-10.1) 04/07/21 04:41 Corrected Calcium 9.9 mg/dL (8.5-10.1) 04/07/21 04:41 Magnesium 2.0 mg/dL (1.7-2.9) 04/01/21 04:06 Ferritin 1988 ng/mL (26-388) H 03/01/21 11:20 Total Bilirubin 0.50 mg/dL (0.2-1.0) 04/07/21 04:41 AST 21 Units/L (15-37) 04/07/21 04:41 ALT 77 Units/L (12-78) 04/07/21 04:41 Alkaline Phosphatase 82 Units/L (46-116) 04/07/21 04:41 Creatine Kinase 121 Units/L (39-308) 03/01/21 11:20 CK-MB (CK-2) < 1.0 ng/mL (0-4.0) 03/01/21 11:20 CK/CKMB % Calc 0.8 % (<4) 03/01/21 11:20 Troponin I < 0.02 ng/mL (0-1.5) 03/01/21 11:20 C-Reactive Protein < 0.50 mg/L (0-3.0) 03/13/21 04:22 B-Natriuretic Peptide 78.7 pg/mL (0-79) 03/14/21 04:39 Total Protein 5.5 g/dL (6.4-8.2) L 04/07/21 04:41 Albumin 2.3 g/dL (3.4-5.0) L 04/07/21 04:41 Globulin 3.2 g/dL (2.5-4.5) 04/07/21 04:41 Albumin/Globulin Ratio 0.7 Ratio (1.1-2.1) L 04/07/21 04:41 Specimen Type Catherized urine 03/21/21 05:35 Urine Color Yellow (YELLOW) 03/21/21 05:35 Urine Appearance Clear (CLEAR) 03/21/21 05:35 Urine pH 5.0 (5.0 - 8.0) 03/21/21 05:35 Ur Specific [place] 1.015 (1.000-1.030) 03/21/21 05:35 Urine Protein Negative (NEGATIVE) 03/21/21 05:35 Urine Glucose (UA) Negative (NEGATIVE) 03/21/21 05:35 Urine Ketones Negative (NEGATIVE) 03/21/21 05:35 Urine Occult Blood 5+ (NEGATIVE) 03/21/21 05:35 Urine Nitrite Negative (NEGATIVE) 03/21/21 05:35 Urine Bilirubin Negative (NEGATIVE) 03/21/21 05:35 Urine Urobilinogen Normal (NORMAL) 03/21/21 05:35 Ur Leukocyte Esterase Negative (NEGATIVE) 03/21/21 05:35 Urine RBC 5-10 /HPF (0-3) A 03/21/21 05:35 Urine WBC 0-2 /HPF (0-5) 03/21/21 05:35 Ur Squamous Epith Cells Negative /HPF (NEGATIVE) 03/21/21 05:35 Urine Bacteria Negative /HPF (NEGATIVE) 03/21/21 05:35 Urine Mucus Rare /HPF (NEGATIVE) 03/21/21 05:35 Ur Culture Indicated? No/not indicated 03/21/21 05:35 Stool Description 3g semisolid brown 03/27/21 07:00 Stool Description Fob tube 03/27/21 07:00 Stl Occult Blood (IFOB) Negative (NEGATIVE) 03/27/21 07:00 Stool for White Cells Positive (NEGATIVE) A 03/27/21 07:00 Stl C. diff Tox B Gene Negative (NEGATIVE) 03/27/21 07:00 Stl C. diff [id number] Presumptive negative (NEGATIVE) 03/27/21 07:00 Cryptosporid parvum Ag Negative (NEGATIVE) 03/27/21 07:00 Giardia lamblia Ag Negative (NEGATIVE) 03/27/21 07:00 Blood Type A NEGATIVE 04/02/21 11:42 Antibody Screen Negative 04/02/21 11:42 Plan (1) Acute respiratory failure with hypoxia: Status: Acute Narrative Support Text: Continues to improve slowly. Plan: Continue Rx. (2) Cough: Status: Acute Plan: Robitussin DM (3) COVID-19 virus infection: Status: Acute Plan: Cont. Rx. (4) Hypokalemia: Status: Acute Plan: Replace potassium per protocol. (5) Elevated d-dimer: Status: Acute (6) Klebsiella pneumonia: Status: Acute Qualifiers: Laterality: bilateral Lung location: unspecified part of lung Qualified Code(s): J15.0 - Pneumonia due to Klebsiella pneumoniae Plan: Cont ABX (7) Candidal pneumonia: Status: Acute (8) Anxiety: Status: Resolved Plan: Anxiety resolved with Valium. (9) Thrombocytopenia: Status: Resolved Plan: Monitor daily platelet levels. Platelets stable. (10) BPH (benign prostatic hyperplasia): Status: Acute (11) Urinary retention: Status: Acute (12) Hypomagnesemia: Status: Acute
[2021-04-09 05:55] LABS: BASOPHILS # (AUTO) 0.1 X10^3/uL (0.0-0.1); BASOPHILS % (AUTO) 2.2 % (0.2-1.0); EOSINOPHILS # (AUTO) 0.1 x10^3/uL (0.0-0.2); EOSINOPHILS % (AUTO) 2.3 % (0.9-2.9); HEMATOCRIT 30.5 % (42.0-54.0); HEMOGLOBIN 10.7 g/dL (13.5-18.0); LYMPHOCYTES # (AUTO) 0.8 X10^3/uL (1.3-2.9); LYMPHOCYTES % (AUTO) 12.9 % (21.0-51.0); MEAN CORPUSCULAR HEMOGLOBIN 30.5 pg (27.0-34.0); MEAN CORPUSCULAR HGB CONC 35.1 g/dL (33.0-35.0); MEAN PLATELET VOLUME 7.3 fL (7.4-11.0); MONOCYTES # (AUTO) 0.4 x10^3/uL (0.3-0.8); MONOCYTES % (AUTO) 6.2 % (0.0-13.0); NEUTROPHILS # (AUTO) 4.5 x10^3/uL (2.2-4.8); NEUTROPHILS % (AUTO) 76.4 % (42.0-75.0); PLATELET COUNT 273 X10^3/uL (150.0-450.0); RED CELL DISTRIBUTION WIDTH 17.3 % (11.6-16.5); WHITE BLOOD COUNT 5.9 X10^3/uL (3.6-10.0)
[2021-04-09] MEDS: NYSTATIN SUSP PO SCH ×3 (06:00→21:15)
[2021-04-09 06:15] LABS: ALANINE AMINOTRANSFERASE 80 Units/L (12-78); ALBUMIN 2.2 g/dL (3.4-5.0); ALKALINE PHOSPHATASE 79 Units/L (46-116); ASPARTATE AMINO TRANSFERASE 27 Units/L (15-37); BLOOD UREA NITROGEN 29 mg/dL (7-18); CALCIUM 8.1 mg/dL (8.5-10.1); CHLORIDE 105 mmol/L (98-107); COR CA(FOR HYPOALB) 9.5 mg/dL (8.5-10.1); CREATININE 0.62 mg/dL (0.70-1.30); SODIUM 142 mmol/L (136-145); TOTAL PROTEIN 5.2 g/dL (6.4-8.2); eGFR NON BLACK RACES > 60 (>60)
[2021-04-09 06:33] LABS: ABG BASE EXCESS 6.6 mmol/L (-2.0-2.0)
[2021-04-09 06:35] LABS: ABG ALLEN TEST POS; ABG HCO3 31.3 mmol/L (22-26)
--- NOTE | 2021-04-09 07:47 | RAD ---
HISTORYCOVID PNEUMONIA HX: HTN SX: ORTHOSTUDYCHEST, 1 VIEWCOMPARISONAP chest April 04, 2021.FINDINGSThe diffuse predominantly interstitial opacities right lower lobe left upper and left midlung field are stable compared to April 04, 2021..No pneumothorax is observed..No pleural effusion.Cardiomediastinal silhouette is normal in size and position.Osseous structures and soft tissues are unremarkable.IMPRESSIONStable chest with no significant change in the multifocal interstitial opacities consistent with COVID pneumonia when compared to April 04, 2021..Electronically signed by: NARCISO DAVIS (Apr 09, 2021 07:44:48)
[2021-04-09] MEDS: Atrovent NEB TX 0.02% NEB SCH ×2 (08:32→21:16)
[2021-04-09] MEDS: PULMICORT NEB TX 0.5 MG NEB SCH ×2 (08:32→21:16)
[2021-04-09] MEDS: PROSCAR PO SCH (09:18)
[2021-04-09] MEDS: ELIQUIS PO SCH ×2 (09:18→20:43)
[2021-04-09] MEDS: LOPRESSOR TAB 50 MG PO SCH (09:18)
[2021-04-09] MEDS: HYDROCHLOROTHIAZIDE 25 MG TAB PO SCH (09:18)
[2021-04-09] MEDS: FLOMAX PO SCH (09:18)
[2021-04-09] MEDS: COZAAR PO SCH (09:18)
[2021-04-09] MEDS: SOLU-Medrol 40 MG VIAL IVP SCH (09:19)
[2021-04-09] MEDS: PROTONIX INJ 40 MG VIAL IVP SCH ×2 (09:19→20:43)
[2021-04-09] MEDS: VITAMIN A PO SCH (09:19)
[2021-04-09] MEDS: VITAMIN C PO SCH (09:19)
[2021-04-09] MEDS: VSL#3 PO SCH (09:19)
[2021-04-09] MEDS: VITAMIN D3 125 mcg (5,000 UNITS) PO SCH (09:19)
[2021-04-09] MEDS: ZOLOFT PO SCH (09:20)
[2021-04-09] MEDS: LOMOTIL PO PRN (09:30)
[2021-04-09] MEDS: BUTT CREAM (COMPOUND) TOP PRN (15:20)
[2021-04-09] MEDS: ZOVIRAX TOP SCH ×2 (16:56→20:43)
[2021-04-09] MEDS: ROBITUSSIN DM PO PRN (18:20)
[2021-04-10 04:39] LABS: ABG BASE EXCESS 7.6 mmol/L (-2.0-2.0)
[2021-04-10 04:40] LABS: ABG ALLEN TEST POS
[2021-04-10] MEDS: ZOVIRAX TOP SCH ×3 (04:45→18:13)
[2021-04-10 05:34] LABS: BASOPHILS % (AUTO) 0.3 % (0.2-1.0); EOSINOPHILS # (AUTO) 0.1 x10^3/uL (0.0-0.2); EOSINOPHILS % (AUTO) 1.6 % (0.9-2.9); HEMOGLOBIN 11.1 g/dL (13.5-18.0); LYMPHOCYTES % (AUTO) 16.2 % (21.0-51.0); MEAN CORPUSCULAR HEMOGLOBIN 31.1 pg (27.0-34.0); MEAN CORPUSCULAR HGB CONC 35.8 g/dL (33.0-35.0); MEAN CORPUSCULAR VOLUME 86.7 fL (80.0-100.0); MEAN PLATELET VOLUME 7.3 fL (7.4-11.0); MONOCYTES # (AUTO) 0.6 x10^3/uL (0.3-0.8); MONOCYTES % (AUTO) 10.4 % (0.0-13.0); NEUTROPHILS # (AUTO) 4.4 x10^3/uL (2.2-4.8); NEUTROPHILS % (AUTO) 71.5 % (42.0-75.0); PLATELET COUNT 274 X10^3/uL (150.0-450.0); RED BLOOD COUNT 3.57 X10^6/uL (4.7-6.0); RED CELL DISTRIBUTION WIDTH 17.4 % (11.6-16.5); WHITE BLOOD COUNT 6.2 X10^3/uL (3.6-10.0)
[2021-04-10 05:49] LABS: ALANINE AMINOTRANSFERASE 76 Units/L (12-78); ALBUMIN 2.2 g/dL (3.4-5.0); ALKALINE PHOSPHATASE 79 Units/L (46-116); ASPARTATE AMINO TRANSFERASE 20 Units/L (15-37); BLOOD UREA NITROGEN 23 mg/dL (7-18); CALCIUM 8.2 mg/dL (8.5-10.1); CARBON DIOXIDE 27.8 mmol/L (21-32); CHLORIDE 104 mmol/L (98-107); COR CA(FOR HYPOALB) 9.6 mg/dL (8.5-10.1); CREATININE 0.62 mg/dL (0.70-1.30); SODIUM 140 mmol/L (136-145); TOTAL PROTEIN 5.4 g/dL (6.4-8.2); eGFR NON BLACK RACES > 60 (>60)
[2021-04-10] MEDS: NYSTATIN SUSP PO SCH ×3 (06:17→21:00)
[2021-04-10] MEDS ORDERED: NS 250 ML IV 250 ML IV ONE (06:21)
[2021-04-10] MEDS: MAGNESIUM SULFATE 1 GRAM/100 mL PREMIX 1 G/100 ML BAG IV PRN ×2 (06:37→09:45)
--- NOTE | 2021-04-10 07:59 | RAD ---
HISTORYSOBSTUDYAP [id number] heart remains mildly enlarged, unchanged. Similar extent and distribution of diffuse bilateral infiltrates without additional consolidation, complicating extrapulmonary air or pleural fluid.IMPRESSIONNo significant interval change in appearance of pneumonia.Electronically signed by: LEIGH BARON (Apr 10, 2021 07:58:14)
[2021-04-10] MEDS: PULMICORT NEB TX 0.5 MG NEB SCH ×2 (08:15→20:25)
[2021-04-10] MEDS: Atrovent NEB TX 0.02% NEB SCH ×2 (08:15→20:25)
[2021-04-10] MEDS: COZAAR PO SCH (09:30)
[2021-04-10] MEDS: ZOLOFT PO SCH (09:45)
[2021-04-10] MEDS: VITAMIN A PO SCH (09:45)
[2021-04-10] MEDS: VSL#3 PO SCH (09:45)
[2021-04-10] MEDS: LOPRESSOR TAB 50 MG PO SCH (09:45)
[2021-04-10] MEDS: PROSCAR PO SCH (09:45)
[2021-04-10] MEDS: HYDROCHLOROTHIAZIDE 25 MG TAB PO SCH (09:45)
[2021-04-10] MEDS: PROTONIX INJ 40 MG VIAL IVP SCH ×2 (09:45→20:52)
[2021-04-10] MEDS: FLOMAX PO SCH (09:45)
[2021-04-10] MEDS: SOLU-Medrol 40 MG VIAL IVP SCH (09:45)
[2021-04-10] MEDS: VITAMIN D3 125 mcg (5,000 UNITS) PO SCH (09:45)
[2021-04-10] MEDS: VITAMIN C PO SCH (09:45)
[2021-04-10] MEDS: ELIQUIS PO SCH ×2 (12:13→20:52)
--- NOTE | 2021-04-10 17:08 | PCM.PROG ---
Progress Note - Progress Note for Day of Date of Exam: 04/09/21 - Subjective Subjective: IS A 70 YEAR OLD PATIENT OF . HE WAS ADMITTED ON 03/01 FOR TREATMENT OF COVID-19, BACTERIAL PNEUMONIA, AND ACUTE RESPIRATORY FAILURE WITH HYPOXIA. TODAY, HE IS ALERT AND ORIENTED, SITTING UP IN BED ON MORNING ROUNDS. HE CONTINUES WITH COMPLAINTS OF COUGH AND SHORTNESS OF BREATH AT TIMES. HE IS CURRENTLY ON HEATED HIGH FLOW OXYGEN AT 6 LITERS/MINUTE. SATURATIONS HAVE BEEN 88-96% THROUGHOUT THE NIGHT AND THIS MORNING. ON EXAMINATION, HEART IS REGULAR IN RATE AND RHYTHM. BILATERAL LUNGS ARE NOTED WITH DIMINISHED LUNG SOUNDS THROUGHOUT. ABDOMEN IS FLAT, SOFT, AND NON-TENDER WITH NORMAL BOWEL SOUNDS NOTED IN ALL QUADRANTS. HER VITALS THIS MORNING ARE: 97.9-71-30-93%-106/68. LABS WERE OBTAINED. ABNORMAL LAB VALUES INCLUDE THE FOLLOWING: RBC 3.50, HGB 10.7, HCT 30.5, POTASSIUM 3.4, BUN 29, CREATININE 0.62, CALCIUM 8.1, ALT 80, CRP 4.00, TOTAL PROTEIN 5.2, ALBUMIN 2.2. ABG REVEALED: PH 7.460, PC02 44, P02 74, HC03 31.3, 02 SAT 95, BASE EXCESS 6.6, A-A GRADIENT 185, FI02 44.0. CHEST XRAY OBTAINED AND REVEALED: Stable chest with no significant change in the multifocal interstitial opacities consistent with COVID pneumonia when compared to April 04, 2021. WE WILL CONTINUE WITH HIS IV FLUIDS, IV ANTIBIOTICS, STEROIDS, NEBULIZER TREATMENTS, AND CURRENT PLAN OF CARE TODAY. OTHERWISE, WE WILL FOLLOW UP WITH AM LABS AND CONTINUE TO MONITOR. TIME SPENT ON CLINICAL ASSESSMENT, REVIEWING LABS AND IMAGING, DECISION MAKING, AND DOCUMENTATION GREATER THAN 45 MINUTES. - Past Medical Family Social History Past Med/Fam/Surg Hx: No changes since H&P Allergies: Allergies temazepam [From Restoril] Allergy (Verified 03/05/21 09:47) IVP DYE Allergy (Uncoded 03/02/21 18:20) - Review of Systems ROS: No change since H&P - Vital Signs and I&O's Vital Signs: Temperature 97.5 F Pulse Rate [Left Brachial] 85 Pulse Rate 73 Respiratory Rate 29 Blood Pressure [Left Arm] 153/80 Blood Pressure 99/67 O2 Sat by Pulse Oximetry 93 Intake and Output: Intake & Output 04/08/21 04/09/21 04/10/21 04/11/21 11:59 11:59 11:59 11:59 Intake Total 860 / 860 710 / 710 1420 / 1420 Output Total 1450 / 1450 1251 / 1251 1652 / 1652 Balance -590 / -590 -541 / -541 -232 / -232 - Physical Exam Oriented: Normal Eyes: Normal Ear: Normal Nose: Normal Throat: Other (small ulcers noted on the tip of the tongue. Some oral thrush) Respiratory: Right, Left, Rhonchi Cardiovascular: Normal Auscultation: Bowel Sounds: Normal Palpation: Normal Tenderness: Normal Skin: Normal Musculoskeletal: Normal Psychiatric: Normal Mood Description: Calm Affect: Normal Speech Pattern: Clear, Appropriate - Laboratory and Diagnostics Result Diagrams: 04/10/21 04:47 04/10/21 04:47 Labs: 03/27/21 07:00 Stool Stool Culture - Final 03/27/21 07:00 Stool - Final 03/09/21 11:50 Sputum - Expectorated Sputum Sputum Culture - Final Klebsiella Pneumoniae 03/09/21 11:50 Sputum - Expectorated Sputum - Final 03/11/21 08:10 Sputum - Expectorated Sputum Sputum Culture - Final Klebsiella Pneumoniae 03/11/21 08:10 Sputum - Expectorated Sputum - Final Laboratory WBC 6.2 X10^3/uL (3.6-10.0) 04/10/21 04:47 RBC 3.57 X10^6/uL (4.7-6.0) L 04/10/21 04:47 Hgb 11.1 g/dL (13.5-18.0) L 04/10/21 04:47 Hct 31.0 % (42.0-54.0) L 04/10/21 04:47 MCV 86.7 fL (80.0-100.0) 04/10/21 04:47 MCH 31.1 pg (27.0-34.0) 04/10/21 04:47 MCHC 35.8 g/dL (33.0-35.0) H 04/10/21 04:47 RDW 17.4 % (11.6-16.5) H 04/10/21 04:47 Plt Count 274 X10^3/uL (150.0-450.0) 04/10/21 04:47 Plt Count Comment Adequate (ADEQUATE) 04/02/21 11:42 MPV 7.3 fL (7.4-11.0) L 04/10/21 04:47 Neut % (Auto) 71.5 % (42.0-75.0) 04/10/21 04:47 Lymph % (Auto) 16.2 % (21.0-51.0) L 04/10/21 04:47 [place] % (Auto) 10.4 % (0.0-13.0) 04/10/21 04:47 Eos % (Auto) 1.6 % (0.9-2.9) 04/10/21 04:47 Baso % (Auto) 0.3 % (0.2-1.0) 04/10/21 04:47 Neut # (Auto) 4.4 x10^3/uL (2.2-4.8) 04/10/21 04:47 Lymph # (Auto) 1.0 X10^3/uL (1.3-2.9) L 04/10/21 04:47 [place] # (Auto) 0.6 x10^3/uL (0.3-0.8) 04/10/21 04:47 Eos # (Auto) 0.1 x10^3/uL (0.0-0.2) 04/10/21 04:47 Baso # (Auto) 0.0 X10^3/uL (0.0-0.1) 04/10/21 04:47 Absolute Nucleated RBC 0.3 /100WBC 04/10/21 04:47 Total Counted 100 04/02/21 11:42 Neutrophils % (Manual) 89 % (39-76) H 04/02/21 11:42 Band Neutrophils % 1 % (0-10) 03/29/21 04:55 Lymphocytes % (Manual) 4 % (13-43) L 04/02/21 11:42 Monocytes % (Manual) 5 % (4-9) 04/02/21 11:42 Eosinophils % (Manual) 2 % (0-6) 04/02/21 11:42 Plt Morphology Comment Normal (NORMAL) 04/02/21 11:42 RBC Morphology Abnormal (NORMAL) 04/02/21 11:42 Anisocytosis Slight A 04/02/21 11:42 PT 14.8 SECONDS (11.8-14.3) 04/02/21 11:42 INR Target Range - 04/02/21 11:42 INR 1.22 (0.8-1.3) 04/02/21 11:42 APTT 29.2 SECONDS (22.9-36.5) 04/02/21 11:42 PTT Comment - 04/02/21 11:42 D-Dimer 2.51 ug/ml (0.0-0.57) H* 03/14/21 04:39 Sample Site Rrad 04/10/21 04:35 ABG pH 7.480 (7.35-7.45) H 04/10/21 04:35 ABG pCO2 43.0 mmHg (35.0-45.0) 04/10/21 04:35 ABG pO2 140.0 mmHg (80.0-100.0) H 04/10/21 04:35 ABG HCO3 32.0 mmol/L (22-26) H* 04/10/21 04:35 ABG O2 Saturation 99.0 % (90-100) 04/10/21 04:35 ABG Base Excess 7.6 mmol/L (-2.0-2.0) H 04/10/21 04:35 Sree Test Pos 04/10/21 04:35 A-a Gradient 120.0 mmHg 04/10/21 04:35 FiO2 44.0 04/10/21 04:35 Blood Gas Comments Elbert well ms 04/10/21 04:35 Sodium 140 mmol/L (136-145) 04/10/21 04:47 Corrected Sodium TNP 04/10/21 04:47 Potassium 3.3 mmol/L (3.5-5.1) L 04/10/21 04:47 Chloride 104 mmol/L (98-107) 04/10/21 04:47 Carbon Dioxide 27.8 mmol/L (21-32) 04/10/21 04:47 BUN 23 mg/dL (7-18) H 04/10/21 04:47 Creatinine 0.62 mg/dL (0.70-1.30) L 04/10/21 04:47 Est GFR (MDRD) Af Amer > 60 (>60) 04/10/21 04:47 Est GFR (MDRD) Non-Af > 60 (>60) 04/10/21 04:47 Glucose 93 mg/dL (65-99) 04/10/21 04:47 POC Glucose (mg/dL) 111 mg/dL (65-99) H 03/28/21 11:45 Calcium 8.2 mg/dL (8.5-10.1) L 04/10/21 04:47 Corrected Calcium 9.6 mg/dL (8.5-10.1) 04/10/21 04:47 Magnesium 1.8 mg/dL (1.7-2.9) 04/10/21 04:47 Ferritin 1988 ng/mL (26-388) H 03/01/21 11:20 Total Bilirubin 0.40 mg/dL (0.2-1.0) 04/10/21 04:47 AST 20 Units/L (15-37) 04/10/21 04:47 ALT 76 Units/L (12-78) 04/10/21 04:47 Alkaline Phosphatase 79 Units/L (46-116) 04/10/21 04:47 Creatine Kinase 121 Units/L (39-308) 03/01/21 11:20 CK-MB (CK-2) < 1.0 ng/mL (0-4.0) 03/01/21 11:20 CK/CKMB % Calc 0.8 % (<4) 03/01/21 11:20 Troponin I < 0.02 ng/mL (0-1.5) 03/01/21 11:20 C-Reactive Protein 3.20 mg/L (0-3.0) H 04/10/21 04:47 B-Natriuretic Peptide 38.4 pg/mL (0-79) 04/10/21 04:47 Total Protein 5.4 g/dL (6.4-8.2) L 04/10/21 04:47 Albumin 2.2 g/dL (3.4-5.0) L 04/10/21 04:47 Globulin 3.2 g/dL (2.5-4.5) 04/10/21 04:47 Albumin/Globulin Ratio 0.7 Ratio (1.1-2.1) L 04/10/21 04:47 Specimen Type Catherized urine 03/21/21 05:35 Urine Color Yellow (YELLOW) 03/21/21 05:35 Urine Appearance Clear (CLEAR) 03/21/21 05:35 Urine pH 5.0 (5.0 - 8.0) 03/21/21 05:35 Ur Specific [place] 1.015 (1.000-1.030) 03/21/21 05:35 Urine Protein Negative (NEGATIVE) 03/21/21 05:35 Urine Glucose (UA) Negative (NEGATIVE) 03/21/21 05:35 Urine Ketones Negative (NEGATIVE) 03/21/21 05:35 Urine Occult Blood 5+ (NEGATIVE) 03/21/21 05:35 Urine Nitrite Negative (NEGATIVE) 03/21/21 05:35 Urine Bilirubin Negative (NEGATIVE) 03/21/21 05:35 Urine Urobilinogen Normal (NORMAL) 03/21/21 05:35 Ur Leukocyte Esterase Negative (NEGATIVE) 03/21/21 05:35 Urine RBC 5-10 /HPF (0-3) A 03/21/21 05:35 Urine WBC 0-2 /HPF (0-5) 03/21/21 05:35 Ur Squamous Epith Cells Negative /HPF (NEGATIVE) 03/21/21 05:35 Urine Bacteria Negative /HPF (NEGATIVE) 03/21/21 05:35 Urine Mucus Rare /HPF (NEGATIVE) 03/21/21 05:35 Ur Culture Indicated? No/not indicated 03/21/21 05:35 Stool Description 3g semisolid brown 03/27/21 07:00 Stool Description Fob tube 03/27/21 07:00 Stl Occult Blood (IFOB) Negative (NEGATIVE) 03/27/21 07:00 Stool for White Cells Positive (NEGATIVE) A 03/27/21 07:00 Stl C. diff Tox B Gene Negative (NEGATIVE) 03/27/21 07:00 Stl C. diff [id number] Presumptive negative (NEGATIVE) 03/27/21 07:00 Cryptosporid parvum Ag Negative (NEGATIVE) 03/27/21 07:00 Giardia lamblia Ag Negative (NEGATIVE) 03/27/21 07:00 Blood Type A NEGATIVE 04/02/21 11:42 Antibody Screen Negative 04/02/21 11:42 - Plan (1) Pneumonia Status: Acute Qualifiers: Pneumonia type: due to unspecified organism Laterality: bilateral Lung location: lower lobe of lung Qualified Code(s): J18.9 - Pneumonia, unspecified organism (2) Acute respiratory failure with hypoxia Status: Acute Plan: Continue Rx. (3) COVID-19 virus infection Status: Acute Plan: Cont. Rx. (4) Hypokalemia Status: Acute Plan: Replace potassium per protocol. (5) Elevated d-dimer Status: Acute
--- NOTE | 2021-04-10 17:18 | PCM.PROG ---
Progress Note - Progress Note for Day of Date of Exam: 04/10/21 - Subjective Subjective: IS A 70 YEAR OLD PATIENT OF . HE WAS ADMITTED ON 03/01 FOR TREATMENT OF COVID-19, BACTERIAL PNEUMONIA, AND ACUTE RESPIRATORY FAILURE WITH HYPOXIA. TODAY, HE IS ALERT AND ORIENTED, SITTING UP IN BED ON MORNING ROUNDS. HE CONTINUES WITH COMPLAINTS OF COUGH AND SHORTNESS OF BREATH AT TIMES. HE IS CURRENTLY ON HEATED HIGH FLOW OXYGEN AT 5 LITERS/MINUTE. SATURATIONS HAVE BEEN 91-95% THROUGHOUT THE NIGHT AND THIS MORNING. ON EXAMINATION, HEART IS REGULAR IN RATE AND RHYTHM. BILATERAL LUNGS ARE NOTED WITH DIMINISHED LUNG SOUNDS THROUGHOUT. ABDOMEN IS FLAT, SOFT, AND NON-TENDER WITH NORMAL BOWEL SOUNDS NOTED IN ALL QUADRANTS. HIS VITALS THIS MORNING ARE: 98.0-66-29-94%-111/64. LABS WERE OBTAINED. ABNORMAL LAB VALUES INCLUDE THE FOLLOWING: RBC 3.57, HGB 11.1, HCT 31.0, POTASSIUM 3.3, BUN 23, CREATININE 0.62, CALCIUM 8.2, CRP 3.20, TOTAL PROTEIN 5.4, ALBUMIN 2.2. ABG REVEALED: PH 7.480, PC02 43, P02 140, HC03 32.0, 02 SAT 99, BASE EXCESS 7.6, A-A GRADIENT 120, FI02 44. CHEST XRAY OBTAINED AND REVEALED: No significant interval change in appearance of pneumonia. WE WILL CONTINUE WITH HIS IV FLUIDS, IV ANTIBIOTICS, STEROIDS, NEBULIZER TREATMENTS, AND CURRENT PLAN OF CARE TODAY. OTHERWISE, WE WILL FOLLOW UP WITH AM LABS AND CONTINUE TO MONITOR. TIME SPENT ON CLINICAL ASSESSMENT, REVIEWING LABS AND IMAGING, DECISION MAKING, AND DOCUMENTATION GREATER THAN 45 MINUTES. - Past Medical Family Social History Past Med/Fam/Surg Hx: No changes since H&P Allergies: Allergies temazepam [From Restoril] Allergy (Verified 03/05/21 09:47) IVP DYE Allergy (Uncoded 03/02/21 18:20) - Review of Systems ROS: No change since H&P - Vital Signs and I&O's Vital Signs: Temperature 97.5 F Pulse Rate [Left Brachial] 85 Pulse Rate 73 Respiratory Rate 29 Blood Pressure [Left Arm] 153/80 Blood Pressure 99/67 O2 Sat by Pulse Oximetry 93 Intake and Output: Intake & Output 04/08/21 04/09/21 04/10/2104/11/21 11:59 11:59 11:59 11:59 Intake Total 860 / 860 710 / 710 1420 / 1420 Output Total 1450 / 1450 1251 / 1251 1652 / 1652 Balance -590 / -590 -541 / -541 -232 / -232 - Physical Exam Oriented: Normal Eyes: Normal Ear: Normal Nose: Normal Throat: Other (small ulcers noted on the tip of the tongue. Some oral thrush) Respiratory: Right, Left, Rhonchi Cardiovascular: Normal Auscultation: Bowel Sounds: Normal Tenderness: Normal Skin: Normal Musculoskeletal: Normal Psychiatric: Normal Mood Description: Calm Affect: Normal Speech Pattern: Clear, Appropriate - Laboratory and Diagnostics Result Diagrams: 04/10/21 04:47 04/10/21 04:47 Labs: 03/27/21 07:00 Stool Stool Culture - Final 03/27/21 07:00 Stool - Final 03/09/21 11:50 Sputum - Expectorated Sputum Sputum Culture - Final Klebsiella Pneumoniae 03/09/21 11:50 Sputum - Expectorated Sputum - Final 03/11/21 08:10 Sputum - Expectorated Sputum Sputum Culture - Final Klebsiella Pneumoniae 03/11/21 08:10 Sputum - Expectorated Sputum - Final Laboratory WBC 6.2 X10^3/uL (3.6-10.0) 04/10/21 04:47 RBC 3.57 X10^6/uL (4.7-6.0) L 04/10/21 04:47 Hgb 11.1 g/dL (13.5-18.0) L 04/10/21 04:47 Hct 31.0 % (42.0-54.0) L 04/10/21 04:47 MCV 86.7 fL (80.0-100.0) 04/10/21 04:47 MCH 31.1 pg (27.0-34.0) 04/10/21 04:47 MCHC 35.8 g/dL (33.0-35.0) H 04/10/21 04:47 RDW 17.4 % (11.6-16.5) H 04/10/21 04:47 Plt Count 274 X10^3/uL (150.0-450.0) 04/10/21 04:47 Plt Count Comment Adequate (ADEQUATE) 04/02/21 11:42 MPV 7.3 fL (7.4-11.0) L 04/10/21 04:47 Neut % (Auto) 71.5 % (42.0-75.0) 04/10/21 04:47 Lymph % (Auto) 16.2 % (21.0-51.0) L 04/10/21 04:47 [place] % (Auto) 10.4 % (0.0-13.0) 04/10/21 04:47 Eos % (Auto) 1.6 % (0.9-2.9) 04/10/21 04:47 Baso % (Auto) 0.3 % (0.2-1.0) 04/10/21 04:47 Neut # (Auto) 4.4 x10^3/uL (2.2-4.8) 04/10/21 04:47 Lymph # (Auto) 1.0 X10^3/uL (1.3-2.9) L 04/10/21 04:47 [place] # (Auto) 0.6 x10^3/uL (0.3-0.8) 04/10/21 04:47 Eos # (Auto) 0.1 x10^3/uL (0.0-0.2) 04/10/21 04:47 Baso # (Auto) 0.0 X10^3/uL (0.0-0.1) 04/10/21 04:47 Absolute Nucleated RBC 0.3 /100WBC 04/10/21 04:47 Total Counted 100 04/02/21 11:42 Neutrophils % (Manual) 89 % (39-76) H 04/02/21 11:42 Band Neutrophils % 1 % (0-10) 03/29/21 04:55 Lymphocytes % (Manual) 4 % (13-43) L 04/02/21 11:42 Monocytes % (Manual) 5 % (4-9) 04/02/21 11:42 Eosinophils % (Manual) 2 % (0-6) 04/02/21 11:42 Plt Morphology Comment Normal (NORMAL) 04/02/21 11:42 RBC Morphology Abnormal (NORMAL) 04/02/21 11:42 Anisocytosis Slight A 04/02/21 11:42 PT 14.8 SECONDS (11.8-14.3) 04/02/21 11:42 INR Target Range - 04/02/21 11:42 INR 1.22 (0.8-1.3) 04/02/21 11:42 APTT 29.2 SECONDS (22.9-36.5) 04/02/21 11:42 PTT Comment - 04/02/21 11:42 D-Dimer 2.51 ug/ml (0.0-0.57) H* 03/14/21 04:39 Sample Site Rrad 04/10/21 04:35 ABG pH 7.480 (7.35-7.45) H 04/10/21 04:35 ABG pCO2 43.0 mmHg (35.0-45.0) 04/10/21 04:35 ABG pO2 140.0 mmHg (80.0-100.0) H 04/10/21 04:35 ABG HCO3 32.0 mmol/L (22-26) H* 04/10/21 04:35 ABG O2 Saturation 99.0 % (90-100) 04/10/21 04:35 ABG Base Excess 7.6 mmol/L (-2.0-2.0) H 04/10/21 04:35 Sree Test Pos 04/10/21 04:35 A-a Gradient 120.0 mmHg 04/10/21 04:35 FiO2 44.0 04/10/21 04:35 Blood Gas Comments Elbert well ms 04/10/21 04:35 Sodium 140 mmol/L (136-145) 04/10/21 04:47 Corrected Sodium TNP 04/10/21 04:47 Potassium 3.3 mmol/L (3.5-5.1) L 04/10/21 04:47 Chloride 104 mmol/L (98-107) 04/10/21 04:47 Carbon Dioxide 27.8 mmol/L (21-32) 04/10/21 04:47 BUN 23 mg/dL (7-18) H 04/10/21 04:47 Creatinine 0.62 mg/dL (0.70-1.30) L 04/10/21 04:47 Est GFR (MDRD) Af Amer > 60 (>60) 04/10/21 04:47 Est GFR (MDRD) Non-Af > 60 (>60) 04/10/21 04:47 Glucose 93 mg/dL (65-99) 04/10/21 04:47 POC Glucose (mg/dL) 111 mg/dL (65-99) H 03/28/21 11:45 Calcium 8.2 mg/dL (8.5-10.1) L 04/10/21 04:47 Corrected Calcium 9.6 mg/dL (8.5-10.1) 04/10/21 04:47 Magnesium 1.8 mg/dL (1.7-2.9) 04/10/21 04:47 Ferritin 1988 ng/mL (26-388) H 03/01/21 11:20 Total Bilirubin 0.40 mg/dL (0.2-1.0) 04/10/21 04:47 AST 20 Units/L (15-37) 04/10/21 04:47 ALT 76 Units/L (12-78) 04/10/21 04:47 Alkaline Phosphatase 79 Units/L (46-116) 04/10/21 04:47 Creatine Kinase 121 Units/L (39-308) 03/01/21 11:20 CK-MB (CK-2) < 1.0 ng/mL (0-4.0) 03/01/21 11:20 CK/CKMB % Calc 0.8 % (<4) 03/01/21 11:20 Troponin I < 0.02 ng/mL (0-1.5) 03/01/21 11:20 C-Reactive Protein 3.20 mg/L (0-3.0) H 04/10/21 04:47 B-Natriuretic Peptide 38.4 pg/mL (0-79) 04/10/21 04:47 Total Protein 5.4 g/dL (6.4-8.2) L 04/10/21 04:47 Albumin 2.2 g/dL (3.4-5.0) L 04/10/21 04:47 Globulin 3.2 g/dL (2.5-4.5) 04/10/21 04:47 Albumin/Globulin Ratio 0.7 Ratio (1.1-2.1) L 04/10/21 04:47 Specimen Type Catherized urine 03/21/21 05:35 Urine Color Yellow (YELLOW) 03/21/21 05:35 Urine Appearance Clear (CLEAR) 03/21/21 05:35 Urine pH 5.0 (5.0 - 8.0) 03/21/21 05:35 Ur Specific [place] 1.015 (1.000-1.030) 03/21/21 05:35 Urine Protein Negative (NEGATIVE) 03/21/21 05:35 Urine Glucose (UA) Negative (NEGATIVE) 03/21/21 05:35 Urine Ketones Negative (NEGATIVE) 03/21/21 05:35 Urine Occult Blood 5+ (NEGATIVE) 03/21/21 05:35 Urine Nitrite Negative (NEGATIVE) 03/21/21 05:35 Urine Bilirubin Negative (NEGATIVE) 03/21/21 05:35 Urine Urobilinogen Normal (NORMAL) 03/21/21 05:35 Ur Leukocyte Esterase Negative (NEGATIVE) 03/21/21 05:35 Urine RBC 5-10 /HPF (0-3) A 03/21/21 05:35 Urine WBC 0-2 /HPF (0-5) 03/21/21 05:35 Ur Squamous Epith Cells Negative /HPF (NEGATIVE) 03/21/21 05:35 Urine Bacteria Negative /HPF (NEGATIVE) 03/21/21 05:35 Urine Mucus Rare /HPF (NEGATIVE) 03/21/21 05:35 Ur Culture Indicated? No/not indicated 03/21/21 05:35 Stool Description 3g semisolid brown 03/27/21 07:00 Stool Description Fob tube 03/27/21 07:00 Stl Occult Blood (IFOB) Negative (NEGATIVE) 03/27/21 07:00 Stool for White Cells Positive (NEGATIVE) A 03/27/21 07:00 Stl C. diff Tox B Gene Negative (NEGATIVE) 03/27/21 07:00 Stl C. diff [id number] Presumptive negative (NEGATIVE) 03/27/21 07:00 Cryptosporid parvum Ag Negative (NEGATIVE) 03/27/21 07:00 Giardia lamblia Ag Negative (NEGATIVE) 03/27/21 07:00 Blood Type A NEGATIVE 04/02/21 11:42 Antibody Screen Negative 04/02/21 11:42 - Plan (1) Pneumonia Status: Acute Qualifiers: Pneumonia type: due to unspecified organism Laterality: bilateral Lung location: lower lobe of lung Qualified Code(s): J18.9 - Pneumonia, unspecified organism (2) Acute respiratory failure with hypoxia Status: Acute Plan: Continue Rx. (3) COVID-19 virus infection Status: Acute Plan: Cont. Rx. (4) Hypokalemia Status: Acute Plan: Replace potassium per protocol. (5) Elevated d-dimer Status: Acute
[2021-04-11] MEDS: ZOVIRAX TOP SCH ×3 (01:15→18:15)
[2021-04-11 05:22] LABS: BASOPHILS % (AUTO) 0.3 % (0.2-1.0); EOSINOPHILS # (AUTO) 0.1 x10^3/uL (0.0-0.2); EOSINOPHILS % (AUTO) 1.2 % (0.9-2.9); HEMATOCRIT 32.1 % (42.0-54.0); HEMOGLOBIN 11.4 g/dL (13.5-18.0); LYMPHOCYTES # (AUTO) 1.2 X10^3/uL (1.3-2.9); LYMPHOCYTES % (AUTO) 16.7 % (21.0-51.0); MEAN CORPUSCULAR HEMOGLOBIN 30.6 pg (27.0-34.0); MEAN CORPUSCULAR HGB CONC 35.4 g/dL (33.0-35.0); MEAN CORPUSCULAR VOLUME 86.4 fL (80.0-100.0); MEAN PLATELET VOLUME 7.3 fL (7.4-11.0); MONOCYTES # (AUTO) 0.7 x10^3/uL (0.3-0.8); MONOCYTES % (AUTO) 9.9 % (0.0-13.0); NEUTROPHILS # (AUTO) 4.9 x10^3/uL (2.2-4.8); NEUTROPHILS % (AUTO) 71.9 % (42.0-75.0); PLATELET COUNT 294 X10^3/uL (150.0-450.0); RED BLOOD COUNT 3.72 X10^6/uL (4.7-6.0); RED CELL DISTRIBUTION WIDTH 17.6 % (11.6-16.5); WHITE BLOOD COUNT 6.9 X10^3/uL (3.6-10.0)
[2021-04-11] MEDS: ROBITUSSIN DM PO PRN ×2 (05:25→21:02)
[2021-04-11 05:31] LABS: ALANINE AMINOTRANSFERASE 95 Units/L (12-78); ALBUMIN 2.3 g/dL (3.4-5.0); ALKALINE PHOSPHATASE 82 Units/L (46-116); ASPARTATE AMINO TRANSFERASE 29 Units/L (15-37); BLOOD UREA NITROGEN 15 mg/dL (7-18); CALCIUM 8.3 mg/dL (8.5-10.1); CARBON DIOXIDE 30.5 mmol/L (21-32); CHLORIDE 103 mmol/L (98-107); COR CA(FOR HYPOALB) 9.7 mg/dL (8.5-10.1); SODIUM 140 mmol/L (136-145); TOTAL PROTEIN 5.5 g/dL (6.4-8.2); eGFR NON BLACK RACES > 60 (>60)
[2021-04-11] MEDS: NYSTATIN SUSP PO SCH ×3 (05:48→21:02)
[2021-04-11] MEDS ORDERED: MICRO K EXTEN CAP 10 MEQ PO PRN (05:52)
[2021-04-11 06:28] LABS: PLATELET MORPHOLOGY COMMENT NORMAL (NORMAL)
--- NOTE | 2021-04-11 07:18 | RAD ---
HISTORYSOBSTUDYCHEST, 1 VIEWCOMPARISONOne day prior.TECHNIQUEAP view of the chestFINDINGSCardiac and mediastinal contours are within normal limits. No significant change in bilateral airspace and interstitial opacities. No definite pleural effusion or pneumothorax.IMPRESSIONNo significant change.Electronically signed by: Elmer Gonzalez (Apr 11, 2021 07:17:10)
[2021-04-11] MEDS: ELIQUIS PO SCH ×2 (08:41→21:01)
[2021-04-11] MEDS: COZAAR PO SCH (08:41)
[2021-04-11] MEDS: LOPRESSOR TAB 50 MG PO SCH (08:42)
[2021-04-11] MEDS: HYDROCHLOROTHIAZIDE 25 MG TAB PO SCH (08:42)
[2021-04-11] MEDS: FLOMAX PO SCH (08:42)
[2021-04-11] MEDS: PROSCAR PO SCH (08:42)
[2021-04-11] MEDS: VSL#3 PO SCH (08:43)
[2021-04-11] MEDS: PROTONIX INJ 40 MG VIAL IVP SCH ×2 (08:43→21:02)
[2021-04-11] MEDS: VITAMIN C PO SCH (08:43)
[2021-04-11] MEDS: VITAMIN A PO SCH (08:43)
[2021-04-11] MEDS: SOLU-Medrol 40 MG VIAL IVP SCH (08:43)
[2021-04-11] MEDS: VITAMIN D3 125 mcg (5,000 UNITS) PO SCH (08:44)
[2021-04-11] MEDS: ZOLOFT PO SCH (08:44)
[2021-04-11] MEDS: Atrovent NEB TX 0.02% NEB SCH ×2 (09:15→20:15)
[2021-04-11] MEDS: PULMICORT NEB TX 0.5 MG NEB SCH ×2 (09:15→20:15)
--- NOTE | 2021-04-11 10:40 | PCM.PROG ---
Progress Note Progress Note for Day of Date of Exam: 04/11/21 Subjective Subjective: Patient is doing better today he reports. He is off Heated High Flow and is now on NC @ 5 L. He is maintaining his sats in the low 80's. Eating well. Discussed doing bladder training but he refuses because his Urologist in [place], [place]. told him not to let anyone do that again since he lindy led that the last time he was hospitalized. Past Medical Family Social History Past Med/Fam/Surg Hx: No changes since H&P Allergies: Allergies temazepam [From Restoril] Allergy (Verified 03/05/21 09:47) IVP DYE Allergy (Uncoded 03/02/21 18:20) Review of Systems ROS: No change since H&P Vital Signs and I&O's Vital Signs: Temperature 98.1 F Pulse Rate [Left Brachial] 85 Pulse Rate 83 Respiratory Rate 29 Blood Pressure [Left Arm] 153/80 Blood Pressure 128/79 O2 Sat by Pulse Oximetry 90 Intake and Output: Intake & Output 04/08/21 04/09/21 04/10/21 04/11/21 11:59 11:59 11:59 11:59 Intake Total 860 / 860 710 / 710 1420 / 1420 1930 / 1930 Output Total 1450 / 1450 1251 / 1251 1652 / 1652 2325 / 2325 Balance -590 / -590 -541 / -541 -232 / -232 -395 / -395 Physical Exam Oriented: Normal Eyes: Normal Ear: Normal Nose: Normal Throat: Normal Respiratory: Right, Left and Rhonchi Cardiovascular: Normal : Normal Auscultation: Bowel Sounds: Normal Tenderness: Normal Skin: Normal Musculoskeletal: Normal Psychiatric: Normal Mood Description: Calm Affect: Normal Speech Pattern: Clear and Appropriate Laboratory and Diagnostics Result Diagrams: 04/11/21 03:55 04/11/21 08:49 Labs: 03/27/21 07:00 Stool Stool Culture - Final 03/27/21 07:00 Stool - Final 03/09/21 11:50 Sputum - Expectorated Sputum Sputum Culture - Final Klebsiella Pneumoniae 03/09/21 11:50 Sputum - Expectorated Sputum - Final 03/11/21 08:10 Sputum - Expectorated Sputum Sputum Culture - Final Klebsiella Pneumoniae 03/11/21 08:10 Sputum - Expectorated Sputum - Final Laboratory WBC 6.9 X10^3/uL (3.6-10.0) 04/11/21 03:55 RBC 3.72 X10^6/uL (4.7-6.0) L 04/11/21 03:55 Hgb 11.4 g/dL (13.5-18.0) L 04/11/21 03:55 Hct 32.1 % (42.0-54.0) L 04/11/21 03:55 MCV 86.4 fL (80.0-100.0) 04/11/21 03:55 MCH 30.6 pg (27.0-34.0) 04/11/21 03:55 MCHC 35.4 g/dL (33.0-35.0) H 04/11/21 03:55 RDW 17.6 % (11.6-16.5) H 04/11/21 03:55 Plt Count 294 X10^3/uL (150.0-450.0) 04/11/21 03:55 Plt Count Comment Adequate (ADEQUATE) 04/11/21 03:55 MPV 7.3 fL (7.4-11.0) L 04/11/21 03:55 Neut % (Auto) 71.9 % (42.0-75.0) 04/11/21 03:55 Lymph % (Auto) 16.7 % (21.0-51.0) L 04/11/21 03:55 [place] % (Auto) 9.9 % (0.0-13.0) 04/11/21 03:55 Eos % (Auto) 1.2 % (0.9-2.9) 04/11/21 03:55 Baso % (Auto) 0.3 % (0.2-1.0) 04/11/21 03:55 Neut # (Auto) 4.9 x10^3/uL (2.2-4.8) H 04/11/21 03:55 Lymph # (Auto) 1.2 X10^3/uL (1.3-2.9) L 04/11/21 03:55 [place] # (Auto) 0.7 x10^3/uL (0.3-0.8) 04/11/21 03:55 Eos # (Auto) 0.1 x10^3/uL (0.0-0.2) 04/11/21 03:55 Baso # (Auto) 0.0 X10^3/uL (0.0-0.1) 04/11/21 03:55 Absolute Nucleated RBC 0.2 /100WBC 04/11/21 03:55 Total Counted 100 04/11/21 03:55 Neutrophils % (Manual) 74 % (39-76) 04/11/21 03:55 Band Neutrophils % 1 % (0-10) 03/29/21 04:55 Lymphocytes % (Manual) 16 % (13-43) 04/11/21 03:55 Monocytes % (Manual) 9 % (4-9) 04/11/21 03:55 Eosinophils % (Manual) 1 % (0-6) 04/11/21 03:55 Plt Morphology Comment Normal (NORMAL) 04/11/21 03:55 RBC Morphology Normal (NORMAL) 04/11/21 03:55 Anisocytosis Slight A 04/02/21 11:42 PT 14.8 SECONDS (11.8-14.3) 04/02/21 11:42 INR Target Range - 04/02/21 11:42 INR 1.22 (0.8-1.3) 04/02/21 11:42 APTT 29.2 SECONDS (22.9-36.5) 04/02/21 11:42 PTT Comment - 04/02/21 11:42 D-Dimer 2.51 ug/ml (0.0-0.57) H* 03/14/21 04:39 Sample Site Rrad 04/10/21 04:35 ABG pH 7.480 (7.35-7.45) H 04/10/21 04:35 ABG pCO2 43.0 mmHg (35.0-45.0) 04/10/21 04:35 ABG pO2 140.0 mmHg (80.0-100.0) H 04/10/21 04:35 ABG HCO3 32.0 mmol/L (22-26) H* 04/10/21 04:35 ABG O2 Saturation 99.0 % (90-100) 04/10/21 04:35 ABG Base Excess 7.6 mmol/L (-2.0-2.0) H 04/10/21 04:35 Sree Test Pos 04/10/21 04:35 A-a Gradient 120.0 mmHg 04/10/21 04:35 FiO2 44.0 04/10/21 04:35 Blood Gas Comments Elbert well ms 04/10/21 04:35 Sodium 140 mmol/L (136-145) 04/11/21 03:55 Corrected Sodium TNP 04/11/21 03:55 Potassium 3.9 mmol/L (3.5-5.1) 04/11/21 08:49 Chloride 103 mmol/L (98-107) 04/11/21 03:55 Carbon Dioxide 30.5 mmol/L (21-32) 04/11/21 03:55 BUN 15 mg/dL (7-18) 04/11/21 03:55 Creatinine 0.70 mg/dL (0.70-1.30) 04/11/21 03:55 Est GFR (MDRD) Af Amer > 60 (>60) 04/11/21 03:55 Est GFR (MDRD) Non-Af > 60 (>60) 04/11/21 03:55 Glucose 88 mg/dL (65-99) 04/11/21 03:55 POC Glucose (mg/dL) 111 mg/dL (65-99) H 03/28/21 11:45 Calcium 8.3 mg/dL (8.5-10.1) L 04/11/21 03:55 Corrected Calcium 9.7 mg/dL (8.5-10.1) 04/11/21 03:55 Magnesium 2.0 mg/dL (1.7-2.9) 04/11/21 03:55 Ferritin 1988 ng/mL (26-388) H 03/01/21 11:20 Total Bilirubin 0.40 mg/dL (0.2-1.0) 04/11/21 03:55 AST 29 Units/L (15-37) 04/11/21 03:55 ALT 95 Units/L (12-78) H 04/11/21 03:55 Alkaline Phosphatase 82 Units/L (46-116) 04/11/21 03:55 Creatine Kinase 121 Units/L (39-308) 03/01/21 11:20 CK-MB (CK-2) < 1.0 ng/mL (0-4.0) 03/01/21 11:20 CK/CKMB % Calc 0.8 % (<4) 03/01/21 11:20 Troponin I < 0.02 ng/mL (0-1.5) 03/01/21 11:20 C-Reactive Protein 3.20 mg/L (0-3.0) H 04/10/21 04:47 B-Natriuretic Peptide 38.4 pg/mL (0-79) 04/10/21 04:47 Total Protein 5.5 g/dL (6.4-8.2) L 04/11/21 03:55 Albumin 2.3 g/dL (3.4-5.0) L 04/11/21 03:55 Globulin 3.2 g/dL (2.5-4.5) 04/11/21 03:55 Albumin/Globulin Ratio 0.7 Ratio (1.1-2.1) L 04/11/21 03:55 Specimen Type Catherized urine 03/21/21 05:35 Urine Color Yellow (YELLOW) 03/21/21 05:35 Urine Appearance Clear (CLEAR) 03/21/21 05:35 Urine pH 5.0 (5.0 - 8.0) 03/21/21 05:35 Ur Specific [place] 1.015 (1.000-1.030) 03/21/21 05:35 Urine Protein Negative (NEGATIVE) 03/21/21 05:35 Urine Glucose (UA) Negative (NEGATIVE) 03/21/21 05:35 Urine Ketones Negative (NEGATIVE) 03/21/21 05:35 Urine Occult Blood 5+ (NEGATIVE) 03/21/21 05:35 Urine Nitrite Negative (NEGATIVE) 03/21/21 05:35 Urine Bilirubin Negative (NEGATIVE) 03/21/21 05:35 Urine Urobilinogen Normal (NORMAL) 03/21/21 05:35 Ur Leukocyte Esterase Negative (NEGATIVE) 03/21/21 05:35 Urine RBC 5-10 /HPF (0-3) A 03/21/21 05:35 Urine WBC 0-2 /HPF (0-5) 03/21/21 05:35 Ur Squamous Epith Cells Negative /HPF (NEGATIVE) 03/21/21 05:35 Urine Bacteria Negative /HPF (NEGATIVE) 03/21/21 05:35 Urine Mucus Rare /HPF (NEGATIVE) 03/21/21 05:35 Ur Culture Indicated? No/not indicated 03/21/21 05:35 Stool Description 3g semisolid brown 03/27/21 07:00 Stool Description Fob tube 03/27/21 07:00 Stl Occult Blood (IFOB) Negative (NEGATIVE) 03/27/21 07:00 Stool for White Cells Positive (NEGATIVE) A 03/27/21 07:00 Stl C. diff Tox B Gene Negative (NEGATIVE) 03/27/21 07:00 Stl C. diff [id number] Presumptive negative (NEGATIVE) 03/27/21 07:00 Cryptosporid parvum Ag Negative (NEGATIVE) 03/27/21 07:00 Giardia lamblia Ag Negative (NEGATIVE) 03/27/21 07:00 Blood Type A NEGATIVE 04/02/21 11:42 Antibody Screen Negative 04/02/21 11:42 Radiology Reviewed: Yes Plan (1) Acute respiratory failure with hypoxia: Status: Acute Narrative Support Text: Much improved. Plan: Continue Rx. Continue to ween down O2. There was good improvement over the weekend. (2) Cough: Status: Acute Narrative Support Text: Stable. Plan: Robitussin DM (3) Klebsiella pneumonia: Status: Acute Qualifiers: Laterality: bilateral Lung location: unspecified part of lung Qualified Code(s): J15.0 - Pneumonia due to Klebsiella pneumoniae Plan: Cont ABX (4) Candidal pneumonia: Status: Acute (5) Anxiety: Status: Resolved Plan: Anxiety resolved with Valium. (6) BPH (benign prostatic hyperplasia): Status: Acute (7) Urinary retention: Status: Acute (8) Hypomagnesemia: Status: Acute (9) COVID-19 virus infection: Status: Acute Plan: Cont. Rx. (10) Hypokalemia: Status: Resolved Plan: Replace potassium per protocol. (11) Elevated d-dimer: Status: Acute (12) Thrombocytopenia: Status: Resolved Plan: Monitor daily platelet levels. Platelets stable.
[2021-04-12] MEDS: ZOVIRAX TOP SCH ×3 (02:06→18:38)
[2021-04-12] MEDS: NYSTATIN SUSP PO SCH ×3 (05:12→21:39)
[2021-04-12 05:35] LABS: BASOPHILS % (AUTO) 0.4 % (0.2-1.0); EOSINOPHILS # (AUTO) 0.1 x10^3/uL (0.0-0.2); EOSINOPHILS % (AUTO) 0.9 % (0.9-2.9); HEMATOCRIT 35.3 % (42.0-54.0); HEMOGLOBIN 12.3 g/dL (13.5-18.0); LYMPHOCYTES # (AUTO) 1.2 X10^3/uL (1.3-2.9); LYMPHOCYTES % (AUTO) 15.1 % (21.0-51.0); MEAN CORPUSCULAR HEMOGLOBIN 30.2 pg (27.0-34.0); MEAN CORPUSCULAR HGB CONC 34.8 g/dL (33.0-35.0); MEAN CORPUSCULAR VOLUME 86.9 fL (80.0-100.0); MEAN PLATELET VOLUME 7.2 fL (7.4-11.0); MONOCYTES # (AUTO) 0.9 x10^3/uL (0.3-0.8); MONOCYTES % (AUTO) 10.7 % (0.0-13.0); NEUTROPHILS % (AUTO) 72.9 % (42.0-75.0); PLATELET COUNT 299 X10^3/uL (150.0-450.0); RED BLOOD COUNT 4.06 X10^6/uL (4.7-6.0); RED CELL DISTRIBUTION WIDTH 17.8 % (11.6-16.5); WHITE BLOOD COUNT 8.2 X10^3/uL (3.6-10.0)
[2021-04-12 05:41] LABS: ALANINE AMINOTRANSFERASE 85 Units/L (12-78); ALBUMIN 2.5 g/dL (3.4-5.0); ALKALINE PHOSPHATASE 88 Units/L (46-116); ASPARTATE AMINO TRANSFERASE 24 Units/L (15-37); BLOOD UREA NITROGEN 17 mg/dL (7-18); CALCIUM 8.7 mg/dL (8.5-10.1); CARBON DIOXIDE 28.8 mmol/L (21-32); CHLORIDE 104 mmol/L (98-107); COR CA(FOR HYPOALB) 9.9 mg/dL (8.5-10.1); CREATININE 0.64 mg/dL (0.70-1.30); SODIUM 139 mmol/L (136-145); TOTAL PROTEIN 5.7 g/dL (6.4-8.2); eGFR NON BLACK RACES > 60 (>60)
--- NOTE | 2021-04-12 07:16 | RAD ---
HISTORYShortness of breathSTUDYChest AP [id number] inflation accentuates the heart size. It is within normal limits. Diffuse bilateral interstitial, ground-glass and some alveolar infiltrates are unchanged. No pleural effusion or pneumothorax is identified. Bony thorax is unremarkable.IMPRESSIONNo change hypo inflationNo change bilateral interstitial, ground-glass, and alveolar infiltrates when compared to the prior examinationElectronically signed by: SUSAN SILVA (Apr 12, 2021 07:14:08)
[2021-04-12] MEDS: PULMICORT NEB TX 0.5 MG NEB SCH ×2 (09:00→20:42)
[2021-04-12] MEDS: Atrovent NEB TX 0.02% NEB SCH ×2 (09:00→20:42)
[2021-04-12] MEDS: COZAAR PO SCH (09:21)
[2021-04-12] MEDS: ELIQUIS PO SCH ×2 (09:22→20:01)
[2021-04-12] MEDS: FLOMAX PO SCH (09:22)
[2021-04-12] MEDS: HYDROCHLOROTHIAZIDE 25 MG TAB PO SCH (09:23)
[2021-04-12] MEDS: PROSCAR PO SCH (09:24)
[2021-04-12] MEDS: LOPRESSOR TAB 50 MG PO SCH (09:24)
[2021-04-12] MEDS: VITAMIN C PO SCH (09:25)
[2021-04-12] MEDS: VITAMIN A PO SCH (09:25)
[2021-04-12] MEDS: PROTONIX INJ 40 MG VIAL IVP SCH ×2 (09:25→20:01)
[2021-04-12] MEDS: SOLU-Medrol 40 MG VIAL IVP SCH (09:25)
[2021-04-12] MEDS: VITAMIN D3 125 mcg (5,000 UNITS) PO SCH (09:26)
[2021-04-12] MEDS: VSL#3 PO SCH (09:27)
[2021-04-12] MEDS: ZOLOFT PO SCH (09:27)
--- NOTE | 2021-04-12 13:25 | PCM.PROG ---
Progress Note Progress Note for Day of Date of Exam: 04/12/21 Subjective Subjective: Feeling ok. Still on O2 via NC @5L. Sating in low 90's. Past Medical Family Social History Past Med/Fam/Surg Hx: No changes since H&P Allergies: Allergies temazepam [From Restoril] Allergy (Verified 03/05/21 09:47) IVP DYE Allergy (Uncoded 03/02/21 18:20) Review of Systems ROS: No change since H&P Vital Signs and I&O's Vital Signs: Temperature 97.7 F Pulse Rate [Left Brachial] 85 Pulse Rate 91 Respiratory Rate 24 Blood Pressure [Left Arm] 153/80 Blood Pressure 111/77 O2 Sat by Pulse Oximetry 92 Intake and Output: Intake & Output 04/10/21 04/11/21 04/12/21 04/13/21 11:59 11:59 11:59 11:59 Intake Total 1420 / 1420 1930 / 1930 1290 / 1290 Output Total 1652 / 1652 2325 / 2325 2500 / 2500 Balance -232 / -232 -395 / -395 -1210 / -1210 Physical Exam Oriented: Normal Eyes: Normal Ear: Normal Nose: Normal Throat: Normal Respiratory: Generalized and Rhonchi Cardiovascular: Normal : Normal Auscultation: Bowel Sounds: Normal Tenderness: Normal Skin: Normal Musculoskeletal: Normal Psychiatric: Normal Mood Description: Calm Affect: Normal Speech Pattern: Clear and Appropriate Laboratory and Diagnostics Result Diagrams: 04/12/21 05:01 04/12/21 05:01 Labs: 03/27/21 07:00 Stool Stool Culture - Final 03/27/21 07:00 Stool - Final 03/09/21 11:50 Sputum - Expectorated Sputum Sputum Culture - Final Klebsiella Pneumoniae 03/09/21 11:50 Sputum - Expectorated Sputum - Final 03/11/21 08:10 Sputum - Expectorated Sputum Sputum Culture - Final Klebsiella Pneumoniae 03/11/21 08:10 Sputum - Expectorated Sputum - Final Laboratory WBC 8.2 X10^3/uL (3.6-10.0) 04/12/21 05:01 RBC 4.06 X10^6/uL (4.7-6.0) L 04/12/21 05:01 Hgb 12.3 g/dL (13.5-18.0) L 04/12/21 05:01 Hct 35.3 % (42.0-54.0) L 04/12/21 05:01 MCV 86.9 fL (80.0-100.0) 04/12/21 05:01 MCH 30.2 pg (27.0-34.0) 04/12/21 05:01 MCHC 34.8 g/dL (33.0-35.0) 04/12/21 05:01 RDW 17.8 % (11.6-16.5) H 04/12/21 05:01 Plt Count 299 X10^3/uL (150.0-450.0) 04/12/21 05:01 Plt Count Comment Adequate (ADEQUATE) 04/11/21 03:55 MPV 7.2 fL (7.4-11.0) L 04/12/21 05:01 Neut % (Auto) 72.9 % (42.0-75.0) 04/12/21 05:01 Lymph % (Auto) 15.1 % (21.0-51.0) L 04/12/21 05:01 [place] % (Auto) 10.7 % (0.0-13.0) 04/12/21 05:01 Eos % (Auto) 0.9 % (0.9-2.9) 04/12/21 05:01 Baso % (Auto) 0.4 % (0.2-1.0) 04/12/21 05:01 Neut # (Auto) 6.0 x10^3/uL (2.2-4.8) H 04/12/21 05:01 Lymph # (Auto) 1.2 X10^3/uL (1.3-2.9) L 04/12/21 05:01 [place] # (Auto) 0.9 x10^3/uL (0.3-0.8) H 04/12/21 05:01 Eos # (Auto) 0.1 x10^3/uL (0.0-0.2) 04/12/21 05:01 Baso # (Auto) 0.0 X10^3/uL (0.0-0.1) 04/12/21 05:01 Absolute Nucleated RBC 0.1 /100WBC 04/12/21 05:01 Total Counted 100 04/11/21 03:55 Neutrophils % (Manual) 74 % (39-76) 04/11/21 03:55 Band Neutrophils % 1 % (0-10) 03/29/21 04:55 Lymphocytes % (Manual) 16 % (13-43) 04/11/21 03:55 Monocytes % (Manual) 9 % (4-9) 04/11/21 03:55 Eosinophils % (Manual) 1 % (0-6) 04/11/21 03:55 Plt Morphology Comment Normal (NORMAL) 04/11/21 03:55 RBC Morphology Normal (NORMAL) 04/11/21 03:55 Anisocytosis Slight A 04/02/21 11:42 PT 14.8 SECONDS (11.8-14.3) 04/02/21 11:42 INR Target Range - 04/02/21 11:42 INR 1.22 (0.8-1.3) 04/02/21 11:42 APTT 29.2 SECONDS (22.9-36.5) 04/02/21 11:42 PTT Comment - 04/02/21 11:42 D-Dimer 2.51 ug/ml (0.0-0.57) H* 03/14/21 04:39 Sample Site Rrad 04/10/21 04:35 ABG pH 7.480 (7.35-7.45) H 04/10/21 04:35 ABG pCO2 43.0 mmHg (35.0-45.0) 04/10/21 04:35 ABG pO2 140.0 mmHg (80.0-100.0) H 04/10/21 04:35 ABG HCO3 32.0 mmol/L (22-26) H* 04/10/21 04:35 ABG O2 Saturation 99.0 % (90-100) 04/10/21 04:35 ABG Base Excess 7.6 mmol/L (-2.0-2.0) H 04/10/21 04:35 Sree Test Pos 04/10/21 04:35 A-a Gradient 120.0 mmHg 04/10/21 04:35 FiO2 44.0 04/10/21 04:35 Blood Gas Comments Elbert well ms 04/10/21 04:35 Sodium 139 mmol/L (136-145) 04/12/21 05:01 Corrected Sodium TNP 04/12/21 05:01 Potassium 3.6 mmol/L (3.5-5.1) 04/12/21 05:01 Chloride 104 mmol/L (98-107) 04/12/21 05:01 Carbon Dioxide 28.8 mmol/L (21-32) 04/12/21 05:01 BUN 17 mg/dL (7-18) 04/12/21 05:01 Creatinine 0.64 mg/dL (0.70-1.30) L 04/12/21 05:01 Est GFR (MDRD) Af Amer > 60 (>60) 04/12/21 05:01 Est GFR (MDRD) Non-Af > 60 (>60) 04/12/21 05:01 Glucose 95 mg/dL (65-99) 04/12/21 05:01 POC Glucose (mg/dL) 111 mg/dL (65-99) H 03/28/21 11:45 Calcium 8.7 mg/dL (8.5-10.1) 04/12/21 05:01 Corrected Calcium 9.9 mg/dL (8.5-10.1) 04/12/21 05:01 Magnesium 2.0 mg/dL (1.7-2.9) 04/11/21 03:55 Ferritin 1988 ng/mL (26-388) H 03/01/21 11:20 Total Bilirubin 0.60 mg/dL (0.2-1.0) 04/12/21 05:01 AST 24 Units/L (15-37) 04/12/21 05:01 ALT 85 Units/L (12-78) H 04/12/21 05:01 Alkaline Phosphatase 88 Units/L (46-116) 04/12/21 05:01 Creatine Kinase 121 Units/L (39-308) 03/01/21 11:20 CK-MB (CK-2) < 1.0 ng/mL (0-4.0) 03/01/21 11:20 CK/CKMB % Calc 0.8 % (<4) 03/01/21 11:20 Troponin I < 0.02 ng/mL (0-1.5) 03/01/21 11:20 C-Reactive Protein 3.20 mg/L (0-3.0) H 04/10/21 04:47 B-Natriuretic Peptide 38.4 pg/mL (0-79) 04/10/21 04:47 Total Protein 5.7 g/dL (6.4-8.2) L 04/12/21 05:01 Albumin 2.5 g/dL (3.4-5.0) L 04/12/21 05:01 Globulin 3.2 g/dL (2.5-4.5) 04/12/21 05:01 Albumin/Globulin Ratio 0.8 Ratio (1.1-2.1) L 04/12/21 05:01 Specimen Type Catherized urine 03/21/21 05:35 Urine Color Yellow (YELLOW) 03/21/21 05:35 Urine Appearance Clear (CLEAR) 03/21/21 05:35 Urine pH 5.0 (5.0 - 8.0) 03/21/21 05:35 Ur Specific [place] 1.015 (1.000-1.030) 03/21/21 05:35 Urine Protein Negative (NEGATIVE) 03/21/21 05:35 Urine Glucose (UA) Negative (NEGATIVE) 03/21/21 05:35 Urine Ketones Negative (NEGATIVE) 03/21/21 05:35 Urine Occult Blood 5+ (NEGATIVE) 03/21/21 05:35 Urine Nitrite Negative (NEGATIVE) 03/21/21 05:35 Urine Bilirubin Negative (NEGATIVE) 03/21/21 05:35 Urine Urobilinogen Normal (NORMAL) 03/21/21 05:35 Ur Leukocyte Esterase Negative (NEGATIVE) 03/21/21 05:35 Urine RBC 5-10 /HPF (0-3) A 03/21/21 05:35 Urine WBC 0-2 /HPF (0-5) 03/21/21 05:35 Ur Squamous Epith Cells Negative /HPF (NEGATIVE) 03/21/21 05:35 Urine Bacteria Negative /HPF (NEGATIVE) 03/21/21 05:35 Urine Mucus Rare /HPF (NEGATIVE) 03/21/21 05:35 Ur Culture Indicated? No/not indicated 03/21/21 05:35 Stool Description 3g semisolid brown 03/27/21 07:00 Stool Description Fob tube 03/27/21 07:00 Stl Occult Blood (IFOB) Negative (NEGATIVE) 03/27/21 07:00 Stool for White Cells Positive (NEGATIVE) A 03/27/21 07:00 Stl C. diff Tox B Gene Negative (NEGATIVE) 03/27/21 07:00 Stl C. diff [id number] Presumptive negative (NEGATIVE) 03/27/21 07:00 Cryptosporid parvum Ag Negative (NEGATIVE) 03/27/21 07:00 Giardia lamblia Ag Negative (NEGATIVE) 03/27/21 07:00 Blood Type A NEGATIVE 04/02/21 11:42 Antibody Screen Negative 04/02/21 11:42 Radiology Reviewed: Yes Plan (1) Acute respiratory failure with hypoxia: Status: Acute Plan: Continue Rx. Continue to ween down O2. (2) Cough: Status: Acute Plan: Robitussin DM (3) Klebsiella pneumonia: Status: Acute Qualifiers: Laterality: bilateral Lung location: unspecified part of lung Qualified Code(s): J15.0 - Pneumonia due to Klebsiella pneumoniae Plan: Cont ABX (4) Candidal pneumonia: Status: Acute (5) Anxiety: Status: Resolved Plan: Anxiety resolved with Valium. (6) BPH (benign prostatic hyperplasia): Status: Acute (7) Urinary retention: Status: Acute (8) Hypomagnesemia: Status: Acute (9) COVID-19 virus infection: Status: Acute Plan: Cont. Rx. (10) Hypokalemia: Status: Resolved Plan: Replace potassium per protocol. (11) Elevated d-dimer: Status: Acute (12) Thrombocytopenia: Status: Resolved Plan: Monitor daily platelet levels. Platelets stable.
[2021-04-13] MEDS: ZOVIRAX TOP SCH ×3 (02:17→18:20)
[2021-04-13 04:52] LABS: BASOPHILS % (AUTO) 0.3 % (0.2-1.0); EOSINOPHILS # (AUTO) 0.1 x10^3/uL (0.0-0.2); EOSINOPHILS % (AUTO) 0.8 % (0.9-2.9); HEMATOCRIT 34.6 % (42.0-54.0); HEMOGLOBIN 12.2 g/dL (13.5-18.0); LYMPHOCYTES # (AUTO) 1.3 X10^3/uL (1.3-2.9); LYMPHOCYTES % (AUTO) 16.6 % (21.0-51.0); MEAN CORPUSCULAR HEMOGLOBIN 30.5 pg (27.0-34.0); MEAN CORPUSCULAR HGB CONC 35.1 g/dL (33.0-35.0); MEAN CORPUSCULAR VOLUME 86.7 fL (80.0-100.0); MEAN PLATELET VOLUME 7.5 fL (7.4-11.0); MONOCYTES # (AUTO) 0.8 x10^3/uL (0.3-0.8); MONOCYTES % (AUTO) 9.8 % (0.0-13.0); NEUTROPHILS # (AUTO) 5.8 x10^3/uL (2.2-4.8); NEUTROPHILS % (AUTO) 72.5 % (42.0-75.0); PLATELET COUNT 288 X10^3/uL (150.0-450.0); RED BLOOD COUNT 3.99 X10^6/uL (4.7-6.0); RED CELL DISTRIBUTION WIDTH 17.8 % (11.6-16.5)
[2021-04-13 05:03] LABS: ALANINE AMINOTRANSFERASE 71 Units/L (12-78); ALBUMIN 2.5 g/dL (3.4-5.0); ALKALINE PHOSPHATASE 84 Units/L (46-116); ASPARTATE AMINO TRANSFERASE 19 Units/L (15-37); BLOOD UREA NITROGEN 18 mg/dL (7-18); CALCIUM 8.6 mg/dL (8.5-10.1); CARBON DIOXIDE 27.6 mmol/L (21-32); CHLORIDE 102 mmol/L (98-107); COR CA(FOR HYPOALB) 9.8 mg/dL (8.5-10.1); CREATININE 0.66 mg/dL (0.70-1.30); SODIUM 139 mmol/L (136-145); TOTAL PROTEIN 5.7 g/dL (6.4-8.2); eGFR NON BLACK RACES > 60 (>60)
[2021-04-13] MEDS: NYSTATIN SUSP PO SCH ×3 (05:12→21:06)
[2021-04-13 05:25] LABS: ANISOCYTOSIS SLIGHT; PLATELET MORPHOLOGY COMMENT NORMAL (NORMAL)
--- NOTE | 2021-04-13 07:08 | RAD ---
HISTORYSOBSTUDYCHEST, 1 VIEWCOMPARISONOne day prior.TECHNIQUEAP view of the chestFINDINGSThe cardiac and mediastinal contours appear stable. No significant change in bilateral airspace and interstitial opacities. No definite pleural effusion or pneumothorax.IMPRESSIONNo significant change.Electronically signed by: Elmer Gonzalez (Apr 13, 2021 07:06:14)
[2021-04-13] MEDS: PULMICORT NEB TX 0.5 MG NEB SCH ×2 (09:05→21:00)
[2021-04-13] MEDS: Atrovent NEB TX 0.02% NEB SCH ×2 (09:05→21:00)
[2021-04-13] MEDS: VSL#3 PO SCH (09:30)
[2021-04-13] MEDS: VITAMIN A PO SCH (09:30)
[2021-04-13] MEDS: ELIQUIS PO SCH ×2 (09:30→20:40)
[2021-04-13] MEDS: HYDROCHLOROTHIAZIDE 25 MG TAB PO SCH (09:30)
[2021-04-13] MEDS: PROTONIX INJ 40 MG VIAL IVP SCH ×2 (09:30→20:40)
[2021-04-13] MEDS: COZAAR PO SCH (09:30)
[2021-04-13] MEDS: PROSCAR PO SCH (09:30)
[2021-04-13] MEDS: ZOLOFT PO SCH (09:30)
[2021-04-13] MEDS: VITAMIN C PO SCH (09:30)
[2021-04-13] MEDS: LOPRESSOR TAB 50 MG PO SCH (09:30)
[2021-04-13] MEDS: VITAMIN D3 125 mcg (5,000 UNITS) PO SCH (09:30)
[2021-04-13] MEDS: SOLU-Medrol 40 MG VIAL IVP SCH (09:30)
[2021-04-13] MEDS: FLOMAX PO SCH (09:30)
--- NOTE | 2021-04-13 10:55 | PCM.PROG ---
Progress Note Progress Note for Day of Date of Exam: 04/13/21 Subjective Subjective: Feeling ok. Patient is still progressing. Still on O2 via NC @5L. Sating in low 90's. Lungs sound more clear today. Minimal rhonchi this am. Patient is nearing discharge home soon on home O2. Hypokalemia this am with K at 3.3. Will replace with protocol. Past Medical Family Social History Past Med/Fam/Surg Hx: No changes since H&P Allergies: Allergies temazepam [From Restoril] Allergy (Verified 03/05/21 09:47) IVP DYE Allergy (Uncoded 03/02/21 18:20) Review of Systems ROS: No change since H&P Vital Signs and I&O's Vital Signs: Temperature 97.9 F Pulse Rate [Left Brachial] 85 Pulse Rate 85 Respiratory Rate 29 Blood Pressure [Left Arm] 153/80 Blood Pressure 97/69 O2 Sat by Pulse Oximetry 92 Intake and Output: Intake & Output 04/10/21 04/11/21 04/12/21 04/13/21 11:59 11:59 11:59 11:59 Intake Total 1420 / 1420 1930 / 1930 1290 / 1290 1790 / 1790 Output Total 1652 / 1652 2325 / 2325 2500 / 2500 1680 / 1680 Balance -232 / -232 -395 / -395 -1210 / -1210 110 / 110 Physical Exam Oriented: Normal Eyes: Normal Ear: Normal Nose: Normal Respiratory: Generalized and Rhonchi (minimal ronchi bilaterally.) Cardiovascular: Normal : Normal Auscultation: Bowel Sounds: Normal Tenderness: Normal Skin: Normal Musculoskeletal: Normal Psychiatric: Normal Mood Description: Calm Affect: Normal Speech Pattern: Clear and Appropriate Laboratory and Diagnostics Result Diagrams: 04/13/21 04:22 04/13/21 04:22 Labs: 03/27/21 07:00 Stool Stool Culture - Final 03/27/21 07:00 Stool - Final 03/09/21 11:50 Sputum - Expectorated Sputum Sputum Culture - Final Klebsiella Pneumoniae 03/09/21 11:50 Sputum - Expectorated Sputum - Final 03/11/21 08:10 Sputum - Expectorated Sputum Sputum Culture - Final Klebsiella Pneumoniae 03/11/21 08:10 Sputum - Expectorated Sputum - Final Laboratory WBC 8.0 X10^3/uL (3.6-10.0) 04/13/21 04:22 RBC 3.99 X10^6/uL (4.7-6.0) L 04/13/21 04:22 Hgb 12.2 g/dL (13.5-18.0) L 04/13/21 04:22 Hct 34.6 % (42.0-54.0) L 04/13/21 04:22 MCV 86.7 fL (80.0-100.0) 04/13/21 04:22 MCH 30.5 pg (27.0-34.0) 04/13/21 04:22 MCHC 35.1 g/dL (33.0-35.0) H 04/13/21 04:22 RDW 17.8 % (11.6-16.5) H 04/13/21 04:22 Plt Count 288 X10^3/uL (150.0-450.0) 04/13/21 04:22 Plt Count Comment Adequate (ADEQUATE) 04/13/21 04:22 MPV 7.5 fL (7.4-11.0) 04/13/21 04:22 Neut % (Auto) 72.5 % (42.0-75.0) 04/13/21 04:22 Lymph % (Auto) 16.6 % (21.0-51.0) L 04/13/21 04:22 [place] % (Auto) 9.8 % (0.0-13.0) 04/13/21 04:22 Eos % (Auto) 0.8 % (0.9-2.9) L 04/13/21 04:22 Baso % (Auto) 0.3 % (0.2-1.0) 04/13/21 04:22 Neut # (Auto) 5.8 x10^3/uL (2.2-4.8) H 04/13/21 04:22 Lymph # (Auto) 1.3 X10^3/uL (1.3-2.9) 04/13/21 04:22 [place] # (Auto) 0.8 x10^3/uL (0.3-0.8) 04/13/21 04:22 Eos # (Auto) 0.1 x10^3/uL (0.0-0.2) 04/13/21 04:22 Baso # (Auto) 0.0 X10^3/uL (0.0-0.1) 04/13/21 04:22 Absolute Nucleated RBC 0.3 /100WBC 04/13/21 04:22 Total Counted 100 04/13/21 04:22 Neutrophils % (Manual) 67 % (39-76) 04/13/21 04:22 Band Neutrophils % 1 % (0-10) 03/29/21 04:55 Lymphocytes % (Manual) 23 % (13-43) 04/13/21 04:22 Monocytes % (Manual) 9 % (4-9) 04/13/21 04:22 Eosinophils % (Manual) 1 % (0-6) 04/13/21 04:22 Plt Morphology Comment Normal (NORMAL) 04/13/21 04:22 RBC Morphology Abnormal (NORMAL) 04/13/21 04:22 Anisocytosis Slight A 04/13/21 04:22 PT 14.8 SECONDS (11.8-14.3) 04/02/21 11:42 INR Target Range - 04/02/21 11:42 INR 1.22 (0.8-1.3) 04/02/21 11:42 APTT 29.2 SECONDS (22.9-36.5) 04/02/21 11:42 PTT Comment - 04/02/21 11:42 D-Dimer 2.51 ug/ml (0.0-0.57) H* 03/14/21 04:39 Sample Site Rrad 04/10/21 04:35 ABG pH 7.480 (7.35-7.45) H 04/10/21 04:35 ABG pCO2 43.0 mmHg (35.0-45.0) 04/10/21 04:35 ABG pO2 140.0 mmHg (80.0-100.0) H 04/10/21 04:35 ABG HCO3 32.0 mmol/L (22-26) H* 04/10/21 04:35 ABG O2 Saturation 99.0 % (90-100) 04/10/21 04:35 ABG Base Excess 7.6 mmol/L (-2.0-2.0) H 04/10/21 04:35 Sree Test Pos 04/10/21 04:35 A-a Gradient 120.0 mmHg 04/10/21 04:35 FiO2 44.0 04/10/21 04:35 Blood Gas Comments Elbert well ms 04/10/21 04:35 Sodium 139 mmol/L (136-145) 04/13/21 04:22 Corrected Sodium TNP 04/13/21 04:22 Potassium 3.3 mmol/L (3.5-5.1) L 04/13/21 04:22 Chloride 102 mmol/L (98-107) 04/13/21 04:22 Carbon Dioxide 27.6 mmol/L (21-32) 04/13/21 04:22 BUN 18 mg/dL (7-18) 04/13/21 04:22 Creatinine 0.66 mg/dL (0.70-1.30) L 04/13/21 04:22 Est GFR (MDRD) Af Amer > 60 (>60) 04/13/21 04:22 Est GFR (MDRD) Non-Af > 60 (>60) 04/13/21 04:22 Glucose 90 mg/dL (65-99) 04/13/21 04:22 POC Glucose (mg/dL) 111 mg/dL (65-99) H 03/28/21 11:45 Calcium 8.6 mg/dL (8.5-10.1) 04/13/21 04:22 Corrected Calcium 9.8 mg/dL (8.5-10.1) 04/13/21 04:22 Magnesium 2.0 mg/dL (1.7-2.9) 04/11/21 03:55 Ferritin 1988 ng/mL (26-388) H 03/01/21 11:20 Total Bilirubin 0.60 mg/dL (0.2-1.0) 04/13/21 04:22 AST 19 Units/L (15-37) 04/13/21 04:22 ALT 71 Units/L (12-78) 04/13/21 04:22 Alkaline Phosphatase 84 Units/L (46-116) 04/13/21 04:22 Creatine Kinase 121 Units/L (39-308) 03/01/21 11:20 CK-MB (CK-2) < 1.0 ng/mL (0-4.0) 03/01/21 11:20 CK/CKMB % Calc 0.8 % (<4) 03/01/21 11:20 Troponin I < 0.02 ng/mL (0-1.5) 03/01/21 11:20 C-Reactive Protein 3.20 mg/L (0-3.0) H 04/10/21 04:47 B-Natriuretic Peptide 38.4 pg/mL (0-79) 04/10/21 04:47 Total Protein 5.7 g/dL (6.4-8.2) L 04/13/21 04:22 Albumin 2.5 g/dL (3.4-5.0) L 04/13/21 04:22 Globulin 3.2 g/dL (2.5-4.5) 04/13/21 04:22 Albumin/Globulin Ratio 0.8 Ratio (1.1-2.1) L 04/13/21 04:22 Specimen Type Catherized urine 03/21/21 05:35 Urine Color Yellow (YELLOW) 03/21/21 05:35 Urine Appearance Clear (CLEAR) 03/21/21 05:35 Urine pH 5.0 (5.0 - 8.0) 03/21/21 05:35 Ur Specific [place] 1.015 (1.000-1.030) 03/21/21 05:35 Urine Protein Negative (NEGATIVE) 03/21/21 05:35 Urine Glucose (UA) Negative (NEGATIVE) 03/21/21 05:35 Urine Ketones Negative (NEGATIVE) 03/21/21 05:35 Urine Occult Blood 5+ (NEGATIVE) 03/21/21 05:35 Urine Nitrite Negative (NEGATIVE) 03/21/21 05:35 Urine Bilirubin Negative (NEGATIVE) 03/21/21 05:35 Urine Urobilinogen Normal (NORMAL) 03/21/21 05:35 Ur Leukocyte Esterase Negative (NEGATIVE) 03/21/21 05:35 Urine RBC 5-10 /HPF (0-3) A 03/21/21 05:35 Urine WBC 0-2 /HPF (0-5) 03/21/21 05:35 Ur Squamous Epith Cells Negative /HPF (NEGATIVE) 03/21/21 05:35 Urine Bacteria Negative /HPF (NEGATIVE) 03/21/21 05:35 Urine Mucus Rare /HPF (NEGATIVE) 03/21/21 05:35 Ur Culture Indicated? No/not indicated 03/21/21 05:35 Stool Description 3g semisolid brown 03/27/21 07:00 Stool Description Fob tube 03/27/21 07:00 Stl Occult Blood (IFOB) Negative (NEGATIVE) 03/27/21 07:00 Stool for White Cells Positive (NEGATIVE) A 03/27/21 07:00 Stl C. diff Tox B Gene Negative (NEGATIVE) 03/27/21 07:00 Stl C. diff [id number] Presumptive negative (NEGATIVE) 03/27/21 07:00 Cryptosporid parvum Ag Negative (NEGATIVE) 03/27/21 07:00 Giardia lamblia Ag Negative (NEGATIVE) 03/27/21 07:00 Blood Type A NEGATIVE 04/02/21 11:42 Antibody Screen Negative 04/02/21 11:42 Radiology Reviewed: Yes Plan (1) Acute respiratory failure with hypoxia: Status: Acute Narrative Support Text: Progressing well now. Patient is afebrlile and has only minimal ronchi now bilaterally. Still on NC at 5L O2. Possible discharge home when patient can get down to 3.5-4L O2 via NC. Plan: Continue Rx. Continue to ween down O2. (2) Cough: Status: Acute Plan: Robitussin DM (3) Klebsiella pneumonia: Status: Resolved Qualifiers: Laterality: bilateral Lung location: unspecified part of lung Qualified Code(s): J15.0 - Pneumonia due to Klebsiella pneumoniae Plan: Antibiotics have been stopped. (4) Candidal pneumonia: Status: Resolved (5) Anxiety: Status: Resolved Plan: Anxiety resolved with Valium. (6) BPH (benign prostatic hyperplasia): Status: Acute (7) Urinary retention: Status: Acute (8) Hypomagnesemia: Status: Acute (9) COVID-19 virus infection: Status: Acute Plan: Cont. Rx. (10) Hypokalemia: Status: Resolved Plan: Replace potassium per protocol. (11) Elevated d-dimer: Status: Acute (12) Thrombocytopenia: Status: Resolved Plan: Monitor daily platelet levels. Platelets stable.
[2021-04-13] MEDS: ROBITUSSIN DM PO PRN (20:41)
[2021-04-14] MEDS: ZOVIRAX TOP SCH ×3 (02:00→20:11)
[2021-04-14 05:26] LABS: BASOPHILS % (AUTO) 0.1 % (0.2-1.0); EOSINOPHILS % (AUTO) 0.6 % (0.9-2.9); HEMATOCRIT 35.9 % (42.0-54.0); HEMOGLOBIN 12.5 g/dL (13.5-18.0); LYMPHOCYTES # (AUTO) 1.3 X10^3/uL (1.3-2.9); MEAN CORPUSCULAR HEMOGLOBIN 30.4 pg (27.0-34.0); MEAN CORPUSCULAR HGB CONC 34.8 g/dL (33.0-35.0); MEAN CORPUSCULAR VOLUME 87.3 fL (80.0-100.0); MEAN PLATELET VOLUME 7.6 fL (7.4-11.0); MONOCYTES # (AUTO) 0.8 x10^3/uL (0.3-0.8); MONOCYTES % (AUTO) 10.1 % (0.0-13.0); NEUTROPHILS # (AUTO) 6.2 x10^3/uL (2.2-4.8); NEUTROPHILS % (AUTO) 74.2 % (42.0-75.0); PLATELET COUNT 265 X10^3/uL (150.0-450.0); RED BLOOD COUNT 4.11 X10^6/uL (4.7-6.0); RED CELL DISTRIBUTION WIDTH 17.8 % (11.6-16.5); WHITE BLOOD COUNT 8.3 X10^3/uL (3.6-10.0)
[2021-04-14 05:33] LABS: ALANINE AMINOTRANSFERASE 71 Units/L (12-78); ALBUMIN 2.6 g/dL (3.4-5.0); ALKALINE PHOSPHATASE 86 Units/L (46-116); ASPARTATE AMINO TRANSFERASE 19 Units/L (15-37); BLOOD UREA NITROGEN 22 mg/dL (7-18); CALCIUM 8.6 mg/dL (8.5-10.1); CARBON DIOXIDE 29.2 mmol/L (21-32); CHLORIDE 102 mmol/L (98-107); COR CA(FOR HYPOALB) 9.7 mg/dL (8.5-10.1); CREATININE 0.65 mg/dL (0.70-1.30); SODIUM 139 mmol/L (136-145); TOTAL PROTEIN 5.8 g/dL (6.4-8.2); eGFR NON BLACK RACES > 60 (>60)
[2021-04-14 06:04] LABS: ANISOCYTOSIS SLIGHT; PLATELET MORPHOLOGY COMMENT NORMAL (NORMAL)
[2021-04-14] MEDS: NYSTATIN SUSP PO SCH ×3 (06:08→22:39)
[2021-04-14] MEDS: K-DUR TAB 20 MEQ PO PRN ×2 (06:19→09:07)
--- NOTE | 2021-04-14 07:10 | RAD ---
HISTORYShortness of breathSTUDYChest AP [id number] inflation accentuates the heart size. It is likely mildly enlarged. No congestive heart failure is noted. Diffuse bilateral predominantly interstitial but some ground-glass infiltrates are unchanged. No pneumothorax or pleural effusion is identified. Bony thorax is unremarkable.IMPRESSIONNo change hypo inflationNo change mild cardiomegaly without congestive heart failureNo change diffuse bilateral interstitial and some ground-glass infiltrates when compared to the prior examinationElectronically signed by: SUSAN SILVA (Apr 14, 2021 07:08:31)
[2021-04-14] MEDS: PULMICORT NEB TX 0.5 MG NEB SCH ×2 (08:15→20:40)
[2021-04-14] MEDS: Atrovent NEB TX 0.02% NEB SCH ×2 (08:15→20:40)
[2021-04-14] MEDS ORDERED: SALINE 0.9% 3 ML NEB TX ONE (08:42)
[2021-04-14] MEDS: LOPRESSOR TAB 50 MG PO SCH (08:51)
[2021-04-14] MEDS: COZAAR PO SCH (08:51)
[2021-04-14] MEDS: HYDROCHLOROTHIAZIDE 25 MG TAB PO SCH (08:51)
[2021-04-14] MEDS: FLOMAX PO SCH (08:51)
[2021-04-14] MEDS: ELIQUIS PO SCH ×2 (08:51→20:11)
[2021-04-14] MEDS: VITAMIN A PO SCH (08:52)
[2021-04-14] MEDS: PROSCAR PO SCH (08:52)
[2021-04-14] MEDS: PROTONIX INJ 40 MG VIAL IVP SCH ×2 (08:52→20:11)
[2021-04-14] MEDS: PREDNISONE TAB 20 MG PO SCH (08:52)
[2021-04-14] MEDS: VITAMIN D3 125 mcg (5,000 UNITS) PO SCH (08:55)
[2021-04-14] MEDS: VITAMIN C PO SCH (08:55)
[2021-04-14] MEDS: VSL#3 PO SCH (08:56)
[2021-04-14] MEDS: ZOLOFT PO SCH (08:56)
--- NOTE | 2021-04-14 09:40 | PCM.PROG ---
Progress Note Progress Note for Day of Date of Exam: 04/14/21 Subjective Subjective: Patient seen at bedside, no acute events overnight. He states he feels ok. He did not ambulate much yesterday due to not feeling well. He reports sitting on the chair. He still has the leo. He reports dry cough. He is currently on 5L NC. Labs reviewed CXR reviewed Plan: will start bladder training and remove leo. Switch to prednisone 40 mg daily. Wean O2 as tolerated to keep sats > 88%. CM discussed discharge plans with patient daughter. She refused rehab for patient. Home health services and Home O2 set up for discharge. Continue nebs and IS. Continue PT/OT as tolerated. Past Medical Family Social History Past Med/Fam/Surg Hx: No changes since H&P Allergies: Allergies temazepam [From Restoril] Allergy (Verified 03/05/21 09:47) IVP DYE Allergy (Uncoded 03/02/21 18:20) Review of Systems ROS: No change since H&P Vital Signs and I&O's Vital Signs: Temperature 98.1 F Pulse Rate [Left Brachial] 85 Pulse Rate 100 Respiratory Rate 31 Blood Pressure [Left Arm] 153/80 Blood Pressure 105/69 O2 Sat by Pulse Oximetry 85 Intake and Output: Intake & Output 04/11/21 04/12/21 04/13/21 04/14/21 23:59 23:59 23:59 23:59 Intake Total 1390 / 1390 1770 / 1770 2029 / 2029 140 / 140 Output Total 2200 / 2200 1979 / 1979 1650 / 1650 200 / 200 Balance -810 / -810 -210 / -210 380 / 380 -60 / -60 Physical Exam Oriented: Normal Eyes: Normal Ear: Normal Nose: Normal Throat: Normal Respiratory: Generalized and Diminished Cardiovascular: Normal Auscultation: Bowel Sounds: Normal Tenderness: Normal Skin: Normal Musculoskeletal: Normal Psychiatric: Normal Mood Description: Calm Affect: Normal Speech Pattern: Clear and Appropriate Laboratory and Diagnostics Result Diagrams: 04/14/21 04:39 04/14/21 08:15 Labs: 04/13/21 11:43 Sputum - Expectorated Sputum - Final 03/27/21 07:00 Stool Stool Culture - Final 03/27/21 07:00 Stool - Final 03/09/21 11:50 Sputum - Expectorated Sputum Sputum Culture - Final Klebsiella Pneumoniae 03/09/21 11:50 Sputum - Expectorated Sputum - Final 03/11/21 08:10 Sputum - Expectorated Sputum Sputum Culture - Final Klebsiella Pneumoniae 03/11/21 08:10 Sputum - Expectorated Sputum - Final Laboratory WBC 8.3 X10^3/uL (3.6-10.0) 04/14/21 04:39 RBC 4.11 X10^6/uL (4.7-6.0) L 04/14/21 04:39 Hgb 12.5 g/dL (13.5-18.0) L 04/14/21 04:39 Hct 35.9 % (42.0-54.0) L 04/14/21 04:39 MCV 87.3 fL (80.0-100.0) 04/14/21 04:39 MCH 30.4 pg (27.0-34.0) 04/14/21 04:39 MCHC 34.8 g/dL (33.0-35.0) 04/14/21 04:39 RDW 17.8 % (11.6-16.5) H 04/14/21 04:39 Plt Count 265 X10^3/uL (150.0-450.0) 04/14/21 04:39 Plt Count Comment Adequate (ADEQUATE) 04/14/21 04:39 MPV 7.6 fL (7.4-11.0) 04/14/21 04:39 Neut % (Auto) 74.2 % (42.0-75.0) 04/14/21 04:39 Lymph % (Auto) 15.0 % (21.0-51.0) L 04/14/21 04:39 [place] % (Auto) 10.1 % (0.0-13.0) 04/14/21 04:39 Eos % (Auto) 0.6 % (0.9-2.9) L 04/14/21 04:39 Baso % (Auto) 0.1 % (0.2-1.0) L 04/14/21 04:39 Neut # (Auto) 6.2 x10^3/uL (2.2-4.8) H 04/14/21 04:39 Lymph # (Auto) 1.3 X10^3/uL (1.3-2.9) 04/14/21 04:39 [place] # (Auto) 0.8 x10^3/uL (0.3-0.8) 04/14/21 04:39 Eos # (Auto) 0.0 x10^3/uL (0.0-0.2) 04/14/21 04:39 Baso # (Auto) 0.0 X10^3/uL (0.0-0.1) 04/14/21 04:39 Absolute Nucleated RBC 0.1 /100WBC 04/14/21 04:39 Total Counted 100 04/14/21 04:39 Neutrophils % (Manual) 73 % (39-76) 04/14/21 04:39 Band Neutrophils % 1 % (0-10) 03/29/21 04:55 Lymphocytes % (Manual) 18 % (13-43) 04/14/21 04:39 Monocytes % (Manual) 9 % (4-9) 04/14/21 04:39 Eosinophils % (Manual) 1 % (0-6) 04/13/21 04:22 Plt Morphology Comment Normal (NORMAL) 04/14/21 04:39 RBC Morphology Abnormal (NORMAL) 04/14/21 04:39 Anisocytosis Slight A 04/14/21 04:39 PT 14.8 SECONDS (11.8-14.3) 04/02/21 11:42 INR Target Range - 04/02/21 11:42 INR 1.22 (0.8-1.3) 04/02/21 11:42 APTT 29.2 SECONDS (22.9-36.5) 04/02/21 11:42 PTT Comment - 04/02/21 11:42 D-Dimer 2.51 ug/ml (0.0-0.57) H* 03/14/21 04:39 Sample Site Rrad 04/10/21 04:35 ABG pH 7.480 (7.35-7.45) H 04/10/21 04:35 ABG pCO2 43.0 mmHg (35.0-45.0) 04/10/21 04:35 ABG pO2 140.0 mmHg (80.0-100.0) H 04/10/21 04:35 ABG HCO3 32.0 mmol/L (22-26) H* 04/10/21 04:35 ABG O2 Saturation 99.0 % (90-100) 04/10/21 04:35 ABG Base Excess 7.6 mmol/L (-2.0-2.0) H 04/10/21 04:35 Sree Test Pos 04/10/21 04:35 A-a Gradient 120.0 mmHg 04/10/21 04:35 FiO2 44.0 04/10/21 04:35 Blood Gas Comments Elbert well ms 04/10/21 04:35 Sodium 139 mmol/L (136-145) 04/14/21 04:39 Corrected Sodium TNP 04/14/21 04:39 Potassium 3.7 mmol/L (3.5-5.1) 04/14/21 08:15 Chloride 102 mmol/L (98-107) 04/14/21 04:39 Carbon Dioxide 29.2 mmol/L (21-32) 04/14/21 04:39 BUN 22 mg/dL (7-18) H 04/14/21 04:39 Creatinine 0.65 mg/dL (0.70-1.30) L 04/14/21 04:39 Est GFR (MDRD) Af Amer > 60 (>60) 04/14/21 04:39 Est GFR (MDRD) Non-Af > 60 (>60) 04/14/21 04:39 Glucose 94 mg/dL (65-99) 04/14/21 04:39 POC Glucose (mg/dL) 111 mg/dL (65-99) H 03/28/21 11:45 Calcium 8.6 mg/dL (8.5-10.1) 04/14/21 04:39 Corrected Calcium 9.7 mg/dL (8.5-10.1) 04/14/21 04:39 Magnesium 2.0 mg/dL (1.7-2.9) 04/11/21 03:55 Ferritin 1988 ng/mL (26-388) H 03/01/21 11:20 Total Bilirubin 0.60 mg/dL (0.2-1.0) 04/14/21 04:39 AST 19 Units/L (15-37) 04/14/21 04:39 ALT 71 Units/L (12-78) 04/14/21 04:39 Alkaline Phosphatase 86 Units/L (46-116) 04/14/21 04:39 Creatine Kinase 121 Units/L (39-308) 03/01/21 11:20 CK-MB (CK-2) < 1.0 ng/mL (0-4.0) 03/01/21 11:20 CK/CKMB % Calc 0.8 % (<4) 03/01/21 11:20 Troponin I < 0.02 ng/mL (0-1.5) 03/01/21 11:20 C-Reactive Protein 3.20 mg/L (0-3.0) H 04/10/21 04:47 B-Natriuretic Peptide 38.4 pg/mL (0-79) 04/10/21 04:47 Total Protein 5.8 g/dL (6.4-8.2) L 04/14/21 04:39 Albumin 2.6 g/dL (3.4-5.0) L 04/14/21 04:39 Globulin 3.2 g/dL (2.5-4.5) 04/14/21 04:39 Albumin/Globulin Ratio 0.8 Ratio (1.1-2.1) L 04/14/21 04:39 Specimen Type Catherized urine 03/21/21 05:35 Urine Color Yellow (YELLOW) 03/21/21 05:35 Urine Appearance Clear (CLEAR) 03/21/21 05:35 Urine pH 5.0 (5.0 - 8.0) 03/21/21 05:35 Ur Specific [place] 1.015 (1.000-1.030) 03/21/21 05:35 Urine Protein Negative (NEGATIVE) 03/21/21 05:35 Urine Glucose (UA) Negative (NEGATIVE) 03/21/21 05:35 Urine Ketones Negative (NEGATIVE) 03/21/21 05:35 Urine Occult Blood 5+ (NEGATIVE) 03/21/21 05:35 Urine Nitrite Negative (NEGATIVE) 03/21/21 05:35 Urine Bilirubin Negative (NEGATIVE) 03/21/21 05:35 Urine Urobilinogen Normal (NORMAL) 03/21/21 05:35 Ur Leukocyte Esterase Negative (NEGATIVE) 03/21/21 05:35 Urine RBC 5-10 /HPF (0-3) A 03/21/21 05:35 Urine WBC 0-2 /HPF (0-5) 03/21/21 05:35 Ur Squamous Epith Cells Negative /HPF (NEGATIVE) 03/21/21 05:35 Urine Bacteria Negative /HPF (NEGATIVE) 03/21/21 05:35 Urine Mucus Rare /HPF (NEGATIVE) 03/21/21 05:35 Ur Culture Indicated? No/not indicated 03/21/21 05:35 Stool Description 3g semisolid brown 03/27/21 07:00 Stool Description Fob tube 03/27/21 07:00 Stl Occult Blood (IFOB) Negative (NEGATIVE) 03/27/21 07:00 Stool for White Cells Positive (NEGATIVE) A 03/27/21 07:00 Stl C. diff Tox B Gene Negative (NEGATIVE) 03/27/21 07:00 Stl C. diff [id number] Presumptive negative (NEGATIVE) 03/27/21 07:00 Cryptosporid parvum Ag Negative (NEGATIVE) 03/27/21 07:00 Giardia lamblia Ag Negative (NEGATIVE) 03/27/21 07:00 Blood Type A NEGATIVE 04/02/21 11:42 Antibody Screen Negative 04/02/21 11:42 Plan (1) Acute respiratory failure with hypoxia: Status: Acute Plan: Continue Rx. Continue to ween down O2. (2) Cough: Status: Acute Plan: Robitussin DM (3) Klebsiella pneumonia: Status: Resolved Qualifiers: Laterality: bilateral Lung location: unspecified part of lung Qualified Code(s): J15.0 - Pneumonia due to Klebsiella pneumoniae (4) Candidal pneumonia: Status: Resolved (5) Anxiety: Status: Resolved (6) BPH (benign prostatic hyperplasia): Status: Acute (7) Urinary retention: Status: Acute (8) Hypomagnesemia: Status: Acute (9) COVID-19 virus infection: Status: Acute Plan: Cont. Rx. (10) Hypokalemia: Status: Resolved Plan: Replace potassium per protocol. (11) Elevated d-dimer: Status: Acute (12) Thrombocytopenia: Status: Resolved
[2021-04-14] MEDS: ROBITUSSIN DM PO PRN (20:11)
[2021-04-15] MEDS: ZOVIRAX TOP SCH ×2 (03:00→10:18)
[2021-04-15 04:42] LABS: BASOPHILS # (AUTO) 0.1 X10^3/uL (0.0-0.1); BASOPHILS % (AUTO) 0.8 % (0.2-1.0); EOSINOPHILS % (AUTO) 0.6 % (0.9-2.9); HEMATOCRIT 36.1 % (42.0-54.0); HEMOGLOBIN 12.5 g/dL (13.5-18.0); LYMPHOCYTES # (AUTO) 1.3 X10^3/uL (1.3-2.9); LYMPHOCYTES % (AUTO) 16.8 % (21.0-51.0); MEAN CORPUSCULAR HEMOGLOBIN 30.2 pg (27.0-34.0); MEAN CORPUSCULAR HGB CONC 34.7 g/dL (33.0-35.0); MEAN CORPUSCULAR VOLUME 86.9 fL (80.0-100.0); MEAN PLATELET VOLUME 7.7 fL (7.4-11.0); MONOCYTES # (AUTO) 0.8 x10^3/uL (0.3-0.8); MONOCYTES % (AUTO) 10.7 % (0.0-13.0); NEUTROPHILS # (AUTO) 5.4 x10^3/uL (2.2-4.8); NEUTROPHILS % (AUTO) 71.1 % (42.0-75.0); PLATELET COUNT 239 X10^3/uL (150.0-450.0); RED BLOOD COUNT 4.16 X10^6/uL (4.7-6.0); RED CELL DISTRIBUTION WIDTH 17.7 % (11.6-16.5); WHITE BLOOD COUNT 7.7 X10^3/uL (3.6-10.0)
[2021-04-15 05:12] LABS: ALANINE AMINOTRANSFERASE 78 Units/L (12-78); ALBUMIN 2.6 g/dL (3.4-5.0); ALKALINE PHOSPHATASE 87 Units/L (46-116); ASPARTATE AMINO TRANSFERASE 25 Units/L (15-37); BLOOD UREA NITROGEN 24 mg/dL (7-18); CALCIUM 8.5 mg/dL (8.5-10.1); CARBON DIOXIDE 25.2 mmol/L (21-32); CHLORIDE 103 mmol/L (98-107); COR CA(FOR HYPOALB) 9.6 mg/dL (8.5-10.1); CREATININE 0.71 mg/dL (0.70-1.30); SODIUM 138 mmol/L (136-145); TOTAL PROTEIN 5.8 g/dL (6.4-8.2); eGFR NON BLACK RACES > 60 (>60)
[2021-04-15 05:20] LABS: PLATELET MORPHOLOGY COMMENT NORMAL (NORMAL)
[2021-04-15] MEDS: NYSTATIN SUSP PO SCH (05:32)
[2021-04-15] MEDS: Atrovent NEB TX 0.02% NEB SCH (08:40)
[2021-04-15] MEDS: PULMICORT NEB TX 0.5 MG NEB SCH (08:40)
[2021-04-15] MEDS: ZOLOFT PO SCH (08:48)
[2021-04-15] MEDS: VSL#3 PO SCH (08:49)
[2021-04-15] MEDS: PREDNISONE TAB 20 MG PO SCH (08:50)
[2021-04-15] MEDS: VITAMIN D3 125 mcg (5,000 UNITS) PO SCH (08:50)
[2021-04-15] MEDS: VITAMIN A PO SCH (08:50)
[2021-04-15] MEDS: PROTONIX INJ 40 MG VIAL IVP SCH (08:50)
[2021-04-15] MEDS: VITAMIN C PO SCH (08:50)
[2021-04-15] MEDS: PROSCAR PO SCH (08:50)
[2021-04-15] MEDS: ELIQUIS PO SCH (08:51)
[2021-04-15] MEDS: COZAAR PO SCH (08:51)
[2021-04-15] MEDS: FLOMAX PO SCH (08:51)
[2021-04-15] MEDS: HYDROCHLOROTHIAZIDE 25 MG TAB PO SCH (08:51)
[2021-04-15] MEDS: LOPRESSOR TAB 50 MG PO SCH (08:52)
--- NOTE | 2021-04-15 10:37 | W.DIS.FURT ---
Summary of Discharge Admission Diagnosis Patient Problems (Updated 04/13/21 @ 10:52 by JERRY BUTLER) Hypokalemia (Resolved) E87.6 Elevated d-dimer (Acute) R79.89 Acute respiratory failure with hypoxia (Acute) J96.01 Pneumonia (Acute) J18.9 COVID-19 virus infection (Acute) U07.1 Hypoxia (Acute) R09.02 Hypokalemia (Acute) E87.6 Vital Signs: Vital Signs (72 hours) 04/12/21 11:00 04/12/21 12:00 04/12/21 13:00 Temperature 97.9 F Pulse Rate 96 H 96 H 100 H Respiratory Rate 25 H 24 28 H Blood Pressure 102/67 87/65 85/62 O2 Sat by Pulse Oximetry 87 L 91 L 90 L 04/12/21 14:00 04/12/21 15:00 04/12/21 16:00 Temperature 97.8 F Pulse Rate 93 H 85 92 H Respiratory Rate 21 26 H 24 Blood Pressure 98/67 94/61 91/65 O2 Sat by Pulse Oximetry 91 L 91 L 88 L 04/12/21 17:00 04/12/21 18:00 04/12/21 19:00 Temperature 98.2 F Pulse Rate 84 90 89 Respiratory Rate 30 H 29 H 17 Blood Pressure 98/57 118/66 101/71 O2 Sat by Pulse Oximetry 86 L 88 L 88 L 04/12/21 20:00 04/12/21 20:42 04/12/21 21:00 Temperature Pulse Rate 95 H 90 86 Respiratory Rate 28 H 30 H Blood Pressure 97/66 112/73 O2 Sat by Pulse Oximetry 91 L 89 L 88 L 04/12/21 22:00 04/12/21 23:00 04/13/21 00:00 Temperature 97.5 F L Pulse Rate 89 88 86 Respiratory Rate 30 H 30 H 30 H Blood Pressure 112/75 108/70 114/72 O2 Sat by Pulse Oximetry 88 L 88 L 92 L 04/13/21 01:00 04/13/21 02:00 04/13/21 03:00 Temperature Pulse Rate 83 83 77 Respiratory Rate 30 H 32 H 30 H Blood Pressure 103/71 113/75 118/76 O2 Sat by Pulse Oximetry 91 L 91 L 93 L 04/13/21 04:00 04/13/21 05:00 04/13/21 06:00 Temperature 97.9 F Pulse Rate 82 78 85 Respiratory Rate 32 H 30 H 29 H Blood Pressure 122/76 106/70 97/69 O2 Sat by Pulse Oximetry 93 L 92 L 92 L 04/13/21 07:00 04/13/21 08:00 04/13/21 09:00 Temperature 97.4 F L Pulse Rate 86 94 H 100 H Respiratory Rate 32 H 33 H 40 H Blood Pressure 123/79 128/78 122/78 O2 Sat by Pulse Oximetry 89 L 90 L 92 L 04/13/21 09:05 04/13/21 10:00 04/13/21 11:00 Temperature Pulse Rate 92 H 84 82 Respiratory Rate 37 H 33 H Blood Pressure 120/74 100/74 O2 Sat by Pulse Oximetry 90 L 86 L 90 L 04/13/21 12:00 04/13/21 13:00 04/13/21 14:00 Temperature 97.7 F Pulse Rate 88 88 84 Respiratory Rate 29 H 38 H 37 H Blood Pressure 103/68 117/76 110/71 O2 Sat by Pulse Oximetry 90 L 91 L 89 L 04/13/21 15:00 04/13/21 16:00 04/13/21 17:00 Temperature 97.6 F Pulse Rate 81 83 92 H Respiratory Rate 34 H 23 33 H Blood Pressure 93/63 98/72 107/71 O2 Sat by Pulse Oximetry 92 L 93 L 87 L 04/13/21 18:00 04/13/21 19:00 04/13/21 20:00 Temperature 98.0 F Pulse Rate 90 91 H 88 Respiratory Rate 32 H 30 H 30 H Blood Pressure 108/67 104/70 108/74 O2 Sat by Pulse Oximetry 87 L 90 L 89 L 04/13/21 21:00 04/13/21 22:00 04/13/21 23:00 Temperature Pulse Rate 83 86 90 Respiratory Rate 32 H 31 H 32 H Blood Pressure 100/72 108/73 110/71 O2 Sat by Pulse Oximetry 89 L 87 L 87 L 04/14/21 00:00 04/14/21 01:00 04/14/21 02:00 Temperature 98.1 F Pulse Rate 86 83 83 Respiratory Rate 32 H 26 H 31 H Blood Pressure 114/82 106/70 111/72 O2 Sat by Pulse Oximetry 88 L 88 L 93 L 04/14/21 03:00 04/14/21 04:00 04/14/21 05:00 Temperature 98.0 F Pulse Rate 87 83 85 Respiratory Rate 32 H 33 H 33 H Blood Pressure 120/82 100/66 108/72 O2 Sat by Pulse Oximetry 91 L 93 L 89 L 04/14/21 06:00 04/14/21 07:00 04/14/21 08:00 Temperature 98.1 F Pulse Rate 85 90 102 H Respiratory Rate 35 H 31 H 35 H Blood Pressure 122/77 115/74 143/93 O2 Sat by Pulse Oximetry 87 L 87 L 78 L 04/14/21 09:00 04/14/21 10:00 04/14/21 11:00 Temperature Pulse Rate 100 H 84 89 Respiratory Rate 31 H 31 H 32 H Blood Pressure 105/69 103/73 103/61 O2 Sat by Pulse Oximetry 85 L 86 L 85 L 04/14/21 12:00 04/14/21 13:00 04/14/21 14:00 Temperature 98.1 F Pulse Rate 88 93 H 98 H Respiratory Rate 43 H 30 H 33 H Blood Pressure 91/68 112/67 97/73 O2 Sat by Pulse Oximetry 90 L 86 L 87 L 04/14/21 15:00 04/14/21 16:00 04/14/21 17:00 Temperature 97.9 F Pulse Rate 94 H 96 H 92 H Respiratory Rate 38 H 43 H 28 H Blood Pressure 100/73 106/67 94/66 O2 Sat by Pulse Oximetry 88 L 90 L 89 L 04/14/21 18:00 04/14/21 19:00 04/14/21 20:00 Temperature 98.4 F Pulse Rate 100 H 98 H 100 H Respiratory Rate 40 H 41 H 41 H Blood Pressure 102/69 101/71 102/71 O2 Sat by Pulse Oximetry 87 L 89 L 89 L 04/14/21 20:40 04/14/21 21:00 04/14/21 22:00 Temperature Pulse Rate 93 H 96 H 96 H Respiratory Rate 45 H 38 H Blood Pressure 105/75 106/72 O2 Sat by Pulse Oximetry 88 L 91 L 90 L 04/14/21 23:00 04/15/21 00:00 04/15/21 01:00 Temperature 98.4 F Pulse Rate 95 H 93 H 92 H Respiratory Rate 43 H 40 H 34 H Blood Pressure 109/73 109/73 119/81 O2 Sat by Pulse Oximetry 88 L 89 L 91 L 04/15/21 02:00 04/15/21 03:00 04/15/21 04:00 Temperature 97.8 F Pulse Rate 87 90 91 H Respiratory Rate 33 H 34 H 39 H Blood Pressure 109/71 105/70 108/75 O2 Sat by Pulse Oximetry 91 L 91 L 90 L 04/15/21 05:00 04/15/21 06:00 04/15/21 07:00 Temperature Pulse Rate 86 91 H 92 H Respiratory Rate 39 H 39 H 39 H Blood Pressure 107/70 110/75 113/75 O2 Sat by Pulse Oximetry 91 L 92 L 92 L 04/15/21 08:00 04/15/21 09:00 04/15/21 10:00 Temperature 97.9 F Pulse Rate 103 H 106 H 94 H Respiratory Rate 35 H 36 H 41 H Blood Pressure 114/80 116/78 117/74 O2 Sat by Pulse Oximetry 86 L 87 L 92 L Labs: Laboratory Last Values WBC 7.7 X10^3/uL (3.6-10.0) 04/15/21 04:28 RBC 4.16 X10^6/uL (4.7-6.0) L 04/15/21 04:28 Hgb 12.5 g/dL (13.5-18.0) L 04/15/21 04:28 Hct 36.1 % (42.0-54.0) L 04/15/21 04:28 MCV 86.9 fL (80.0-100.0) 04/15/21 04:28 MCH 30.2 pg (27.0-34.0) 04/15/21 04:28 MCHC 34.7 g/dL (33.0-35.0) 04/15/21 04:28 RDW 17.7 % (11.6-16.5) H 04/15/21 04:28 Plt Count 239 X10^3/uL (150.0-450.0) 04/15/21 04:28 Plt Count Comment Adequate (ADEQUATE) 04/15/21 04:28 MPV 7.7 fL (7.4-11.0) 04/15/21 04:28 Neut % (Auto) 71.1 % (42.0-75.0) 04/15/21 04:28 Lymph % (Auto) 16.8 % (21.0-51.0) L 04/15/21 04:28 [place] % (Auto) 10.7 % (0.0-13.0) 04/15/21 04:28 Eos % (Auto) 0.6 % (0.9-2.9) L 04/15/21 04:28 Baso % (Auto) 0.8 % (0.2-1.0) 04/15/21 04:28 Neut # (Auto) 5.4 x10^3/uL (2.2-4.8) H 04/15/21 04:28 Lymph # (Auto) 1.3 X10^3/uL (1.3-2.9) 04/15/21 04:28 [place] # (Auto) 0.8 x10^3/uL (0.3-0.8) 04/15/21 04:28 Eos # (Auto) 0.0 x10^3/uL (0.0-0.2) 04/15/21 04:28 Baso # (Auto) 0.1 X10^3/uL (0.0-0.1) 04/15/21 04:28 Absolute Nucleated RBC 0.1 /100WBC 04/15/21 04:28 Total Counted 100 04/15/21 04:28 Neutrophils % (Manual) 66 % (39-76) 04/15/21 04:28 Band Neutrophils % 1 % (0-10) 03/29/21 04:55 Lymphocytes % (Manual) 26 % (13-43) 04/15/21 04:28 Monocytes % (Manual) 8 % (4-9) 04/15/21 04:28 Eosinophils % (Manual) 1 % (0-6) 04/13/21 04:22 Plt Morphology Comment Normal (NORMAL) 04/15/21 04:28 RBC Morphology Normal (NORMAL) 04/15/21 04:28 Anisocytosis Slight A 04/14/21 04:39 PT 14.8 SECONDS (11.8-14.3) 04/02/21 11:42 INR Target Range - 04/02/21 11:42 INR 1.22 (0.8-1.3) 04/02/21 11:42 APTT 29.2 SECONDS (22.9-36.5) 04/02/21 11:42 PTT Comment - 04/02/21 11:42 D-Dimer 2.51 ug/ml (0.0-0.57) H* 03/14/21 04:39 Sample Site Rrad 04/10/21 04:35 ABG pH 7.480 (7.35-7.45) H 04/10/21 04:35 ABG pCO2 43.0 mmHg (35.0-45.0) 04/10/21 04:35 ABG pO2 140.0 mmHg (80.0-100.0) H 04/10/21 04:35 ABG HCO3 32.0 mmol/L (22-26) H* 04/10/21 04:35 ABG O2 Saturation 99.0 % (90-100) 04/10/21 04:35 ABG Base Excess 7.6 mmol/L (-2.0-2.0) H 04/10/21 04:35 Sree Test Pos 04/10/21 04:35 A-a Gradient 120.0 mmHg 04/10/21 04:35 FiO2 44.0 04/10/21 04:35 Blood Gas Comments Elbert well ms 04/10/21 04:35 Sodium 138 mmol/L (136-145) 04/15/21 04:28 Corrected Sodium TNP 04/15/21 04:28 Potassium 3.6 mmol/L (3.5-5.1) 04/15/21 04:28 Chloride 103 mmol/L (98-107) 04/15/21 04:28 Carbon Dioxide 25.2 mmol/L (21-32) 04/15/21 04:28 BUN 24 mg/dL (7-18) H 04/15/21 04:28 Creatinine 0.71 mg/dL (0.70-1.30) 04/15/21 04:28 Est GFR (MDRD) Af Amer > 60 (>60) 04/15/21 04:28 Est GFR (MDRD) Non-Af > 60 (>60) 04/15/21 04:28 Glucose 95 mg/dL (65-99) 04/15/21 04:28 POC Glucose (mg/dL) 111 mg/dL (65-99) H 03/28/21 11:45 Calcium 8.5 mg/dL (8.5-10.1) 04/15/21 04:28 Corrected Calcium 9.6 mg/dL (8.5-10.1) 04/15/21 04:28 Magnesium 2.0 mg/dL (1.7-2.9) 04/11/21 03:55 Ferritin 1988 ng/mL (26-388) H 03/01/21 11:20 Total Bilirubin 0.70 mg/dL (0.2-1.0) 04/15/21 04:28 AST 25 Units/L (15-37) 04/15/21 04:28 ALT 78 Units/L (12-78) 04/15/21 04:28 Alkaline Phosphatase 87 Units/L (46-116) 04/15/21 04:28 Creatine Kinase 121 Units/L (39-308) 03/01/21 11:20 CK-MB (CK-2) < 1.0 ng/mL (0-4.0) 03/01/21 11:20 CK/CKMB % Calc 0.8 % (<4) 03/01/21 11:20 Troponin I < 0.02 ng/mL (0-1.5) 03/01/21 11:20 C-Reactive Protein 3.20 mg/L (0-3.0) H 04/10/21 04:47 B-Natriuretic Peptide 38.4 pg/mL (0-79) 04/10/21 04:47 Total Protein 5.8 g/dL (6.4-8.2) L 04/15/21 04:28 Albumin 2.6 g/dL (3.4-5.0) L 04/15/21 04:28 Globulin 3.2 g/dL (2.5-4.5) 04/15/21 04:28 Albumin/Globulin Ratio 0.8 Ratio (1.1-2.1) L 04/15/21 04:28 Specimen Type Catherized urine 03/21/21 05:35 Urine Color Yellow (YELLOW) 03/21/21 05:35 Urine Appearance Clear (CLEAR) 03/21/21 05:35 Urine pH 5.0 (5.0 - 8.0) 03/21/21 05:35 Ur Specific [place] 1.015 (1.000-1.030) 03/21/21 05:35 Urine Protein Negative (NEGATIVE) 03/21/21 05:35 Urine Glucose (UA) Negative (NEGATIVE) 03/21/21 05:35 Urine Ketones Negative (NEGATIVE) 03/21/21 05:35 Urine Occult Blood 5+ (NEGATIVE) 03/21/21 05:35 Urine Nitrite Negative (NEGATIVE) 03/21/21 05:35 Urine Bilirubin Negative (NEGATIVE) 03/21/21 05:35 Urine Urobilinogen Normal (NORMAL) 03/21/21 05:35 Ur Leukocyte Esterase Negative (NEGATIVE) 03/21/21 05:35 Urine RBC 5-10 /HPF (0-3) A 03/21/21 05:35 Urine WBC 0-2 /HPF (0-5) 03/21/21 05:35 Ur Squamous Epith Cells Negative /HPF (NEGATIVE) 03/21/21 05:35 Urine Bacteria Negative /HPF (NEGATIVE) 03/21/21 05:35 Urine Mucus Rare /HPF (NEGATIVE) 03/21/21 05:35 Ur Culture Indicated? No/not indicated 03/21/21 05:35 Stool Description 3g semisolid brown 03/27/21 07:00 Stool Description Fob tube 03/27/21 07:00 Stl Occult Blood (IFOB) Negative (NEGATIVE) 03/27/21 07:00 Stool for White Cells Positive (NEGATIVE) A 03/27/21 07:00 Stl C. diff Tox B Gene Negative (NEGATIVE) 03/27/21 07:00 Stl C. diff [id number] Presumptive negative (NEGATIVE) 03/27/21 07:00 Cryptosporid parvum Ag Negative (NEGATIVE) 03/27/21 07:00 Giardia lamblia Ag Negative (NEGATIVE) 03/27/21 07:00 Blood Type A NEGATIVE 04/02/21 11:42 Antibody Screen Negative 04/02/21 11:42 Reason For Visit: ACUTE RESP FAILURE, PNEUMONIA, COVID 19 VIRUS Discharge Diagnosis All Active Problems (Updated 04/13/21 @ 10:52 by JERRY BUTLER) Cough (Acute) Hypomagnesemia (Acute) Urinary retention (Acute) BPH (benign prostatic hyperplasia) (Acute) Infective diarrhea (Acute) Agitation (Acute) Elevated d-dimer (Acute) Pneumonia due to COVID-19 virus (Acute) Acute respiratory failure with hypoxia (Acute) Pneumonia (Acute) COVID-19 virus infection (Acute) Hypoxia (Acute) Hypokalemia (Acute) Plan of Treatment: Continue with present treatment and follow up plan. Pt is to keep follow up appointment as instructed and take medications as ordered. Discharge Medications Discharge Medications: temazepam [From Restoril] Allergy (Verified 03/05/21 09:47) IVP DYE Allergy (Uncoded 03/02/21 18:20) CONTINUE taking the following medications albuterol sulfate 1 puff INHALATION Q6PM PRN 03/01/21 [History] candesartan 16 mg PO DAILY 03/01/21 [History] metoprolol ta-hydrochlorothiaz 1 tab PO DAILY 03/01/21 [History] omeprazole 20 mg PO DAILY 03/01/21 [History] tamsulosin 0.4 mg PO DAILY 03/01/21 [History] New Prescriptions apixaban [Eliquis] 5 mg PO BID 30 Days #60 tab 04/15/21 [Rx] finasteride 5 mg PO DAILY 30 Days #30 tab 04/15/21 [Rx] hydroxyzine pamoate 25 mg PO Q8HR PRN 15 Days #30 cap 04/15/21 [Rx] ipratropium bromide 1 ea NEB BIDRESP 30 Days #60 unit 04/15/21 [Rx] sertraline 50 mg PO DAILY 30 Days #30 tab 04/15/21 [Rx] Discharge Plan Discharge Plan Patient Disposition: [address] [place] [address] SERVICE Condition: Stable Health Concerns: Post Hospitalization: new medications and changes needed to prevent readmission or further decline. Pt educated and given instructions on all concerns. Care Plan Goals: Problem: Respiratory Complications Goal: Improved Uncomplicated Respiratory Status Instructions: Follow provided instructions. Follow up with primary physician as directed. Contact primary care physician or report to the closest Emergency Room if condition worsens. Plan of Treatment: Continue with present treatment and follow up plan. Pt is to keep follow up appointment as instructed and take medications as ordered. Prescriptions: New finasteride 5 mg Tablet 5 mg PO DAILY 30 Days Qty: 30 RF: 0 ipratropium bromide 0.02 % Solution 1 ea NEB BIDRESP 30 Days Qty: 60 RF: 1 hydroxyzine pamoate 25 mg Capsule 25 mg PO Q8HR PRN15 Days Qty: 30 RF: 0 Eliquis 5 mg Tablet 5 mg PO BID 30 Days Qty: 60 RF: 0 sertraline 50 mg Tablet 50 mg PO DAILY 30 Days Qty: 30 RF: 0 Continued metoprolol ta-hydrochlorothiaz 50-25 mg tablet 1 tab PO DAILY RF: 0 tamsulosin 0.4 mg capsule 0.4 mg PO DAILY RF: 0 candesartan 16 mg tablet 16 mg PO DAILY RF: 0 omeprazole 20 mg capsule,delayed release(DR/EC) 20 mg PO DAILY RF: 0 albuterol sulfate 90 mcg/actuation HFA aerosol inhaler 1 puff INHALATION Q6PM PRN (Reason: Shortness Of Breath) RF: 0 Discontinued azithromycin 250 mg tablet 250 mg PO DAILY RF: 0 methylprednisolone 4 mg tablets,dose pack 4 mg PO DIRECTED RF: 0 Follow ups/Referrals Follow ups/Referrals: Pulmonary Rehab [Other] - 1 WEEK (Staff from facility will call to set up appointment.) [facility] [Other] - 1 WEEK (Staff will contact you to set up appointment.) [facility] [REFERRING] - 04/19/21 8:45 am (Raquel) Yon[facility] WARNER [REFERRING] - 04/21/21 2:15 pm Instructions Instructions: Shortness of Breath, Adult, [id number], How to Use an Incentive Spirometer, Benign Prostatic Hypertrophy, Home Oxygen Use, Adult, Hypoxia, COVID-19 Frequently Asked Questions, Cough, Adult, [id number], Weakness, [id number], Indwelling Urinary Catheter Care, Adult, [id number], Hyperventilation, Bleeding Precautions When on Anticoagulant Therapy, Adult, How to Use a Nebulizer, Adult, Acute Respiratory Failure, Adult, Pursed Lip Breathing, Acute Urinary Retention, Male, [id number]
[2021-04-15 13:55] VITALS: BP 111/70
== END 2021-04-15 13:56 | disposition home health service (06) | DRG 177 ==
LOC: ER 11:08 → ICU 16:34
PROVIDERS: ADMIT Internal Medicine; ATTEND Internal Medicine
DX: J12.82 Pneumonia due to coronavirus disease 2019; N40.1 Benign prostatic hyperplasia with lower urinary tract symptoms; R79.89 Other specified abnormal findings of blood chemistry; I10 Essential (primary) hypertension; U07.1 COVID-19; E11.65 Type 2 diabetes mellitus with hyperglycemia; F41.8 Other specified anxiety disorders; Z78.1 Physical restraint status; R79.1 Abnormal coagulation profile; R33.8 Other retention of urine; J15.0 Pneumonia due to Klebsiella pneumoniae; R04.0 Epistaxis; R45.1 Restlessness and agitation; K21.9 Gastro-esophageal reflux disease without esophagitis; B37.1 Pulmonary candidiasis; E83.42 Hypomagnesemia; J96.01 Acute respiratory failure with hypoxia; R26.89 Other abnormalities of gait and mobility; R41.82 Altered mental status, unspecified; R79.82 Elevated C-reactive protein (CRP); E87.6 Hypokalemia